=== PATIENT | female | born 1940 | race Caucasian/White ===

== ENCOUNTER → 2016-10-25 | Outpatient (CLI) | payer MEDICARE, OTHER ==
[~2016-10-25] MED LIST: ASP81TEC PO; CA C1TAB26 PO; CALC-80 PO; CLOP75TA PO; DLT180CCR PO; HYDR-34 PO; HYDR1TAB PO; MULT1CAP27 PO; OMEG1CAP74 PO; SIMV20TA3 PO
--- NOTE | 2016-10-27 07:59 | Diagnostic Imaging Report ---
Bilateral screening mammogram The current study was also evaluated with a Computer Aided Detection (CAD) system. Indication: Screening. No current complaints stated on the questionnaire. COMPARISON: 10/25/15. FINDINGS: The breasts are composed of scattered fibroglandular densities. There are benign-appearing calcifications seen. Allowing for technique and positional differences, no suspicious change is seen. IMPRESSION: No significant change. ACR BI-RADS Category 2: Benign findings. Result letter will be mailed to the patient. Note: At least 10% of breast cancer is not imaged by mammography. Dictated by: Dictated on workstation # [id number]
== END ==
LOC: RAD 10:30
PROVIDERS: ATTEND Family Medicine
DX: Z12.31 Encounter for screening mammogram for malignant neoplasm of breast (principal)
CPT/HCPCS: 77067

== ENCOUNTER → 2017-01-30 | Outpatient (CLI) | payer MEDICARE, OTHER ==
[~2017-01-30] VITALS: Ht 165.1 cm; Wt 56.2 kg
[~2017-01-30] MED LIST changes: +CATHETER FLUSH 10 ML SYR IV PRN; +REGADENOSON 0.4 MG/5 ML SYR (LEXISCAN) IV ONE
[2017-01-30 09:05] VITALS: BP 150/75
--- NOTE | 2017-01-31 08:20 | STRESS TEST ---
DATE OF SERVICE: 01/30/2017 RESTING AND POST REGADENOSON [id number] TETROFOSMIN SPECT CT IMAGING ORDERING PHYSICIAN: Dr. العراقي. PRIMARY CARE PHYSICIAN: Dr. Galarza. CLINICAL DIAGNOSIS: Chest discomfort. Baseline images were carried out after injection of 10.22 mCi of Oogkbuecld-24-j Tetrofosmin. This was followed by 0.4 mg Regadenoson and 31.7 mCi Uapsmxmkfm-12-m Tetrofosmin for stress imaging. The electrocardiogram showed sinus rhythm at baseline. There was nonspecific ST abnormality throughout the study. The electrocardiogram did not change significantly. Overall, the patient tolerated the procedure well. Review of images at rest and following stress does not indicate any significant perfusion defects consistent with significant myocardial ischemia or infarction. Gated images show normal global left ventricular systolic function with normal regional wall motion. Left ventricular ejection fraction is calculated to be 73%. Left ventricular end diastolic volume is 34 mL. TID is absent (1.13). CONCLUSIONS: 1. No evidence of any significant myocardial ischemia or infarction on this study. 2. Normal regional wall motion. 3. Normal global left ventricular systolic function with a calculated ejection fraction of 73%. Job ID: [id number] DocumentID: [id number] Dictated Date: 01/30/2017 14:56:54 [place] Reporter Date: 01/31/2017 07:10:47 Dictated By: MATTHEW العراقي MD, MA, FACP, FACC,
== END ==
LOC: CARD 07:11
PROVIDERS: ATTEND Internal Medicine Cardiovascular Disease
DX: I70.213 Atherosclerosis of native arteries of extremities with intermittent claudication, bilateral legs (principal); I10 Essential (primary) hypertension; E78.4 Other hyperlipidemia; R07.89 Other chest pain
CPT/HCPCS: 78452; 93017

== ENCOUNTER → 2017-10-26 | Outpatient (CLI) | payer MEDICARE, OTHER ==
[~2017-10-26] MED LIST changes: -CATHETER FLUSH 10 ML SYR IV PRN; -REGADENOSON 0.4 MG/5 ML SYR (LEXISCAN) IV ONE
--- NOTE | 2017-10-26 12:30 | Diagnostic Imaging Report ---
INDICATION: Routine screening. Comparison is made with prior mammogram from 10/25/2016 and 10/25/2015. 2-D and 3-D bilateral screening mammography was performed. The current study was also evaluated with a Computer Aided Detection (CAD) system. FINDINGS: Both breasts remain heterogeneously dense, limiting the sensitivity of mammography. Scattered benign-appearing parenchymal and vascular calcifications are noted bilaterally. Circumscribed nodule in the outer right breast appears stable and most consistent with an intramammary lymph node. No spiculated masses or malignant-appearing microcalcifications are seen. The axillae are unremarkable. IMPRESSION: No mammographic features suspicious for malignancy are identified. ACR BI-RADS Category 2: Benign findings. Result letter will be mailed to the patient. Note: At least 10% of breast cancer is not imaged by mammography. Dictated by: Dictated on workstation # [id number]
== END ==
LOC: RAD 10:33
PROVIDERS: ATTEND Family Medicine
DX: Z12.31 Encounter for screening mammogram for malignant neoplasm of breast (principal)
CPT/HCPCS: 77067

== ENCOUNTER → 2018-01-24 | Outpatient (CLI) | payer MEDICARE, OTHER ==
[2018-01-24 15:32] LABS: ALANINE AMINOTRANSFERASE 20 U/L (0-55); ALBUMIN 3.9 GM/DL (3.2-4.5); ALKALINE PHOSPHATASE 67 U/L (40-136); BILIRUBIN,TOTAL 0.3 MG/DL (0.1-1.0); BUN/CREATININE RATIO 8; CALCIUM 9.3 MG/DL (8.5-10.1); CARBON DIOXIDE 25 MMOL/L (21-32); CHLORIDE 98 MMOL/L (98-107); CHOLESTEROL 154 MG/DL (< 200); CREATININE SERUM 0.59 MG/DL (0.60-1.30); GFR ESTIMATED > 60; GLUCOSE 102 MG/DL (70-105); HDL CHOLESTEROL 72 MG/DL (40-60); POTASSIUM 3.7 MMOL/L (3.6-5.0); SODIUM 132 MMOL/L (135-145); TOTAL PROTEIN 6.5 GM/DL (6.4-8.2); TRIGLYCERIDES 128 MG/DL (<150); VLDL CHOLESTEROL 26 MG/DL (5-40)
== END ==
LOC: LAB 14:59
PROVIDERS: ATTEND Internal Medicine Cardiovascular Disease
DX: E78.5 Hyperlipidemia, unspecified (principal); I73.9 Peripheral vascular disease, unspecified; I77.89 Other specified disorders of arteries and arterioles; R07.89 Other chest pain
CPT/HCPCS: 36415; 80053; 80061

== ENCOUNTER 2018-07-03 11:48 | Inpatient (IN) | payer MEDICARE, OTHER ==
[~2018-07-03] VITALS: Ht 160 cm; Wt 54.4 kg
[2018-07-03 04:15] VITALS: BP 140/63
[2018-07-03] MEDS ORDERED: DILT180C54 PO (13:25)
[2018-07-03] MEDS ORDERED: SIMV20TA3 PO (13:25)
[2018-07-03] MEDS ORDERED: MULT-1029 PO (13:25)
[2018-07-03] MEDS ORDERED: CALC-901 PO (13:25)
[2018-07-03] MEDS ORDERED: CLOP75TA28 PO (13:25)
[2018-07-03] MEDS ORDERED: ASPI-983 PO (13:25)
--- NOTE | 2018-07-03 13:28 | NUR ---
SPOKE WITH THE PATIENT ABOUT HER MEDICATIONS. SHE HAD HER BOTTLES WITH HER AND WAS ABLE TO TELL ME EXACTLY HOW SHE TAKES EACH. I COMPARED WITH THE EXT MED HX. ADDITIONALLY SHE TAKES CALCIUM +D 600-800IU HS, ASPIRIN 81MG HS, AND MTV DAILY OTC.
[2018-07-03] MEDS ORDERED: CATHETER FLUSH 10 ML SYR IV PRN (13:45)
[2018-07-03] MEDS ORDERED: KCL 10 MEQ TAB (MICRO K) PO NR (13:45)
[2018-07-03 13:53] VITALS: BP 173/85
[2018-07-03 13:56] LABS: HEMOGLOBIN 13.9 G/DL (11.5-16.0); MEAN PLATELET VOLUME 9.4 FL (7.4-10.4); RED CELL DISTRIBUTION WIDTH 11.6 % (10.0-14.5); WHITE BLOOD COUNT 7.2 10^3/uL (4.3-11.0)
[2018-07-03] MEDS: NS IV 1000 ML 1,000 ML IV SCH (14:07)
[2018-07-03 14:12] LABS: ALANINE AMINOTRANSFERASE 74 U/L (0-55); ALBUMIN 3.8 GM/DL (3.2-4.5); ALKALINE PHOSPHATASE 86 U/L (40-136); BILIRUBIN,TOTAL 0.4 MG/DL (0.1-1.0); BUN/CREATININE RATIO 8; CALCIUM 9.3 MG/DL (8.5-10.1); CARBON DIOXIDE 26 MMOL/L (21-32); CHLORIDE 80 MMOL/L (98-107); CREATININE SERUM 0.53 MG/DL (0.60-1.30); GFR ESTIMATED > 60; GLUCOSE 114 MG/DL (70-105); POTASSIUM 2.8 MMOL/L (3.6-5.0); TOTAL PROTEIN 6.4 GM/DL (6.4-8.2)
[2018-07-03 14:17] LABS: SODIUM 117 MMOL/L (135-145)
[2018-07-03 15:45] VITALS: BP 155/73
[2018-07-03] MEDS ORDERED: KCL 20 MEQ TAB (K-DUR) PO NR (18:30)
--- NOTE | 2018-07-03 18:33 | NUR ---
DR. IRIZARRY HERE AT THIS TIME TO SEE PATIENT, HISTORY AND PHYSICAL COMPLETED AT THIS TIME.
[2018-07-03 19:07] VITALS: BP 165/76
[2018-07-03] MEDS ORDERED: SIMvastatin 20 MG (ZOCOR) TAB PO SCH (21:00)
[2018-07-03] MEDS ORDERED: NON-FORMULARY MEDICATION 1 EA EA (Calcium Carbonate/Vitamin D3 (Calcium 600 + Vit D 800 Ta PO SCH (21:00)
[2018-07-03] MEDS: CALCIUM CARB + VIT D 600 MG (CALCARB + D) TAB PO SCH (21:08)
[2018-07-03] MEDS: ATORVASTATIN 10 MG (LIPITOR) TABLET PO SCH (21:09)
[2018-07-03] MEDS: ASPIRIN E.C. 81 MG (ECOTRIN) TAB PO SCH (21:09)
[2018-07-04 00:28] VITALS: BP 158/74
[2018-07-04] MEDS: NS IV 1000 ML 1,000 ML IV SCH ×2 (03:30→20:12)
[2018-07-04 04:15] VITALS: BP 140/63
[2018-07-04 04:43] LABS: HEMOGLOBIN 12.2 G/DL (11.5-16.0); MEAN PLATELET VOLUME 9.3 FL (7.4-10.4); RED CELL DISTRIBUTION WIDTH 11.8 % (10.0-14.5)
[2018-07-04 05:07] LABS: ALANINE AMINOTRANSFERASE 61 U/L (0-55); ALBUMIN 3.2 GM/DL (3.2-4.5); ALKALINE PHOSPHATASE 71 U/L (40-136); BILIRUBIN,TOTAL 0.3 MG/DL (0.1-1.0); BUN/CREATININE RATIO 9; CALCIUM 8.4 MG/DL (8.5-10.1); CARBON DIOXIDE 23 MMOL/L (21-32); CHLORIDE 91 MMOL/L (98-107); CHOLESTEROL 112 MG/DL (< 200); CREATININE SERUM 0.44 MG/DL (0.60-1.30); GFR ESTIMATED > 60; GLUCOSE 89 MG/DL (70-105); HDL CHOLESTEROL 57 MG/DL (40-60); POTASSIUM 3.3 MMOL/L (3.6-5.0); TOTAL PROTEIN 5.2 GM/DL (6.4-8.2); TRIGLYCERIDES 56 MG/DL (<150); VLDL CHOLESTEROL 11 MG/DL (5-40)
[2018-07-04 05:11] LABS: SODIUM 120 MMOL/L (135-145)
[2018-07-04 08:00] VITALS: BP 155/69
[2018-07-04] MEDS ORDERED: KCL 20 MEQ TAB (K-DUR) PO NR (08:30)
--- NOTE | 2018-07-04 08:57 | History & Physicial ---
History of Present Illness History of Present Illness Reason for visit/HPI patient seen yesterday. Computed not working. Do an H&P today. Patient has a sodium of 117. Patient complains of headache and lightheaded patient has nauseousness and not eating. Patient also having leg muscle weakness Patient not having any mental status change. Patient felt terrible. surgeries fluid around hot, to heart catheterization, and fractured right wrist. Patient admitted area Patient states she has not been eating and only drinking Date of Admission Jul 03, 2018 at 18:32 Time Seen by a Provider: 08:53 I consulted on this patient on 07/04/18 08:53 Attending Physician Dru Irizarry DO Admitting Physician Dru Irizarry DO Consult Allergies and Home Medications Allergies Coded Allergies: NKANo Known Allergies (Verified Allergy, Unknown, 07/03/18) Home Medications Aspirin 81 Mg Tablet.dr, 81 MG PO HS, (Reported) Calcium Carbonate/Vitamin D3 1 Each Tablet, 1 TAB PO HS, (Reported) Clopidogrel Bisulfate 75 Mg Tablet, 75 MG PO DAILY, (Reported) Diltiazem HCl 180 Mg Cap.er.24h, 180 MG PO DAILY, (Reported) Multivit-Min/FA/Lycopene/Lut 1 Each Tablet, 1 TAB PO DAILY, (Reported) Simvastatin 20 Mg Tablet, 20 MG PO HS, (Reported) Patient Home Medication List Home Medication List Reviewed: Yes Past Luzryvn-Rkxhpf-Darurg Hx Patient Social History Employed/Student: retired Alcohol Use: Denies Use Recreational Drug Use: No Type Used: Cigarettes Physical Abuse Screen: No Sexual Abuse: No Recent Foreign Travel: No Contact w/other who traveled: No Recent Hopitalizations: Yes Recent Infectious Disease Expo: No Immunizations Up To Date Tetanus Booster (TDap): More than 5yrs Pediatric: No Date of Pneumonia Vaccine: Feb 23, 2011 Date of Influenza Vaccine: Feb 04, 2019 Surgeries Yes (pericardial effusion drained,mole removed) Respiratory No Currently Using CPAP: No Currently Using BIPAP: No Cardiovascular No Neurological No Reproductive System Hx Reproductive Disorders: No Sexually Transmitted Disease: No Genitourinary No Gastrointestinal No Musculoskeletal Yes (RIGHT WRIST FX, RIGHT SHOULDER PAIN) Endocrine History of Endocrine Disorders: No Are Your Blood Sugars Over 250: No HEENT History of HEENT Disorders: No Loss of Vision: Denies Hearing Impairment: Denies Cancer No Did You Recieve Any Treatments: No Psychosocial History of Psychiatric Problem: No Integumentary History of Skin or Integumenta: No Blood Transfusions History of Blood Disorders: No Family Medical History Family Hx: Alzheimer's disease Cardiovascular disease Diabetes mellitus Parkinson's disease Review of Systems Constitutional: malaise, weakness EENTM: no symptoms reported Respiratory: no symptoms reported Cardiovascular: no symptoms reported Gastrointestinal: other (not eating and drinking much) Genitourinary: no symptoms reported Physical Exam Vital Signs Vital Signs - First Documented 07/03/18 04:15 Temp 98.4 Pulse 61 Resp 20 B/P (MAP) 140/63 (88) Pulse Ox 96 O2 Delivery Room Air O2 Flow Rate 96.00 Capillary Refill : Height, Weight, BMI Height: 5'3.00" Weight: 120lbs. 0.0oz. [id number]; 20.0 BMI Method: General Appearance: No Apparent Distress Eyes: Bilateral Eye Normal Inspection HEENT: Normal ENT Inspection Neck: Full Range of Motion, Normal Inspection Respiratory: Chest Non Tender, Lungs Clear, Normal Breath Sounds, No Accessory Muscle Use, No Respiratory Distress Cardiovascular: Regular Rate, Rhythm, No Murmur Gastrointestinal: Non Tender, Soft Assessment/Plan Assessment and Plan hyponatremia. Headaches. Nauseous this. Leg muscle weakness. Hypertension. Coronary artery disease. Admission Diagnosis Admission Status: Inpatient Order (span 2 midnights) Reason for Inpatient Admission: hyponatremia. Headaches. Nauseousness. Leg muscle weakness. Hypertension. Coronary artery disease. Clinical Quality Measures DVT/VTE Risk/Contraindication: Risk Factor Score Per Nursin RFS Level Per Nursing on Admit: 3=High Contraindications-Pharm: Other *list below* DRU IRIZARRY DO Jul 04, 2018 08:57
[2018-07-04] MEDS ORDERED: NON-FORMULARY MEDICATION 1 EA EA (Diltiazem HCl (Cartia Xt) 180 MG) PO SCH (09:00)
[2018-07-04] MEDS ORDERED: NON-FORMULARY MEDICATION 1 EA EA (Multivit-Min/FA/Lycopene/Lut (Centrum Silver Tablet) 1 T PO SCH (09:00)
--- NOTE | 2018-07-04 09:00 | Progress Note (SOAP) ---
Subjective Time Seen by a Provider: 08:58 Subjective/Events-last exam patient feeling a little better today. Sodium 120. Patient still not eating much. Nurse state that patient had blood from vagina. Ultrasound ordered of the uterus Objective Exam Vital Signs Date Time Temp Pulse Resp B/P (MAP) Pulse Ox O2 Delivery O2 Flow Rate FiO2 07/04/18 08:00 98.4 63 18 155/69 (97) 96 Room Air 07/04/18 04:15 98.4 61 20 140/63 (88) 96 Room Air 07/04/18 00:28 98.2 64 18 158/74 (102) 96 Room Air 07/03/18 20:30 Room Air 07/03/18 19:07 97.6 66 18 165/76 (105) 98 Room Air 07/03/18 16:42 98 Room Air 07/03/18 15:45 98.9 65 16 155/73 (100) 98 Room Air 07/03/18 13:53 98.0 76 22 173/85 99 I & O 07/04/18 06:59 Intake Total 170 ml Balance 170 ml Capillary Refill : General Appearance: No Apparent Distress, WD/WN HEENT: Normal ENT Inspection Neck: Normal Inspection Respiratory: Lungs Clear, No Accessory Muscle Use, No Respiratory Distress Cardiovascular: Regular Rate, Rhythm, No Murmur Gastrointestinal: non tender, soft Results Lab Laboratory Tests 07/03/18 13:40 07/04/18 04:10 Laboratory Tests 07/03/18 13:40: White Blood Count 7.2, Red Blood Count 4.34L, Hemoglobin 13.9, Hematocrit 38, Mean Corpuscular Volume 87, Mean Corpuscular Hemoglobin 32, Mean Corpuscular Hemoglobin Concent 37H, Red Cell Distribution Width 11.6, Platelet Count 219, Mean Platelet Volume 9.4, Sodium Level 117*L, Potassium Level 2.8L, Chloride Level 80L, Carbon Dioxide Level 26, Anion Gap 11, Blood Urea Nitrogen 4L, Creatinine 0.53L, Estimat Glomerular Filtration Rate > 60, BUN/Creatinine Ratio 8, Glucose Level 114H, Calcium Level 9.3, Corrected Calcium 9.5, Total Bilirubin 0.4, Aspartate Amino Transf (AST/SGOT) 77H, Alanine Aminotransferase ( ALT/SGPT) 74H, Alkaline Phosphatase 86, Total Protein 6.4, Albumin 3.8 07/04/18 04:10: White Blood Count 6.0, Red Blood Count 3.74L, Hemoglobin 12.2, Hematocrit 33L, Mean Corpuscular Volume 88, Mean Corpuscular Hemoglobin 33, Mean Corpuscular Hemoglobin Concent 37H, Red Cell Distribution Width 11.8, Platelet Count 211, Mean Platelet Volume 9.3, Sodium Level 120*L, Potassium Level 3.3L, Chloride Level 91L, Carbon Dioxide Level 23, Anion Gap 6, Blood Urea Nitrogen 4L, Creatinine 0.44L, Estimat Glomerular Filtration Rate > 60, BUN/Creatinine Ratio 9, Glucose Level 89, Calcium Level 8.4L, Corrected Calcium 9.0, Total Bilirubin 0.3, Aspartate Amino Transf (AST/SGOT) 62H, Alanine Aminotransferase (ALT/SGPT) 61H, Alkaline Phosphatase 71, Total Protein 5.2L, Albumin 3.2, Triglycerides Level 56, Cholesterol Level 112, LDL Cholesterol Direct 32, VLDL Cholesterol 11 , HDL Cholesterol 57 Assessment/Plan Assessment/Plan Assess & Plan/Chief Complaint sodium 120. Hypertension. Not eating. Headaches. Nauseousness. Leg muscle weakness. Coronary artery disease. Postmenopausal vaginal bleeding Clinical Quality Measures Admission Status Admission Dx hyponatremia. Headaches. Nauseous this. Leg muscle weakness. Hypertension. Coronary artery disease. DVT/VTE Risk/Contraindication: Risk Factor Score Per Nursin RFS Level Per Nursing on Admit: 3=High Contraindications-Pharm: Other *list below* ISIDRO IRIZARRY DO Jul 04, 2018 09:00
[2018-07-04] MEDS: MULTIVIT W/MINERALS TAB (THERAGRAN M) PO SCH (09:38)
[2018-07-04] MEDS: CLOPIDOGREL 75 MG (PLAVIX) TABLET PO SCH (09:38)
[2018-07-04] MEDS: DILTIAZEM 180 MG (CARDIZEM CD) CAP PO SCH (09:38)
--- NOTE | 2018-07-04 10:21 | Diagnostic Imaging Report ---
EXAMINATION: Pelvic ultrasound. INDICATION: Postmenopausal bleeding There are no prior studies available for comparison. The uterus is not enlarged measuring 4.0 x 3.5 x 2.0 CM. The endometrial lining does not seem to be abnormally thickened measuring 3 MM (normal postmenopausal endometrial thickness 4 MM or less). There is no focal solid mass involving the uterus to suggest a fibroid. There may be a small subcentimeter nabothian cyst. Neither ovary could be identified. There is no solid pelvic mass noted. There may be a small amount of free fluid in the pelvis. IMPRESSION: 1. There is no acute pelvic abnormality identified although neither ovary could be identified. 2. The endometrial lining is not abnormally thickened. Dictated by: Dictated on workstation # [id number]
[2018-07-04 12:00] VITALS: BP 151/65
--- NOTE | 2018-07-04 15:35 | NUR ---
CM/SS, initial interview. Patient resides home alone and has been IADL of all activities, including driving. She does not have children but does have family members whom she indicates are attentive and caring. 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 DME: Her [id number]-uf-fnd is getting her a FWW arranged through [facility]. Another family member is getting her a medical alert system and does work at [employer], [employer]rianne [employer]. At this time, there are no obvious concerns and patient indicates she will go home at discharge as before. Care Management staff will continue to follow for developments and post hospital care needs.
[2018-07-04 17:02] VITALS: BP 154/72
[2018-07-04 19:20] VITALS: BP 153/72
[2018-07-04] MEDS: ATORVASTATIN 10 MG (LIPITOR) TABLET PO SCH (20:11)
[2018-07-04] MEDS: CALCIUM CARB + VIT D 600 MG (CALCARB + D) TAB PO SCH (20:11)
[2018-07-04] MEDS: ASPIRIN E.C. 81 MG (ECOTRIN) TAB PO SCH (20:11)
[2018-07-05] VITALS (7 sets, daily range): BP systolic 160–178; BP diastolic 72–78
[2018-07-05] MEDS: MULTIVIT W/MINERALS TAB (THERAGRAN M) PO SCH (05:27)
[2018-07-05 06:45] LABS: MEAN PLATELET VOLUME 10.1 FL (7.4-10.4); RED CELL DISTRIBUTION WIDTH 12.1 % (10.0-14.5); WHITE BLOOD COUNT 7.7 10^3/uL (4.3-11.0)
[2018-07-05 07:07] LABS: BUN/CREATININE RATIO 6; CALCIUM 9.1 MG/DL (8.5-10.1); CARBON DIOXIDE 24 MMOL/L (21-32); CHLORIDE 93 MMOL/L (98-107); CREATININE SERUM 0.54 MG/DL (0.60-1.30); GFR ESTIMATED > 60; GLUCOSE 83 MG/DL (70-105); SODIUM 126 MMOL/L (135-145)
[2018-07-05] MEDS ORDERED: KCL 20 MEQ TAB (K-DUR) PO NR (08:15)
--- NOTE | 2018-07-05 08:17 | Progress Note (SOAP) ---
Subjective Time Seen by a Provider: 08:14 Subjective/Events-last exam Patient still has an unsteady gait. Sodium 126. Patient will need a walker with wheels when discharged. To have physical therapy patient. Patient not ready for discharge today Objective Exam Vital Signs Date Time Temp Pulse Resp B/P (MAP) Pulse Ox O2 Delivery O2 Flow Rate FiO2 07/05/18 04:00 99.2 65 16 160/77 (104) 97 Room Air 07/05/18 00:00 97.4 62 18 161/74 (103) 97 Room Air 07/04/18 20:00 Room Air 07/04/18 19:20 98.0 71 16 153/72 (99) 95 Room Air 07/04/18 17:02 98.4 75 16 154/72 (99) 96 Room Air 07/04/18 12:00 98.4 58 18 151/65 (93) 96 Room Air I & O 07/05/18 07:00 Intake Total 300 ml Output Total 1450 ml Balance -1150 ml Capillary Refill : General Appearance: No Apparent Distress, WD/WN HEENT: Normal ENT Inspection Neck: Full Range of Motion, Normal Inspection Respiratory: No Accessory Muscle Use, No Respiratory Distress Cardiovascular: Regular Rate, Rhythm Results Lab Laboratory Tests 07/05/18 05:34 Laboratory Tests 07/05/18 05:34: White Blood Count 7.7, Red Blood Count 4.42, Hemoglobin 14.0, Hematocrit 40, Mean Corpuscular Volume 90, Mean Corpuscular Hemoglobin 32, Mean Corpuscular Hemoglobin Concent 35, Red Cell Distribution Width 12.1, Platelet Count 236, Mean Platelet Volume 10.1, Sodium Level 126L, Potassium Level 3.0L, Chloride Level 93L, Carbon Dioxide Level 24, Anion Gap 9, Blood Urea Nitrogen 3L, Creatinine 0.54L, Estimat Glomerular Filtration Rate > 60, BUN/Creatinine Ratio 6, Glucose Level 83, Calcium Level 9.1 Assessment/Plan Assessment/Plan Assess & Plan/Chief Complaint sodium 120. Hypertension. Not eating. Headaches. Nauseousness. Leg muscle weakness. Coronary artery disease. Postmenopausal vaginal bleeding. . 07/05/18. Sodium 126. Hypertension. Patient still has unsteady gait. Patient needs a walker with discharge. To get physical therapy Clinical Quality Measures Admission Status Admission Dx hyponatremia. Headaches. Nauseous this. Leg muscle weakness. Hypertension. Coronary artery disease. DVT/VTE Risk/Contraindication: Risk Factor Score Per Nursin RFS Level Per Nursing on Admit: 3=High Contraindications-Pharm: Other *list below* ISIDRO IRIZARRY DO Jul 05, 2018 08:17
[2018-07-05] MEDS: NS IV 1000 ML 1,000 ML IV SCH ×2 (09:42→22:55)
[2018-07-05] MEDS: CLOPIDOGREL 75 MG (PLAVIX) TABLET PO SCH (09:43)
[2018-07-05] MEDS: DILTIAZEM 180 MG (CARDIZEM CD) CAP PO SCH (09:43)
--- NOTE | 2018-07-05 11:34 | Physical Therapy Evaluation ---
PT Evaluation-General Medical Diagnosis Admission Date Jul 03, 2018 at 18:32 Medical Diagnosis: Hypoatremia, PAD Onset Date: Jul 03, 2018 Therapy Diagnosis Therapy Diagnosis: decreased mobility, weakness Height/Weight Height (Feet): 5 Height (Inches): 3.00 Weight (Pounds): 120 Weight (Ounces): 0.0 Precautions Precautions/Isolations: Standard Precautions Weight Bear Status Right Lower Extremity: Right Full Weight Bearing Left Lower Extremity: Left Full Weight Bearing Referral Physician: Dru Galarza DO Reason for Referral: Evaluation/Treatment Medical History Pertinent Medical History: CAD, HTN Additional Medical History R wrist fx Current History Referral to hospital from Dr. Galarza Reviewed History: Yes Social History Home: Single Level Current Living Status: Alone Entry Into Home: Stairs Without Railing PT Steps Into Home: 2 Prior/Core FIM Prior Level of Function Therapy Code Descriptions/Definitions Functional [place] Measure: 0=Not Assessed/NA 4=Minimal Assistance 1=Total Assistance 5=Supervision or Setup 2=Maximal Assistance 6=Modified [place] 3=Moderate Assistance 7=Complete [place] Therapy Quality Codes: 6 Independent with activity with or without an assistive device 5 Patient requires set up or clean up by helper. Patient completes activity by themselves 4 Supervision or touching assist (CGA). [place] provide cues , steadying assist 3 The helper provides less than half the effort to complete the activity 2 The helper provides more than half the effort to complete the activity 1 Dependent. The helper does all the effort to complete an activity 7 Patient refused to complete or attempt activity 9 The patient did not perform the activity before the current illness or injury 88 Not attempted due to Medical conditions or safety concerns Functional Abilities and Goals: Independent: Patient completed the activities by him/herself, with or without an assistive device, with no assistance from a helper. Needed Some Help: Patient needed partial assistance from another person to complete activities. Dependent: A helper completed the activities for the patient. 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 PT Evaluation-Current Subjective Pt is in bed and agrees to PT. Pt has hearing aids in, but from her responses to questions they do not seem to be on. Pain Numeric Pain Scale: 0-No Pain Location: No Pain Reported Pt/Family Goals Pt to return home. Objective Patient Orientation: Person Attachments: IV ROM/Strength ROM Lower Extremities WNL Strength Lower Extremities gross motor RLE (4/5); LLE (4-/5) Integumentary/Posture Bowel Incontinence: No Bladder Incontinence: No Neuromuscular (Tone, Coordination, Reflexes) NT Sensory Vision: Functional Hearing: Impaired Sensation Right Lower Extremit: Intact Sensation Left Lower Extremity: Intact Transfers Therapy Code Descriptions/Definitions Functional [place] Measure: 0=Not Assessed/NA 4=Minimal Assistance 1=Total Assistance 5=Supervision or Setup 2=Maximal Assistance 6=Modified [place] 3=Moderate Assistance 7=Complete [place] Transfers (B, C, W/C) (FIM): 5 Supine to/from Sit: 6 Sit to/from Stand: 5 Gait Mode of Locomotion: Walk Anticipated Mode of Locomotion: Walk Gait (FIM): 2 Distance (FIM): 9=415-44 ft Distance: 125' Gait Level of Assist: 4 Gait Persons Needed: 1 Gait Assistive Device: FWW Balance Sitting Static: Good Sitting Dynamic: Good Standing Static: Good Standing Dynamic: Good Assessment/Needs Pt was able to perform bed mobility mod I. Pt demonstrated sit<>stand transfer from EOB to FWW CGA for safety. During amb pt required VC for safety of FWW to stay within the walker. Pt has safety concerns during transfers due to not using proper hand placement. Pt returned to room and transferred to EOB. Pt was able to perform seated LE ex with SPT instruction (AP, LAQ, hip flex, hip abd) x15 reps. Pt is in bed with all needs met. PT to continue to work on FWW safety with transfers and amb and improve pts general strength. Rehab Potential: Good Post Rehab Potential-Barriers: co-morbidities PT Short Term Goals Short Term Goals Time Frame: Jul 12, 2018 Transfers (B,C,W/C) (FIM): 6 Gait (FIM): 6 Distance (FIM): 3=150 ft Gait Distance Comment: 175' Gait Level of Assist: 6 Gait Assistive Device: FWW PT Plan Problem List Problem List: Activity Tolerance, Functional Strength, Safety, Balance, Gait, Transfer, Bed Mobility, ROM Treatment/Plan Treatment Plan: Continue Plan of Care Treatment Plan: Bed Mobility, Education, Functional Activity [place], Functional Strength, Gait, Safety, Therapeutic Exercise, Transfers Treatment Duration: Jul 12, 2018 Frequency: 6 times per week Estimated Hrs Per Day: .25 hour per day Patient and/or Family Agrees t: Yes Safety Risks/Education Patient Education: Gait Training, Transfer Techniques, Correct Positioning, Safety Issues Teaching Recipient: Patient Teaching Methods: Demonstration, Discussion Discharge Recommendations Therapy D/C Recommendations: Home w/ Family Support Time/GCodes Time In: 1002 Time Out: 1016 Total Billed Treatment Time: 14 Total Billed Treatment 1 visit EVL 14 min [place] PT Jul 05, 2018 11:34
[2018-07-05] MEDS: ASPIRIN E.C. 81 MG (ECOTRIN) TAB PO SCH (19:45)
[2018-07-05] MEDS: ATORVASTATIN 10 MG (LIPITOR) TABLET PO SCH (19:45)
[2018-07-05] MEDS: CALCIUM CARB + VIT D 600 MG (CALCARB + D) TAB PO SCH (19:45)
[2018-07-06 04:12] LABS: HEMOGLOBIN 12.5 G/DL (11.5-16.0); MEAN PLATELET VOLUME 9.6 FL (7.4-10.4); RED CELL DISTRIBUTION WIDTH 12.3 % (10.0-14.5); WHITE BLOOD COUNT 6.4 10^3/uL (4.3-11.0)
[2018-07-06 04:31] LABS: BUN/CREATININE RATIO 9; CALCIUM 8.5 MG/DL (8.5-10.1); CARBON DIOXIDE 22 MMOL/L (21-32); CHLORIDE 96 MMOL/L (98-107); CREATININE SERUM 0.43 MG/DL (0.60-1.30); GFR ESTIMATED > 60; GLUCOSE 94 MG/DL (70-105); POTASSIUM 3.1 MMOL/L (3.6-5.0); SODIUM 126 MMOL/L (135-145)
[2018-07-06] MEDS: MULTIVIT W/MINERALS TAB (THERAGRAN M) PO SCH (06:17)
[2018-07-06 08:00] VITALS: BP 174/79
[2018-07-06] MEDS: DILTIAZEM 180 MG (CARDIZEM CD) CAP PO SCH (08:40)
[2018-07-06] MEDS: CLOPIDOGREL 75 MG (PLAVIX) TABLET PO SCH (08:40)
--- NOTE | 2018-07-06 11:28 | Physical Therapy Daily Note ---
PT Daily Note-Current Subjective Pt. agrees to Rx and states she hopes she will get a FWW for home use at [place]. Pain Location: No Pain Reported Mental Status Patient Orientation: Normal For Age Attachments: IV Transfers Therapy Code Descriptions/Definitions Functional [place] Measure: 0=Not Assessed/NA 4=Minimal Assistance 1=Total Assistance 5=Supervision or Setup 2=Maximal Assistance 6=Modified [place] 3=Moderate Assistance 7=Complete [place] Therapy Quality Codes: 6 Independent with activity with or without an assistive device 5 Patient requires set up or clean up by helper. Patient completes activity by themselves 4 Supervision or touching assist (CGA). [place] provide cues , steadying assist 3 The helper provides less than half the effort to complete the activity 2 The helper provides more than half the effort to complete the activity 1 Dependent. The helper does all the effort to complete an activity 7 Patient refused to complete or attempt activity 9 The patient did not perform the activity before the current illness or injury 88 Not attempted due to Medical conditions or safety concerns in out bed and chair CGA Weight Bearing Right Lower Extremity: Right Full Weight Bearing Left Lower Extremity: Left Full Weight Bearing Gait Training Gait Assistive Device: FWW 150ft x 2 FWW needed instruction for use of FWW and steering. slow, some fatigue. Exercises Seated Therapy Exercises: Ankle pumps, Sit to stand, Long arc quads, Hip flexion, Hip abd/add Seated Reps: 14 Assessment Current Status: Good Progress PT Short Term Goals Short Term Goals Time Frame: Jul 12, 2018 Transfers (B,C,W/C) (FIM): 6 Gait (FIM): 6 Distance (FIM): 3=150 ft Gait Distance Comment: 175' Gait Level of Assist: 6 Gait Assistive Device: FWW PT Plan Treatment/Plan Treatment Plan: Continue Plan of Care Treatment Plan: Bed Mobility, Education, Functional Activity [place], Functional Strength, Gait, Safety, Therapeutic Exercise, Transfers Treatment Duration: Jul 12, 2018 Frequency: 6 times per week Estimated Hrs Per Day: .25 hour per day Patient and/or Family Agrees t: Yes Safety Risks/Education Patient Education: Gait Training, Transfer Techniques, Correct Positioning, Disease Process, Safety Issues Teaching Recipient: Patient Teaching Methods: Demonstration, Discussion Response to Teaching: Verbalize Understanding, Return Demonstration, Reinforcement Needed Time/GCodes Time In: 1100 Time Out: 1123 Total Billed Treatment Time: 23 Total Billed Treatment 1,GT13m,EX10m G Codes Necessary: ANY Baker DIE DEVELOPER Jul 06, 2018 11:28
--- NOTE | 2018-07-06 12:40 | Progress Note-Hospitalist ---
Subjective HPI/CC On Admission Date Seen by Provider: Jul 06, 2018 Time Seen by Provider: 11:00 Subjective/Events-last exam Patient talks about her bowels a lot to great detail about a recent impaction Still weak Has h/o low sodium in the past Fluid restriction tolerated Review of Systems General: Fatigue Objective Exam Vital Signs Vital Signs Date Time Temp Pulse Resp B/P (MAP) Pulse Ox O2 Delivery O2 Flow Rate FiO2 07/06/18 08:00 98.2 70 20 174/79 (110) 98 Room Air 07/03/18 04:15 96.00 Capillary Refill : General Appearance: No Apparent Distress, WD/WN, Chronically ill HEENT: Normal ENT Inspection Neck: Full Range of Motion, Normal Inspection Respiratory: Lungs Clear, Normal Breath Sounds, No Accessory Muscle Use, No Respiratory Distress Cardiovascular: Regular Rate, Rhythm Gastrointestinal: Non Tender, Soft Neurologic/Psychiatric: Alert, Oriented x3, No Motor/Sensory Deficits, Normal Mood/Affect Results/Procedures Lab Laboratory Tests 07/06/18 03:35 Patient resulted labs reviewed. Assessment/Plan Assessment and Plan Assess & Plan/Chief Complaint Assessment: Hyponatremia Weakness Nausea h/o constipation Plan: Monitor bowels Fluid restriction Diagnosis/Problems Diagnosis/Problems (1) Hyponatremia Status: Acute (2) Weakness Status: Acute (3) Nausea Status: Acute Clinical Quality Measures DVT/VTE Risk/Contraindication: Risk Factor Score Per Nursin RFS Level Per Nursing on Admit: 3=High Contraindications-Pharm: Other *list below* MYRON ALEXANDRA DO Jul 06, 2018 12:40
[2018-07-06 15:33] VITALS: BP 164/70
[2018-07-06] MEDS: ASPIRIN E.C. 81 MG (ECOTRIN) TAB PO SCH (19:31)
[2018-07-06] MEDS: ATORVASTATIN 10 MG (LIPITOR) TABLET PO SCH (19:31)
[2018-07-06] MEDS: CALCIUM CARB + VIT D 600 MG (CALCARB + D) TAB PO SCH (19:31)
[2018-07-06 23:00] VITALS: BP 164/73
[2018-07-06] MEDS: NS IV 1000 ML 1,000 ML IV SCH (23:52)
[2018-07-07] MEDS: MULTIVIT W/MINERALS TAB (THERAGRAN M) PO SCH (05:28)
[2018-07-07] MEDS: NS IV 1000 ML 1,000 ML IV SCH ×2 (05:29→13:38)
[2018-07-07 06:22] LABS: BASOPHILS % (AUTO) 1 % (0-10); EOSINOPHILS # (AUTO) 0.1 10^3/uL (0.0-0.3); EOSINOPHILS % (AUTO) 2 % (0-10); HEMATOCRIT 36 % (35-52); HEMOGLOBIN 12.8 G/DL (11.5-16.0); LYMPHOCYTES # (AUTO) 0.9 X 10^3 (1.0-4.0); LYMPHOCYTES % (AUTO) 15 % (12-44); MEAN CORPUSCULAR HEMOGLOBIN 32 PG (25-34); MEAN CORPUSCULAR HGB CONC 35 G/DL (32-36); MEAN CORPUSCULAR VOLUME 90 FL (80-99); MEAN PLATELET VOLUME 9.3 FL (7.4-10.4); MONOCYTES # (AUTO) 0.9 X 10^3 (0.0-1.0); MONOCYTES % (AUTO) 14 % (0-12); NEUTROPHILS # (AUTO) 4.1 X 10^3 (1.8-7.8); NEUTROPHILS % (AUTO) 68 % (42-75); PLATELET COUNT 205 10^3/uL (130-400); RED CELL DISTRIBUTION WIDTH 12.3 % (10.0-14.5)
[2018-07-07 06:48] LABS: ALANINE AMINOTRANSFERASE 42 U/L (0-55); ALBUMIN 3.2 GM/DL (3.2-4.5); ALKALINE PHOSPHATASE 73 U/L (40-136); BILIRUBIN,TOTAL 0.3 MG/DL (0.1-1.0); BUN/CREATININE RATIO 7; CALCIUM 8.3 MG/DL (8.5-10.1); CARBON DIOXIDE 22 MMOL/L (21-32); CHLORIDE 95 MMOL/L (98-107); CREATININE SERUM 0.45 MG/DL (0.60-1.30); GFR ESTIMATED > 60; GLUCOSE 101 MG/DL (70-105); POTASSIUM 2.8 MMOL/L (3.6-5.0); SODIUM 126 MMOL/L (135-145); TOTAL PROTEIN 5.4 GM/DL (6.4-8.2)
[2018-07-07 08:00] VITALS: BP 170/81
[2018-07-07] MEDS: DILTIAZEM 180 MG (CARDIZEM CD) CAP PO SCH (08:36)
[2018-07-07] MEDS: CLOPIDOGREL 75 MG (PLAVIX) TABLET PO SCH (08:37)
--- NOTE | 2018-07-07 12:59 | Progress Note-Hospitalist ---
Subjective HPI/CC On Admission Date Seen by Provider: Jul 07, 2018 Time Seen by Provider: 11:10 Subjective/Events-last exam Sodium remains 126 Maintain on IV fluid Changed ice chips to Gatorade Bowel movement yesterday Denies any other significant problems Review of Systems General: Fatigue Objective Exam Vital Signs Vital Signs Date Time Temp Pulse Resp B/P (MAP) Pulse Ox O2 Delivery O2 Flow Rate FiO2 07/07/18 16:07 97.2 67 16 158/80 (106) 99 Room Air 07/03/18 04:15 96.00 Capillary Refill : General Appearance: No Apparent Distress, WD/WN, Chronically ill HEENT: Normal ENT Inspection Neck: Full Range of Motion, Normal Inspection Respiratory: Lungs Clear, Normal Breath Sounds, No Accessory Muscle Use, No Respiratory Distress Cardiovascular: Regular Rate, Rhythm Gastrointestinal: Non Tender, Soft Neurologic/Psychiatric: Alert, Oriented x3, No Motor/Sensory Deficits, Normal Mood/Affect Results/Procedures Lab Laboratory Tests 07/07/18 06:02 Patient resulted labs reviewed. Assessment/Plan Assessment and Plan Assess & Plan/Chief Complaint Assessment: Hyponatremia Weakness Nausea h/o constipation Plan: Monitor bowels Fluid restriction Diagnosis/Problems Diagnosis/Problems (1) Hyponatremia Status: Acute (2) Weakness Status: Acute (3) Nausea Status: Acute Clinical Quality Measures DVT/VTE Risk/Contraindication: Risk Factor Score Per Nursin RFS Level Per Nursing on Admit: 3=High Contraindications-Pharm: Other *list below* MYRON ALEXANDRA DO Jul 07, 2018 12:59
[2018-07-07 16:07] VITALS: BP 158/80
[2018-07-07] MEDS: ASPIRIN E.C. 81 MG (ECOTRIN) TAB PO SCH (19:35)
[2018-07-07] MEDS: CALCIUM CARB + VIT D 600 MG (CALCARB + D) TAB PO SCH (19:35)
[2018-07-07] MEDS: ATORVASTATIN 10 MG (LIPITOR) TABLET PO SCH (19:35)
[2018-07-07 23:00] VITALS: BP 168/76
[2018-07-08] MEDS: NS IV 1000 ML 1,000 ML IV SCH (00:46)
[2018-07-08] MEDS: MULTIVIT W/MINERALS TAB (THERAGRAN M) PO SCH (05:06)
--- NOTE | 2018-07-08 07:59 | Progress Note (SOAP) ---
Subjective Time Seen by a Provider: 07:57 Subjective/Events-last exam Hyponatremia. Elevated liver tests. Hypokalemia. Hypertension. Patient getting around with walker Objective Exam Vital Signs Date Time Temp Pulse Resp B/P (MAP) Pulse Ox O2 Delivery O2 Flow Rate FiO2 07/07/18 23:00 97.2 70 16 168/76 (106) 99 Room Air 07/07/18 20:24 Room Air 07/07/18 16:07 97.2 67 16 158/80 (106) 99 Room Air 07/07/18 08:15 98 Room Air 07/07/18 08:00 97.8 70 18 170/81 (110) 99 Room Air I & O 07/08/18 07:00 Intake Total 2480 ml Balance 2480 ml Capillary Refill : General Appearance: No Apparent Distress, WD/WN HEENT: Normal ENT Inspection Neck: Full Range of Motion, Normal Inspection Respiratory: Lungs Clear, No Accessory Muscle Use, No Respiratory Distress Cardiovascular: Regular Rate, Rhythm, No Murmur Gastrointestinal: non tender, soft Assessment/Plan Assessment/Plan Assess & Plan/Chief Complaint sodium 120. Hypertension. Not eating. Headaches. Nauseousness. Leg muscle weakness. Coronary artery disease. Postmenopausal vaginal bleeding. . 07/05/18. Sodium 126. Hypertension. Patient still has unsteady gait. Patient needs a walker with discharge. To get physical therapy. . 07/08/18. Hyponatremia. Hypokalemia. Hypertension. Patient uses walker to get around. Clinical Quality Measures Admission Status Admission Dx hyponatremia. Headaches. Nauseous this. Leg muscle weakness. Hypertension. Coronary artery disease. DVT/VTE Risk/Contraindication: Risk Factor Score Per Nursin RFS Level Per Nursing on Admit: 3=High Contraindications-Pharm: Other *list below* ISIDRO IRIZARRY DO Jul 08, 2018 07:59
[2018-07-08 08:00] VITALS: BP 171/69
[2018-07-08] MEDS ORDERED: KCL 10 MEQ TAB (MICRO K) PO NR (08:00)
[2018-07-08] MEDS ORDERED: SODIUM CHLORIDE 1 GM TAB (NON-FORMULARY) PO NR (08:45)
[2018-07-08 08:57] LABS: BUN/CREATININE RATIO 7; CALCIUM 8.9 MG/DL (8.5-10.1); CARBON DIOXIDE 25 MMOL/L (21-32); CHLORIDE 96 MMOL/L (98-107); CREATININE SERUM 0.56 MG/DL (0.60-1.30); GFR ESTIMATED > 60; GLUCOSE 116 MG/DL (70-105); SODIUM 131 MMOL/L (135-145)
[2018-07-08 09:06] LABS: POTASSIUM 2.5 MMOL/L (3.6-5.0)
[2018-07-08] MEDS: DILTIAZEM 180 MG (CARDIZEM CD) CAP PO SCH (09:09)
[2018-07-08] MEDS: CLOPIDOGREL 75 MG (PLAVIX) TABLET PO SCH (09:09)
--- NOTE | 2018-07-08 09:39 | Physical Therapy Daily Note ---
PT Daily Note-Current Subjective Pt in bed and agrees to PT. Pain Numeric Pain Scale: 0-No Pain Location: No Pain Reported Mental Status Patient Orientation: Person, Place Attachments: IV Transfers Therapy Code Descriptions/Definitions Functional [place] Measure: 0=Not Assessed/NA 4=Minimal Assistance 1=Total Assistance 5=Supervision or Setup 2=Maximal Assistance 6=Modified [place] 3=Moderate Assistance 7=Complete [place] Therapy Quality Codes: 6 Independent with activity with or without an assistive device 5 Patient requires set up or clean up by helper. Patient completes activity by themselves 4 Supervision or touching assist (CGA). [place] provide cues , steadying assist 3 The helper provides less than half the effort to complete the activity 2 The helper provides more than half the effort to complete the activity 1 Dependent. The helper does all the effort to complete an activity 7 Patient refused to complete or attempt activity 9 The patient did not perform the activity before the current illness or injury 88 Not attempted due to Medical conditions or safety concerns Transfers (B, C, W/C) (FIM): 6 Scootin Sit to/from Stand: 6 Weight Bearing Right Lower Extremity: Right Full Weight Bearing Left Lower Extremity: Left Full Weight Bearing Gait Training Gait (FIM): 6 Distance (FIM): 3=150 ft Distance: 300' Gait Level of Assist: 6 Gait Persons Needed: 1 Gait Assistive Device: FWW Exercises Seated Therapy Exercises: Ankle pumps, Long arc quads, Hip flexion, Hip abd/add Seated Reps: 15 Assessment Current Status: Good Progress Pt was able to perform bed mobility mod I. Pt transfers mod I with proper safety hand placement. Pt was able to amb 300' with mod I and SPT assisted with IV pole. Pt returned to room and transferred to recliner. Pt was able to perform seated LE ex with instruction. Pt has all needs met and is in recliner. PT Short Term Goals Short Term Goals Time Frame: Jul 12, 2018 Transfers (B,C,W/C) (FIM): 6 Gait (FIM): 6 Distance (FIM): 3=150 ft Gait Distance Comment: 175' Gait Level of Assist: 6 Gait Assistive Device: FWW PT Plan Problem List Problem List: Activity Tolerance, Functional Strength, Safety, Balance, Gait, Transfer, Bed Mobility, ROM Treatment/Plan Treatment Plan: Continue Plan of Care Treatment Plan: Bed Mobility, Education, Functional Activity [place], Functional Strength, Gait, Safety, Therapeutic Exercise, Transfers Treatment Duration: Jul 12, 2018 Frequency: 6 times per week Estimated Hrs Per Day: .25 hour per day Patient and/or Family Agrees t: Yes Time/GCodes Time In: 813 Time Out: 826 Total Billed Treatment Time: 13 Total Billed Treatment 1 visit FA 13 min KUSHAL HILLS PT Jul 08, 2018 09:39
[2018-07-08] MEDS ORDERED: KCL 10 MEQ TAB (MICRO K) PO ONE (12:00)
[2018-07-08] MEDS ORDERED: KCL 20 MEQ TAB (K-DUR) PO NR ×2 (12:15→20:15)
[2018-07-08 15:30] VITALS: BP 154/73
[2018-07-08 16:43] LABS: BUN/CREATININE RATIO 12; CALCIUM 8.9 MG/DL (8.5-10.1); CARBON DIOXIDE 26 MMOL/L (21-32); CHLORIDE 97 MMOL/L (98-107); GFR ESTIMATED > 60; GLUCOSE 116 MG/DL (70-105); POTASSIUM 2.9 MMOL/L (3.6-5.0); SODIUM 133 MMOL/L (135-145)
[2018-07-08] MEDS: ATORVASTATIN 10 MG (LIPITOR) TABLET PO SCH (20:25)
[2018-07-08] MEDS: ASPIRIN E.C. 81 MG (ECOTRIN) TAB PO SCH (20:25)
[2018-07-08] MEDS: CALCIUM CARB + VIT D 600 MG (CALCARB + D) TAB PO SCH (20:25)
[2018-07-09] VITALS: BP 154/73
[2018-07-09 04:00] VITALS: BP 161/74
[2018-07-09] MEDS: MULTIVIT W/MINERALS TAB (THERAGRAN M) PO SCH (06:24)
[2018-07-09 06:28] LABS: BUN/CREATININE RATIO 13; CALCIUM 8.9 MG/DL (8.5-10.1); CARBON DIOXIDE 22 MMOL/L (21-32); CHLORIDE 102 MMOL/L (98-107); CREATININE SERUM 0.46 MG/DL (0.60-1.30); GFR ESTIMATED > 60; GLUCOSE 88 MG/DL (70-105); POTASSIUM 3.9 MMOL/L (3.6-5.0); SODIUM 133 MMOL/L (135-145)
--- NOTE | 2018-07-09 07:52 | Progress Note (SOAP) ---
Subjective Time Seen by a Provider: 07:47 Subjective/Events-last exam Patient feeling better today. Sodium 133 much better. Potassium 3.9 within normal limits. Patient's blood pressure elevated put on lisinopril. Patient to come to the office in one week Objective Exam Vital Signs Date Time Temp Pulse Resp B/P (MAP) Pulse Ox O2 Delivery O2 Flow Rate FiO2 07/09/18 04:00 98.3 69 16 161/74 (103) 97 Room Air 07/09/18 00:00 98.8 62 20 154/73 (100) 98 Room Air 07/08/18 20:00 Room Air 07/08/18 15:30 99.4 75 18 154/73 (100) 98 Room Air 07/08/18 08:00 98.2 71 20 171/69 (103) 98 Room Air 07/08/18 08:00 Room Air I & O 07/09/18 06:59 Intake Total 2320 ml Output Total 0 ml Balance 2320 ml Capillary Refill : General Appearance: No Apparent Distress, WD/WN HEENT: Normal ENT Inspection, Other (Hearing aids) Neck: Full Range of Motion, Normal Inspection Respiratory: No Accessory Muscle Use, No Respiratory Distress Cardiovascular: Regular Rate, Rhythm, No Murmur Gastrointestinal: non tender, soft Results Lab Laboratory Tests 07/08/18 08:30 07/08/18 16:13 07/09/18 05:40 Laboratory Tests 07/08/18 08:30: Sodium Level 131L, Potassium Level 2.5*L, Chloride Level 96L, Carbon Dioxide Level 25, Anion Gap 10, Blood Urea Nitrogen 4L, Creatinine 0.56L, Estimat Glomerular Filtration Rate > 60, BUN/Creatinine Ratio 7, Glucose Level 116H, Calcium Level 8.9 07/08/18 16:13: Sodium Level 133L, Potassium Level 2.9L, Chloride Level 97L, Carbon Dioxide Level 26, Anion Gap 10, Blood Urea Nitrogen 7, Creatinine 0.60, Estimat Glomerular Filtration Rate > 60, BUN/Creatinine Ratio 12, Glucose Level 116H, Calcium Level 8.9 07/09/18 05:40: Sodium Level 133L, Potassium Level 3.9, Chloride Level 102, Carbon Dioxide Level 22, Anion Gap 9, Blood Urea Nitrogen 6L, Creatinine 0.46L, Estimat Glomerular Filtration Rate > 60, BUN/Creatinine Ratio 13, Glucose Level 88, Calcium Level 8.9 Assessment/Plan Assessment/Plan Assess & Plan/Chief Complaint sodium 120. Hypertension. Not eating. Headaches. Nauseousness. Leg muscle weakness. Coronary artery disease. Postmenopausal vaginal bleeding. . 07/05/18. Sodium 126. Hypertension. Patient still has unsteady gait. Patient needs a walker with discharge. To get physical therapy. . 07/08/18. Hyponatremia. Hypokalemia. Hypertension. Patient uses walker to get around.. . 07/09/18. Hyponatremia much better. Hypokalemia resolved. Hypertension put on lisinopril. Patient getting around better according to physical therapy. Plan to discharge today. 2 office in one week and do a BMP Clinical Quality Measures Admission Status Admission Dx hyponatremia. Headaches. Nauseous this. Leg muscle weakness. Hypertension. Coronary artery disease. DVT/VTE Risk/Contraindication: Risk Factor Score Per Nursin RFS Level Per Nursing on Admit: 3=High Contraindications-Pharm: Other *list below* ISIDRO IRIZARRY DO Jul 09, 2018 07:52
[2018-07-09 08:00] VITALS: BP 181/84
[2018-07-09] MEDS: CLOPIDOGREL 75 MG (PLAVIX) TABLET PO SCH (08:53)
[2018-07-09] MEDS: DILTIAZEM 180 MG (CARDIZEM CD) CAP PO SCH (08:53)
[2018-07-09] MEDS ORDERED: SODIUM CHLORIDE 1 GM TAB (NON-FORMULARY) PO SCH (09:00)
[2018-07-09] MEDS ORDERED: lisINopril 10 MG (PRINIVIL) TABLET PO SCH (09:00)
--- NOTE | 2018-07-09 09:55 | NUR ---
Important Message from Medicare presented/reviewed/signed and charted. Patient voiced no intention to appeal and deny any needs or further questions at this time. Patient is dressed, packed and ready to leave today.
--- NOTE | 2018-07-09 09:58 | Physical Therapy Daily Note ---
PT Daily Note-Current Subjective Pt sitting in recliner awaiting water to take medication from nurse and agrees to PT. Pt reports that she should be dismissed today. Pain Numeric Pain Scale: 0-No Pain Location: No Pain Reported Mental Status Patient Orientation: Person, Place, Situation, Normal For Age Transfers Therapy Code Descriptions/Definitions Functional [place] Measure: 0=Not Assessed/NA 4=Minimal Assistance 1=Total Assistance 5=Supervision or Setup 2=Maximal Assistance 6=Modified [place] 3=Moderate Assistance 7=Complete [place] Therapy Quality Codes: 6 Independent with activity with or without an assistive device 5 Patient requires set up or clean up by helper. Patient completes activity by themselves 4 Supervision or touching assist (CGA). [place] provide cues , steadying assist 3 The helper provides less than half the effort to complete the activity 2 The helper provides more than half the effort to complete the activity 1 Dependent. The helper does all the effort to complete an activity 7 Patient refused to complete or attempt activity 9 The patient did not perform the activity before the current illness or injury 88 Not attempted due to Medical conditions or safety concerns Transfers (B, C, W/C) (FIM): 6 Scootin Sit to/from Stand: 6 Weight Bearing Right Lower Extremity: Right Full Weight Bearing Left Lower Extremity: Left Full Weight Bearing Gait Training Gait (FIM): 6 Distance (FIM): 3=150 ft Distance: 400' Gait Level of Assist: 6 Gait Persons Needed: 1 Gait Assistive Device: None Exercises Seated Therapy Exercises: Ankle pumps, Long arc quads, Hip flexion, Hip abd/add Seated Reps: 10 Assessment Current Status: Good Progress While waiting for medication performed seated LE ex with instruction from SPT. Pt once received meds transferred with mod I from recliner to [facility]. Pt amb 400' with [facility] mod I. Pt was able to stay within walker during amb. Pt returned to room and transferred to recliner with instruction to keep walker with her the whole time when turning to chair. Pt in recliner and has all needs met. PT will dismiss pt from services. PT Short Term Goals Short Term Goals Time Frame: Jul 12, 2018 Transfers (B,C,W/C) (FIM): 6 Gait (FIM): 6 Distance (FIM): 3=150 ft Gait Distance Comment: 175' Gait Level of Assist: 6 Gait Assistive Device: FWW PT Plan Problem List Problem List: Activity Tolerance, Functional Strength Treatment/Plan Treatment Plan: Discontinue PT Treatment Plan: Bed Mobility, Education, Functional Activity [place], Functional Strength, Gait, Safety, Therapeutic Exercise, Transfers Treatment Duration: Jul 12, 2018 Frequency: 6 times per week Estimated Hrs Per Day: .25 hour per day Patient and/or Family Agrees t: Yes Time/GCodes Time In: 854 Time Out: 904 Total Billed Treatment Time: 10 Total Billed Treatment 1 visit FA 10 min KUSHAL HILLS PT Jul 09, 2018 09:58
--- NOTE | 2018-07-09 10:55 | NUR ---
CM/SS, discharged home today as anticipated. DME: Arranged FWW with patient choice agency, [facility]. Waiting on Dr. Galarza order to complete referral, Unit RN assisting. Patient will picking supervisor on her way home. Niece, Marisabel Amador, is going to arrange a home med alert system for patient. She has already done research with various agencies re same. [id number] loaned patient a standard walker, continuing to pursue a FWW for discharge today. Patient is dressed and sitting in recliner, ready to leave when all arrangements completed.
[2018-07-09] MEDS ORDERED: LISI10TA2 PO (10:58)
[2018-07-09] MEDS ORDERED: NF-NACL1GT PO (10:58)
[2018-07-09 11:47] VITALS: BP 181/84
--- NOTE | 2018-07-09 18:49 | Discharge Summary ---
Diagnosis/Chief Complaint Date of Admission Jul 03, 2018 at 18:32 Date of Discharge Jul 09, 2018 at 11:30 Discharge Time: 18:46 Discharge Diagnosis Severe hyponatremia. Severe hypokalemia. Unsteady gait. Muscle weakness. Headache. Leg muscles weakness. Weakness. Hypertension. To have BMP when patient comes to office. Patient needs walker to get around. add lisinopril for hypertension Reason Hospital Visit patient seen yesterday. Computed not working. Do an H&P today. Patient has a sodium of 117. Patient complains of headache and lightheaded patient has nauseousness and not eating. Patient also having leg muscle weakness Patient not having any mental status change. Patient felt terrible. surgeries fluid around hot, to heart catheterization, and fractured right wrist. Patient admitted area Patient states she has not been eating and only drinking Discharge Summary Discharge Physical Examination Allergies: Coded Allergies: NKANo Known Allergies (Verified Allergy, Unknown, 07/03/18) Vitals & I&Os Vital Signs Date Time Temp Pulse Resp B/P (MAP) Pulse Ox O2 Delivery O2 Flow Rate FiO2 07/09/18 11:47 81 20 181/84 98 Room Air 07/09/18 08:00 97.8 07/03/18 04:15 96.00 Hospital Course Patient in hospital improved. Sodium and potassium corrected area Patient felt better on discharge. Patient was able to eat Labs (last 24 hrs) Laboratory Tests 07/03/18 13:40: White Blood Count 7.2, Red Blood Count 4.34L, Hemoglobin 13.9, Hematocrit 38, Mean Corpuscular Volume 87, Mean Corpuscular Hemoglobin 32, Mean Corpuscular Hemoglobin Concent 37H, Red Cell Distribution Width 11.6, Platelet Count 219, Mean Platelet Volume 9.4, Sodium Level 117*L, Potassium Level 2.8L, Chloride Level 80L, Carbon Dioxide Level 26, Anion Gap 11, Blood Urea Nitrogen 4L, Creatinine 0.53L, Estimat Glomerular Filtration Rate > 60, BUN/Creatinine Ratio 8, Glucose Level 114H, Calcium Level 9.3, Corrected Calcium 9.5, Total Bilirubin 0.4, Aspartate Amino Transf (AST/SGOT) 77H, Alanine Aminotransferase ( ALT/SGPT) 74H, Alkaline Phosphatase 86, Total Protein 6.4, Albumin 3.8 07/04/18 04:10: White Blood Count 6.0, Red Blood Count 3.74L, Hemoglobin 12.2, Hematocrit 33L, Mean Corpuscular Volume 88, Mean Corpuscular Hemoglobin 33, Mean Corpuscular Hemoglobin Concent 37H, Red Cell Distribution Width 11.8, Platelet Count 211, Mean Platelet Volume 9.3, Sodium Level 120*L, Potassium Level 3.3L, Chloride Level 91L, Carbon Dioxide Level 23, Anion Gap 6, Blood Urea Nitrogen 4L, Creatinine 0.44L, Estimat Glomerular Filtration Rate > 60, BUN/Creatinine Ratio 9, Glucose Level 89, Calcium Level 8.4L, Corrected Calcium 9.0, Total Bilirubin 0.3, Aspartate Amino Transf (AST/SGOT) 62H, Alanine Aminotransferase (ALT/SGPT) 61H, Alkaline Phosphatase 71, Total Protein 5.2L, Albumin 3.2, Triglycerides Level 56, Cholesterol Level 112, LDL Cholesterol Direct 32, VLDL Cholesterol 11 , HDL Cholesterol 57 07/05/18 05:34: White Blood Count 7.7, Red Blood Count 4.42, Hemoglobin 14.0, Hematocrit 40, Mean Corpuscular Volume 90, Mean Corpuscular Hemoglobin 32, Mean Corpuscular Hemoglobin Concent 35, Red Cell Distribution Width 12.1, Platelet Count 236, Mean Platelet Volume 10.1, Sodium Level 126L, Potassium Level 3.0L, Chloride Level 93L, Carbon Dioxide Level 24, Anion Gap 9, Blood Urea Nitrogen 3L, Creatinine 0.54L, Estimat Glomerular Filtration Rate > 60, BUN/Creatinine Ratio 6, Glucose Level 83, Calcium Level 9.1 07/06/18 03:35: White Blood Count 6.4, Red Blood Count 3.85L, Hemoglobin 12.5, Hematocrit 35, Mean Corpuscular Volume 90, Mean Corpuscular Hemoglobin 32, Mean Corpuscular Hemoglobin Concent 36, Red Cell Distribution Width 12.3, Platelet Count 217, Mean Platelet Volume 9.6, Sodium Level 126L, Potassium Level 3.1L, Chloride Level 96L, Carbon Dioxide Level 22, Anion Gap 8, Blood Urea Nitrogen 4L, Creatinine 0.43L, Estimat Glomerular Filtration Rate > 60, BUN/Creatinine Ratio 9, Glucose Level 94, Calcium Level 8.5 07/07/18 06:02: White Blood Count 6.0, Red Blood Count 4.02L, Hemoglobin 12.8, Hematocrit 36, Mean Corpuscular Volume 90, Mean Corpuscular Hemoglobin 32, Mean Corpuscular Hemoglobin Concent 35, Red Cell Distribution Width 12.3, Platelet Count 205, Mean Platelet Volume 9.3, Neutrophils (%) (Auto) 68, Lymphocytes (%) (Auto) 15, Monocytes (%) (Auto) 14H, Eosinophils (%) (Auto) 2, Basophils (%) (Auto) 1, Neutrophils # (Auto) 4.1, Lymphocytes # (Auto) 0.9L, Monocytes # (Auto) 0.9, Eosinophils # (Auto) 0.1, Basophils # (Auto) 0.0, Sodium Level 126L, Potassium Level 2.8L, Chloride Level 95L, Carbon Dioxide Level 22, Anion Gap 9, Blood Urea Nitrogen 3L, Creatinine 0.45L, Estimat Glomerular Filtration Rate > 60, BUN /Creatinine Ratio 7, Glucose Level 101, Calcium Level 8.3L, Corrected Calcium 8.9, Total Bilirubin 0.3, Aspartate Amino Transf (AST/SGOT) 41H, Alanine Aminotransferase (ALT/SGPT) 42, Alkaline Phosphatase 73, Total Protein 5.4L, Albumin 3.2 07/08/18 08:30: Sodium Level 131L, Potassium Level 2.5*L, Chloride Level 96L, Carbon Dioxide Level 25, Anion Gap 10, Blood Urea Nitrogen 4L, Creatinine 0.56L, Estimat Glomerular Filtration Rate > 60, BUN/Creatinine Ratio 7, Glucose Level 116H, Calcium Level 8.9 07/08/18 16:13: Sodium Level 133L, Potassium Level 2.9L, Chloride Level 97L, Carbon Dioxide Level 26, Anion Gap 10, Blood Urea Nitrogen 7, Creatinine 0.60, Estimat Glomerular Filtration Rate > 60, BUN/Creatinine Ratio 12, Glucose Level 116H, Calcium Level 8.9 07/09/18 05:40: Sodium Level 133L, Potassium Level 3.9, Chloride Level 102, Carbon Dioxide Level 22, Anion Gap 9, Blood Urea Nitrogen 6L, Creatinine 0.46L, Estimat Glomerular Filtration Rate > 60, BUN/Creatinine Ratio 13, Glucose Level 88, Calcium Level 8.9 Laboratory Tests 07/03/18 13:40 07/04/18 04:10 07/05/18 05:34 07/06/18 03:35 07/07/18 06:02 07/08/18 08:30 07/08/18 16:13 07/09/18 05:40 Pending Labs Laboratory Tests 07/03/18 13:40: White Blood Count 7.2, Red Blood Count 4.34, Hemoglobin 13.9, Hematocrit 38, Mean Corpuscular Volume 87, Mean Corpuscular Hemoglobin 32, Mean Corpuscular Hemoglobin Concent 37, Red Cell Distribution Width 11.6, Platelet Count 219, Mean Platelet Volume 9.4, Sodium Level 117, Potassium Level 2.8, Chloride Level 80, Carbon Dioxide Level 26, Anion Gap 11, Blood Urea Nitrogen 4, Creatinine 0.53, Estimat Glomerular Filtration Rate > 60, BUN/Creatinine Ratio 8, Glucose Level 114, Calcium Level 9.3, Corrected Calcium 9.5, Total Bilirubin 0.4, Aspartate Amino Transf (AST/SGOT) 77, Alanine Aminotransferase (ALT/SGPT) 74, Alkaline Phosphatase 86, Total Protein 6.4, Albumin 3.8 07/04/18 04:10: White Blood Count 6.0, Red Blood Count 3.74, Hemoglobin 12.2, Hematocrit 33, Mean Corpuscular Volume 88, Mean Corpuscular Hemoglobin 33, Mean Corpuscular Hemoglobin Concent 37, Red Cell Distribution Width 11.8, Platelet Count 211, Mean Platelet Volume 9.3, Sodium Level 120, Potassium Level 3.3, Chloride Level 91, Carbon Dioxide Level 23, Anion Gap 6, Blood Urea Nitrogen 4, Creatinine 0.44 , Estimat Glomerular Filtration Rate > 60, BUN/Creatinine Ratio 9, Glucose Level 89, Calcium Level 8.4, Corrected Calcium 9.0, Total Bilirubin 0.3, Aspartate Amino Transf (AST/SGOT) 62, Alanine Aminotransferase (ALT/SGPT) 61, Alkaline Phosphatase 71, Total Protein 5.2, Albumin 3.2, Triglycerides Level 56 , Cholesterol Level 112, LDL Cholesterol Direct 32, VLDL Cholesterol 11, HDL Cholesterol 57 07/05/18 05:34: White Blood Count 7.7, Red Blood Count 4.42, Hemoglobin 14.0, Hematocrit 40, Mean Corpuscular Volume 90, Mean Corpuscular Hemoglobin 32, Mean Corpuscular Hemoglobin Concent 35, Red Cell Distribution Width 12.1, Platelet Count 236, Mean Platelet Volume 10.1, Sodium Level 126, Potassium Level 3.0, Chloride Level 93, Carbon Dioxide Level 24, Anion Gap 9, Blood Urea Nitrogen 3, Creatinine 0.54, Estimat Glomerular Filtration Rate > 60, BUN/Creatinine Ratio 6 , Glucose Level 83, Calcium Level 9.1 07/06/18 03:35: White Blood Count 6.4, Red Blood Count 3.85, Hemoglobin 12.5, Hematocrit 35, Mean Corpuscular Volume 90, Mean Corpuscular Hemoglobin 32, Mean Corpuscular Hemoglobin Concent 36, Red Cell Distribution Width 12.3, Platelet Count 217, Mean Platelet Volume 9.6, Sodium Level 126, Potassium Level 3.1, Chloride Level 96, Carbon Dioxide Level 22, Anion Gap 8, Blood Urea Nitrogen 4, Creatinine 0.43 , Estimat Glomerular Filtration Rate > 60, BUN/Creatinine Ratio 9, Glucose Level 94, Calcium Level 8.5 07/07/18 06:02: White Blood Count 6.0, Red Blood Count 4.02, Hemoglobin 12.8, Hematocrit 36, Mean Corpuscular Volume 90, Mean Corpuscular Hemoglobin 32, Mean Corpuscular Hemoglobin Concent 35, Red Cell Distribution Width 12.3, Platelet Count 205, Mean Platelet Volume 9.3, Neutrophils (%) (Auto) 68, Lymphocytes (%) (Auto) 15, Monocytes (%) (Auto) 14, Eosinophils (%) (Auto) 2, Basophils (%) (Auto) 1, Neutrophils # (Auto) 4.1, Lymphocytes # (Auto) 0.9, Monocytes # (Auto) 0.9, Eosinophils # (Auto) 0.1, Basophils # (Auto) 0.0, Sodium Level 126, Potassium Level 2.8, Chloride Level 95, Carbon Dioxide Level 22, Anion Gap 9, Blood Urea Nitrogen 3, Creatinine 0.45, Estimat Glomerular Filtration Rate > 60, BUN/ Creatinine Ratio 7, Glucose Level 101, Calcium Level 8.3, Corrected Calcium 8.9 , Total Bilirubin 0.3, Aspartate Amino Transf (AST/SGOT) 41, Alanine Aminotransferase (ALT/SGPT) 42, Alkaline Phosphatase 73, Total Protein 5.4, Albumin 3.2 07/08/18 08:30: Sodium Level 131, Potassium Level 2.5, Chloride Level 96, Carbon Dioxide Level 25, Anion Gap 10, Blood Urea Nitrogen 4, Creatinine 0.56, Estimat Glomerular Filtration Rate > 60, BUN/Creatinine Ratio 7, Glucose Level 116, Calcium Level 8.9 07/08/18 16:13: Sodium Level 133, Potassium Level 2.9, Chloride Level 97, Carbon Dioxide Level 26, Anion Gap 10, Blood Urea Nitrogen 7, Creatinine 0.60, Estimat Glomerular Filtration Rate > 60, BUN/Creatinine Ratio 12, Glucose Level 116, Calcium Level 8.9 07/09/18 05:40: Sodium Level 133, Potassium Level 3.9, Chloride Level 102, Carbon Dioxide Level 22, Anion Gap 9, Blood Urea Nitrogen 6, Creatinine 0.46, Estimat Glomerular Filtration Rate > 60, BUN/Creatinine Ratio 13, Glucose Level 88, Calcium Level 8.9 Discharge Home Medications: Active Scripts Active Sodium Chloride 1 Gm Tab 0.5 Gm PO DAILY 30 Days Lisinopril 10 Mg Tablet 10 Mg PO DAILY 30 Days Reported Clopidogrel (Clopidogrel Bisulfate) 75 Mg Tablet 75 Mg PO DAILY Cartia Xt (Diltiazem HCl) 180 Mg Cap.er.24h 180 Mg PO DAILY Simvastatin 20 Mg Tablet 20 Mg PO HS Centrum Silver Tablet (Multivit-Min/FA/Lycopene/Lut) 1 Each Tablet 1 Tab PO DAILY Calcium 600 + Vit D 800 Tab (Calcium Carbonate/Vitamin D3) 1 Each Tablet 1 Tab PO HS Aspirin EC (Aspirin) 81 Mg Tablet. 81 Mg PO HS Instructions to patient/family Please see electronic discharge instructions given to patient. Clinical Quality Measures DVT/VTE Risk/Contraindication: Risk Factor Score Per Nursin RFS Level Per Nursing on Admit: 3=High Contraindications-Pharm: Other *list below* ISIDRO IRIZARRY DO Jul 09, 2018 18:49
== END 2018-07-09 11:30 | disposition home or self-care (01) | DRG 641 ==
LOC: 4TH 12:45 → OBSVTOIN 18:32
PROVIDERS: ADMIT Family Medicine; ATTEND Family Medicine
DX: E87.1 Hypo-osmolality and hyponatremia (principal); R51 Headache; R11.0 Nausea; M62.81 Muscle weakness (generalized); I25.10 Atherosclerotic heart disease of native coronary artery without angina pectoris; I10 Essential (primary) hypertension; N95.0 Postmenopausal bleeding; K59.00 Constipation, unspecified; E87.6 Hypokalemia; R26.81 Unsteadiness on feet
CPT/HCPCS: 36415; 76830; 76856; 80048; 80053; 80061; 85025; 85027; 99211; G0378

== ENCOUNTER 2018-07-16 14:34 | Inpatient (IN) | payer MEDICARE, OTHER ==
[~2018-07-16] VITALS: Ht 165.1 cm; Wt 58.5 kg
[~2018-07-16 14:34] MED LIST changes: +ASPI-983 PO; +CALC-901 PO; +CLOP75TA28 PO; +DILT180C54 PO; +LISI10TA2 PO; +MULT-1029 PO; +NF-NACL1GT PO
--- OUTSIDE RECORDS SUMMARY | 2018-07-16 15:40 | XMS REPORT | Continuity of Care Document ---
Author Author [facility] Organization [facility] Address Unknown Phone Unavailable Allergies Active Description Code Type Severity Reaction Onset Reported/Identified Relationship to Patient Clinical Status Yes NKANo Known Allergies NKA Miscellaneous Allergy Unknown N/A 07/03/2018 Medications There is no data. Problems Date Dx Coded Attending Type Code Diagnosis Diagnosed By 02/21/2010 Ot 272.4 02/21/2010 Ot 401.9 02/21/2010 Ot 427.31 02/21/2010 Ot 440.20 02/21/2010 Ot 786.09 02/21/2010 Ot 794.31 02/21/2010 Ot V15.82 02/21/2010 Ot V58.66 02/21/2010 Ot V58.69 09/06/2010 Ot 272.4 09/06/2010 Ot 305.1 09/06/2010 Ot 401.9 09/06/2010 Ot 440.21 09/06/2010 Ot 780.4 09/06/2010 Ot V58.66 09/06/2010 Ot V58.69 12/01/2010 Ot 272.4 12/01/2010 Ot 305.1 12/01/2010 Ot 401.9 12/01/2010 Ot 440.21 12/01/2010 Ot V45.89 12/01/2010 Ot V58.63 12/01/2010 Ot V58.66 12/01/2010 Ot V58.69 09/05/2011 Ot 272.4 HYPERLIPIDEMIA NEC/NOS 09/05/2011 Ot 305.1 TOBACCO USE DISORDER 09/05/2011 Ot 401.9 HYPERTENSION NOS 09/05/2011 Ot 427.31 ATRIAL FIBRILLATION 09/05/2011 Ot 440.21 [place]CL [place] ARTER EXTREM W INTERMIT 09/05/2011 Ot V45.89 POSTSURGICAL STATES NEC 09/05/2011 Ot V58.63 LONG-TERM( CURRENT)USE OF ANTIPLATELET/AN 09/05/2011 Ot V58.66 LONG-TERM ( CURRENT) USE OF ASPIRIN 09/05/2011 Ot V58.69 OTH MED,LT, CURRENT USE 10/12/2012 JOSEPH LEWIS, SWETHA Calvillo Ot 813.41 COLLES' FRACTURE-CLOSED 10/12/2012 JOSEPH LEWIS, SWETHA Calvillo Ot 959.3 ELB/FOREARM/WRST INJ NOS 10/12/2012 SWETHA RUIZ MD Ot E000.8 OTHER EXTERNAL CAUSE STATUS 10/12/2012 JOSEPH LEWIS, SWETHA Calvillo Ot E849.0 ACCIDENT IN HOME 10/12/2012 SWETHA RUIZ MD Ot E885.9 FALL FROM SLIPPING, TRIPPING, OR STUMBLI 10/14/2012 CHAY TONY L Ot 729.81 SWELLING OF LIMB 10/16/2012 REHANA LAMAS MD Ot 813.42 FX DISTAL RADIUS NEC-CL 10/16/2012 REHANA LAMAS MD Ot E000.8 OTHER EXTERNAL CAUSE STATUS 10/16/2012 REHANA LAMSA MD Ot E849.0 ACCIDENT IN HOME 10/16/2012 REHANA LAMAS MD Ot E885.9 FALL FROM SLIPPING, TRIPPING, OR STUMBLI 04/25/2014 BAIMA, JUANA L 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 Ot 401.9 04/25/2014 BAIMA, JUANA L 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 Ot 427.31 04/25/2014 BAIMA, JUANA L 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 Ot 443.9 04/25/2014 BAIMA, JUANA L 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 Ot 786.50 04/25/2014 BAIMA, JUANA L 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 Ot 401.9 04/25/2014 BAIMA, JUANA L 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 Ot 427.31 04/25/2014 BAIMA, JUANA L 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 Ot 443.9 04/25/2014 BAIMA, JUANA L 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 Ot 786.50 05/11/2014 BAIMA, JUANA L 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 Ot 401.9 05/11/2014 BAIMA, JUANA L 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 Ot 427.31 05/11/2014 BAIMA, JUANA L 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 Ot 443.9 05/11/2014 BAIMA, JUANA L 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 Ot 786.50 05/13/2014 BAIMA, JUANA L 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 Ot 401.9 05/13/2014 BAIMA, JUANA L 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 Ot 427.31 05/13/2014 BAIMA, JUANA L 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 Ot 786.50 05/26/2014 NIKI LEWIS FACC, MATTHEW MELTONP CCDS Ot 272.4 HYPERLIPIDEMIA NEC/NOS 05/26/2014 NIKI LEWIS FACC, MATTHEW FACP CCDS Ot 401.9 HYPERTENSION NOS 05/26/2014 NIKI LEWIS FACC, MATTHEW FACP CCDS Ot 433.10 CAROTID ARTERY OCCLUSION W O CEREBRAL IN 05/26/2014 NIKI LEWIS FACC, MATTHEW FACP CCDS Ot 440.21 [place]CL [place] ARTER EXTREM W INTERMIT 05/26/2014 NIKI LEWIS FACC, ALI FACP CCDS Ot 440.4 CHRONIC TOTAL OCCLUSION OF ARTERY OF THE 05/26/2014 NIKI LEWIS FACC, MATTHEW FACP CCDS Ot V15.82 HISTORY OF TOBACCO USE 05/26/2014 NIKI LEWIS FACC, MATTHEW FACP CCDS Ot V58.69 OTH MED,LT,CURRENT USE 06/04/2014 CHALINO MCDUFFIE MD Ot 272.4 HYPERLIPIDEMIA NEC/NOS 06/04/2014 CHALINO MCDUFFIE MD Ot 305.1 TOBACCO USE DISORDER 06/04/2014 CHALINO MCDUFFIE MD Ot 401.9 HYPERTENSION NOS 06/04/2014 CHALINO MCDUFFIE MD Ot 427.31 ATRIAL FIBRILLATION 06/04/2014 CHALINO MCDUFFIE MD Ot 433.10 CAROTID ARTERY OCCLUSION W O CEREBRAL IN 06/04/2014 CHALINO MDCUFFIE MD Ot 440.20 A[place]OSCLEROSIS [place] ARTERIES EXTREMIT 06/04/2014 CHALINO MCDUFFIE MD Ot V58.69 OTH MED,LT,CURRENT USE 11/02/2014 Ot 272.4 11/02/2014 Ot V58.69 11/02/2014 Ot 611.72 11/02/2014 Ot V76.12 11/02/2014 Ot 793.80 11/02/2014 Ot 272.4 11/02/2014 Ot 401.9 11/02/2014 Ot 427.31 11/02/2014 Ot 786.09 11/02/2014 Ot V58.69 11/02/2014 Ot 173.7 11/02/2014 Ot V72.83 11/02/2014 Ot V74.8 11/02/2014 Ot 216.7 11/02/2014 Ot 702.0 11/02/2014 Ot 272.4 11/02/2014 Ot 401.9 11/02/2014 Ot V58.69 11/02/2014 Ot 433.30 11/02/2014 Ot 443.9 11/02/2014 Ot 272.4 11/02/2014 Ot 401.9 11/02/2014 Ot 427.31 11/02/2014 Ot 443.9 11/02/2014 Ot V72.63 11/02/2014 Ot V72.81 11/02/2014 Ot V76.12 11/02/2014 Ot 401.9 11/02/2014 Ot 427.31 11/02/2014 Ot 443.9 11/02/2014 Ot 729.5 11/02/2014 Ot V72.63 11/02/2014 Ot V72.81 11/02/2014 Ot V76.12 11/02/2014 Ot 443.9 11/02/2014 Ot V45.89 11/02/2014 ISIDRO IIRZARRY DO Ot V76.12 11/02/2014 CYDNEY LEWIS, REHANA Streeter Ot 813.41 11/02/2014 CYDNEY LEWIS, REHANA Streeter Ot E000.8 11/02/2014 CYDNEY LEWIS, REHANA Streeter Ot E849.0 11/02/2014 CYDNEY LEWIS, REHANA Streeter Ot E885.9 11/02/2014 CYDNEY LEWIS, REHANA Streeter Ot V72.83 11/02/2014 CYDNEY LEWIS, REHANA Streeter Ot V74.8 11/02/2014 ISIDRO IRIZARRY DO Ot V76.12 11/02/2014 SUMMER, JUANA L 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 Ot 401.9 11/02/2014 BAIMA, JUANA L 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 Ot 427.31 11/02/2014 BAIMA, JUANA L 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 Ot 786.50 11/02/2014 BAIMA, JUANA L 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 Ot 401.9 11/02/2014 BAIMA, JUANA L 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 Ot 427.31 11/02/2014 BAIMA, JUANA L 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 Ot 443.9 11/02/2014 BAIMA, JUANA L 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 Ot 786.50 11/02/2014 ISIDRO IRIZARRY DO Ot V76.12 12/02/2014 ISIDRO IRIZARRY DO Ot V76.12 05/13/2015 BAIMA, JUANA L 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 Ot M54.9 06/02/2015 BAIMA, JUANA L 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 Ot M54.9 10/25/2015 Ot Z12.31 ENCNTR SCREEN MAMMOGRAM FOR MALIGNANT NE 10/26/2015 Ot Z12.31 ENCNTR SCREEN MAMMOGRAM FOR MALIGNANT NE 10/26/2015 Ot Z12.31 ENCNTR SCREEN MAMMOGRAM FOR MALIGNANT NE 10/27/2015 Ot Z12.31 ENCNTR SCREEN MAMMOGRAM FOR MALIGNANT NE 11/02/2015 GELLENDER DO, ISIDRO Calvillo Ot N64.9 DISORDER OF BREAST, UNSPECIFIED 11/05/2015 GELLENDER DO, ISIDRO Calvillo Ot N64.9 DISORDER OF BREAST, UNSPECIFIED 11/23/2015 Ot Z12.31 ENCNTR SCREEN MAMMOGRAM FOR MALIGNANT NE 11/25/2015 GELLENDER DO, ISIDRO Calvillo Ot N64.9 DISORDER OF BREAST, UNSPECIFIED 12/13/2015 GELLENDER DO, ISIDRO Calvillo Ot N64.9 DISORDER OF BREAST, UNSPECIFIED 10/20/2016 GELLENDER DO, ISIDRO Calvillo Ot Z12.31 ENCNTR SCREEN MAMMOGRAM FOR MALIGNANT NE 10/25/2016 GELLENDER DO, ISIDRO Calvillo Ot Z12.31 ENCNTR SCREEN MAMMOGRAM FOR MALIGNANT NE 10/25/2016 Ot 401.9 HYPERTENSION NOS 10/25/2016 Ot 427.31 ATRIAL FIBRILLATION 10/25/2016 Ot 443.9 PERIPH VASCULAR DIS NOS 10/25/2016 Ot 729.5 PAIN IN LIMB 10/25/2016 Ot V72.63 PRE- PROCEDURAL LABORATORY EXAMINATION 10/25/2016 Ot V72.81 EXAM-PRE- OPERATIVE CARDIOVASCULAR 10/25/2016 Ot V76.12 OTH SCREEN MAMMO-MALIGN NEOPLASM OF [place] 10/25/2016 Ot 443.9 PERIPH VASCULAR DIS NOS 10/25/2016 Ot V45.89 POSTSURGICAL STATES NEC 10/25/2016 GELLENDER DO, ISIDRO Calvillo Ot V76.12 OTH SCREEN MAMMO-MALIGN NEOPLASM OF [place] 10/25/2016 REHANA LAMAS MD Ot 813.41 COLLES' FRACTURE-CLOSED 10/25/2016 REHANA LAMAS MD Ot E000.8 OTHER EXTERNAL CAUSE STATUS 10/25/2016 REHANA LAMAS MD Ot E849.0 ACCIDENT IN HOME 10/25/2016 REHANA LAMAS MD Ot E885.9 FALL FROM SLIPPING, TRIPPING, OR STUMBLI 10/25/2016 REHANA LAMAS MD Ot V72.83 EXAM PRE-OPERATIVE NEC 10/25/2016 CYDNEY LEWIS, REHANA Streeter Ot V74.8 SCREEN-BACTERIAL DIS NEC 10/25/2016 CHANTELLDER DO, ISIDRO Calvillo Ot V76.12 OTH SCREEN MAMMO-MALIGN NEOPLASM OF [place] 10/25/2016 JUANA WHEELER L 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 Ot 401.9 HYPERTENSION NOS 10/25/2016 BAIMA, JUANA L 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 Ot 427.31 ATRIAL FIBRILLATION 10/25/2016 BAIMA, JUANA L 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 Ot 786.50 CHEST PAIN NOS 10/25/2016 BAIMA, JUANA L 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 Ot 401.9 HYPERTENSION NOS 10/25/2016 BAIMA, JUANA L 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 Ot 427.31 ATRIAL FIBRILLATION 10/25/2016 BAIMA, JUANA L 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 Ot 443.9 PERIPH VASCULAR DIS NOS 10/25/2016 BAIMA, JUANA L 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 Ot 786.50 CHEST PAIN NOS 10/25/2016 GELLENDER DO, ISIDRO Calvillo Ot V76.12 OTH SCREEN MAMMO-MALIGN NEOPLASM OF [place] 10/25/2016 JUANA WHEELER L 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 Ot M54.9 DORSALGIA, UNSPECIFIED 10/25/2016 Ot Z12.31 ENCNTR SCREEN MAMMOGRAM FOR MALIGNANT NE 10/25/2016 GELLENDER DO, ISIDRO Calvillo Ot N64.9 DISORDER OF BREAST, UNSPECIFIED 10/25/2016 GELLENDER DO, ISIDRO Calvillo Ot Z12.31 ENCNTR SCREEN MAMMOGRAM FOR MALIGNANT NE 10/25/2016 GELLENDER DO, ISIDRO Calvillo Ot Z12.31 ENCNTR SCREEN MAMMOGRAM FOR MALIGNANT NE 10/26/2016 GELLENDER DO, ISIDRO Calvillo Ot Z12.31 ENCNTR SCREEN MAMMOGRAM FOR MALIGNANT NE 11/15/2016 GELLENDER DO, ISIDRO Calvillo Ot Z12.31 ENCNTR SCREEN MAMMOGRAM FOR MALIGNANT NE 01/31/2017 NIKI LEWIS FACC, MATTHEW FACP CCDS Ot E78.4 OTHER HYPERLIPIDEMIA 01/31/2017 NIKI LEWIS FACC, MATTHEW FACP CCDS Ot I10 ESSENTIAL (PRIMARY) HYPERTENSION 01/31/2017 NIKI LEWIS FACC, MATTHEW FACP CCDS Ot I70.213 [place] ARTERIES OF EXTRM W INTRMT 01/31/2017 NIKI LEWIS FACC, ALI FACP CCDS Ot R07.89 OTHER CHEST PAIN 01/31/2017 NIKI LEWIS FACC, ALI FACP CCDS Ot E78.4 OTHER HYPERLIPIDEMIA 01/31/2017 NIKI LEWIS FACC, ALI FACP CCDS Ot I10 ESSENTIAL (PRIMARY) HYPERTENSION 01/31/2017 NIKI LEWIS FACC, ALI FACP CCDS Ot I70.213 [place] ARTERIES OF EXTRM W INTRMT 01/31/2017 NIKI LEWIS FACC, ALI FACP CCDS Ot R07.89 OTHER CHEST PAIN 02/20/2017 NIKI LEWIS FACC, ALI FACP CCDS Ot E78.4 OTHER HYPERLIPIDEMIA 02/20/2017 NIKI LEWIS FACC, ALI FACP CCDS Ot I10 ESSENTIAL (PRIMARY) HYPERTENSION 02/20/2017 NIKI LEWIS FACC, ALI FACP CCDS Ot I70.213 [place]CL [place] ARTERIES OF EXTRM W INTRMT 02/20/2017 NIKI LEWIS FACC, ALI FACP CCDS Ot R07.89 OTHER CHEST PAIN 09/03/2017 Ot 443.9 PERIPH VASCULAR DIS NOS 09/03/2017 Ot V45.89 POSTSURGICAL STATES NEC 09/03/2017 ISIDRO IRIZARRY DO Ot V76.12 OTH SCREEN MAMMO-MALIGN NEOPLASM OF [place] 09/03/2017 REHANA LAMAS MD Ot 813.41 COLLES' FRACTURE-CLOSED 09/03/2017 REHANA LAMAS MD Ot E000.8 OTHER EXTERNAL CAUSE STATUS 09/03/2017 REHANA LAMAS MD Ot E849.0 ACCIDENT IN HOME 09/03/2017 REHANA LAMAS MD Ot E885.9 FALL FROM SLIPPING, TRIPPING, OR STUMBLI 09/03/2017 REHANA LAMAS MD Ot V72.83 EXAM PRE-OPERATIVE NEC 09/03/2017 REHANA LAMAS MD Ot V74.8 SCREEN-BACTERIAL DIS NEC 09/03/2017 ISIDRO IRIZARRY DO Ot V76.12 OTH SCREEN MAMMO-MALIGN NEOPLASM OF [place] 09/03/2017 JUANA WHEELER L 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 Ot 401.9 HYPERTENSION NOS 09/03/2017 EVAN WHEELERHER L 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 Ot 427.31 ATRIAL FIBRILLATION 09/03/2017 EVAN WHEELERHER L 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 Ot 786.50 CHEST PAIN NOS 09/03/2017 BAIMA JUANA L 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 Ot 401.9 HYPERTENSION NOS 09/03/2017 JUANA WHEELER 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 Ot 427.31 ATRIAL FIBRILLATION 09/03/2017 JUANA WHEELER 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 Ot 443.9 PERIPH VASCULAR DIS NOS 09/03/2017 JUANA WHEELER 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 Ot 786.50 CHEST PAIN NOS 09/03/2017 ISIDRO IRIZARRY DO Ot V76.12 OTH SCREEN MAMMO-MALIGN NEOPLASM OF [place] 09/03/2017 JUANA WHEELER 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 Ot M54.9 DORSALGIA, UNSPECIFIED 09/03/2017 Ot Z12.31 ENCNTR SCREEN MAMMOGRAM FOR MALIGNANT NE 09/03/2017 JUAN C HUTCHINSON, ISIDRO Calvillo Ot N64.9 DISORDER OF BREAST, UNSPECIFIED 09/03/2017 JUAN C DO, ISIDRO Calvillo Ot Z12.31 ENCNTR SCREEN MAMMOGRAM FOR MALIGNANT NE 09/03/2017 NIKI LEWIS FACC, MATTHEW FACP CCDS Ot E78.4 OTHER HYPERLIPIDEMIA 09/03/2017 NIKI LEWIS FACC, MATTHEW FACP CCDS Ot I10 ESSENTIAL (PRIMARY) HYPERTENSION 09/03/2017 NIKI LEWIS FACC, ALI FACP CCDS Ot I70.213 [place] ARTERIES OF EXTRM W INTRMT 09/03/2017 NIKI LEWIS FACC, MATTHEW FACP CCDS Ot R07.89 OTHER CHEST PAIN 09/05/2017 NIKI LEWIS FACC, MATTHEW FACP CCDS Ot E78.5 HYPERLIPIDEMIA, UNSPECIFIED 09/05/2017 NIKI LEWIS FACC, ALI FACP CCDS Ot I10 ESSENTIAL (PRIMARY) HYPERTENSION 09/05/2017 NIKI LEWIS FACC, MATTHEW FACP CCDS Ot I48.0 PAROXYSMAL ATRIAL FIBRILLATION 09/05/2017 NIKI LEWIS FACC, ALI FACP CCDS Ot I65.23 OCCLUSION AND STENOSIS OF [place]IL[place]AL [place] 09/05/2017 NIKI LEWIS FACC, ALI FACP CCDS Ot I70.212 [place] ARTERIES OF EXTRM W INTRMT 09/05/2017 MATTHEW PRINCE MD, FACC FACP CCDS Ot Z79.02 BUSINESS SUPPORT LIAISON (CURRENT) USE OF ANTITHROMBOTI 09/05/2017 MATTHEW PRINCE MD, FACC FACP CCDS Ot Z79.82 SENIOR LIVING (CURRENT) USE OF ASPIRIN 09/05/2017 NIKI LEWIS FACC ALI FACP CCDS Ot Z79.899 OTHER BUSINESS SUPPORT LIAISON (CURRENT) DRUG THERAPY 09/05/2017 NIKI LEWIS FACC, ALI FACP CCDS Ot Z87.891 PERSONAL HISTORY OF NICOTINE DEPENDENCE 09/05/2017 NIKI LEWIS FACC, ALI FACP CCDS Ot Z95.820 PERIPHERAL VASCULAR ANGIOPLASTY STATUS W 09/05/2017 NIKI MELTONC, ALI FACP CCDS Ot E78.5 HYPERLIPIDEMIA, UNSPECIFIED 09/05/2017 NIKI LEWIS FACC, ALI FACP CCDS Ot I10 ESSENTIAL (PRIMARY) HYPERTENSION 09/05/2017 NIKI LEWIS FACC, ALI FACP CCDS Ot I48.0 PAROXYSMAL ATRIAL FIBRILLATION 09/05/2017 NIKI LEWIS FACC, ALI FACP CCDS Ot I65.23 OCCLUSION AND STENOSIS OF [place] 09/05/2017 NIKI LEWIS FACC, ALI FACP CCDS Ot I70.212 [place] ARTERIES OF EXTRM W [facility] 09/05/2017 NIKI LEWIS FACC, ALI FACP CCDS Ot Z79.02 BUSINESS SUPPORT LIAISON (CURRENT) USE OF ANTITHROMBOTI 09/05/2017 NIKI MELTONC, ALI FACP CCDS Ot Z79.82 SENIOR LIVING (CURRENT) USE OF ASPIRIN 09/05/2017 NIKI MELTONC, ALI FACP CCDS Ot Z79.899 OTHER BUSINESS SUPPORT LIAISON (CURRENT) DRUG THERAPY 09/05/2017 NIKI LEWIS FACC, ALI FACP CCDS Ot Z87.891 PERSONAL HISTORY OF NICOTINE DEPENDENCE 09/05/2017 NIKI MELTONC, ALI FACP CCDS Ot Z95.820 PERIPHERAL VASCULAR ANGIOPLASTY STATUS W 09/05/2017 NIKI MELTONC, ALI FACP CCDS Ot E78.5 HYPERLIPIDEMIA, UNSPECIFIED 09/05/2017 NIKI LEWIS FACC, ALI FACP CCDS Ot I10 ESSENTIAL (PRIMARY) HYPERTENSION 09/05/2017 NIKI LEWIS FACC, ALI FACP CCDS Ot I48.0 PAROXYSMAL ATRIAL FIBRILLATION 09/05/2017 NIKI LEWIS FACC, ALI FACP CCDS Ot I65.23 OCCLUSION AND STENOSIS OF [place] 09/05/2017 NIKI LEWIS FACC, ALI FACP CCDS Ot I70.212 [place] ARTERIES OF EXTRM W INTRME 09/05/2017 NIKI LEWIS FACC, ALI FACP CCDS Ot Z79.02 BUSINESS SUPPORT LIAISON (CURRENT) USE OF ANTITHROMBOTI 09/05/2017 NIKI LEWIS [facility], MATTHEW FACP CCDS Ot Z79.82 SENIOR LIVING (CURRENT) USE OF ASPIRIN 09/05/2017 NIKI LEWIS FACC[facility] Ot Z79.899 OTHER BUSINESS SUPPORT LIAISON (CURRENT) DRUG THERAPY 09/05/2017 NIKI LEWIS FACC, [facility] Ot Z87.891 PERSONAL HISTORY OF NICOTINE DEPENDENCE 09/05/2017 NIKI MELTON, MATTHEW FACP CCDS Ot Z95.820 PERIPHERAL VASCULAR ANGIOPLASTY STATUS W 10/29/2017 JUAN C HUTCHINSON, ISIDRO Calvillo Ot Z12.31 ENCNTR SCREEN MAMMOGRAM FOR MALIGNANT NE 11/16/2017 ISIDRO IRIZARRY DO Ot Z12.31 ENCNTR SCREEN MAMMOGRAM FOR MALIGNANT NE 01/24/2018 ISIDRO IRIZARRY DO Ot V76.12 OTH SCREEN MAMMO-MALIGN NEOPLASM OF [place] 01/24/2018 REHANA LAMAS MD Ot 813.41 COLLES' FRACTURE-CLOSED 01/24/2018 REHANA LAMAS MD Ot E000.8 OTHER EXTERNAL CAUSE STATUS 01/24/2018 REHANA LAMAS MD Ot E849.0 ACCIDENT IN HOME 01/24/2018 REHANA LAMAS MD Ot E885.9 FALL FROM SLIPPING, TRIPPING, OR STUMBLI 01/24/2018 REHANA LAMAS MD Ot V72.83 EXAM PRE-OPERATIVE NEC 01/24/2018 REHANA LAMAS MD Ot V74.8 SCREEN-BACTERIAL DIS NEC 01/24/2018 ISIDRO IRIZARRY DO Ot V76.12 OTH SCREEN MAMMO-MALIGN NEOPLASM OF [place] 01/24/2018 BAIMA, JUANA L 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 Ot 401.9 HYPERTENSION NOS 01/24/2018 BAIMA, JUANA L 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 Ot 427.31 ATRIAL FIBRILLATION 01/24/2018 BAIMA, JUANA L 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 Ot 786.50 CHEST PAIN NOS 01/24/2018 BAIMA, JUANA L 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 Ot 401.9 HYPERTENSION NOS 01/24/2018 BAIMA, JUANA L 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 Ot 427.31 ATRIAL FIBRILLATION 01/24/2018 BAIMA, JUANA L 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 Ot 443.9 PERIPH VASCULAR DIS NOS 01/24/2018 BAIMA, JUANA L 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 Ot 786.50 CHEST PAIN NOS 01/24/2018 GELLENDER DO, ISIDRO Calvillo Ot V76.12 OTH SCREEN MAMMO-MALIGN NEOPLASM OF [place] 01/24/2018 JUANA WHEELER 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 Ot M54.9 DORSALGIA, UNSPECIFIED 01/24/2018 Ot Z12.31 ENCNTR SCREEN MAMMOGRAM FOR MALIGNANT NE 01/24/2018 ASIFLENDER DO, ISIDRO Calvillo Ot N64.9 DISORDER OF BREAST, UNSPECIFIED 01/24/2018 [facility] ISIDRO Calvillo Ot Z12.31 ENCNTR SCREEN MAMMOGRAM FOR MALIGNANT NE 01/24/2018 NIKI LEWIS FACC, ALI FACP CCDS Ot E78.4 OTHER HYPERLIPIDEMIA 01/24/2018 NIKI LEWIS FACC, ALI FACP CCDS Ot I10 ESSENTIAL (PRIMARY) HYPERTENSION 01/24/2018 NIKI LEWIS FACC, ALI FACP CCDS Ot I70.213 [place] ARTERIES OF EXTRM W INTRMT 01/24/2018 NIKI LEWIS FACC, ALI FACP CCDS Ot R07.89 OTHER CHEST PAIN 01/24/2018 [facility], ISIDRO Calvillo Ot Z12.31 ENCNTR SCREEN MAMMOGRAM FOR MALIGNANT NE 02/13/2018 NIKI LEWIS FACC, ALI FACP CCDS Ot E78.5 HYPERLIPIDEMIA, UNSPECIFIED 02/13/2018 NIKI LEWIS FACC, ALI FACP CCDS Ot I73.9 PERIPHERAL VASCULAR DISEASE, UNSPECIFIED 02/13/2018 NIKI LEWIS FACC, ALI FACP CCDS Ot I77.89 OTHER SPECIFIED DISORDERS OF ARTERIES AN 02/13/2018 NIKI LEWIS FACC, ALI FACP CCDS Ot R07.89 OTHER CHEST PAIN 07/09/2018 GELLENDER DO, ISIDRO Calvillo Ot E87.1 HYPO-OSMOLALITY AND HYPONATREMIA 07/09/2018 GELLENDER DOISIDRO Ot E87.6 HYPOKALEMIA 07/09/2018 GELLENDER DOISIDRO Ot I10 ESSENTIAL (PRIMARY) HYPERTENSION 07/09/2018 [facility] Ot I25.10 ATHSCL HEART DISEASE OF [place] CORONARY 07/09/2018 [facility] DOIS[facility] Ot K59.00 CONSTIPATION, UNSPECIFIED 07/09/2018 GELLENDER DOISIDRO Ot M62.81 MUSCLE WEAKNESS (GENERALIZED) 07/09/2018 GELLENDER DO, ISIDRO A Ot N95.0 POSTMENOPAUSAL BLEEDING 07/09/2018 GELLENDER DO, ISIDRO A Ot R11.0 NAUSEA 07/09/2018 GELLENDER DO, ISIDRO A Ot R26.81 UNSTEADINESS ON FEET 07/09/2018 GELLENDER DO, ISIDRO A Ot R51 HEADACHE 07/15/2018 GELLENDER DO, ISIDRO Calvillo Ot E87.1 HYPO-OSMOLALITY AND HYPONATREMIA 07/15/2018 GELLENDER DO, ISIDRO Calvillo Ot E87.6 HYPOKALEMIA 07/15/2018 GELLENDER DO, ISIDRO Calvillo Ot I10 ESSENTIAL (PRIMARY) HYPERTENSION 07/15/2018 GELLENDER DO, ISIDRO Calvillo Ot I25.10 ATHSCL HEART DISEASE OF [place] CORONARY 07/15/2018 GELLENDER DO, ISIDRO Calvillo Ot K59.00 CONSTIPATION, UNSPECIFIED 07/15/2018 GELLENDER DO, ISIDRO Calvillo Ot M62.81 MUSCLE WEAKNESS (GENERALIZED) 07/15/2018 GELLENDER DO, ISIDRO Calvillo Ot N95.0 POSTMENOPAUSAL BLEEDING 07/15/2018 GELLENDER DO, ISIDRO Calvillo Ot R11.0 NAUSEA 07/15/2018 GELLENDER DO, ISIDRO Calvillo Ot R26.81 UNSTEADINESS ON FEET 07/15/2018 GELLENDER DO, ISIDRO Calvillo Ot R51 HEADACHE 07/15/2018 GELLENDER DO, ISIDRO Calvillo Ot E87.1 HYPO-OSMOLALITY AND HYPONATREMIA 07/15/2018 GELLENDER DO, ISIDRO Calvillo Ot E87.6 HYPOKALEMIA 07/15/2018 GELLENDER DO, ISIDRO Rajinder Ot I10 ESSENTIAL (PRIMARY) HYPERTENSION 07/15/2018 GELLENDER DO, ISIDRO Calvillo Ot I25.10 ATHSCL HEART DISEASE OF [place] CORONARY 07/15/2018 GELLENDER DO, ISIDRO A Ot K59.00 CONSTIPATION, UNSPECIFIED 07/15/2018 GELLENDER DO, ISIDRO Calvillo Ot M62.81 MUSCLE WEAKNESS (GENERALIZED) 07/15/2018 GELLENDER DO, ISIDRO A Ot N95.0 POSTMENOPAUSAL BLEEDING 07/15/2018 GELLENDER DO, ISIDRO A Ot R11.0 NAUSEA 07/15/2018 GELLENDER DO, ISIDRO A Ot R26.81 UNSTEADINESS ON FEET 07/15/2018 GELLENDER DO, ISIDRO A Ot R51 HEADACHE 07/15/2018 GELLENDER DO, ISIDRO Calvillo Ot E87.1 HYPO-OSMOLALITY AND HYPONATREMIA 07/15/2018 [facility], ISIDRO Calvillo Ot E87.6 HYPOKALEMIA 07/15/2018 [facility], ISIDRO Calvillo Ot I10 ESSENTIAL (PRIMARY) HYPERTENSION 07/15/2018 [facility], ISIDRO Calvillo Ot I25.10 ATHSCL HEART DISEASE OF [place] CORONARY 07/15/2018 [facility] K59.00 CONSTIPATION, UNSPECIFIED 07/15/2018 [facility], ISIDRO Calvillo Ot M62.81 MUSCLE WEAKNESS (GENERALIZED) 07/15/2018 [facility] N[facility].0 POSTMENOPAUSAL BLEEDING 07/15/2018 [facility], ISIDRO Calvillo Ot R11.0 NAUSEA 07/15/2018 [facility] R26.81 UNSTEADINESS ON FEET 07/15/2018 [facility], ISIDRO Calvillo Ot R51 HEADACHE Procedures There is no data. Results Test Result Range Automated blood complete blood count (hemogram) panel - 09/04/17 07:38 Blood leukocytes automated count (number/volume) 6.6 10*3/uL 4.3-11.0 Blood erythrocytes automated count (number/volume) 4.72 10*6/uL 4.35-5.85 Venous blood hemoglobin measurement (mass/volume) 15.3 g/dL 11.5-16.0 Blood hematocrit (volume fraction) 45 % 35-52 Automated erythrocyte mean corpuscular volume 95 [foz_us] 80-99 Automated erythrocyte mean corpuscular hemoglobin (mass per erythrocyte) 32 pg 25-34 Automated erythrocyte mean corpuscular hemoglobin concentration measurement ( mass/volume) 34 g/dL 32-36 Automated erythrocyte distribution width ratio 13.1 % 10.0-14.5 Automated blood platelet count (count/volume) 300 10*3/uL 130-400 Automated blood platelet mean volume measurement 9.4 [foz_us] 7.4-10.4 PT panel in platelet poor plasma by coagulation assay - 09/04/17 07:38 Prothrombin time (PT) in platelet poor plasma by coagulation assay 12.5 s 12.2-14.7 INR in platelet poor plasma or blood by coagulation assay 0.9 0.8-1.4 Activated partial thromboplastin time (aPTT) in platelet poor plasma bycoagulation assay - 09/04/17 07:38 Activated partial thromboplastin time (aPTT) in platelet poor plasma bycoagulation assay 25 s 24-35 Comprehensive metabolic panel - 09/04/17 07:38 Serum or plasma sodium measurement (moles/volume) 136 mmol/L 135-145 Serum or plasma potassium measurement (moles/volume) 3.7 mmol/L 3.6-5.0 Serum or plasma chloride measurement (moles/volume) 100 mmol/L 98-107 Carbon dioxide 23 mmol/L 21-32 Serum or plasma anion gap determination (moles/volume) 13 mmol/L 5-14 Serum or plasma urea nitrogen measurement (mass/volume) 5 mg/dL 7-18 Serum or plasma creatinine measurement (mass/volume) 0.63 mg/dL 0.60-1.30 Serum or plasma urea nitrogen/creatinine mass ratio 8 NRG Serum or plasma creatinine measurement with calculation of estimated glomerular filtration rate > NRG Serum or plasma glucose measurement (mass/volume) 91 mg/dL 70-105 Serum or plasma calcium measurement (mass/volume) 9.7 mg/dL 8.5-10.1 Serum or plasma total bilirubin measurement (mass/volume) 0.5 mg/dL 0.1-1.0 Serum or plasma alkaline phosphatase measurement (enzymatic activity/volume) 73 U/L 40-136 Serum or plasma aspartate aminotransferase measurement (enzymatic activity/ volume) 22 U/L 5-34 Serum or plasma alanine aminotransferase measurement (enzymatic activity/volume ) 19 U/L 0-55 Serum or plasma protein measurement (mass/volume) 7.0 g/dL 6.4-8.2 Serum or plasma albumin measurement (mass/volume) 4.0 g/dL 3.2-4.5 Lipid 1996 panel - 09/04/17 07:38 Serum or plasma triglyceride measurement (mass/volume) 82 mg/dL <150 Serum or plasma cholesterol measurement (mass/volume) 161 mg/dL < 200 Serum or plasma cholesterol in HDL measurement (mass/volume) 88 mg/ dL 40-60 Cholesterol in LDL [mass/volume] in serum or plasma by direct assay 55 mg/dL 1-129 Serum or plasma cholesterol in VLDL measurement (mass/volume) 16 mg/ dL 5-40 Methicillin resistant Staphylococcus aureus (MRSA) screening culture - 07:38 Methicillin resistant Staphylococcus aureus (MRSA) screening culture NEG NRG Automated blood complete blood count (hemogram) panel - 09/05/17 03:28 Blood leukocytes automated count (number/volume) 7.4 10*3/uL 4.3-11.0 Blood erythrocytes automated count (number/volume) 3.94 10*6/uL 4.35-5.85 Venous blood hemoglobin measurement (mass/volume) 12.7 g/dL 11.5-16.0 Blood hematocrit (volume fraction) 38 % 35-52 Automated erythrocyte mean corpuscular volume 97 [foz_us] 80-99 Automated erythrocyte mean corpuscular hemoglobin (mass per erythrocyte) 32 pg 25-34 Automated erythrocyte mean corpuscular hemoglobin concentration measurement ( mass/volume) 33 g/dL 32-36 Automated erythrocyte distribution width ratio 13.2 % 10.0-14.5 Automated blood platelet count (count/volume) 275 10*3/uL 130-400 Automated blood platelet mean volume measurement 9.6 [foz_us] 7.4-10.4 Whole blood basic metabolic panel - 09/05/17 03:28 Serum or plasma sodium measurement (moles/volume) 137 mmol/L 135-145 Serum or plasma potassium measurement (moles/volume) 3.5 mmol/L 3.6-5.0 Serum or plasma chloride measurement (moles/volume) 105 mmol/L 98-107 Carbon dioxide 24 mmol/L 21-32 Serum or plasma anion gap determination (moles/volume) 8 mmol/L 5-14 Serum or plasma urea nitrogen measurement (mass/volume) 4 mg/dL 7-18 Serum or plasma creatinine measurement (mass/volume) 0.50 mg/dL 0.60-1.30 Serum or plasma urea nitrogen/creatinine mass ratio 8 NRG Serum or plasma creatinine measurement with calculation of estimated glomerular filtration rate > NRG Serum or plasma glucose measurement (mass/volume) 99 mg/dL 70-105 Serum or plasma calcium measurement (mass/volume) 8.6 mg/dL 8.5-10.1 Automated blood complete blood count (hemogram) panel - 07/03/18 13:40 Blood leukocytes automated count (number/volume) 7.2 10*3/uL 4.3-11.0 Blood erythrocytes automated count (number/volume) 4.34 10*6/uL 4.35-5.85 Venous blood hemoglobin measurement (mass/volume) 13.9 g/dL 11.5-16.0 Blood hematocrit (volume fraction) 38 % 35-52 Automated erythrocyte mean corpuscular volume 87 [foz_us] 80-99 Automated erythrocyte mean corpuscular hemoglobin (mass per erythrocyte) 32 pg 25-34 Automated erythrocyte mean corpuscular hemoglobin concentration measurement ( mass/volume) 37 g/dL 32-36 Automated erythrocyte distribution width ratio 11.6 % 10.0-14.5 Automated blood platelet count (count/volume) 219 10*3/uL 130-400 Automated blood platelet mean volume measurement 9.4 [foz_us] 7.4-10.4 Comprehensive metabolic panel - 07/03/18 13:40 Serum or plasma sodium measurement (moles/volume) 117 mmol/L 135-145 Serum or plasma potassium measurement (moles/volume) 2.8 mmol/L 3.6-5.0 Serum or plasma chloride measurement (moles/volume) 80 mmol/L 98-107 Carbon dioxide 26 mmol/L 21-32 Serum or plasma anion gap determination (moles/volume) 11 mmol/L 5-14 Serum or plasma urea nitrogen measurement (mass/volume) 4 mg/dL 7-18 Serum or plasma creatinine measurement (mass/volume) 0.53 mg/dL 0.60-1.30 Serum or plasma urea nitrogen/creatinine mass ratio 8 NRG Serum or plasma creatinine measurement with calculation of estimated glomerular filtration rate > NRG Serum or plasma glucose measurement (mass/volume) 114 mg/dL 70-105 Serum or plasma calcium measurement (mass/volume) 9.3 mg/dL 8.5-10.1 Serum or plasma total bilirubin measurement (mass/volume) 0.4 mg/dL 0.1-1.0 Serum or plasma alkaline phosphatase measurement (enzymatic activity/volume) 86 U/L 40-136 Serum or plasma aspartate aminotransferase measurement (enzymatic activity/ volume) 77 U/L 5-34 Serum or plasma alanine aminotransferase measurement (enzymatic activity/volume ) 74 U/L 0-55 Serum or plasma protein measurement (mass/volume) 6.4 g/dL 6.4-8.2 Serum or plasma albumin measurement (mass/volume) 3.8 g/dL 3.2-4.5 CALCIUM CORRECTED 9.5 mg/dL 8.5-10.1 Automated blood complete blood count (hemogram) panel - 07/04/18 04:10 Blood leukocytes automated count (number/volume) 6.0 10*3/uL 4.3-11.0 Blood erythrocytes automated count (number/volume) 3.74 10*6/uL 4.35-5.85 Venous blood hemoglobin measurement (mass/volume) 12.2 g/dL 11.5-16.0 Blood hematocrit (volume fraction) 33 % 35-52 Automated erythrocyte mean corpuscular volume 88 [foz_us] 80-99 Automated erythrocyte mean corpuscular hemoglobin (mass per erythrocyte) 33 pg 25-34 Automated erythrocyte mean corpuscular hemoglobin concentration measurement ( mass/volume) 37 g/dL 32-36 Automated erythrocyte distribution width ratio 11.8 % 10.0-14.5 Automated blood platelet count (count/volume) 211 10*3/uL 130-400 Automated blood platelet mean volume measurement 9.3 [foz_us] 7.4-10.4 Comprehensive metabolic panel - 07/04/18 04:10 Serum or plasma sodium measurement (moles/volume) 120 mmol/L 135-145 Serum or plasma potassium measurement (moles/volume) 3.3 mmol/L 3.6-5.0 Serum or plasma chloride measurement (moles/volume) 91 mmol/L 98-107 Carbon dioxide 23 mmol/L 21-32 Serum or plasma anion gap determination (moles/volume) 6 mmol/L 5-14 Serum or plasma urea nitrogen measurement (mass/volume) 4 mg/dL 7-18 Serum or plasma creatinine measurement (mass/volume) 0.44 mg/dL 0.60-1.30 Serum or plasma urea nitrogen/creatinine mass ratio 9 NRG Serum or plasma creatinine measurement with calculation of estimated glomerular filtration rate > NRG Serum or plasma glucose measurement (mass/volume) 89 mg/dL 70-105 Serum or plasma calcium measurement (mass/volume) 8.4 mg/dL 8.5-10.1 Serum or plasma total bilirubin measurement (mass/volume) 0.3 mg/dL 0.1-1.0 Serum or plasma alkaline phosphatase measurement (enzymatic activity/volume) 71 U/L 40-136 Serum or plasma aspartate aminotransferase measurement (enzymatic activity/ volume) 62 U/L 5-34 Serum or plasma alanine aminotransferase measurement (enzymatic activity/volume ) 61 U/L 0-55 Serum or plasma protein measurement (mass/volume) 5.2 g/dL 6.4-8.2 Serum or plasma albumin measurement (mass/volume) 3.2 g/dL 3.2-4.5 CALCIUM CORRECTED 9.0 mg/dL 8.5-10.1 Lipid 1996 panel - 07/04/18 04:10 Serum or plasma triglyceride measurement (mass/volume) 56 mg/dL <150 Serum or plasma cholesterol measurement (mass/volume) 112 mg/dL < 200 Serum or plasma cholesterol in HDL measurement (mass/volume) 57 mg/ dL 40-60 Cholesterol in LDL [mass/volume] in serum or plasma by direct assay 32 mg/dL 1-129 Serum or plasma cholesterol in VLDL measurement (mass/volume) 11 mg/ dL 5-40 Automated blood complete blood count (hemogram) panel - 07/05/18 05:34 Blood leukocytes automated count (number/volume) 7.7 10*3/uL 4.3-11.0 Blood erythrocytes automated count (number/volume) 4.42 10*6/uL 4.35-5.85 Venous blood hemoglobin measurement (mass/volume) 14.0 g/dL 11.5-16.0 Blood hematocrit (volume fraction) 40 % 35-52 Automated erythrocyte mean corpuscular volume 90 [foz_us] 80-99 Automated erythrocyte mean corpuscular hemoglobin (mass per erythrocyte) 32 pg 25-34 Automated erythrocyte mean corpuscular hemoglobin concentration measurement ( mass/volume) 35 g/dL 32-36 Automated erythrocyte distribution width ratio 12.1 % 10.0-14.5 Automated blood platelet count (count/volume) 236 10*3/uL 130-400 Automated blood platelet mean volume measurement 10.1 [foz_us] 7.4-10.4 Whole blood basic metabolic panel - 07/05/18 05:34 Serum or plasma sodium measurement (moles/volume) 126 mmol/L 135-145 Serum or plasma potassium measurement (moles/volume) 3.0 mmol/L 3.6-5.0 Serum or plasma chloride measurement (moles/volume) 93 mmol/L 98-107 Carbon dioxide 24 mmol/L 21-32 Serum or plasma anion gap determination (moles/volume) 9 mmol/L 5-14 Serum or plasma urea nitrogen measurement (mass/volume) 3 mg/dL 7-18 Serum or plasma creatinine measurement (mass/volume) 0.54 mg/dL 0.60-1.30 Serum or plasma urea nitrogen/creatinine mass ratio 6 NRG Serum or plasma creatinine measurement with calculation of estimated glomerular filtration rate > NRG Serum or plasma glucose measurement (mass/volume) 83 mg/dL 70-105 Serum or plasma calcium measurement (mass/volume) 9.1 mg/dL 8.5-10.1 Automated blood complete blood count (hemogram) panel - 07/06/18 03:35 Blood leukocytes automated count (number/volume) 6.4 10*3/uL 4.3-11.0 Blood erythrocytes automated count (number/volume) 3.85 10*6/uL 4.35-5.85 Venous blood hemoglobin measurement (mass/volume) 12.5 g/dL 11.5-16.0 Blood hematocrit (volume fraction) 35 % 35-52 Automated erythrocyte mean corpuscular volume 90 [foz_us] 80-99 Automated erythrocyte mean corpuscular hemoglobin (mass per erythrocyte) 32 pg 25-34 Automated erythrocyte mean corpuscular hemoglobin concentration measurement ( mass/volume) 36 g/dL 32-36 Automated erythrocyte distribution width ratio 12.3 % 10.0-14.5 Automated blood platelet count (count/volume) 217 10*3/uL 130-400 Automated blood platelet mean volume measurement 9.6 [foz_us] 7.4-10.4 Whole blood basic metabolic panel - 07/06/18 03:35 Serum or plasma sodium measurement (moles/volume) 126 mmol/L 135-145 Serum or plasma potassium measurement (moles/volume) 3.1 mmol/L 3.6-5.0 Serum or plasma chloride measurement (moles/volume) 96 mmol/L 98-107 Carbon dioxide 22 mmol/L 21-32 Serum or plasma anion gap determination (moles/volume) 8 mmol/L 5-14 Serum or plasma urea nitrogen measurement (mass/volume) 4 mg/dL 7-18 Serum or plasma creatinine measurement (mass/volume) 0.43 mg/dL 0.60-1.30 Serum or plasma urea nitrogen/creatinine mass ratio 9 NRG Serum or plasma creatinine measurement with calculation of estimated glomerular filtration rate > NRG Serum or plasma glucose measurement (mass/volume) 94 mg/dL 70-105 Serum or plasma calcium measurement (mass/volume) 8.5 mg/dL 8.5-10.1 Complete blood count (CBC) with automated white blood cell (WBC) differential - 07/07/18 06:02 Blood leukocytes automated count (number/volume) 6.0 10*3/uL 4.3-11.0 Blood erythrocytes automated count (number/volume) 4.02 10*6/uL 4.35-5.85 Venous blood hemoglobin measurement (mass/volume) 12.8 g/dL 11.5-16.0 Blood hematocrit (volume fraction) 36 % 35-52 Automated erythrocyte mean corpuscular volume 90 [foz_us] 80-99 Automated erythrocyte mean corpuscular hemoglobin (mass per erythrocyte) 32 pg 25-34 Automated erythrocyte mean corpuscular hemoglobin concentration measurement ( mass/volume) 35 g/dL 32-36 Automated erythrocyte distribution width ratio 12.3 % 10.0-14.5 Automated blood platelet count (count/volume) 205 10*3/uL 130-400 Automated blood platelet mean volume measurement 9.3 [foz_us] 7.4-10.4 Automated blood neutrophils/100 leukocytes 68 % 42-75 Automated blood lymphocytes/100 leukocytes 15 % 12-44 Blood monocytes/100 leukocytes 14 % 0-12 Automated blood eosinophils/100 leukocytes 2 % 0-10 Automated blood basophils/100 leukocytes 1 % 0-10 Blood neutrophils automated count (number/volume) 4.1 10*3 1.8-7.8 Blood lymphocytes automated count (number/volume) 0.9 10*3 1.0-4.0 Blood monocytes automated count (number/volume) 0.9 10*3 0.0-1.0 Automated eosinophil count 0.1 10*3/uL 0.0-0.3 Automated blood basophil count (count/volume) 0.0 10*3/uL 0.0-0.1 Comprehensive metabolic panel - 07/07/18 06:02 Serum or plasma sodium measurement (moles/volume) 126 mmol/L 135-145 Serum or plasma potassium measurement (moles/volume) 2.8 mmol/L 3.6-5.0 Serum or plasma chloride measurement (moles/volume) 95 mmol/L 98-107 Carbon dioxide 22 mmol/L 21-32 Serum or plasma anion gap determination (moles/volume) 9 mmol/L 5-14 Serum or plasma urea nitrogen measurement (mass/volume) 3 mg/dL 7-18 Serum or plasma creatinine measurement (mass/volume) 0.45 mg/dL 0.60-1.30 Serum or plasma urea nitrogen/creatinine mass ratio 7 NRG Serum or plasma creatinine measurement with calculation of estimated glomerular filtration rate > NRG Serum or plasma glucose measurement (mass/volume) 101 mg/dL 70-105 Serum or plasma calcium measurement (mass/volume) 8.3 mg/dL 8.5-10.1 Serum or plasma total bilirubin measurement (mass/volume) 0.3 mg/dL 0.1-1.0 Serum or plasma alkaline phosphatase measurement (enzymatic activity/volume) 73 U/L 40-136 Serum or plasma aspartate aminotransferase measurement (enzymatic activity/ volume) 41 U/L 5-34 Serum or plasma alanine aminotransferase measurement (enzymatic activity/volume ) 42 U/L 0-55 Serum or plasma protein measurement (mass/volume) 5.4 g/dL 6.4-8.2 Serum or plasma albumin measurement (mass/volume) 3.2 g/dL 3.2-4.5 CALCIUM CORRECTED 8.9 mg/dL 8.5-10.1 Whole blood basic metabolic panel - 07/08/18 08:30 Serum or plasma sodium measurement (moles/volume) 131 mmol/L 135-145 Serum or plasma potassium measurement (moles/volume) 2.5 mmol/L 3.6-5.0 Serum or plasma chloride measurement (moles/volume) 96 mmol/L 98-107 Carbon dioxide 25 mmol/L 21-32 Serum or plasma anion gap determination (moles/volume) 10 mmol/L 5-14 Serum or plasma urea nitrogen measurement (mass/volume) 4 mg/dL 7-18 Serum or plasma creatinine measurement (mass/volume) 0.56 mg/dL 0.60-1.30 Serum or plasma urea nitrogen/creatinine mass ratio 7 NRG Serum or plasma creatinine measurement with calculation of estimated glomerular filtration rate > NRG Serum or plasma glucose measurement (mass/volume) 116 mg/dL 70-105 Serum or plasma calcium measurement (mass/volume) 8.9 mg/dL 8.5-10.1 Whole blood basic metabolic panel - 07/08/18 16:13 Serum or plasma sodium measurement (moles/volume) 133 mmol/L 135-145 Serum or plasma potassium measurement (moles/volume) 2.9 mmol/L 3.6-5.0 Serum or plasma chloride measurement (moles/volume) 97 mmol/L 98-107 Carbon dioxide 26 mmol/L 21-32 Serum or plasma anion gap determination (moles/volume) 10 mmol/L 5-14 Serum or plasma urea nitrogen measurement (mass/volume) 7 mg/dL 7-18 Serum or plasma creatinine measurement (mass/volume) 0.60 mg/dL 0.60-1.30 Serum or plasma urea nitrogen/creatinine mass ratio 12 NRG Serum or plasma creatinine measurement with calculation of estimated glomerular filtration rate > NRG Serum or plasma glucose measurement (mass/volume) 116 mg/dL 70-105 Serum or plasma calcium measurement (mass/volume) 8.9 mg/dL 8.5-10.1 Whole blood basic metabolic panel - 07/09/18 05:40 Serum or plasma sodium measurement (moles/volume) 133 mmol/L 135-145 Serum or plasma potassium measurement (moles/volume) 3.9 mmol/L 3.6-5.0 Serum or plasma chloride measurement (moles/volume) 102 mmol/L 98-107 Carbon dioxide 22 mmol/L 21-32 Serum or plasma anion gap determination (moles/volume) 9 mmol/L 5-14 Serum or plasma urea nitrogen measurement (mass/volume) 6 mg/dL 7-18 Serum or plasma creatinine measurement (mass/volume) 0.46 mg/dL 0.60-1.30 Serum or plasma urea nitrogen/creatinine mass ratio 13 NRG Serum or plasma creatinine measurement with calculation of estimated glomerular filtration rate > NRG Serum or plasma glucose measurement (mass/volume) 88 mg/dL 70-105 Serum or plasma calcium measurement (mass/volume) 8.9 mg/dL 8.5-10.1 Encounters ACCT No. Visit Date/Time Discharge Status Pt. Type Provider Facility Loc./Unit Complaint [id number] 07/03/2018 18:32:00 07/09/2018 11:30:00 DIS Outpatient ISIDRO IRIZARRY DO [facility] 4TH HYPONATREMIA, ELEVATED LIVER TEST [id number] 01/24/2018 14:59:00 01/24/2018 23:59:59 CLS Outpatient NIKI LEWIS FACC, MATTHEW VELEZ CCDS [facility] LAB HYPERLIPIDEMIA ,PAD,CAD [id number] 10/26/2017 10:33:00 10/26/2017 23:59:59 CLS Outpatient JUAN C HUTCHISNON ISIDRO Rajinder [facility] RAD YEARLY [id number] 09/04/2017 07:11:00 09/05/2017 10:50:00 DIS Outpatient NIKI LEWIS FACC, MATTHEW VELEZ CCDS [facility] CATH PAD,HTN,HL, TOBACCO USE [id number] 01/30/2017 07:11:00 01/30/2017 23:59:59 CLS Outpatient NIKI LEWIS FACC, MATTHEW VELEZ CCDS [facility] CARD CHEST DISCOMFORT R07.89 [id number] 10/25/2016 10:30:00 10/25/2016 23:59:59 CLS Outpatient JUAN C HUTCHINSON ISIDRO Calvillo [facility] RAD YEARLY SCREENING [id number] 11/01/2015 10:24:00 11/01/2015 23:59:59 CLS Outpatient JUAN C HUTCHINSON ISIDRO Rajinder [facility] RAD LEFT BREAST HEAVINESS AND FULLNESS [id number] 04/22/2015 11:11:00 04/22/2015 23:59:59 CLS Outpatient JUANA WEHELER [facility] RAD BACK PAIN [id number] 10/22/2014 09:45:00 10/22/2014 23:59:59 CLS Outpatient JUAN C HUTCHINSON ISIDRO Rajinder [facility] RAD SCREENING [id number] 06/04/2014 07:01:00 06/04/2014 15:00:00 DIS Outpatient CHALINO MCDUFFIE MD [facility] CATH CLAUDICATION,PAD, HLP [id number] 05/26/2014 07:04:00 05/26/2014 18:45:00 DIS Outpatient NIKI LEWIS FACC, MATTHEW FACP CCDS [facility] CATH ABNORMAL ESAU , CLAUDICATION [id number] 04/20/2014 11:34:00 04/20/2014 23:59:59 CLS Outpatient JUANA WHEELER 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 [facility] CARD CP,HTN,AFIB [id number] 04/16/2014 12:33:00 04/16/2014 23:59:59 CLS Outpatient JUANA WHEELER 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 [facility] RAD AFIB,CP,HTN [id number] 10/20/2013 10:30:00 10/20/2013 23:59:59 CLS Outpatient ISIDRO IRIZARRY DO [facility] RAD SCREENING [id number] 10/17/2012 15:11:00 10/17/2012 23:59:59 CLS Outpatient ISIDRO IRIZARRY DO [facility] RAD SCREENING [id number] 10/16/2012 12:26:00 10/16/2012 16:20:00 [facility] [id number] 10/15/2012 08:32:00 10/15/2012 23:59:59 CLS Outpatient REHANA LAMAS MD [facility] PREOP RIGHT WRIST FRACTURE [id number] 10/14/2012 14:41:00 10/14/2012 15:40:00 DIS Emergency CHAY TONY [facility] ER RING NEEDS TO BE CUT OFF DUE TO INJURY [id number] 10/12/2012 19:55:00 10/12/2012 21:04:00 DIS Emergency SWETHA RUIZ MD [facility] ER FALL; R WRIST INJ [id number] 07/18/2018 13:15:00 PEN Preadmit ISIDRO IRIZARRY DO [facility] REHAB UNSTEADY GAIT;UNABLE TO WALK ALONE [id number] 07/16/2018 15:36:00 ACT Inpatient ISIDRO IRIZARRY DO [facility] 4TH ELECTROLYTE IMBALANCE, RESP DISTRESS, HYPOKALEMIA [id number] 10/25/2015 10:30:00 Document Registration [id number] 11/02/2014 10:33:00 Document Registration [id number] 11/02/2014 10:33:00 Document Registration [id number] 11/02/2014 10:33:00 Document Registration [id number] 11/02/2014 10:33:00 Document Registration [id number] 11/02/2014 10:33:00 Document Registration [id number] 11/02/2014 10:33:00 Document Registration [id number] 11/02/2014 10:33:00 Document Registration [id number] 04/22/2012 12:56:00 Document Registration [id number] 10/16/2011 11:10:00 Document Registration [id number] 09/05/2011 05:43:00 Document Registration [id number] 09/04/2011 09:30:00 Document Registration [id number] 11/30/2010 12:44:00 Document Registration [id number] 10/14/2010 08:41:00 Document Registration [id number] 09/06/2010 05:35:00 Document Registration [id number] 09/05/2010 07:49:00 Document Registration [id number] 08/22/2010 11:43:00 Document Registration [id number] 05/03/2010 05:49:00 Document Registration
[2018-07-16 15:48] VITALS: BP 168/74
[2018-07-16] MEDS ORDERED: NS IV 1000 ML 1,000 ML ONE (15:52)
[2018-07-16 15:53] VITALS: BP 168/74
--- NOTE | 2018-07-16 16:08 | NUR ---
CRITICAL LAB VALUE CALLED TO THIS RN SODIUM OF 118. DR. IRIZARRY NOTIFIED OF CRITICAL LAB. NO NEW ORDERS.
[2018-07-16] MEDS ORDERED: LISI10TA2 PO (16:12)
[2018-07-16] MEDS ORDERED: NF-NACL1GT PO (16:14)
[2018-07-16] MEDS ORDERED: ONDANSETRON 4 MG/2 ML (SDV) Z0FRAN IV PRN (16:15)
[2018-07-16] MEDS: NS IV 1000 ML 1,000 ML IV SCH (16:15)
[2018-07-16 16:34] LABS: HEMOGLOBIN 12.9 G/DL (11.5-16.0); MEAN PLATELET VOLUME 9.2 FL (7.4-10.4); RED CELL DISTRIBUTION WIDTH 12.1 % (10.0-14.5); WHITE BLOOD COUNT 6.9 10^3/uL (4.3-11.0)
[2018-07-16 17:01] LABS: ALANINE AMINOTRANSFERASE 76 U/L (0-55); ALBUMIN 3.7 GM/DL (3.2-4.5); ALKALINE PHOSPHATASE 122 U/L (40-136); BILIRUBIN,TOTAL 0.3 MG/DL (0.1-1.0); BUN/CREATININE RATIO 9; CALCIUM 8.9 MG/DL (8.5-10.1); CARBON DIOXIDE 25 MMOL/L (21-32); CHLORIDE 84 MMOL/L (98-107); CREATININE SERUM 0.66 MG/DL (0.60-1.30); GFR ESTIMATED > 60; GLUCOSE 113 MG/DL (70-105); INR 1.2 (0.8-1.4); POTASSIUM 2.8 MMOL/L (3.6-5.0); PROTHROMBIN TIME PATIENT 14.9 SEC (12.2-14.7); TOTAL PROTEIN 6.1 GM/DL (6.4-8.2)
[2018-07-16 17:12] LABS: SODIUM 118 MMOL/L (135-145)
--- NOTE | 2018-07-16 17:22 | NUR ---
ALLAN ALMANZAR I admitted to room 407-1, with an admitting diagnosis of RESPIRATORY DISTRESS, HYPOKALEMIA, HYPONATREMIA, WEAKNESS, NAUSEA, on 07/16/18 from [facility], CAME BY HERSELF. ALLAN ALMANZAR I introduced to surroundings, call light, bed controls, phone, TV, temperature control, lights, meal times, smoking policy, visitor policy, side rail policy, bathrooms and showers. Patient Rights given to patient in the handbook. ALLAN ALMANZAR I verbalizes understanding that [facility] is not responsible for the loss or damage to any personal effects or valuables that are kept in the patients possession during their hospitalization.
--- NOTE | 2018-07-16 17:29 | Diagnostic Imaging Report ---
INDICATION: Cough. TIME OF EXAM: 4:54 p.m. COMPARISON: No prior studies are available for comparison. FINDINGS: The heart size is normal. There appears to be infiltrate in the right suprahilar region. Left lung is clear. Slight blunting of the left costophrenic angle is noted consistent with minimal pleural fluid or pleural thickening. There is apical pleural thickening with some pleural calcifications on the right. IMPRESSION: Right upper lobe density, suggestive of pneumonia. However, short interval radiographic followup after a course of therapy is recommended to confirm complete clearing. Dictated by: Dictated on workstation # [id number]
[2018-07-16] MEDS: POTASSIUM CL 10MEQ/50ML IVPB 50 ML IV SCH ×4 (17:47→21:04)
[2018-07-16 19:09] VITALS: BP 159/70
[2018-07-16 22:34] LABS: BILIRUBIN,URINE NEGATIVE (NEGATIVE); CLARITY,URINE SLIGHTLY CLOUDY; COLOR,URINE YELLOW; GLUCOSE, URINE (UA) NEGATIVE (NEGATIVE); KETONES,URINE 1+ (NEGATIVE); LEUKOCYTE ESTERASE ,URINE 3+ (NEGATIVE); NITRITE,URINE NEGATIVE (NEGATIVE); PH,URINE 6 (5-9); PROTEIN,URINE 2+ (NEGATIVE); UROBILINOGEN,URINE NORMAL (NORMAL)
[2018-07-16 22:42] LABS: BACTERIA,URINE LARGE /HPF; WBC,URINE TNTC /HPF
[2018-07-17] VITALS (7 sets, daily range): BP systolic 136–166; BP diastolic 62–74
[2018-07-17 06:09] LABS: BASOPHILS % (AUTO) 0 % (0-10); EOSINOPHILS % (AUTO) 0 % (0-10); HEMATOCRIT 33 % (35-52); HEMOGLOBIN 12.2 G/DL (11.5-16.0); LYMPHOCYTES # (AUTO) 1.1 X 10^3 (1.0-4.0); LYMPHOCYTES % (AUTO) 17 % (12-44); MEAN CORPUSCULAR HEMOGLOBIN 32 PG (25-34); MEAN CORPUSCULAR HGB CONC 37 G/DL (32-36); MEAN CORPUSCULAR VOLUME 87 FL (80-99); MEAN PLATELET VOLUME 9.2 FL (7.4-10.4); MONOCYTES # (AUTO) 1.1 X 10^3 (0.0-1.0); MONOCYTES % (AUTO) 16 % (0-12); NEUTROPHILS # (AUTO) 4.5 X 10^3 (1.8-7.8); NEUTROPHILS % (AUTO) 66 % (42-75); PLATELET COUNT 193 10^3/uL (130-400); RED CELL DISTRIBUTION WIDTH 12.1 % (10.0-14.5); WHITE BLOOD COUNT 6.8 10^3/uL (4.3-11.0)
[2018-07-17 06:26] LABS: ALANINE AMINOTRANSFERASE 76 U/L (0-55); ALBUMIN 3.4 GM/DL (3.2-4.5); ALKALINE PHOSPHATASE 120 U/L (40-136); BILIRUBIN,TOTAL 0.3 MG/DL (0.1-1.0); BUN/CREATININE RATIO 8; CALCIUM 8.3 MG/DL (8.5-10.1); CARBON DIOXIDE 23 MMOL/L (21-32); CHLORIDE 90 MMOL/L (98-107); CREATININE SERUM 0.48 MG/DL (0.60-1.30); GFR ESTIMATED > 60; GLUCOSE 99 MG/DL (70-105); POTASSIUM 3.1 MMOL/L (3.6-5.0); TOTAL PROTEIN 5.6 GM/DL (6.4-8.2)
[2018-07-17 06:28] LABS: SODIUM 121 MMOL/L (135-145)
--- NOTE | 2018-07-17 07:19 | History & Physicial ---
History of Present Illness History of Present Illness Reason for visit/HPI Patient recently discharge from the hospital feeling good. Patient had blood tests yesterday morning showing she has hypokalemia and hyponatremia. Patient not eating. Patient lost weight. Patient weak and trouble getting around and walking with a walker. Patient admitted to hospital. Chest x-ray shows pneumonia. UA shows UTI. Patient has elevated liver enzymes. Patient weak and not eating and difficulty in getting around. Patient lives alone. Patient nauseous and unable to keep anything down. Patient weak at home. Surgeries 3 catheterizations, fluid drainage from hard at [place]. Fractured the right wrist Date of Admission Jul 16, 2018 at 15:36 Time Seen by a Provider: 07:15 I consulted on this patient on 07/17/18 07:14 Attending Physician Dru Irizarry DO Admitting Physician Dru Irizarry DO Consult Allergies and Home Medications Allergies Coded Allergies: NKANo Known Allergies (Verified Allergy, Unknown, 07/03/18) Home Medications Aspirin 81 Mg Tablet.dr, 81 MG PO HS, (Reported) Calcium Carbonate/Vitamin D3 1 Each Tablet, 1 TAB PO HS, (Reported) Clopidogrel Bisulfate 75 Mg Tablet, 75 MG PO DAILY, (Reported) Diltiazem HCl 180 Mg Cap.er.24h, 180 MG PO DAILY, (Reported) Lisinopril 10 Mg Tablet, 10 MG PO DAILY, (Reported) Multivit-Min/FA/Lycopene/Lut 1 Each Tablet, 1 TAB PO DAILY, (Reported) Simvastatin 20 Mg Tablet, 20 MG PO HS, (Reported) Sodium Chloride 1 Gm Tab, 0.5 GM PO 1500, (Reported) TAKES 1/2 (1GM) TABLET Patient Home Medication List Home Medication List Reviewed: Yes Past Lbeyttv-Dgqvzo-Xxblej Hx Patient Social History Employed/Student: retired Alcohol Use: Denies Use Recreational Drug Use: No Type Used: Cigarettes Physical Abuse Screen: No Sexual Abuse: No Recent Foreign Travel: Yes Contact w/other who traveled: No Recent Hopitalizations: Yes Recent Infectious Disease Expo: No Immunizations Up To Date Tetanus Booster (TDap): More than 5yrs Pediatric: No Date of Pneumonia Vaccine: Jun 07, 2017 Date of Influenza Vaccine: Feb 04, 2018 Surgeries Yes (pericardial effusion drained,mole removed) Orthopedic Respiratory No Currently Using CPAP: No Currently Using BIPAP: No Cardiovascular No Neurological No Reproductive System : No Hx Reproductive Disorders: No Sexually Transmitted Disease: No Genitourinary No Gastrointestinal No Musculoskeletal Yes (RIGHT WRIST FX, RIGHT SHOULDER PAIN) Endocrine History of Endocrine Disorders: No HEENT History of HEENT Disorders: No Loss of Vision: Denies Hearing Impairment: Denies Cancer No Did You Recieve Any Treatments: No Psychosocial History of Psychiatric Problem: No Integumentary History of Skin or Integumenta: No Blood Transfusions History of Blood Disorders: No Family Medical History Family Hx: Alzheimer's disease Cardiovascular disease Diabetes mellitus Parkinson's disease Review of Systems Constitutional: malaise, weakness EENTM: no symptoms reported Respiratory: no symptoms reported Cardiovascular: no symptoms reported Gastrointestinal: loss of appetite, nausea Genitourinary: no symptoms reported Physical Exam Vital Signs Vital Signs - First Documented 07/16/18 15:48 Temp 98.2 Pulse 73 Resp 16 B/P (MAP) 168/74 Pulse Ox 97 O2 Delivery Room Air Capillary Refill : Height, Weight, BMI Height: 5'5.00" Weight: 120lbs. 6.0oz. 54.325689rr; 19.7 BMI Method: General Appearance: No Apparent Distress, Thin Eyes: Bilateral Eye Normal Inspection HEENT: Normal ENT Inspection Neck: Full Range of Motion, Normal Inspection Respiratory: Lungs Clear, Normal Breath Sounds, No Accessory Muscle Use, No Respiratory Distress Cardiovascular: Regular Rate, Rhythm, No Murmur Gastrointestinal: Non Tender, Soft Assessment/Plan Assessment and Plan Pneumonia. UTI. Severe hyponatremia. Hypokalemia. Weakness. Unsteady gait. Hypertension history. Elevated liver tests. Patient lives alone. Ration not able to take care of herself Admission Diagnosis Admission Status: Inpatient Order (span 2 midnights) Reason for Inpatient Admission: Pneumonia. UTI. Severe hyponatremia. Nauseousness. Not eating. Weakness. Unsteady gait. Elevated liver tests. Patient lives alone Clinical Quality Measures DVT/VTE Risk/Contraindication: Risk Factor Score Per Nursin RFS Level Per Nursing on Admit: 4+=Very High Contraindications-Pharm: Other *list below* DRU IRIZARRY DO Jul 17, 2018 07:19
[2018-07-17] MEDS: cefTRIAXone FOR IV USE 1,000 MG in WATER (STERILE) FOR INJECTION 10 ML IV SCH (08:41)
[2018-07-17] MEDS: DILTIAZEM 180 MG (CARDIZEM CD) CAP PO SCH (08:42)
[2018-07-17] MEDS: NS IV 1000 ML 1,000 ML IV SCH (08:42)
[2018-07-17] MEDS: AZITHROMYCIN INJECTION 500 MG in NS (IVPB) 250 ML IV SCH (08:42)
[2018-07-17] MEDS: CLOPIDOGREL 75 MG (PLAVIX) TABLET PO SCH (08:42)
[2018-07-17] MEDS ORDERED: ASPIRIN E.C. 81 MG (ECOTRIN) TAB PO SCH (09:00)
[2018-07-17] MEDS: POTASSIUM CL 10MEQ/50ML IVPB 50 ML IV SCH ×3 (09:50→11:57)
[2018-07-18] MEDS: NS IV 1000 ML 1,000 ML IV SCH ×2 (03:25→20:32)
[2018-07-18 03:29] VITALS: BP 149/70
[2018-07-18 05:34] LABS: BASOPHILS % (AUTO) 0 % (0-10); EOSINOPHILS # (AUTO) 0.1 10^3/uL (0.0-0.3); EOSINOPHILS % (AUTO) 1 % (0-10); HEMATOCRIT 31 % (35-52); HEMOGLOBIN 11.1 G/DL (11.5-16.0); LYMPHOCYTES # (AUTO) 1.1 X 10^3 (1.0-4.0); LYMPHOCYTES % (AUTO) 16 % (12-44); MEAN CORPUSCULAR HEMOGLOBIN 31 PG (25-34); MEAN CORPUSCULAR HGB CONC 36 G/DL (32-36); MEAN CORPUSCULAR VOLUME 88 FL (80-99); MEAN PLATELET VOLUME 9.7 FL (7.4-10.4); MONOCYTES % (AUTO) 14 % (0-12); NEUTROPHILS # (AUTO) 4.8 X 10^3 (1.8-7.8); NEUTROPHILS % (AUTO) 69 % (42-75); PLATELET COUNT 171 10^3/uL (130-400)
[2018-07-18 06:06] LABS: ALANINE AMINOTRANSFERASE 60 U/L (0-55); ALKALINE PHOSPHATASE 107 U/L (40-136); BILIRUBIN,TOTAL 0.3 MG/DL (0.1-1.0); BUN/CREATININE RATIO 10; CALCIUM 7.7 MG/DL (8.5-10.1); CARBON DIOXIDE 23 MMOL/L (21-32); CHLORIDE 92 MMOL/L (98-107); CREATININE SERUM 0.42 MG/DL (0.60-1.30); GFR ESTIMATED > 60; GLUCOSE 91 MG/DL (70-105); TOTAL PROTEIN 4.9 GM/DL (6.4-8.2)
[2018-07-18 06:13] LABS: SODIUM 122 MMOL/L (135-145)
[2018-07-18 08:00] VITALS: BP 155/71
[2018-07-18] MEDS ORDERED: KCL 10 MEQ TAB (MICRO K) PO NR (08:00)
--- NOTE | 2018-07-18 08:00 | Progress Note (SOAP) ---
Subjective Time Seen by a Provider: 07:56 Subjective/Events-last exam Patient feeling better today. Patient weak. Patient to get physical therapy. Potassium 3. Liver tests coming down. Sodium 122 Objective Exam Vital Signs Date Time Temp Pulse Resp B/P (MAP) Pulse Ox O2 Delivery O2 Flow Rate FiO2 07/18/18 03:29 97.4 65 20 149/70 (96) 96 Room Air 07/17/18 23:20 97.6 70 20 166/71 (102) 96 Room Air 07/17/18 20:00 Room Air 07/17/18 20:00 97.0 07/17/18 19:03 96 18 146/63 (90) 96 Room Air 07/17/18 15:37 97.3 71 18 136/67 (90) 97 Room Air 07/17/18 12:00 97.8 71 18 142/62 (88) 97 Room Air 07/17/18 08:00 97.8 93 18 166/74 (104) 99 Room Air 07/17/18 08:00 99 Room Air I & O 07/18/18 07:00 Intake Total 4180 ml Output Total 1100 ml Balance 3080 ml Capillary Refill : General Appearance: No Apparent Distress, WD/WN, Thin HEENT: Normal ENT Inspection, Other (Hearing aid) Neck: Full Range of Motion, Normal Inspection Respiratory: No Accessory Muscle Use, No Respiratory Distress, Decreased Breath Sounds Cardiovascular: Regular Rate, Rhythm Gastrointestinal: non tender, soft Results Lab Laboratory Tests 07/18/18 05:15: White Blood Count 7.0, Red Blood Count 3.57L, Hemoglobin 11.1L, Hematocrit 31L, Mean Corpuscular Volume 88, Mean Corpuscular Hemoglobin 31, Mean Corpuscular Hemoglobin Concent 36, Red Cell Distribution Width 12.0, Platelet Count 171, Mean Platelet Volume 9.7, Neutrophils (%) (Auto) 69, Lymphocytes (%) (Auto) 16, Monocytes (%) (Auto) 14H, Eosinophils (%) (Auto) 1, Basophils (%) (Auto) 0, Neutrophils # (Auto) 4.8, Lymphocytes # (Auto) 1.1, Monocytes # (Auto) 1.0, Eosinophils # (Auto) 0.1, Basophils # (Auto) 0.0, Sodium Level 122*L, Potassium Level 3.0L, Chloride Level 92L, Carbon Dioxide Level 23, Anion Gap 7, Blood Urea Nitrogen 4L, Creatinine 0.42L, Estimat Glomerular Filtration Rate > 60, BUN /Creatinine Ratio 10, Glucose Level 91, Calcium Level 7.7L, Corrected Calcium 8.5, Total Bilirubin 0.3, Aspartate Amino Transf (AST/SGOT) 65H, Alanine Aminotransferase (ALT/SGPT) 60H, Alkaline Phosphatase 107, Total Protein 4.9L, Albumin 3.0L Microbiology 07/16/18 Influenza Types A,B Antigen (PADMAJA) - Final, Complete 07/16/18 Urine Culture - Preliminary, Resulted Culture In Progress Assessment/Plan Assessment/Plan Assess & Plan/Chief Complaint Pneumonia. UTI. Weakness. Liver tests coming down. Electrolyte imbalance. Clinical Quality Measures Admission Status Admission Dx Pneumonia. UTI. Severe hyponatremia. Hypokalemia. Weakness. Unsteady gait. Hypertension history. Elevated liver tests. Patient lives alone. Ration not able to take care of herself DVT/VTE Risk/Contraindication: Risk Factor Score Per Nursin RFS Level Per Nursing on Admit: 4+=Very High Contraindications-Pharm: Other *list below* ISIDRO IRIZARRY DO Jul 18, 2018 08:00
--- NOTE | 2018-07-18 08:37 | Diagnostic Imaging Report ---
INDICATION: Dry cough. Electrolyte imbalance.. TECHNIQUE: Two view chest 8:17 AM CORRELATION STUDY: 07/16/2018 FINDINGS: Heart size and vasculature relatively stable. Density in the right superhilar, paramediastinal region is again demonstrated, stable to perhaps slightly increased. Asymmetric pleural parenchymal densities may be calcified, particularly at the right lung apex. Slight blunting of costophrenic angles, maybe pleural thickening versus trace effusions. Slight accentuated thoracic kyphotic curvature with mildly compressed mid thoracic vertebral bodies. Diffuse bony demineralization. IMPRESSION: 1. Abnormal density right suprahilar region. This could be the area of pneumonia, mass lesion is definitely in the differential at this time. Short-term followup imaging or correlation CT imaging is recommended. Dictated by: Dictated on workstation # [id number]
[2018-07-18] MEDS: CLOPIDOGREL 75 MG (PLAVIX) TABLET PO SCH (08:55)
[2018-07-18] MEDS: DILTIAZEM 180 MG (CARDIZEM CD) CAP PO SCH (08:55)
[2018-07-18] MEDS: lisINopril 10 MG (PRINIVIL) TABLET PO SCH (08:55)
[2018-07-18] MEDS: AZITHROMYCIN INJECTION 500 MG in NS (IVPB) 250 ML IV SCH (08:55)
[2018-07-18] MEDS: cefTRIAXone FOR IV USE 1,000 MG in WATER (STERILE) FOR INJECTION 10 ML IV SCH (08:55)
--- NOTE | 2018-07-18 09:58 | Physical Therapy Evaluation ---
PT Evaluation-General Medical Diagnosis Admission Date Jul 16, 2018 at 15:36 Medical Diagnosis: electrolyte impalance/respiratory distress/hypokalemia Onset Date: Jul 16, 2018 Therapy Diagnosis Therapy Diagnosis: debility Height/Weight Height (Feet): 5 Height (Inches): 5.00 Weight (Pounds): 119 Weight (Ounces): 4.8 Precautions Precautions/Isolations: Fall Prevention, Standard Precautions Weight Bear Status Right Lower Extremity: Right Full Weight Bearing Left Lower Extremity: Left Full Weight Bearing Referral Physician: Geovanni Reason for Referral: Evaluation/Treatment Medical History Pertinent Medical History: CAD, HTN Additional Medical History prior right wrist fracture Current History recent DC from hospital Reviewed History: Yes Social History Home: Single Level Current Living Status: Alone Entry Into Home: Stairs With Railing PT Steps Into Home: 3 Prior/Core FIM Prior Level of Function Therapy Code Descriptions/Definitions Functional [place] Measure: 0=Not Assessed/NA 4=Minimal Assistance 1=Total Assistance 5=Supervision or Setup 2=Maximal Assistance 6=Modified [place] 3=Moderate Assistance 7=Complete [place] Therapy Quality Codes: 6 Independent with activity with or without an assistive device 5 Patient requires set up or clean up by helper. Patient completes activity by themselves 4 Supervision or touching assist (CGA). [place] provide cues , steadying assist 3 The helper provides less than half the effort to complete the activity 2 The helper provides more than half the effort to complete the activity 1 Dependent. The helper does all the effort to complete an activity 7 Patient refused to complete or attempt activity 9 The patient did not perform the activity before the current illness or injury 88 Not attempted due to Medical conditions or safety concerns Functional Abilities and Goals: Independent: Patient completed the activities by him/herself, with or without an assistive device, with no assistance from a helper. Needed Some Help: Patient needed partial assistance from another person to complete activities. Dependent: A helper completed the activities for the patient. Unknown: Not Applicable: Bed Mobility: 6 Transfers (B,C,W/C) (FIM): 6 Gait: 6 Stairs: 6 Indoor Mobility (Ambulation): Independent Stairs: Independent Prior Devices Use: Walker Prior Device Use: FWW PT Evaluation-Current Subjective Patient reports she is feeling much stronger and just finished breakfast. No c/ o. Pain Numeric Pain Scale: 0-No Pain Location: No Pain Reported Objective Patient Orientation: Normal For Age Problem Solving: Good Attachments: IV ROM/Strength ROM Lower Extremities bilateral LE WFL Strength Lower Extremities 4+/5 grossly bilaterally Integumentary/Posture Integumentary refer to nursing notes Bowel Incontinence: No Bladder Incontinence: No Posture slightly kyphotic Neuromuscular (Tone, Coordination, Reflexes) grossly intact Sensory Vision: Wears Glasses Hearing: Hearing Aid/Aides Sensation Right Lower Extremit: Intact Sensation Left Lower Extremity: Intact Transfers Therapy Code Descriptions/Definitions Functional [place] Measure: 0=Not Assessed/NA 4=Minimal Assistance 1=Total Assistance 5=Supervision or Setup 2=Maximal Assistance 6=Modified [place] 3=Moderate Assistance 7=Complete [place] Transfers (B, C, W/C) (FIM): 6 Scootin Rollin Supine to/from Sit: 6 Sit to/from Stand: 6 Gait Mode of Locomotion: Walk Anticipated Mode of Locomotion: Walk Gait (FIM): 6 Distance (FIM): 3=150 ft Distance: 500' Gait Level of Assist: 6 Gait Assistive Device: FWW Comments/Gait Description PT assist for IV pole only/patient demonstrated safe and functional gait sequence with no deviation Balance Sitting Static: Normal Sitting Dynamic: Normal Standing Static: Normal Standing Dynamic: Normal Assessment/Needs 78 y.o. female, will be seen short term by skilled PT to ensure safe return to home at maximum LOF with all gross motor skills. Patient reports she has good family support. This PT recommends home health to ensure safety measures are addressed if needed. Rehab Potential: Fair PT Short Term Goals Short Term Goals Time Frame: Jul 22, 2018 Transfers (B,C,W/C) (FIM): 6 Gait (FIM): 6 Distance (FIM): 3=150 ft Gait Level of Assist: 6 Gait Assistive Device: FWW PT Plan Treatment/Plan Treatment Plan: Continue Plan of Care Treatment Plan: Education, Functional Activity Khushboo, Functional Strength, Gait , Safety, Therapeutic Exercise, Transfers Treatment Duration: Jul 22, 2018 Frequency: 4 times per week Estimated Hrs Per Day: .25 hour per day Patient and/or Family Agrees t: Yes Discharge Recommendations Therapy D/C Recommendations: Physical Therapy Home Care Time/GCodes Time In: 915 Time Out: 936 Total Billed Treatment Time: 21 Total Billed Treatment 1 visit EVModC 21 min KUSHAL HILLS PT Jul 18, 2018 09:58
--- NOTE | 2018-07-18 11:32 | NUR ---
DR IRIZARRY CALLED WITH NEW ORDERS. CT OF CHEST WITH CONTRAST, 3 GM MAGNESIUM IV AND ADD MAGNESIUM LAB FOR TOMORROW MORNING.
[2018-07-18 12:00] VITALS: BP 156/68
[2018-07-18] MEDS: MAGNESIUM 1 GM/100 ML IVPB 100 ML IV SCH ×3 (12:22→14:38)
[2018-07-18] MEDS ORDERED: HOLD METFORMIN - RECEIVED CONTRAST 20 ML VIAL IV SCH (15:00)
[2018-07-18] MEDS ORDERED: NS 100 ML (IVPB) BAG IV ONE (15:00)
[2018-07-18] MEDS ORDERED: IOHEXOL 350 MG/ML 100 ML (OMNIPAQUE 350) VIAL IV ONE (15:00)
[2018-07-18] MEDS ORDERED: SODIUM CHLORIDE 1 GM TAB (NON-FORMULARY) PO SCH (15:00)
[2018-07-18 16:00] VITALS: BP 166/74
--- NOTE | 2018-07-18 16:10 | Diagnostic Imaging Report ---
PROCEDURE: CT chest with contrast only. TECHNIQUE: Multiple contiguous axial images were obtained through the chest after administration of intravenous contrast. INDICATION: Pneumonia. COMPARISON: No prior CT chest study is available for comparison. Comparison is made with chest radiograph from earlier the same day. FINDINGS: No axillary lymphadenopathy is detected. There is some soft tissue fullness in the right hilum measuring 2.1 x 1.6 cm. Left hilum is unremarkable. No definite mediastinal lymphadenopathy is seen. There is no pericardial fluid. There are trace bilateral pleural effusions. Parenchymal evaluation does show some calcified plaque along the right apex is seen. There is slightly lobulated density identified in the right upper lobe at the level of the right suprahilar region corresponding with the chest radiographic abnormality. This measures 3.8 x 2.0 cm and is concerning for a mass. There appears to be some minimal patchy density in the right upper lung field which may represent some postobstructive pneumonitis. Tiny nodules in the posterior right upper lobe are seen which are indeterminate. Remainder of lung [place] appear to be clear. Upper abdomen does show some enlargement of left adrenal gland. No other abnormalities are seen. IMPRESSION: Lobulated soft tissue density in the right upper lobe corresponding to the density noted on chest radiograph. This is concerning for a neoplasm with some associated right hilar soft tissue prominence as well. The PET/CT study is recommended to evaluate for hypermetabolism. There are trace effusions bilaterally. This is also some left adrenal enlargement and possibility of a left adrenal metastasis cannot be entirely excluded. This will be further evaluated on PET/CT as well. Dictated by: Dictated on workstation # [id number]
[2018-07-18] MEDS: RT-ALBUTEROL SULF 2.5 MG/3 ML PRE-MIX VIAL INH SCH (19:21)
[2018-07-18 20:00] VITALS: BP 194/84
[2018-07-18] MEDS: ASPIRIN E.C. 81 MG (ECOTRIN) TAB PO SCH (20:31)
[2018-07-18 23:32] VITALS: BP 163/77
[2018-07-19 04:00] VITALS: BP 145/37
[2018-07-19 05:55] LABS: BASOPHILS % (AUTO) 0 % (0-10); EOSINOPHILS # (AUTO) 0.1 10^3/uL (0.0-0.3); EOSINOPHILS % (AUTO) 1 % (0-10); HEMATOCRIT 32 % (35-52); HEMOGLOBIN 11.5 G/DL (11.5-16.0); LYMPHOCYTES # (AUTO) 1.1 X 10^3 (1.0-4.0); LYMPHOCYTES % (AUTO) 15 % (12-44); MEAN CORPUSCULAR HEMOGLOBIN 32 PG (25-34); MEAN CORPUSCULAR HGB CONC 36 G/DL (32-36); MEAN CORPUSCULAR VOLUME 88 FL (80-99); MEAN PLATELET VOLUME 9.9 FL (7.4-10.4); MONOCYTES # (AUTO) 0.9 X 10^3 (0.0-1.0); MONOCYTES % (AUTO) 13 % (0-12); NEUTROPHILS % (AUTO) 71 % (42-75); PLATELET COUNT 175 10^3/uL (130-400); RED CELL DISTRIBUTION WIDTH 12.4 % (10.0-14.5)
[2018-07-19 06:18] LABS: ALANINE AMINOTRANSFERASE 60 U/L (0-55); ALKALINE PHOSPHATASE 124 U/L (40-136); BILIRUBIN,TOTAL 0.3 MG/DL (0.1-1.0); BUN/CREATININE RATIO 7; CALCIUM 7.7 MG/DL (8.5-10.1); CARBON DIOXIDE 23 MMOL/L (21-32); CHLORIDE 90 MMOL/L (98-107); CREATININE SERUM 0.43 MG/DL (0.60-1.30); GFR ESTIMATED > 60; GLUCOSE 83 MG/DL (70-105); MAGNESIUM 1.6 MG/DL (1.8-2.4); POTASSIUM 2.9 MMOL/L (3.6-5.0)
[2018-07-19 06:22] LABS: SODIUM 121 MMOL/L (135-145)
[2018-07-19 07:01] LABS: BILIRUBIN,URINE NEGATIVE (NEGATIVE); CLARITY,URINE CLEAR; COLOR,URINE YELLOW; GLUCOSE, URINE (UA) NEGATIVE (NEGATIVE); KETONES,URINE NEGATIVE (NEGATIVE); LEUKOCYTE ESTERASE ,URINE NEGATIVE (NEGATIVE); NITRITE,URINE NEGATIVE (NEGATIVE); PH,URINE 7 (5-9); PROTEIN,URINE 1+ (NEGATIVE); UROBILINOGEN,URINE NORMAL (NORMAL)
[2018-07-19 07:14] LABS: BACTERIA,URINE TRACE /HPF
[2018-07-19] MEDS ORDERED: KCL 20 MEQ TAB (K-DUR) PO NR (08:00)
[2018-07-19] MEDS ORDERED: FUROSEMIDE 40 MG/4 ML INJ (LASIX) IVP NR (08:00)
[2018-07-19] MEDS: RT-ALBUTEROL SULF 2.5 MG/3 ML PRE-MIX VIAL INH SCH ×3 (08:01→19:15)
--- NOTE | 2018-07-19 08:09 | Progress Note (SOAP) ---
Subjective Time Seen by a Provider: 08:07 Subjective/Events-last exam Patient clinically feeling better. Sodium 122. Potassium 2.9. CAT scan reviewed with patient. Spoke to pulmonology. Patient have bronchoscopy. Patient on Plavix cardiology consulted Objective Exam Vital Signs Date Time Temp Pulse Resp B/P (MAP) Pulse Ox O2 Delivery O2 Flow Rate FiO2 07/19/18 08:02 97 Room Air 07/19/18 04:00 98.4 68 18 145/37 (73) 96 Room Air 07/18/18 23:32 97.8 71 20 163/77 (105) 95 Room Air 07/18/18 20:06 Room Air 07/18/18 20:00 98.2 74 18 194/84 (120) 97 Room Air 07/18/18 19:21 98 Room Air 07/18/18 16:00 98.0 84 18 166/74 (104) 99 Room Air 07/18/18 12:00 98.0 76 20 156/68 (97) 97 Room Air I & O 07/19/18 07:00 Intake Total 2490 ml Output Total 400 ml Balance 2090 ml Capillary Refill : General Appearance: No Apparent Distress, WD/WN HEENT: Normal ENT Inspection Neck: Full Range of Motion, Normal Inspection Respiratory: Lungs Clear, No Accessory Muscle Use, No Respiratory Distress, Decreased Breath Sounds Cardiovascular: Regular Rate, Rhythm, No Murmur Gastrointestinal: non tender, soft Results Lab Laboratory Tests 07/19/18 05:12 Laboratory Tests 07/19/18 05:12: White Blood Count 7.0, Red Blood Count 3.60L, Hemoglobin 11.5, Hematocrit 32L, Mean Corpuscular Volume 88, Mean Corpuscular Hemoglobin 32, Mean Corpuscular Hemoglobin Concent 36, Red Cell Distribution Width 12.4, Platelet Count 175, Mean Platelet Volume 9.9, Neutrophils (%) (Auto) 71, Lymphocytes (%) (Auto) 15, Monocytes (%) (Auto) 13H, Eosinophils (%) (Auto) 1, Basophils (%) (Auto) 0, Neutrophils # (Auto) 5.0, Lymphocytes # (Auto) 1.1, Monocytes # (Auto) 0.9, Eosinophils # (Auto) 0.1, Basophils # (Auto) 0.0, Sodium Level 121*L, Potassium Level 2.9L, Chloride Level 90L, Carbon Dioxide Level 23, Anion Gap 8, Blood Urea Nitrogen 3L, Creatinine 0.43L, Estimat Glomerular Filtration Rate > 60, BUN /Creatinine Ratio 7, Glucose Level 83, Calcium Level 7.7L, Corrected Calcium 8.5 , Magnesium Level 1.6L, Total Bilirubin 0.3, Aspartate Amino Transf (AST/SGOT) 63H, Alanine Aminotransferase (ALT/SGPT) 60H, Alkaline Phosphatase 124, Total Protein 5.0L, Albumin 3.0L 07/19/18 06:55: Urine Color YELLOW, Urine Clarity CLEAR, Urine pH 7, Urine Specific [place] 1.010L, Urine Protein 1+H, Urine Glucose (UA) NEGATIVE, Urine Ketones NEGATIVE, Urine Nitrite NEGATIVE, Urine Bilirubin NEGATIVE, Urine Urobilinogen NORMAL, Urine Leukocyte Esterase NEGATIVE, Urine RBC (Auto) NEGATIVE, Urine RBC NONE, Urine WBC 2-5, Urine Squamous Epithelial Cells 5-10, Urine Crystals NONE, Urine Bacteria TRACE, Urine Casts NONE, Urine Mucus NEGATIVE, Urine Culture Indicated NO Microbiology 07/16/18 Influenza Types A,B Antigen (PADMAJA) - Final, Complete 07/16/18 Urine Culture - Final, Complete Streptococcus viridans Assessment/Plan Assessment/Plan Assess & Plan/Chief Complaint Pneumonia. UTI. Weakness. Liver tests coming down. Electrolyte imbalance. . . 07/19/18. Pulmonary tumor. Left adrenal tumor. Electrolyte imbalance. Respiratory infection. Weakness. To get pulmonology and cardiology on board Clinical Quality Measures Admission Status Admission Dx Pneumonia. UTI. Severe hyponatremia. Hypokalemia. Weakness. Unsteady gait. Hypertension history. Elevated liver tests. Patient lives alone. Ration not able to take care of herself DVT/VTE Risk/Contraindication: Risk Factor Score Per Nursin RFS Level Per Nursing on Admit: 4+=Very High Contraindications-Pharm: Other *list below* ISIDRO IRIZARRY DO Jul 19, 2018 08:09
--- NOTE | 2018-07-19 08:24 | Pulmonary Consultation ---
History of Present Illness History of Present Illness Date of Consultation 07/19/18 08:11 Time Seen by Provider: 08:12 Date of Admission History of Present Illness 78yo directly admitted from Dr. Galarza's office secondary to severe hypokalemia, hyponatremia, nausea, worsening weakness, and decreased appetite. She has been loosing wt. CT scan in hospital shows lung mass with MLA. Dr. Galarza is consulting me for bronch with EBUS. Allergies and Home Medications Allergies Coded Allergies: NKANo Known Allergies (Verified Allergy, Unknown, 07/03/18) Home Medications Aspirin 81 Mg Tablet.dr, 81 MG PO HS, (Reported) Calcium Carbonate/Vitamin D3 1 Each Tablet, 1 TAB PO HS, (Reported) Clopidogrel Bisulfate 75 Mg Tablet, 75 MG PO DAILY, (Reported) Diltiazem HCl 180 Mg Cap.er.24h, 180 MG PO DAILY, (Reported) Lisinopril 10 Mg Tablet, 10 MG PO DAILY, (Reported) Multivit-Min/FA/Lycopene/Lut 1 Each Tablet, 1 TAB PO DAILY, (Reported) Simvastatin 20 Mg Tablet, 20 MG PO HS, (Reported) Sodium Chloride 1 Gm Tab, 0.5 GM PO 1500, (Reported) TAKES 1/2 (1GM) TABLET Past Momrgcb-Ygihal-Lyxwbg Hx Patient Social History Alcohol Use: Denies Use Recreational Drug Use: No Type Used: Cigarettes Recent Foreign Travel: Yes Contact w/Someone Who Travel: No Recent Infectious Disease Expo: No Recent Hopitalizations: Yes Immunizations Up To Date Tetanus Booster (TDap): More than 5yrs PED Vaccines UTD: No Date of Pneumonia Vaccine: Jun 07, 2017 Date of Influenza Vaccine: Feb 04, 2018 Past Medical History Surgeries: Yes (pericardial effusion drained,mole removed) Orthopedic Respiratory: No Currently Using CPAP: No Currently Using BIPAP: No Cardiac: No Neurological: No : No Reproductive Disorders: No Sexually Transmitted Disease: No Genitourinary: No Gastrointestinal: No Musculoskeletal: Yes (RIGHT WRIST FX, RIGHT SHOULDER PAIN) Endocrine: No HEENT: No Loss of Vision: Denies Hearing Impairment: Denies Cancer: No Did You Recieve Any Treatments: No Psychosocial: No Integumentary: No Blood Disorders: No Family Medical History Alzheimer's disease Cardiovascular disease Diabetes mellitus Parkinson's disease Sepsis Event Evaluation Height, Weight, BMI Height: 5'5.00" Weight: 120lbs. 4.8oz. 54.972855nc; 19.7 BMI Method: Exam Exam Vital Signs Date Time Temp Pulse Resp B/P (MAP) Pulse Ox O2 Delivery O2 Flow Rate FiO2 07/19/18 04:00 98.4 68 18 145/37 (73) 96 Room Air 07/18/18 23:32 97.8 71 20 163/77 (105) 95 Room Air 07/18/18 20:06 Room Air 07/18/18 20:00 98.2 74 18 194/84 (120) 97 Room Air 07/18/18 19:21 98 Room Air 07/18/18 16:00 98.0 84 18 166/74 (104) 99 Room Air 07/18/18 12:00 98.0 76 20 156/68 (97) 97 Room Air I & O 07/19/18 07:00 Intake Total 2490 ml Output Total 400 ml Balance 2090 ml Height & Weight Height: 5'5.00" Weight: 120lbs. 4.8oz. 54.730540fs; 19.7 BMI Method: General Appearance: No Apparent Distress, WD/WN HEENT: Normal ENT Inspection Neck: Full Range of Motion, Normal Inspection Respiratory: Lungs Clear, No Accessory Muscle Use, No Respiratory Distress, Decreased Breath Sounds Cardiovascular: Regular Rate, Rhythm, No Murmur Gastrointestinal: non tender, soft Results Lab Laboratory Tests 07/18/18 05:15 07/19/18 05:12 Assessment/Plan Assessment/Plan Lung mass with mediastinal lymphadenopathy -Pt needs bronchoscopy with EBUS - Will plan for next wed -Hold plavix if ok with cardiology starting today Hx of tobacco CAD hx -Known to Dr. العراقي will consult him to be sure it's ok to hold plavix starting today. Severe hyponatremia, hypokalemia, hypomagnesium -Replace and recheck -Continue NS for now. -Will give RAYA CAM DO Jul 19, 2018 08:24
[2018-07-19] MEDS: AZITHROMYCIN INJECTION 500 MG in NS (IVPB) 250 ML IV SCH (08:40)
[2018-07-19] MEDS: POTASSIUM CL 10MEQ/50ML IVPB 50 ML IV SCH ×4 (08:40→11:00)
[2018-07-19] MEDS: MAGNESIUM 1 GM/100 ML IVPB 100 ML IV SCH ×4 (08:40→12:15)
[2018-07-19] MEDS: lisINopril 10 MG (PRINIVIL) TABLET PO SCH (08:45)
[2018-07-19] MEDS: DILTIAZEM 180 MG (CARDIZEM CD) CAP PO SCH (08:45)
[2018-07-19] MEDS: cefTRIAXone FOR IV USE 1,000 MG in WATER (STERILE) FOR INJECTION 10 ML IV SCH (08:46)
[2018-07-19 08:49] VITALS: BP 176/77
--- NOTE | 2018-07-19 10:53 | Physical Therapy Daily Note ---
PT Daily Note-Current Subjective Patient reports she is having a procedure this afternoon to determine if she has a spot on her lung. She does agree to PT. Pain Numeric Pain Scale: 0-No Pain Location: No Pain Reported Mental Status Patient Orientation: Normal For Age Attachments: IV Transfers Therapy Code Descriptions/Definitions Functional [place] Measure: 0=Not Assessed/NA 4=Minimal Assistance 1=Total Assistance 5=Supervision or Setup 2=Maximal Assistance 6=Modified [place] 3=Moderate Assistance 7=Complete [place] Therapy Quality Codes: 6 Independent with activity with or without an assistive device 5 Patient requires set up or clean up by helper. Patient completes activity by themselves 4 Supervision or touching assist (CGA). [place] provide cues , steadying assist 3 The helper provides less than half the effort to complete the activity 2 The helper provides more than half the effort to complete the activity 1 Dependent. The helper does all the effort to complete an activity 7 Patient refused to complete or attempt activity 9 The patient did not perform the activity before the current illness or injury 88 Not attempted due to Medical conditions or safety concerns Transfers (B, C, W/C) (FIM): 7 Scootin Supine to/from Sit: 7 Sit to/from Stand: 7 Weight Bearing Right Lower Extremity: Right Full Weight Bearing Left Lower Extremity: Left Full Weight Bearing Gait Training Gait (FIM): 6 Distance (FIM): 3=150 ft Distance: >900' Gait Level of Assist: 6 Gait Assistive Device: FWW steady pace with no deviation Assessment Patient declined exercise and returned to bed with needs met. PT Short Term Goals Short Term Goals Time Frame: Jul 22, 2018 Transfers (B,C,W/C) (FIM): 6 Gait (FIM): 6 Distance (FIM): 3=150 ft Gait Level of Assist: 6 Gait Assistive Device: FWW PT Plan Treatment/Plan Treatment Plan: Continue Plan of Care Treatment Plan: Education, Functional Activity [place], Functional Strength, Gait , Safety, Therapeutic Exercise, Transfers Treatment Duration: Jul 22, 2018 Frequency: 4 times per week Estimated Hrs Per Day: .25 hour per day Patient and/or Family Agrees t: Yes Time/GCodes Time In: 950 Time Out: 959 Total Billed Treatment Time: 9 Total Billed Treatment 1 visit FA 9 min KUSHAL HILLS PT Jul 19, 2018 10:53
[2018-07-19 11:30] VITALS: BP 138/63
[2018-07-19 11:49] LABS: HEMOGLOBIN 11.3 G/DL (11.5-16.0); MEAN PLATELET VOLUME 9.4 FL (7.4-10.4); RED CELL DISTRIBUTION WIDTH 12.5 % (10.0-14.5); WHITE BLOOD COUNT 8.1 10^3/uL (4.3-11.0)
[2018-07-19 12:06] LABS: ALANINE AMINOTRANSFERASE 63 U/L (0-55); ALBUMIN 3.1 GM/DL (3.2-4.5); ALKALINE PHOSPHATASE 126 U/L (40-136); BILIRUBIN,TOTAL 0.2 MG/DL (0.1-1.0); BUN/CREATININE RATIO 5; CALCIUM 7.6 MG/DL (8.5-10.1); CARBON DIOXIDE 24 MMOL/L (21-32); CHLORIDE 91 MMOL/L (98-107); CREATININE SERUM 0.58 MG/DL (0.60-1.30); GFR ESTIMATED > 60; GLUCOSE 144 MG/DL (70-105); MAGNESIUM 2.7 MG/DL (1.8-2.4); POTASSIUM 3.5 MMOL/L (3.6-5.0); TOTAL PROTEIN 5.3 GM/DL (6.4-8.2)
[2018-07-19 12:13] LABS: PHOSPHORUS 0.8 MG/DL (2.3-4.7); SODIUM 121 MMOL/L (135-145)
[2018-07-19] MEDS: NS IV 1000 ML 1,000 ML IV SCH (12:15)
--- NOTE | 2018-07-19 12:34 | Consultation-Cardiology ---
HPI-Cardiology Cardiology Consultation: Date of Consultation 07/19/18 Date of Admission Attending Physician Dru Galarza DO Admitting Physician Dru Galarza DO Consulting Physician Kathe IRVIN MD HPI: Time Seen by a Provider: 11:00 Chief Complaint: Shortness of breath. This is a 78-year-old lady who is a patient of Dr. Malcom Brownlee cardiology. She presents with complain of shortness of breath and getting very weak. Loss of appetite. Was found to be hypokalemia and hyponatremia and therefore admitted. Possibility of a pneumonia and UTI. Denies any chest pain , palpitations, syncope or near syncope. Review of Systems-Cardiology Review of Systems Constitutional: As described under HPI; No As described under HPI, No no symptoms reported, No chills, No fever, No lightheadedness; malaise, tiredness Eyes: No As described under HPI, No no symptoms reported, No blindness, No blurred vision, No contact lenses, No drainage, No decreased acuity, No foreign body sensation, No pain, No vision change Ears/Nose/Throat: No As described under HPI, No no symptoms reported, No chronic hearing loss, No ear discharge, No ear pain, No nasal drainage, No ulcerations Respiratory: No no symptoms reported; As described under HPI; No As described under HPI, No cough, No orthopnea; shortness of breath; No SOB with excertion Cardiovascular: No no symptoms reported; As described under HPI; No As described under HPI, No chest pain, No edema, No irregular heart rate, No lightheadedness, No palpitations Gastrointestinal: No no symptoms reported, No As described under HPI, No abdomen distended, No abdominal pain, No blood streaked bowels, No constipation , No diarrhea, No nausea; poor appetite; No vomiting, No stool coloration changes Genitourinary: No As described under HPI, No burning, No dysuria, No discharge , No frequency, No flank pain, No hematuria, No urgency : Yes : No Skin: No rash, No skin related problems, No ulcerations Psychiatric/Neurological: No anxiety, No depression, No seizure, No focal weakness, No syncope Hematologic: No bleeding abnormalities [id number] Hx Patient Social History Employed/Student: retired Alcohol Use: Denies Use Recreational Drug Use: No Type Used: Cigarettes Recent Foreign Travel: Yes Recent Infectious Disease Expo: No Physical Abuse Screen: No Sexual Abuse: No Immunizations Up To Date Tetanus Booster (TDap): More than 5yrs Date of Pneumonia Vaccine: Jun 07, 2017 Date of Influenza Vaccine: Feb 04, 2018 Past Medical History PMH As described under Assessment. Family Medical History Family History: Alzheimer's disease Cardiovascular disease Diabetes mellitus Parkinson's disease Allergies and Home Medications Allergies Coded Allergies: NKANo Known Allergies (Verified Allergy, Unknown, 07/03/18) Home Medications Aspirin 81 Mg Tablet.dr, 81 MG PO HS, (Reported) Calcium Carbonate/Vitamin D3 1 Each Tablet, 1 TAB PO HS, (Reported) Clopidogrel Bisulfate 75 Mg Tablet, 75 MG PO DAILY, (Reported) Diltiazem HCl 180 Mg Cap.er.24h, 180 MG PO DAILY, (Reported) Lisinopril 10 Mg Tablet, 10 MG PO DAILY, (Reported) Multivit-Min/FA/Lycopene/Lut 1 Each Tablet, 1 TAB PO DAILY, (Reported) Simvastatin 20 Mg Tablet, 20 MG PO HS, (Reported) Sodium Chloride 1 Gm Tab, 0.5 GM PO 1500, (Reported) TAKES 1/2 (1GM) TABLET Patient Home Medication List Home Medication List Reviewed: Yes Physical Exam-Cardiology Physical Exam Vital Signs/I&O 07/19/18 07/19/18 07/19/18 07/19/18 04:00 08:02 08:45 08:49 Temp 98.4 98.2 Pulse 68 85 Resp 18 18 B/P (MAP) 145/37 (73) 176/77 (110) Pulse Ox 96 97 97 O2 Delivery Room Air Room Air Room Air Room Air 07/19/18 11:30 Temp 97.6 Pulse 74 Resp 18 B/P (MAP) 138/63 (88) Pulse Ox 97 O2 Delivery Room Air 07/19/18 00:00 Intake Total 1980 ml Output Total 400 ml Balance 1580 ml Capillary Refill : Constitutional: appears stated age, AAO x 3; No apparent distress; well- developed, well-nourished HEENT: PERRL; No normal ENT inspection, No TMs normal, No pharynx normal, No scleral icterus (R), No scleral icterus (L), No pale conjunctivae (R), No pale conjunctivae (L), No photophobia, No TM abnormal (R), No TM abnormal (L), No pharyngeal erythema, No tonsillar exudate, No other, No discharge, No EOMI; hearing is well preserved; No hard of hearing; oral hygience is good; No ulceration, No xanthelasmas are seen Neck: No carotid bruit; carotid pulses are 2 + bilaterally Respiratory: No accessory muscle use, No respiratory distress, No chest tender , No chest expansion is symmetric; chest is bilaterally symmetric; No lungs clear to percussion; lungs clear to auscultation; No crackles, No rhonchi, No rales, No stridor, No wheezing, No pleural rub, No other Cardiovascular: regular rate-rhythm; No irregularly irregular, No extra beats, No parasternal heave is noted, No JVD, No edema, No bradycardia, No tachycardia , No point of maximal impulse, No cardiac thrills are palpable; S1 and S2; No gallop/S3, No gallop/S4, No diastolic murmur, No systolic murmur, No friction rub, No click, No other Gastrointestinal: No tender, No soft, No round, No distended, No pulsatile mass , No organomegaly, No guarding, No rebound, No tenderness, No hernia, No mass, No audible bowel sounds, No abnormal bowel sounds, No abdominal bruits, No spleenomegaly, No other Rectal: deferred Extremities: No normal range of motion, No non-tender, No normal inspection, No pedal edema, No calf tenderness, No normal capillary refill, No pelvis stable , No calf tenderness, No inflammation, No pedal edema, No slow capillary refill , No swelling, No other, No abrasion, No clubbing, No cyanosis, No ecchymosis, No laceration, No no lower extremity edema bilateral, No significant edema, No tenderness, No wound Neurologic/Psychiatric: no motor/sensory deficits, alert, normal mood/affect, oriented x 3, power is 5/5 both on sides Skin: No rash, No ulcerations Data Review Labs Laboratory Tests 07/19/18 05:12: White Blood Count 7.0, Red Blood Count 3.60L, Hemoglobin 11.5, Hematocrit 32L, Mean Corpuscular Volume 88, Mean Corpuscular Hemoglobin 32, Mean Corpuscular Hemoglobin Concent 36, Red Cell Distribution Width 12.4, Platelet Count 175, Mean Platelet Volume 9.9, Neutrophils (%) (Auto) 71, Lymphocytes (%) (Auto) 15, Monocytes (%) (Auto) 13H, Eosinophils (%) (Auto) 1, Basophils (%) (Auto) 0, Neutrophils # (Auto) 5.0, Lymphocytes # (Auto) 1.1, Monocytes # (Auto) 0.9, Eosinophils # (Auto) 0.1, Basophils # (Auto) 0.0, Sodium Level 121*L, Potassium Level 2.9L, Chloride Level 90L, Carbon Dioxide Level 23, Anion Gap 8, Blood Urea Nitrogen 3L, Creatinine 0.43L, Estimat Glomerular Filtration Rate > 60, BUN /Creatinine Ratio 7, Glucose Level 83, Calcium Level 7.7L, Corrected Calcium 8.5 , Magnesium Level 1.6L, Total Bilirubin 0.3, Aspartate Amino Transf (AST/SGOT) 63H, Alanine Aminotransferase (ALT/SGPT) 60H, Alkaline Phosphatase 124, B-Type Natriuretic Peptide 673.0H, Total Protein 5.0L, Albumin 3.0L 07/19/18 06:55: Urine Color YELLOW, Urine Clarity CLEAR, Urine pH 7, Urine Specific [place] 1.010L, Urine Protein 1+H, Urine Glucose (UA) NEGATIVE, Urine Ketones NEGATIVE, Urine Nitrite NEGATIVE, Urine Bilirubin NEGATIVE, Urine Urobilinogen NORMAL, Urine Leukocyte Esterase NEGATIVE, Urine RBC (Auto) NEGATIVE, Urine RBC NONE, Urine WBC 2-5, Urine Squamous Epithelial Cells 5-10, Urine Crystals NONE, Urine Bacteria TRACE, Urine Casts NONE, Urine Mucus NEGATIVE, Urine Culture Indicated NO 07/19/18 08:28: Phosphorus Level 1.1L 07/19/18 11:35: White Blood Count 8.1, Red Blood Count 3.58L, Hemoglobin 11.3L, Hematocrit 32L, Mean Corpuscular Volume 88, Mean Corpuscular Hemoglobin 32, Mean Corpuscular Hemoglobin Concent 36, Red Cell Distribution Width 12.5, Platelet Count 168, Mean Platelet Volume 9.4, Sodium Level 121*L, Potassium Level 3.5L, Chloride Level 91L, Carbon Dioxide Level 24, Anion Gap 6, Blood Urea Nitrogen 3L, Creatinine 0.58L, Estimat Glomerular Filtration Rate > 60, BUN/Creatinine Ratio 5, Glucose Level 144H, Calcium Level 7.6L, Corrected Calcium 8.3L, Magnesium Level 2.7H, Total Bilirubin 0.2, Aspartate Amino Transf (AST/SGOT) 67H, Alanine Aminotransferase (ALT/SGPT) 63H, Alkaline Phosphatase 126, Total Protein 5.3L, Albumin 3.1L, Phosphorus Level 0.8*L Microbiology 07/16/18 Influenza Types A,B Antigen (PADMAJA) - Final, Complete 07/16/18 Urine Culture - Final, Complete Streptococcus viridans A/P-Cardiology Assessment/Admission Diagnosis Hypokalemia, Hyponatremia, Possible pneumonia, UTI, Peripheral arterial disease. Last angio of 09/04/17: 90-95% stenosis within the midportion of the left common iliac artery to which successful balloon angioplasty was carried out followed by stenting (Omnilink 7.0 x 29 mm stent) that does not overlap a previously placed proximal stent within the left common iliac artery that is known to be 7.0 x 27 mm stent. Previous stenting of the left common iliac in September 2010 and cryoplasty of the right superficial femoral in November 2010. In September 2011, she had balloon angioplasty for stent restenosis of left common iliac. No angiographically significant coronary artery disease on cardiac catheterization of February 2010. Left ventricular systolic function was normal with an ejection fraction of 60%. Left ventricular end-diastolic pressure was somewhat elevated. No evidence of any significant myocardial ischemia or infarction. Normal regional wall motion. LVEF 73% per MPI of January 2017 Paroxysmal atrial fibrillation, resolved following treatment of pericardial effusion without any subsequent recurrence. Hypertension, currently well controlled. Hyperlipidemia is being treated with simvastatin. Tobaccoism - quit in 2012 Mild to moderate bilateral carotid arterial disease without evidence of hemodynamically significant stenosis per carotid ultrasound on 11-16-15. Plan Pneumonia, UTI, defer to Dr. Galarza. Electrolyte replacement for hypokalemia and hyponatremia. Continue outpatient medication for PAD including Plavix. Hyperlipidemia, continue statin therapy. Paroxysmal atrial fibrillation. Not on oral anti-coagulation. Thank you for your consultation. Please call me if you have any questions. Olvin Irvin MD, FACP, FACC, FSCAI, FHRS, CCDS Interventional Cardiology Cardiac Electrophysiology Vascular Medicine and Endovascular Interventions Clinical Quality Measures DVT/VTE Risk/Contraindication: Risk Factor Score Per Nursin RFS Level Per Nursing on Admit: 4+=Very High Contraindications-Pharm: Other *list below* Kathe IRVIN MD Jul 19, 2018 12:34 pm
[2018-07-19] MEDS ORDERED: SODIUM PHOSPHATE INJ 30 MM in NS (IVPB) 250 ML IV NR (12:57)
[2018-07-19] MEDS: SODIUM CHLORIDE 1 GM TAB (NON-FORMULARY) PO SCH (15:26)
--- NOTE | 2018-07-19 15:59 | NUR ---
Pastoral care visit.
[2018-07-19 16:00] VITALS: BP 155/70
[2018-07-19 20:00] VITALS: BP 167/73
[2018-07-19] MEDS: ASPIRIN E.C. 81 MG (ECOTRIN) TAB PO SCH (20:45)
[2018-07-20] VITALS: BP 146/67
[2018-07-20] MEDS: NS IV 1000 ML 1,000 ML IV SCH ×2 (04:50→06:56)
[2018-07-20 07:43] LABS: BASOPHILS % (AUTO) 0 % (0-10); EOSINOPHILS % (AUTO) 1 % (0-10); HEMATOCRIT 31 % (35-52); HEMOGLOBIN 11.2 G/DL (11.5-16.0); LYMPHOCYTES # (AUTO) 0.9 X 10^3 (1.0-4.0); LYMPHOCYTES % (AUTO) 11 % (12-44); MEAN CORPUSCULAR HEMOGLOBIN 32 PG (25-34); MEAN CORPUSCULAR HGB CONC 36 G/DL (32-36); MEAN CORPUSCULAR VOLUME 89 FL (80-99); MEAN PLATELET VOLUME 9.8 FL (7.4-10.4); MONOCYTES # (AUTO) 0.8 X 10^3 (0.0-1.0); MONOCYTES % (AUTO) 10 % (0-12); NEUTROPHILS # (AUTO) 6.4 X 10^3 (1.8-7.8); NEUTROPHILS % (AUTO) 78 % (42-75); PLATELET COUNT 154 10^3/uL (130-400); RED CELL DISTRIBUTION WIDTH 12.7 % (10.0-14.5); WHITE BLOOD COUNT 8.2 10^3/uL (4.3-11.0)
[2018-07-20 08:00] VITALS: BP 169/74
[2018-07-20] MEDS: RT-ALBUTEROL SULF 2.5 MG/3 ML PRE-MIX VIAL INH SCH ×3 (08:00→22:20)
[2018-07-20] MEDS: cefTRIAXone FOR IV USE 1,000 MG in WATER (STERILE) FOR INJECTION 10 ML IV SCH (08:08)
[2018-07-20] MEDS: DILTIAZEM 180 MG (CARDIZEM CD) CAP PO SCH (08:08)
[2018-07-20] MEDS: lisINopril 10 MG (PRINIVIL) TABLET PO SCH (08:08)
[2018-07-20 08:14] LABS: ALANINE AMINOTRANSFERASE 62 U/L (0-55); ALBUMIN 2.9 GM/DL (3.2-4.5); ALKALINE PHOSPHATASE 133 U/L (40-136); BILIRUBIN,TOTAL 0.3 MG/DL (0.1-1.0); BUN/CREATININE RATIO 5; CALCIUM 7.8 MG/DL (8.5-10.1); CARBON DIOXIDE 23 MMOL/L (21-32); CHLORIDE 93 MMOL/L (98-107); CREATININE SERUM 0.43 MG/DL (0.60-1.30); GFR ESTIMATED > 60; GLUCOSE 88 MG/DL (70-105); MAGNESIUM 1.7 MG/DL (1.8-2.4); POTASSIUM 3.3 MMOL/L (3.6-5.0); TOTAL PROTEIN 5.1 GM/DL (6.4-8.2)
[2018-07-20 08:18] LABS: SODIUM 124 MMOL/L (135-145)
[2018-07-20] MEDS ORDERED: POTASSIUM PHOSPHATE INJ 30 MM in NS (IVPB) 250 ML IV NR (08:30)
--- NOTE | 2018-07-20 08:33 | Pulmonary Progress Note ---
Subjective Time Seen by a Provider: 08:34 Subjective/Events-last exam No complications noted. Pt has no complaints. Sepsis Event Evaluation Height, Weight, BMI Height: 5'5.00" Weight: 120lbs. 2.0oz. 54.280237yj; 19.7 BMI Method: Exam Exam Vital Signs Date Time Temp Pulse Resp B/P (MAP) Pulse Ox O2 Delivery O2 Flow Rate FiO2 07/20/18 08:00 95 Room Air 07/20/18 00:00 100.0 84 18 146/67 (93) 95 Room Air 07/19/18 20:00 Room Air 07/19/18 20:00 99.4 82 18 167/73 (104) 97 Room Air 07/19/18 19:15 94 Room Air 07/19/18 16:00 97.6 78 16 155/70 (98) 97 Room Air 07/19/18 14:28 98 Room Air 07/19/18 11:30 97.6 74 18 138/63 (88) 97 Room Air 07/19/18 08:49 98.2 85 18 176/77 (110) 97 Room Air 07/19/18 08:45 Room Air I & O 07/20/18 07:00 Intake Total 2345 ml Output Total 2125 ml Balance 220 ml Height & Weight Height: 5'5.00" Weight: 120lbs. 2.0oz. 54.093464ls; 19.7 BMI Method: General Appearance: No Apparent Distress, WD/WN HEENT: Normal ENT Inspection Neck: Full Range of Motion, Normal Inspection Respiratory: Lungs Clear, No Accessory Muscle Use, No Respiratory Distress, Decreased Breath Sounds Cardiovascular: Regular Rate, Rhythm, No Murmur Gastrointestinal: non tender, soft Results Lab Laboratory Tests 07/19/18 05:12 07/19/18 11:35 07/20/18 07:30 Assessment/Plan Assessment/Plan Lung mass with mediastinal lymphadenopathy -Pt needs bronchoscopy with EBUS - Will plan for next week -Hold plavix and ASA for procedure next week Hx of tobacco CAD hx -Known to Dr. العراقي will consult him to be sure it's ok to hold plavix starting today. Severe hyponatremia, hypokalemia, hypomagnesium -Replace and recheck -Continue NS for now. RAYA CAM DO Jul 20, 2018 08:33
[2018-07-20] MEDS ORDERED: KCL 20 MEQ TAB (K-DUR) PO NR (08:41)
[2018-07-20] MEDS ORDERED: FUROSEMIDE 40 MG/4 ML INJ (LASIX) IVP NR (08:42)
[2018-07-20] MEDS: AZITHROMYCIN INJECTION 500 MG in NS (IVPB) 250 ML IV SCH (09:00)
[2018-07-20] MEDS: ENOXAPARIN 40 MG/0.4 ML (LOVENOX) SYR SC SCH (09:14)
[2018-07-20] MEDS: MAGNESIUM 1 GM/100 ML IVPB 100 ML IV SCH ×3 (09:23→11:17)
[2018-07-20] MEDS: NS W/KCL 20 MEQ/L 1,000 ML IV SCH (09:24)
--- NOTE | 2018-07-20 11:53 | Physical Therapy Daily Note ---
PT Daily Note-Current Subjective Pt reports she is feeling stronger. Transfers Therapy Code Descriptions/Definitions Functional [place] Measure: 0=Not Assessed/NA 4=Minimal Assistance 1=Total Assistance 5=Supervision or Setup 2=Maximal Assistance 6=Modified [place] 3=Moderate Assistance 7=Complete [place] Therapy Quality Codes: 6 Independent with activity with or without an assistive device 5 Patient requires set up or clean up by helper. Patient completes activity by themselves 4 Supervision or touching assist (CGA). [place] provide cues , steadying assist 3 The helper provides less than half the effort to complete the activity 2 The helper provides more than half the effort to complete the activity 1 Dependent. The helper does all the effort to complete an activity 7 Patient refused to complete or attempt activity 9 The patient did not perform the activity before the current illness or injury 88 Not attempted due to Medical conditions or safety concerns Transfers (B, C, W/C) (FIM): 6 Weight Bearing Right Lower Extremity: Right Full Weight Bearing Left Lower Extremity: Left Full Weight Bearing Gait Training Distance (FIM): 3=150 ft Distance: 1000+ Gait Level of Assist: 5 Gait Persons Needed: 1 Gait Assistive Device: FWW Pt had one loss of balance while turning that required Min A to recover. Assessment Pt continues to make progress with stability and activity tolerance. PT Short Term Goals Short Term Goals Time Frame: Jul 22, 2018 Transfers (B,C,W/C) (FIM): 6 Gait (FIM): 6 Distance (FIM): 3=150 ft Gait Level of Assist: 6 Gait Assistive Device: FWW PT Plan Treatment/Plan Treatment Plan: Continue Plan of Care Treatment Plan: Education, Functional Activity [place], Functional Strength, Gait , Safety, Therapeutic Exercise, Transfers Treatment Duration: Jul 22, 2018 Frequency: 4 times per week Estimated Hrs Per Day: .25 hour per day Patient and/or Family Agrees t: Yes Time/GCodes Time In: 905 Time Out: 920 Total Billed Treatment Time: 15 Total Billed Treatment visit, gait 15 min SOBIA WYANE PT Jul 20, 2018 11:53
--- NOTE | 2018-07-20 12:39 | Progress Note-Hospitalist ---
Subjective HPI/CC On Admission Date Seen by Provider: Jul 20, 2018 Time Seen by Provider: 11:30 Subjective/Events-last exam Patient stable Talked to me about the lung nodule Sodium level 124 and refractory Patient denies pain except cyst on left shoulder blade for years Weak but feeling ok Review of Systems General: Fatigue Objective Exam Vital Signs Vital Signs Date Time Temp Pulse Resp B/P (MAP) Pulse Ox O2 Delivery O2 Flow Rate FiO2 07/20/18 08:20 Room Air 07/20/18 08:00 98.4 77 20 169/74 (105) 96 Capillary Refill : General Appearance: No Apparent Distress, WD/WN, Thin HEENT: Normal ENT Inspection Neck: Full Range of Motion, Normal Inspection Respiratory: Lungs Clear, No Accessory Muscle Use, No Respiratory Distress, Decreased Breath Sounds Cardiovascular: Regular Rate, Rhythm, No Murmur Gastrointestinal: Non Tender, Soft Neurologic/Psychiatric: Alert, Oriented x3, No Motor/Sensory Deficits, Normal Mood/Affect Skin: Normal Color, Warm/Dry Results/Procedures Lab Laboratory Tests 07/20/18 07:30 Patient resulted labs reviewed. Assessment/Plan Assessment and Plan Assess & Plan/Chief Complaint Assessment: Lung mass with mediastinal lymphadenopathy Hx of tobacco use CAD holding Plavix in prep for EBUS Severe hyponatremia Hypokalemia Frail status Plan: Current treatment to maintain Poor prognosis Diagnosis/Problems Diagnosis/Problems (1) Weakness Status: Acute (2) Hyponatremia Status: Acute (3) Lung nodule Status: Acute (4) Smoker Status: Chronic (5) Hypokalemia Status: Acute (6) Hypomagnesemia Status: Acute (7) Nausea Status: Acute Clinical Quality Measures DVT/VTE Risk/Contraindication: Risk Factor Score Per Nursin RFS Level Per Nursing on Admit: 4+=Very High Contraindications-Pharm: Other *list below* MYRON ALEXANDRA DO Jul 20, 2018 12:39
--- NOTE | 2018-07-20 14:10 | Cardiology Progress Note ---
Cardiology SOAP Progress Note Subjective: No shortness of breath. Objective: I&O/Vital Signs 07/20/18 07/20/18 07/20/18 08:00 08:00 08:20 Temp 98.4 Pulse 77 Resp 20 B/P (MAP) 169/74 (105) Pulse Ox 95 96 O2 Delivery Room Air Room Air Room Air 07/20/18 00:00 Intake Total 2345 ml Output Total 2125 ml Balance 220 ml Weight (Pounds): 120 Weight (Ounces): 2.0 Weight (Calculated Kilograms): 54.756616 Constitutional: appears stated age, AAO x 3; No apparent distress; well- developed, well-nourished Respiratory: No accessory muscle use, No respiratory distress, No chest tender , No chest expansion is symmetric; chest is bilaterally symmetric; No lungs clear to percussion; lungs clear to auscultation; No crackles, No rhonchi, No rales, No stridor, No wheezing, No pleural rub, No other Cardiovascular: regular rate-rhythm; No irregularly irregular, No extra beats, No parasternal heave is noted, No JVD, No edema, No bradycardia, No tachycardia , No point of maximal impulse, No cardiac thrills are palpable; S1 and S2; No gallop/S3, No gallop/S4, No diastolic murmur, No systolic murmur, No friction rub, No click, No other Gastrointestional: No tender, No soft, No round, No distended, No pulsatile mass, No organomegaly, No guarding, No rebound, No tenderness, No hernia, No mass, No audible bowel sounds, No abnormal bowel sounds, No abdominal bruits, No spleenomegaly, No other Extremities: No normal range of motion, No non-tender, No normal inspection, No pedal edema, No calf tenderness, No normal capillary refill, No pelvis stable , No calf tenderness, No inflammation, No pedal edema, No slow capillary refill , No swelling, No other, No abrasion, No clubbing, No cyanosis, No ecchymosis, No laceration, No no lower extremity edema bilateral, No significant edema, No tenderness, No wound Neurologic/Psychiatric: no motor/sensory deficits, alert, normal mood/affect, oriented x 3, power is 5/5 both on sides Skin: No rash, No ulcerations Results/Procedures: Labs Laboratory Tests 07/20/18 07:30: White Blood Count 8.2, Red Blood Count 3.49L, Hemoglobin 11.2L, Hematocrit 31L, Mean Corpuscular Volume 89, Mean Corpuscular Hemoglobin 32, Mean Corpuscular Hemoglobin Concent 36, Red Cell Distribution Width 12.7, Platelet Count 154, Mean Platelet Volume 9.8, Neutrophils (%) (Auto) 78H, Lymphocytes (%) (Auto) 11L , Monocytes (%) (Auto) 10, Eosinophils (%) (Auto) 1, Basophils (%) (Auto) 0, Neutrophils # (Auto) 6.4, Lymphocytes # (Auto) 0.9L, Monocytes # (Auto) 0.8, Eosinophils # (Auto) 0.0, Basophils # (Auto) 0.0, Sodium Level 124*L, Potassium Level 3.3L, Chloride Level 93L, Carbon Dioxide Level 23, Anion Gap 8, Blood Urea Nitrogen 2L, Creatinine 0.43L, Estimat Glomerular Filtration Rate > 60, BUN /Creatinine Ratio 5, Glucose Level 88, Calcium Level 7.8L, Corrected Calcium 8.7 , Phosphorus Level 1.4L, Magnesium Level 1.7L, Total Bilirubin 0.3, Aspartate Amino Transf (AST/SGOT) 65H, Alanine Aminotransferase (ALT/SGPT) 62H, Alkaline Phosphatase 133, Total Protein 5.1L, Albumin 2.9L Microbiology 07/16/18 Influenza Types A,B Antigen (PADMAJA) - Final, Complete 07/16/18 Urine Culture - Final, Complete Streptococcus viridans A/P: Assessment/Dx: Hypokalemia, Hyponatremia, Possible pneumonia, UTI, Peripheral arterial disease. Last angio of 09/04/17: 90-95% stenosis within the midportion of the left common iliac artery to which successful balloon angioplasty was carried out followed by stenting (Omnilink 7.0 x 29 mm stent) that does not overlap a previously placed proximal stent within the left common iliac artery that is known to be 7.0 x 27 mm stent. Previous stenting of the left common iliac in September 2010 and cryoplasty of the right superficial femoral in November 2010. In September 2011, she had balloon angioplasty for stent restenosis of left common iliac. No angiographically significant coronary artery disease on cardiac catheterization of February 2010. Left ventricular systolic function was normal with an ejection fraction of 60%. Left ventricular end-diastolic pressure was somewhat elevated. No evidence of any significant myocardial ischemia or infarction. Normal regional wall motion. LVEF 73% per MPI of January 2017 Paroxysmal atrial fibrillation, resolved following treatment of pericardial effusion without any subsequent recurrence. Hypertension, currently well controlled. Hyperlipidemia is being treated with simvastatin. Tobaccoism - quit in 2012 Mild to moderate bilateral carotid arterial disease without evidence of hemodynamically significant stenosis per carotid ultrasound on 11-16-15. Plan: Pneumonia, UTI, defer to Dr. Galarza. Electrolyte replacement for hypokalemia and hyponatremia. Continue outpatient medication for PAD including Plavix. Hyperlipidemia, continue statin therapy. Paroxysmal atrial fibrillation. Not on oral anti-coagulation. Thank you for your consultation. Please call me if you have any questions. Olvin Blanco MD, FACP, FACC, FSCAI, FHRS, CCDS Interventional Cardiology Cardiac Electrophysiology Vascular Medicine and Endovascular Interventions Kathe BLANCO MD Jul 20, 2018 2:10 pm
[2018-07-20] MEDS: SODIUM CHLORIDE 1 GM TAB (NON-FORMULARY) PO SCH (14:23)
[2018-07-20 15:04] LABS: BUN/CREATININE RATIO 6; CALCIUM 7.6 MG/DL (8.5-10.1); CARBON DIOXIDE 22 MMOL/L (21-32); CHLORIDE 94 MMOL/L (98-107); CREATININE SERUM 0.54 MG/DL (0.60-1.30); GFR ESTIMATED > 60; GLUCOSE 107 MG/DL (70-105); MAGNESIUM 2.4 MG/DL (1.8-2.4); POTASSIUM 4.4 MMOL/L (3.6-5.0)
[2018-07-20 15:09] LABS: SODIUM 125 MMOL/L (135-145)
[2018-07-20 16:00] VITALS: BP 158/68
[2018-07-21] VITALS: BP 171/75
[2018-07-21] MEDS: NS W/KCL 20 MEQ/L 1,000 ML IV SCH ×2 (03:55→08:45)
[2018-07-21 06:52] LABS: EOSINOPHILS % (AUTO) 1 % (0-10); HEMATOCRIT 34 % (35-52); LYMPHOCYTES % (AUTO) 15 % (12-44); MEAN CORPUSCULAR HEMOGLOBIN 32 PG (25-34); MEAN CORPUSCULAR HGB CONC 35 G/DL (32-36); MEAN CORPUSCULAR VOLUME 89 FL (80-99); MEAN PLATELET VOLUME 9.6 FL (7.4-10.4); MONOCYTES % (AUTO) 10 % (0-12); NEUTROPHILS % (AUTO) 73 % (42-75); PLATELET COUNT 149 10^3/uL (130-400); RED CELL DISTRIBUTION WIDTH 12.6 % (10.0-14.5); WHITE BLOOD COUNT 7.5 10^3/uL (4.3-11.0)
[2018-07-21 06:53] LABS: BASOPHILS % (AUTO) 1 % (0-10); EOSINOPHILS # (AUTO) 0.1 10^3/uL (0.0-0.3); LYMPHOCYTES # (AUTO) 1.1 X 10^3 (1.0-4.0); MONOCYTES # (AUTO) 0.8 X 10^3 (0.0-1.0); NEUTROPHILS # (AUTO) 5.5 X 10^3 (1.8-7.8)
[2018-07-21] MEDS: RT-ALBUTEROL SULF 2.5 MG/3 ML PRE-MIX VIAL INH SCH ×3 (07:15→19:56)
[2018-07-21 07:18] LABS: ALANINE AMINOTRANSFERASE 71 U/L (0-55); ALBUMIN 3.2 GM/DL (3.2-4.5); ALKALINE PHOSPHATASE 161 U/L (40-136); BILIRUBIN,TOTAL 0.4 MG/DL (0.1-1.0); BUN/CREATININE RATIO 4; CALCIUM 8.4 MG/DL (8.5-10.1); CARBON DIOXIDE 22 MMOL/L (21-32); CHLORIDE 95 MMOL/L (98-107); CREATININE SERUM 0.49 MG/DL (0.60-1.30); GFR ESTIMATED > 60; GLUCOSE 86 MG/DL (70-105); MAGNESIUM 1.7 MG/DL (1.8-2.4); PHOSPHORUS 1.2 MG/DL (2.3-4.7); POTASSIUM 4.1 MMOL/L (3.6-5.0); TOTAL PROTEIN 5.6 GM/DL (6.4-8.2)
[2018-07-21 07:25] LABS: SODIUM 124 MMOL/L (135-145)
[2018-07-21 08:00] VITALS: BP 184/79
[2018-07-21] MEDS: AZITHROMYCIN INJECTION 500 MG in NS (IVPB) 250 ML IV SCH (08:44)
[2018-07-21] MEDS: ENOXAPARIN 40 MG/0.4 ML (LOVENOX) SYR SC SCH (08:45)
[2018-07-21] MEDS: lisINopril 10 MG (PRINIVIL) TABLET PO SCH (08:45)
[2018-07-21] MEDS: cefTRIAXone FOR IV USE 1,000 MG in WATER (STERILE) FOR INJECTION 10 ML IV SCH (08:45)
[2018-07-21] MEDS: DILTIAZEM 180 MG (CARDIZEM CD) CAP PO SCH (08:46)
--- NOTE | 2018-07-21 11:37 | Cardiology Progress Note ---
Cardiology SOAP Progress Note Subjective: No Cardiac complaints. Objective: I&O/Vital Signs 07/21/18 07/21/18 07/21/18 00:00 07:15 08:00 Temp 98.3 98.1 Pulse 79 90 Resp 18 20 B/P (MAP) 171/75 (107) 184/79 (114) Pulse Ox 94 96 96 O2 Delivery Room Air Room Air Room Air 07/21/18 00:00 Intake Total 900 ml Balance 900 ml Weight (Pounds): 128 Weight (Ounces): 0.0 Weight (Calculated Kilograms): 58.651357 Constitutional: appears stated age, AAO x 3; No apparent distress; well- developed, well-nourished Respiratory: No accessory muscle use, No respiratory distress, No chest tender , No chest expansion is symmetric; chest is bilaterally symmetric; No lungs clear to percussion; lungs clear to auscultation; No crackles, No rhonchi, No rales, No stridor, No wheezing, No pleural rub, No other Cardiovascular: regular rate-rhythm; No irregularly irregular, No extra beats, No parasternal heave is noted, No JVD, No edema, No bradycardia, No tachycardia , No point of maximal impulse, No cardiac thrills are palpable; S1 and S2; No gallop/S3, No gallop/S4, No diastolic murmur, No systolic murmur, No friction rub, No click, No other Gastrointestional: No tender, No soft, No round, No distended, No pulsatile mass, No organomegaly, No guarding, No rebound, No tenderness, No hernia, No mass, No audible bowel sounds, No abnormal bowel sounds, No abdominal bruits, No spleenomegaly, No other Extremities: No normal range of motion, No non-tender, No normal inspection, No pedal edema, No calf tenderness, No normal capillary refill, No pelvis stable , No calf tenderness, No inflammation, No pedal edema, No slow capillary refill , No swelling, No other, No abrasion, No clubbing, No cyanosis, No ecchymosis, No laceration, No no lower extremity edema bilateral, No significant edema, No tenderness, No wound Neurologic/Psychiatric: no motor/sensory deficits, alert, normal mood/affect, oriented x 3, power is 5/5 both on sides Skin: No rash, No ulcerations Results/Procedures: Labs Laboratory Tests 07/20/18 14:42: Sodium Level 125*L, Potassium Level 4.4, Chloride Level 94L, Carbon Dioxide Level 22, Anion Gap 9, Blood Urea Nitrogen 3L, Creatinine 0.54L, Estimat Glomerular Filtration Rate > 60, BUN/Creatinine Ratio 6, Glucose Level 107H, Calcium Level 7.6L, Phosphorus Level 3.0, Magnesium Level 2.4 07/21/18 06:39: Sodium Level 124*L, Potassium Level 4.1, Chloride Level 95L, Carbon Dioxide Level 22, Anion Gap 7, Blood Urea Nitrogen 2L, Creatinine 0.49L, Estimat Glomerular Filtration Rate > 60, BUN/Creatinine Ratio 4, Glucose Level 86, Calcium Level 8.4L, Phosphorus Level 1.2L, Magnesium Level 1.7L, White Blood Count 7.5, Red Blood Count 3.81L, Hemoglobin 12.0, Hematocrit 34L, Mean Corpuscular Volume 89, Mean Corpuscular Hemoglobin 32, Mean Corpuscular Hemoglobin Concent 35, Red Cell Distribution Width 12.6, Platelet Count 149, Mean Platelet Volume 9.6, Neutrophils (%) (Auto) 73, Lymphocytes (%) (Auto) 15, Monocytes (%) (Auto) 10, Eosinophils (%) (Auto) 1, Basophils (%) (Auto) 1, Neutrophils # (Auto) 5.5, Lymphocytes # (Auto) 1.1, Monocytes # (Auto) 0.8, Eosinophils # (Auto) 0.1, Basophils # (Auto) 0.0, Corrected Calcium 9.0, Total Bilirubin 0.4, Aspartate Amino Transf (AST/SGOT) 79H, Alanine Aminotransferase ( ALT/SGPT) 71H, Alkaline Phosphatase 161H, Total Protein 5.6L, Albumin 3.2 Microbiology 07/16/18 Influenza Types A,B Antigen (PADMAJA) - Final, Complete 07/16/18 Urine Culture - Final, Complete Streptococcus viridans A/P: Assessment/Dx: Hypokalemia, Hyponatremia, Possible pneumonia, UTI, Peripheral arterial disease. Last angio of 09/04/17: 90-95% stenosis within the midportion of the left common iliac artery to which successful balloon angioplasty was carried out followed by stenting (Omnilink 7.0 x 29 mm stent) that does not overlap a previously placed proximal stent within the left common iliac artery that is known to be 7.0 x 27 mm stent. Previous stenting of the left common iliac in September 2010 and cryoplasty of the right superficial femoral in November 2010. In September 2011, she had balloon angioplasty for stent restenosis of left common iliac. No angiographically significant coronary artery disease on cardiac catheterization of February 2010. Left ventricular systolic function was normal with an ejection fraction of 60%. Left ventricular end-diastolic pressure was somewhat elevated. No evidence of any significant myocardial ischemia or infarction. Normal regional wall motion. LVEF 73% per MPI of January 2017 Paroxysmal atrial fibrillation, resolved following treatment of pericardial effusion without any subsequent recurrence. Hypertension, currently well controlled. Hyperlipidemia is being treated with simvastatin. Tobaccoism - quit in 2012 Mild to moderate bilateral carotid arterial disease without evidence of hemodynamically significant stenosis per carotid ultrasound on 11-16-15. Plan: Pneumonia, UTI, defer to Dr. Galarza. Electrolyte replacement for hypokalemia and hyponatremia. Continue outpatient medication for PAD including Plavix. Hyperlipidemia, continue statin therapy. Paroxysmal atrial fibrillation. Not on oral anti-coagulation. Thank you for your consultation. Please call me if you have any questions. Olvin Blanco MD, FACP, FACC, FSCAI, FHRS, CCDS Interventional Cardiology Cardiac Electrophysiology Vascular Medicine and Endovascular Interventions Kathe BLANCO MD Jul 21, 2018 11:37 am
--- NOTE | 2018-07-21 12:40 | Progress Note-Hospitalist ---
Subjective HPI/CC On Admission Date Seen by Provider: Jul 21, 2018 Time Seen by Provider: 11:30 Subjective/Events-last exam Patient about the same Off Plavix for bronch Sodium level remains at 124 and asymptomatic Ambulating with walker Fall risk remains Lungs are clear today BM+ Objective Exam Vital Signs Vital Signs Date Time Temp Pulse Resp B/P (MAP) Pulse Ox O2 Delivery O2 Flow Rate FiO2 07/21/18 08:00 98.1 90 20 184/79 (114) 96 Room Air Capillary Refill : General Appearance: No Apparent Distress, WD/WN, Chronically ill, Thin HEENT: Normal ENT Inspection Neck: Full Range of Motion, Normal Inspection Respiratory: Lungs Clear, No Accessory Muscle Use, No Respiratory Distress, Decreased Breath Sounds Cardiovascular: Regular Rate, Rhythm, No Edema, No Murmur Gastrointestinal: Non Tender, Soft Neurologic/Psychiatric: Alert, Oriented x3, No Motor/Sensory Deficits, Normal Mood/Affect Skin: Normal Color, Warm/Dry Results/Procedures Lab Laboratory Tests 07/20/18 14:42 07/21/18 06:39 Patient resulted labs reviewed. Assessment/Plan Assessment and Plan Assess & Plan/Chief Complaint Assessment: Lung mass with mediastinal lymphadenopathy Hx of tobacco use CAD holding Plavix in prep for EBUS Severe hyponatremia Hypokalemia Frail status Plan: Current treatment to maintain Poor prognosis Ambulate Diagnosis/Problems Diagnosis/Problems (1) Weakness Status: Acute (2) Hyponatremia Status: Acute (3) Lung nodule Status: Acute (4) Smoker Status: Chronic (5) Hypokalemia Status: Acute (6) Hypomagnesemia Status: Acute (7) Nausea Status: Acute (8) Elevated liver enzymes Status: Acute Clinical Quality Measures DVT/VTE Risk/Contraindication: Risk Factor Score Per Nursin RFS Level Per Nursing on Admit: 4+=Very High Contraindications-Pharm: Other *list below* MYRON ALEXANDRA DO Jul 21, 2018 12:40
--- NOTE | 2018-07-21 14:35 | Pulmonary Progress Note ---
Sepsis Event Evaluation Height, Weight, BMI Height: 5'5.00" Weight: 128lbs. 0.0oz. 58.277343yj; 19.7 BMI Method: Exam Exam Vital Signs Date Time Temp Pulse Resp B/P (MAP) Pulse Ox O2 Delivery O2 Flow Rate FiO2 07/21/18 08:00 98.1 90 20 184/79 (114) 96 Room Air 07/21/18 08:00 99 Room Air 07/21/18 07:15 96 Room Air 07/21/18 00:00 98.3 79 18 171/75 (107) 94 Room Air 07/20/18 20:00 Room Air 07/20/18 16:00 98.1 81 16 158/68 (98) 97 Room Air 07/20/18 15:40 95 Room Air I & O 07/21/18 07:00 Intake Total 1910 ml Balance 1910 ml Height & Weight Height: 5'5.00" Weight: 128lbs. 0.0oz. 58.131010zf; 19.7 BMI Method: General Appearance: No Apparent Distress, WD/WN, Chronically ill, Thin HEENT: Normal ENT Inspection Neck: Full Range of Motion, Normal Inspection Respiratory: Lungs Clear, No Accessory Muscle Use, No Respiratory Distress, Decreased Breath Sounds Cardiovascular: Regular Rate, Rhythm, No Edema, No Murmur Gastrointestinal: non tender, soft Neurologic/Psychiatric: Alert, Oriented x3, No Motor/Sensory Deficits, Normal Mood/Affect Skin: Normal Color, Warm/Dry Results Lab Laboratory Tests 07/20/18 07:30 07/20/18 14:42 07/21/18 06:39 Assessment/Plan Assessment/Plan Lung mass with mediastinal lymphadenopathy -Pt needs bronchoscopy with EBUS - Will plan for next week -Hold plavix and ASA for procedure next week Hx of tobacco CAD hx -Known to Dr. العراقي will consult him to be sure it's ok to hold plavix starting today. Severe hyponatremia, hypokalemia, hypomagnesium -Replace and recheck -Continue NS for now. RAYA CAM DO Jul 21, 2018 14:35
[2018-07-21] MEDS: SODIUM CHLORIDE 1 GM TAB (NON-FORMULARY) PO SCH (15:06)
[2018-07-21 15:53] VITALS: BP 158/67
[2018-07-22] VITALS: BP 160/72
[2018-07-22 07:33] LABS: BASOPHILS % (AUTO) 1 % (0-10); EOSINOPHILS # (AUTO) 0.1 10^3/uL (0.0-0.3); EOSINOPHILS % (AUTO) 1 % (0-10); HEMATOCRIT 30 % (35-52); HEMOGLOBIN 10.8 G/DL (11.5-16.0); LYMPHOCYTES # (AUTO) 1.2 X 10^3 (1.0-4.0); LYMPHOCYTES % (AUTO) 14 % (12-44); MEAN CORPUSCULAR HEMOGLOBIN 32 PG (25-34); MEAN CORPUSCULAR HGB CONC 36 G/DL (32-36); MEAN CORPUSCULAR VOLUME 90 FL (80-99); MEAN PLATELET VOLUME 9.9 FL (7.4-10.4); MONOCYTES # (AUTO) 0.9 X 10^3 (0.0-1.0); MONOCYTES % (AUTO) 11 % (0-12); NEUTROPHILS % (AUTO) 73 % (42-75); PLATELET COUNT 124 10^3/uL (130-400); RED CELL DISTRIBUTION WIDTH 12.9 % (10.0-14.5); WHITE BLOOD COUNT 8.2 10^3/uL (4.3-11.0)
[2018-07-22 07:49] LABS: ALANINE AMINOTRANSFERASE 61 U/L (0-55); ALBUMIN 2.9 GM/DL (3.2-4.5); ALKALINE PHOSPHATASE 153 U/L (40-136); BILIRUBIN,TOTAL 0.4 MG/DL (0.1-1.0); BUN/CREATININE RATIO 5; CALCIUM 8.2 MG/DL (8.5-10.1); CARBON DIOXIDE 20 MMOL/L (21-32); CHLORIDE 96 MMOL/L (98-107); CREATININE SERUM 0.43 MG/DL (0.60-1.30); GFR ESTIMATED > 60; GLUCOSE 88 MG/DL (70-105); MAGNESIUM 1.6 MG/DL (1.8-2.4); PHOSPHORUS 1.2 MG/DL (2.3-4.7); POTASSIUM 3.7 MMOL/L (3.6-5.0); TOTAL PROTEIN 5.2 GM/DL (6.4-8.2)
[2018-07-22 08:00] VITALS: BP 173/84
[2018-07-22 08:02] LABS: SODIUM 124 MMOL/L (135-145)
--- NOTE | 2018-07-22 08:05 | Progress Note (SOAP) ---
Subjective Time Seen by a Provider: 08:02 Subjective/Events-last exam Patient feeling better today. Patient to have bronchoscopy done by pulmonology Objective Exam Vital Signs Date Time Temp Pulse Resp B/P (MAP) Pulse Ox O2 Delivery O2 Flow Rate FiO2 07/22/18 00:00 99.2 80 18 160/72 (101) 95 Room Air 07/21/18 20:00 Room Air 07/21/18 19:56 96 Room Air 07/21/18 15:53 98.4 81 20 158/67 (97) 96 Room Air 07/21/18 14:37 95 Room Air I & O 07/22/18 07:00 Intake Total 1430 ml Balance 1430 ml Capillary Refill : General Appearance: No Apparent Distress, Thin HEENT: Normal ENT Inspection, Other (Hearing aids) Neck: Full Range of Motion, Normal Inspection Respiratory: Lungs Clear, No Accessory Muscle Use, No Respiratory Distress Cardiovascular: Regular Rate, Rhythm, No Murmur Results Lab Laboratory Tests 07/22/18 07:12 Laboratory Tests 07/22/18 07:12: White Blood Count 8.2, Red Blood Count 3.33L, Hemoglobin 10.8L, Hematocrit 30L, Mean Corpuscular Volume 90, Mean Corpuscular Hemoglobin 32, Mean Corpuscular Hemoglobin Concent 36, Red Cell Distribution Width 12.9, Platelet Count 124L, Mean Platelet Volume 9.9, Neutrophils (%) (Auto) 73, Lymphocytes (%) (Auto) 14, Monocytes (%) (Auto) 11, Eosinophils (%) (Auto) 1, Basophils (%) (Auto) 1, Neutrophils # (Auto) 6.0, Lymphocytes # (Auto) 1.2, Monocytes # (Auto) 0.9, Eosinophils # (Auto) 0.1, Basophils # (Auto) 0.0, Potassium Level 3.7, Chloride Level 96L, Carbon Dioxide Level 20L, Anion Gap 8, Blood Urea Nitrogen 2L, Creatinine 0.43L, Estimat Glomerular Filtration Rate > 60, BUN/Creatinine Ratio 5, Glucose Level 88, Calcium Level 8.2L, Corrected Calcium 9.1, Phosphorus Level 1.2L, Magnesium Level 1.6L, Total Bilirubin 0.4, Aspartate Amino Transf ( AST/SGOT) 66H, Alanine Aminotransferase (ALT/SGPT) 61H, Alkaline Phosphatase 153H, Total Protein 5.2L, Albumin 2.9L Microbiology 07/16/18 Influenza Types A,B Antigen (PADMAJA) - Final, Complete 07/16/18 Urine Culture - Final, Complete Streptococcus viridans Assessment/Plan Assessment/Plan Assess & Plan/Chief Complaint Pneumonia. UTI. Weakness. Liver tests coming down. Electrolyte imbalance. . . 07/19/18. Pulmonary tumor. Left adrenal tumor. Electrolyte imbalance. Respiratory infection. Weakness. To get pulmonology and cardiology on board. . Recently . Pulmonary tumor. Hyponatremia. Hypomagnesemia. Elevated liver tests. Weakness. Hypocalcemia. Hypophosphatemia. 07/22/18. Clinical Quality Measures Admission Status Admission Dx Pneumonia. UTI. Severe hyponatremia. Hypokalemia. Weakness. Unsteady gait. Hypertension history. Elevated liver tests. Patient lives alone. Ration not able to take care of herself DVT/VTE Risk/Contraindication: Risk Factor Score Per Nursin RFS Level Per Nursing on Admit: 4+=Very High Contraindications-Pharm: Other *list below* ISIDRO IRIZARRY DO Jul 22, 2018 08:05
[2018-07-22] MEDS ORDERED: POTASSIUM PHOSPHATE INJ 30 MM in NS (IVPB) 250 ML IV ONE (08:15)
--- NOTE | 2018-07-22 08:16 | Pulmonary Progress Note ---
Subjective Time Seen by a Provider: 08:20 Sepsis Event Evaluation Height, Weight, BMI Height: 5'5.00" Weight: 126lbs. 7.0oz. 57.049974eu; 19.7 BMI Method: Exam Exam Vital Signs Date Time Temp Pulse Resp B/P (MAP) Pulse Ox O2 Delivery O2 Flow Rate FiO2 07/22/18 00:00 99.2 80 18 160/72 (101) 95 Room Air 07/21/18 20:00 Room Air 07/21/18 19:56 96 Room Air 07/21/18 15:53 98.4 81 20 158/67 (97) 96 Room Air 07/21/18 14:37 95 Room Air I & O 07/22/18 07:00 Intake Total 1430 ml Balance 1430 ml Height & Weight Height: 5'5.00" Weight: 126lbs. 7.0oz. 57.007331us; 19.7 BMI Method: General Appearance: No Apparent Distress, Thin HEENT: Normal ENT Inspection, Other (Hearing aids) Neck: Full Range of Motion, Normal Inspection Respiratory: Lungs Clear, No Accessory Muscle Use, No Respiratory Distress Cardiovascular: Regular Rate, Rhythm, No Murmur Gastrointestinal: non tender, soft Neurologic/Psychiatric: Alert, Oriented x3, No Motor/Sensory Deficits, Normal Mood/Affect Skin: Normal Color, Warm/Dry Results Lab Laboratory Tests 07/20/18 14:42 07/21/18 06:39 07/22/18 07:12 Assessment/Plan Assessment/Plan Lung mass with mediastinal lymphadenopathy -Pt needs bronchoscopy with EBUS - Plan is for this -Hold plavix and ASA for procedure this week Hx of tobacco CAD hx -Known to Dr. العراقي will consult him to be sure it's ok to hold plavix starting today. Severe hyponatremia, hypokalemia, hypomagnesium -Replace and recheck -Continue NS for now. -Start fluid restriction -Po Na RAYA Santiago DO Jul 22, 2018 08:16
[2018-07-22] MEDS: RT-ALBUTEROL SULF 2.5 MG/3 ML PRE-MIX VIAL INH SCH ×4 (08:20→21:25)
[2018-07-22] MEDS ORDERED: FUROSEMIDE 40 MG/4 ML INJ (LASIX) IVP NR (08:30)
[2018-07-22] MEDS: ENOXAPARIN 40 MG/0.4 ML (LOVENOX) SYR SC SCH (08:49)
[2018-07-22] MEDS: lisINopril 10 MG (PRINIVIL) TABLET PO SCH (08:49)
[2018-07-22] MEDS: MAGNESIUM 1 GM/100 ML IVPB 100 ML IV SCH ×2 (08:49→09:49)
[2018-07-22] MEDS: DILTIAZEM 180 MG (CARDIZEM CD) CAP PO SCH (08:49)
[2018-07-22] MEDS: AZITHROMYCIN INJECTION 500 MG in NS (IVPB) 250 ML IV SCH (08:50)
[2018-07-22] MEDS: cefTRIAXone FOR IV USE 1,000 MG in WATER (STERILE) FOR INJECTION 10 ML IV SCH (08:50)
--- NOTE | 2018-07-22 09:48 | Physical Therapy Daily Note ---
PT Daily Note-Current Subjective Patient states, "If I wasn't hooked up to this IV, I could get around on my own. " Pain Numeric Pain Scale: 0-No Pain Location: No Pain Reported Mental Status Patient Orientation: Normal For Age Attachments: IV Transfers Therapy Code Descriptions/Definitions Functional [place] Measure: 0=Not Assessed/NA 4=Minimal Assistance 1=Total Assistance 5=Supervision or Setup 2=Maximal Assistance 6=Modified [place] 3=Moderate Assistance 7=Complete [place] Therapy Quality Codes: 6 Independent with activity with or without an assistive device 5 Patient requires set up or clean up by helper. Patient completes activity by themselves 4 Supervision or touching assist (CGA). [place] provide cues , steadying assist 3 The helper provides less than half the effort to complete the activity 2 The helper provides more than half the effort to complete the activity 1 Dependent. The helper does all the effort to complete an activity 7 Patient refused to complete or attempt activity 9 The patient did not perform the activity before the current illness or injury 88 Not attempted due to Medical conditions or safety concerns Transfers (B, C, W/C) (FIM): 6 Scootin Rollin Supine to/from Sit: 6 Sit to/from Stand: 6 Bed to/from Chair: 6 Weight Bearing Right Lower Extremity: Right Full Weight Bearing Left Lower Extremity: Left Full Weight Bearing Gait Training Gait (FIM): 6 Distance (FIM): 3=150 ft Distance: 800' Gait Level of Assist: 6 Gait Assistive Device: FWW safe and functional Assessment Patient is currently at [facility] with all gross motor skills and does not require skilled therapy intervention. Patient plans dismissal to home on this date. PT to dismiss patient from services at this time. PT Short Term Goals Short Term Goals Time Frame: Jul 22, 2018 Transfers (B,C,W/C) (FIM): 6 Gait (FIM): 6 Distance (FIM): 3=150 ft Gait Level of Assist: 6 Gait Assistive Device: FWW PT Plan Treatment/Plan Treatment Plan: Discontinue PT, goals met Treatment Plan: Education, Functional Activity [place], Functional Strength, Gait , Safety, Therapeutic Exercise, Transfers Treatment Duration: Jul 22, 2018 Frequency: 4 times per week Estimated Hrs Per Day: .25 hour per day Patient and/or Family Agrees t: Yes Time/GCodes Time In: 910 Time Out: 918 Total Billed Treatment Time: 8 Total Billed Treatment 1 visit FA 8 min KUSHAL HILLS PT Jul 22, 2018 09:47
--- NOTE | 2018-07-22 10:40 | Cardiology Progress Note ---
Cardiology SOAP Progress Note Subjective: No cardiac complaints. Objective: I&O/Vital Signs 07/22/18 07/22/18 00:00 08:20 Temp 99.2 Pulse 80 Resp 18 B/P (MAP) 160/72 (101) Pulse Ox 95 96 O2 Delivery Room Air Room Air 07/22/18 00:00 Intake Total 1170 ml Balance 1170 ml Weight (Pounds): 126 Weight (Ounces): 7.0 Weight (Calculated Kilograms): 57.899752 Constitutional: appears stated age, AAO x 3; No apparent distress; well- developed, well-nourished Respiratory: No accessory muscle use, No respiratory distress, No chest tender , No chest expansion is symmetric; chest is bilaterally symmetric; No lungs clear to percussion; lungs clear to auscultation; No crackles, No rhonchi, No rales, No stridor, No wheezing, No pleural rub, No other Cardiovascular: regular rate-rhythm; No irregularly irregular, No extra beats, No parasternal heave is noted, No JVD, No edema, No bradycardia, No tachycardia , No point of maximal impulse, No cardiac thrills are palpable; S1 and S2; No gallop/S3, No gallop/S4, No diastolic murmur, No systolic murmur, No friction rub, No click, No other Gastrointestional: No tender, No soft, No round, No distended, No pulsatile mass, No organomegaly, No guarding, No rebound, No tenderness, No hernia, No mass, No audible bowel sounds, No abnormal bowel sounds, No abdominal bruits, No spleenomegaly, No other Extremities: No normal range of motion, No non-tender, No normal inspection, No pedal edema, No calf tenderness, No normal capillary refill, No pelvis stable , No calf tenderness, No inflammation, No pedal edema, No slow capillary refill , No swelling, No other, No abrasion, No clubbing, No cyanosis, No ecchymosis, No laceration, No no lower extremity edema bilateral, No significant edema, No tenderness, No wound Neurologic/Psychiatric: no motor/sensory deficits, alert, normal mood/affect, oriented x 3, power is 5/5 both on sides Skin: No rash, No ulcerations Results/Procedures: Labs Laboratory Tests 07/22/18 07:12: White Blood Count 8.2, Red Blood Count 3.33L, Hemoglobin 10.8L, Hematocrit 30L, Mean Corpuscular Volume 90, Mean Corpuscular Hemoglobin 32, Mean Corpuscular Hemoglobin Concent 36, Red Cell Distribution Width 12.9, Platelet Count 124L, Mean Platelet Volume 9.9, Neutrophils (%) (Auto) 73, Lymphocytes (%) (Auto) 14, Monocytes (%) (Auto) 11, Eosinophils (%) (Auto) 1, Basophils (%) (Auto) 1, Neutrophils # (Auto) 6.0, Lymphocytes # (Auto) 1.2, Monocytes # (Auto) 0.9, Eosinophils # (Auto) 0.1, Basophils # (Auto) 0.0, Sodium Level 124*L, Potassium Level 3.7, Chloride Level 96L, Carbon Dioxide Level 20L, Anion Gap 8, Blood Urea Nitrogen 2L, Creatinine 0.43L, Estimat Glomerular Filtration Rate > 60, BUN /Creatinine Ratio 5, Glucose Level 88, Calcium Level 8.2L, Corrected Calcium 9.1 , Phosphorus Level 1.2L, Magnesium Level 1.6L, Total Bilirubin 0.4, Aspartate Amino Transf (AST/SGOT) 66H, Alanine Aminotransferase (ALT/SGPT) 61H, Alkaline Phosphatase 153H, Total Protein 5.2L, Albumin 2.9L Microbiology 07/16/18 Influenza Types A,B Antigen (PADMAJA) - Final, Complete 07/16/18 Urine Culture - Final, Complete Streptococcus viridans A/P: Assessment/Dx: Hypokalemia, Hyponatremia, Possible pneumonia, UTI, Peripheral arterial disease. Last angio of 09/04/17: 90-95% stenosis within the midportion of the left common iliac artery to which successful balloon angioplasty was carried out followed by stenting (Omnilink 7.0 x 29 mm stent) that does not overlap a previously placed proximal stent within the left common iliac artery that is known to be 7.0 x 27 mm stent. Previous stenting of the left common iliac in September 2010 and cryoplasty of the right superficial femoral in November 2010. In September 2011, she had balloon angioplasty for stent restenosis of left common iliac. No angiographically significant coronary artery disease on cardiac catheterization of February 2010. Left ventricular systolic function was normal with an ejection fraction of 60%. Left ventricular end-diastolic pressure was somewhat elevated. No evidence of any significant myocardial ischemia or infarction. Normal regional wall motion. LVEF 73% per MPI of January 2017 Paroxysmal atrial fibrillation, resolved following treatment of pericardial effusion without any subsequent recurrence. Hypertension, currently well controlled. Hyperlipidemia is being treated with simvastatin. Tobaccoism - quit in 2012 Mild to moderate bilateral carotid arterial disease without evidence of hemodynamically significant stenosis per carotid ultrasound on 11-16-15. Plan: Pneumonia, UTI, defer to Dr. Galarza. Electrolyte replacement for hypokalemia and hyponatremia. Continue outpatient medication for PAD including Plavix. Hyperlipidemia, continue statin therapy. Paroxysmal atrial fibrillation. Not on oral anti-coagulation. Dr. Lancaster to follow for cardiology from tomorrow. Thank you for your consultation. Please call me if you have any questions. Olvin Blanco MD, FACP, FACC, FSCAI, FHRS, CCDS Interventional Cardiology Cardiac Electrophysiology Vascular Medicine and Endovascular Interventions Kathe BLANCO MD Jul 22, 2018 10:40 am
[2018-07-22] MEDS: NS W/KCL 20 MEQ/L 1,000 ML IV SCH (11:49)
--- NOTE | 2018-07-22 13:55 | NUR ---
Pastoral care visit.
[2018-07-22] MEDS: SODIUM CHLORIDE 1 GM TAB (NON-FORMULARY) PO SCH (15:25)
[2018-07-22 15:37] VITALS: BP 162/84
[2018-07-22 23:20] VITALS: BP 162/79
[2018-07-23] MEDS: NS W/KCL 20 MEQ/L 1,000 ML IV SCH ×2 (03:40→09:19)
--- NOTE | 2018-07-23 06:36 | Pulmonary Progress Note ---
Subjective Time Seen by a Provider: 06:35 Sepsis Event Evaluation Height, Weight, BMI Height: 5'5.00" Weight: 126lbs. 7.0oz. 57.013722sl; 19.7 BMI Method: Exam Exam Vital Signs Date Time Temp Pulse Resp B/P (MAP) Pulse Ox O2 Delivery O2 Flow Rate FiO2 07/22/18 23:20 99.2 80 18 162/79 (106) 95 Room Air 07/22/18 21:27 96 Room Air 07/22/18 20:00 Room Air 07/22/18 15:53 95 Room Air 07/22/18 15:37 99.1 76 18 162/84 (110) 97 Room Air 07/22/18 08:20 96 Room Air 07/22/18 08:00 98.7 76 18 173/84 (113) 95 Room Air 07/22/18 08:00 96 Room Air I & O 07/23/18 07:00 Intake Total 2260 ml Balance 2260 ml Height & Weight Height: 5'5.00" Weight: 126lbs. 7.0oz. 57.194087lv; 19.7 BMI Method: General Appearance: No Apparent Distress, Thin HEENT: Normal ENT Inspection, Other (Hearing aids) Neck: Full Range of Motion, Normal Inspection Respiratory: Lungs Clear, No Accessory Muscle Use, No Respiratory Distress Cardiovascular: Regular Rate, Rhythm, No Murmur Gastrointestinal: non tender, soft Neurologic/Psychiatric: Alert, Oriented x3, No Motor/Sensory Deficits, Normal Mood/Affect Skin: Normal Color, Warm/Dry Results Lab Laboratory Tests 07/21/18 06:39 07/22/18 07:12 Assessment/Plan Assessment/Plan Lung mass with mediastinal lymphadenopathy -Pt needs bronchoscopy with EBUS - Plan is for this -Hold plavix and ASA for procedure this week Hx of tobacco CAD hx -Known to Dr. العراقي will consult him to be sure it's ok to hold plavix starting today. Severe hyponatremia, hypokalemia, hypomagnesium -Replace and recheck -Continue NS for now. -Start fluid restriction -Po Na RAYA Santiago DO Jul 23, 2018 06:36
[2018-07-23 06:37] LABS: BASOPHILS % (AUTO) 0 % (0-10); EOSINOPHILS # (AUTO) 0.1 10^3/uL (0.0-0.3); EOSINOPHILS % (AUTO) 1 % (0-10); HEMATOCRIT 31 % (35-52); HEMOGLOBIN 10.9 G/DL (11.5-16.0); LYMPHOCYTES # (AUTO) 1.2 X 10^3 (1.0-4.0); LYMPHOCYTES % (AUTO) 15 % (12-44); MEAN CORPUSCULAR HEMOGLOBIN 32 PG (25-34); MEAN CORPUSCULAR HGB CONC 35 G/DL (32-36); MEAN CORPUSCULAR VOLUME 90 FL (80-99); MEAN PLATELET VOLUME 10.3 FL (7.4-10.4); MONOCYTES # (AUTO) 0.9 X 10^3 (0.0-1.0); MONOCYTES % (AUTO) 11 % (0-12); NEUTROPHILS # (AUTO) 5.9 X 10^3 (1.8-7.8); NEUTROPHILS % (AUTO) 73 % (42-75); PLATELET COUNT 113 10^3/uL (130-400); RED CELL DISTRIBUTION WIDTH 12.7 % (10.0-14.5); WHITE BLOOD COUNT 8.1 10^3/uL (4.3-11.0)
[2018-07-23 06:57] LABS: ALANINE AMINOTRANSFERASE 57 U/L (0-55); ALKALINE PHOSPHATASE 172 U/L (40-136); BILIRUBIN,TOTAL 0.4 MG/DL (0.1-1.0); BUN/CREATININE RATIO 6; CALCIUM 8.3 MG/DL (8.5-10.1); CARBON DIOXIDE 22 MMOL/L (21-32); CHLORIDE 99 MMOL/L (98-107); CREATININE SERUM 0.48 MG/DL (0.60-1.30); GFR ESTIMATED > 60; GLUCOSE 93 MG/DL (70-105); MAGNESIUM 1.5 MG/DL (1.8-2.4); PHOSPHORUS 1.3 MG/DL (2.3-4.7); POTASSIUM 3.6 MMOL/L (3.6-5.0); SODIUM 126 MMOL/L (135-145); TOTAL PROTEIN 5.4 GM/DL (6.4-8.2)
[2018-07-23] MEDS ORDERED: POTASSIUM PHOSPHATE INJ 30 MM in NS (IVPB) 250 ML IV ONE ×2 (07:45→08:15)
[2018-07-23] MEDS ORDERED: MAGNESIUM 1 GM/100 ML IVPB 100 ML IV SCH (07:45)
--- NOTE | 2018-07-23 07:52 | Progress Note (SOAP) ---
Subjective Time Seen by a Provider: 07:50 Subjective/Events-last exam Patient feeling okay today. Sodium 126. Magnesium 1.5. Elevated liver tests still Patient have bronchoscopy Objective Exam Vital Signs Date Time Temp Pulse Resp B/P (MAP) Pulse Ox O2 Delivery O2 Flow Rate FiO2 07/22/18 23:20 99.2 80 18 162/79 (106) 95 Room Air 07/22/18 21:27 96 Room Air 07/22/18 20:00 Room Air 07/22/18 15:53 95 Room Air 07/22/18 15:37 99.1 76 18 162/84 (110) 97 Room Air 07/22/18 08:20 96 Room Air 07/22/18 08:00 98.7 76 18 173/84 (113) 95 Room Air 07/22/18 08:00 96 Room Air I & O 07/23/18 07:00 Intake Total 2310 ml Balance 2310 ml Capillary Refill : Less Than 3 Seconds General Appearance: No Apparent Distress, Thin HEENT: Normal ENT Inspection Neck: Full Range of Motion, Normal Inspection Respiratory: No Accessory Muscle Use, No Respiratory Distress Cardiovascular: Regular Rate, Rhythm, No Murmur Gastrointestinal: non tender, soft Results Lab Laboratory Tests 07/23/18 05:22 Laboratory Tests 07/23/18 05:22: White Blood Count 8.1, Red Blood Count 3.44L, Hemoglobin 10.9L, Hematocrit 31L, Mean Corpuscular Volume 90, Mean Corpuscular Hemoglobin 32, Mean Corpuscular Hemoglobin Concent 35, Red Cell Distribution Width 12.7, Platelet Count 113L, Mean Platelet Volume 10.3, Neutrophils (%) (Auto) 73, Lymphocytes (%) (Auto) 15 , Monocytes (%) (Auto) 11, Eosinophils (%) (Auto) 1, Basophils (%) (Auto) 0, Neutrophils # (Auto) 5.9, Lymphocytes # (Auto) 1.2, Monocytes # (Auto) 0.9, Eosinophils # (Auto) 0.1, Basophils # (Auto) 0.0, Sodium Level 126L, Potassium Level 3.6, Chloride Level 99, Carbon Dioxide Level 22, Anion Gap 5, Blood Urea Nitrogen 3L, Creatinine 0.48L, Estimat Glomerular Filtration Rate > 60, BUN/ Creatinine Ratio 6, Glucose Level 93, Calcium Level 8.3L, Corrected Calcium 9.1 , Phosphorus Level 1.3L, Magnesium Level 1.5L, Total Bilirubin 0.4, Aspartate Amino Transf (AST/SGOT) 67H, Alanine Aminotransferase (ALT/SGPT) 57H, Alkaline Phosphatase 172H, Total Protein 5.4L, Albumin 3.0L Microbiology 07/16/18 Influenza Types A,B Antigen (PADMAJA) - Final, Complete 07/16/18 Urine Culture - Final, Complete Streptococcus viridans Assessment/Plan Assessment/Plan Assess & Plan/Chief Complaint Pneumonia. UTI. Weakness. Liver tests coming down. Electrolyte imbalance. . . 07/19/18. Pulmonary tumor. Left adrenal tumor. Electrolyte imbalance. Respiratory infection. Weakness. To get pulmonology and cardiology on board. . Recently . Pulmonary tumor. Hyponatremia. Hypomagnesemia. Elevated liver tests. Weakness. Hypocalcemia. Hypophosphatemia. 07/22/18.. . 07/23/18. Coronary tumor. Adrenal tumor. Hyponatremia. Hypomagnesemia. Elevated liver tests. Hypertension. Hypocalcemia. Hypophosphatemia Clinical Quality Measures Admission Status Admission Dx Pneumonia. UTI. Severe hyponatremia. Hypokalemia. Weakness. Unsteady gait. Hypertension history. Elevated liver tests. Patient lives alone. Ration not able to take care of herself DVT/VTE Risk/Contraindication: Risk Factor Score Per Nursin RFS Level Per Nursing on Admit: 4+=Very High Contraindications-Pharm: Other *list below* ISIDRO IRIZARRY DO Jul 23, 2018 07:52
[2018-07-23 08:18] VITALS: BP 179/85
--- NOTE | 2018-07-23 08:19 | Cardiology Progress Note ---
Subjective Date Seen by Provider: Jul 23, 2018 Time Seen by Provider: 08:24 Subjective/Events-last exam Patient is sitting up in bed, eating breakfast. No new complaints. Denies any chest pain or dyspnea. Review of Systems General: No Chills, No Night Sweats, No Fatigue, No Malaise, No Appetite, No Other HEENT: No Head Aches, No Visual Changes, No Eye Pain, No Ear Pain, No Dysphasia , No Sinus Congestion, No Post Nasal Drip, No Sore Throat, No Other Pulmonary: Dyspnea Cardiovascular: No: Chest Pain, Palpitations, Orthopnea, Paroxysmal Noc. Dyspnea, Edema, Lt Headedness, Other Gastrointestinal: No: Nausea, Vomiting, Abdominal Pain, Diarrhea, Constipation , Melena, Hematochezia, Other Genitourinary: No Dysuria, No Frequency, No Incontinence, No Hematuria, No Retention, No Other Musculoskeletal: No: other, neck pain, shoulder pain, arm pain, back pain, hand pain, leg pain, foot pain Neurological: No: Weakness, Numbness, Incoordination, Change in speech, Confusion, Seizures, Other Objective-Cardiology Exam Last Set of Vital Signs Vital Signs 07/23/18 08:18 Temp 98.2 Pulse 76 Resp 18 B/P (MAP) 179/85 (116) Pulse Ox 95 O2 Delivery Room Air Capillary Refill : Less Than 3 Seconds I&O Intake and Output 07/23/18 00:00 Intake Total 2260 ml Balance 2260 ml Intake Oral 810 ml IV Total 1450 ml # Voids 5 General: Alert, Oriented X3, Cooperative HEENT: Atraumatic, PERRLA Neck: Supple, No JVD, No Thyromegaly Lungs: Clear to Auscultation, Normal Air Movement Heart: Regular Rate, Normal S1, Normal S2, No Murmurs Abdomen: Normal Bowel Sounds, Soft, No Tenderness, No Hepatosplenomegaly, No Masses Extremities: No Clubbing, No Cyanosis, No Edema, Normal Pulses, No Tenderness/ Swelling Skin: No Rashes, No Breakdown, No Significant Lesion Neuro: Normal Gait, Normal Speech, Strength at 5/5 X4 Ext, Normal Tone, Sensation Intact Results Lab Laboratory Tests 07/23/18 05:22 A/P-Cardiology Admission Diagnosis Hypokalemia Lung mass PVD HTN Assessment/Plan Hypokalemia, replaced, improved, continue to monitor. Hyponatremia, continue IVF's Lung mass- planning for bronchoscopy with Dr. Rosales on , continue to hold ASA and Plavix. UTI, continue antibiotic Peripheral arterial disease. Last angio of 09/04/17: 90-95% stenosis within the midportion of the left common iliac artery to which successful balloon angioplasty was carried out followed by stenting (Omnilink 7.0 x 29 mm stent) that does not overlap a previously placed proximal stent within the left common iliac artery that is known to be 7.0 x 27 mm stent. Previous stenting of the left common iliac in September 2010 and cryoplasty of the right superficial femoral in November 2010. In September 2011, she had balloon angioplasty for stent restenosis of left common iliac. No angiographically significant coronary artery disease on cardiac catheterization of February 2010. Left ventricular systolic function was normal with an ejection fraction of 60%. Left ventricular end-diastolic pressure was somewhat elevated. No evidence of any significant myocardial ischemia or infarction. Normal regional wall motion. LVEF 73% per MPI of January 2017 Paroxysmal atrial fibrillation, resolved following treatment of pericardial effusion without any subsequent recurrence. Hypertension, poorly controlled, I will increase lisinopril to 20mg daily, continue to monitor. Hyperlipidemia is being treated with simvastatin. Tobaccoism - quit in 2012 Mild to moderate bilateral carotid arterial disease without evidence of hemodynamically significant stenosis per carotid ultrasound on 11-16-15. Clinical Quality Measures DVT/VTE Risk/Contraindication: Risk Factor Score Per Nursin RFS Level Per Nursing on Admit: 4+=Very High Contraindications-Pharm: Other *list below* VICKEY REED Jul 23, 2018 08:19
--- NOTE | 2018-07-23 08:34 | Cardiology Progress Note ---
Subjective Date Seen by Provider: Jul 23, 2018 Time Seen by Provider: 08:32 Subjective/Events-last exam patient is laying down in bed, no new complaint, no chest pain or shortness of breath, no palpitation Review of Systems General: No Chills, No Night Sweats, No Fatigue, No Malaise, No Appetite, No Other HEENT: No Head Aches, No Visual Changes, No Eye Pain, No Ear Pain, No Dysphasia , No Sinus Congestion, No Post Nasal Drip, No Sore Throat, No Other Pulmonary: Dyspnea; No Cough, No Pleuritic Chest Pain, No Other Cardiovascular: No: Chest Pain, Palpitations, Orthopnea, Paroxysmal Noc. Dyspnea, Edema, Lt Headedness, Other Objective-Cardiology Exam Last Set of Vital Signs Vital Signs 07/23/18 08:18 Temp 98.2 Pulse 76 Resp 18 B/P (MAP) 179/85 (116) Pulse Ox 95 O2 Delivery Room Air Capillary Refill : Less Than 3 Seconds I&O Intake and Output 07/23/18 00:00 Intake Total 2260 ml Balance 2260 ml Intake Oral 810 ml IV Total 1450 ml # Voids 5 General: Alert, Oriented X3, Cooperative HEENT: Atraumatic, PERRLA Neck: Supple, No JVD, No Thyromegaly Lungs: Clear to Auscultation, Normal Air Movement Heart: Regular Rate, Normal S1, Normal S2, No Murmurs Abdomen: Normal Bowel Sounds, Soft, No Tenderness, No Hepatosplenomegaly, No Masses Extremities: No Clubbing, No Cyanosis, No Edema, Normal Pulses, No Tenderness/ Swelling Skin: No Rashes, No Breakdown, No Significant Lesion Neuro: Normal Gait, Normal Speech, Strength at 5/5 X4 Ext, Normal Tone, Sensation Intact Results Lab Laboratory Tests 07/23/18 05:22 A/P-Cardiology Admission Diagnosis Hypokalemia Lung mass PVD HTN Assessment/Plan Hypertension, poorly controlled. Has been maintained on lisinopril 10 mg daily which will be increased to 20 mg daily and continue to monitor Hypokalemia, replaced, improved, continue to monitor. Hyponatremia, continue IVF's, monitor electrolytes Lung mass- planning for bronchoscopy with Dr. Rosales on , continue to hold ASA and Plavix. UTI, continue antibiotic Peripheral arterial disease. Last angio of 09/04/17: 90-95% stenosis within the midportion of the left common iliac artery to which successful balloon angioplasty was carried out followed by stenting (Omnilink 7.0 x 29 mm stent) that does not overlap a previously placed proximal stent within the left common iliac artery that is known to be 7.0 x 27 mm stent. Previous stenting of the left common iliac in September 2010 and cryoplasty of the right superficial femoral in November 2010. In September 2011, she had balloon angioplasty for stent restenosis of left common iliac. continue to monitor No angiographically significant coronary artery disease on cardiac catheterization of February 2010. Left ventricular systolic function was normal with an ejection fraction of 60%. Left ventricular end-diastolic pressure was somewhat elevated. Followed by Dr. العراقي No evidence of any significant myocardial ischemia or infarction. Normal regional wall motion. LVEF 73% per MPI of January 2017, followed by Dr. العراقي Paroxysmal atrial fibrillation, resolved following treatment of pericardial effusion without any subsequent recurrence. Hyperlipidemia is being treated with simvastatin. Tobaccoism - quit in 2012 Mild to moderate bilateral carotid arterial disease without evidence of hemodynamically significant stenosis per carotid ultrasound on 11-16-15. Clinical Quality Measures DVT/VTE Risk/Contraindication: Risk Factor Score Per Nursin RFS Level Per Nursing on Admit: 4+=Very High Contraindications-Pharm: Other *list below* MORGAN SHEPHERD MD Jul 23, 2018 08:34
[2018-07-23] MEDS ORDERED: POT PHOS/NA PHOS (K-PHOS NEUTRAL) PO ONE (09:00)
[2018-07-23] MEDS ORDERED: lisINopril 10 MG (PRINIVIL) TABLET PO SCH (09:00)
[2018-07-23] MEDS ORDERED: AZITHROMYCIN 250 MG TAB (ZITHROMAX) PO SCH (09:00)
[2018-07-23] MEDS: MAGNESIUM 1 GM/100 ML IVPB 100 ML IV SCH ×3 (09:15→11:34)
[2018-07-23] MEDS: cefTRIAXone FOR IV USE 1,000 MG in WATER (STERILE) FOR INJECTION 10 ML IV SCH (09:16)
[2018-07-23] MEDS: ENOXAPARIN 40 MG/0.4 ML (LOVENOX) SYR SC SCH (09:16)
[2018-07-23] MEDS: DILTIAZEM 180 MG (CARDIZEM CD) CAP PO SCH (09:18)
[2018-07-23] MEDS: lisINopril 20 MG (PRINIVIL) TABLET PO SCH (09:18)
[2018-07-23] MEDS: RT-ALBUTEROL SULF 2.5 MG/3 ML PRE-MIX VIAL INH SCH ×3 (09:37→20:33)
--- NOTE | 2018-07-23 14:51 | NUR ---
Pastoral care visit.
--- NOTE | 2018-07-23 15:06 | NUR ---
CM/SS, interviewed patient for discharge planning. HHC: Patient would agree to participate in short term HHC services if physician orders, her preferred agency is [facility]. Her niece, Marisabel Amador, works there and is a support to patient. DME: Patient got a FWW for discharge on 07/09/18. Niece Marisabel is still working toward getting her a med alert system of some kind. Patient resides home alone and with the exception of these few weeks of decline she has been IADL of all activities, including driving. Patient is and has no children but she has family members whom she indicates are attentive and caring. She has 4 cats, she had two that were killed in her yard in separate incidents by neighbor dogs. She reported the situation to [employer] after the first killing, then after the second participated in a Court proceeding during which the neighbor had to release custody of his dogs. Alert and oriented. She has a procedure planned for . She indicates she is ambulating well at this time with the exception of not being able to manage the multiple IV pole and her FWW. Patient does not believe she needs correction placement at all, her intentions are to return home as before.
[2018-07-23 15:46] VITALS: BP 72/85
[2018-07-23] MEDS: MAGNESIUM OXIDE (MAG-OX)400 MG TAB PO SCH (17:05)
[2018-07-23] MEDS: SODIUM CHLORIDE 1 GM TAB (NON-FORMULARY) PO SCH (17:06)
[2018-07-23] MEDS: POT PHOS/NA PHOS (K-PHOS NEUTRAL) PO SCH (21:26)
[2018-07-24] VITALS: BP 161/69
[2018-07-24] MEDS: NS W/KCL 20 MEQ/L 1,000 ML IV SCH ×2 (06:03→22:54)
[2018-07-24 06:31] LABS: BASOPHILS # (AUTO) 0.1 10^3/uL (0.0-0.1); BASOPHILS % (AUTO) 1 % (0-10); EOSINOPHILS # (AUTO) 0.1 10^3/uL (0.0-0.3); EOSINOPHILS % (AUTO) 1 % (0-10); HEMATOCRIT 31 % (35-52); HEMOGLOBIN 10.9 G/DL (11.5-16.0); LYMPHOCYTES % (AUTO) 12 % (12-44); MEAN CORPUSCULAR HEMOGLOBIN 31 PG (25-34); MEAN CORPUSCULAR HGB CONC 35 G/DL (32-36); MEAN CORPUSCULAR VOLUME 90 FL (80-99); MEAN PLATELET VOLUME 9.6 FL (7.4-10.4); MONOCYTES % (AUTO) 11 % (0-12); NEUTROPHILS # (AUTO) 6.6 X 10^3 (1.8-7.8); NEUTROPHILS % (AUTO) 76 % (42-75); PLATELET COUNT 115 10^3/uL (130-400); RED CELL DISTRIBUTION WIDTH 13.2 % (10.0-14.5); WHITE BLOOD COUNT 8.7 10^3/uL (4.3-11.0)
--- NOTE | 2018-07-24 06:55 | Pulmonary Progress Note ---
Subjective Time Seen by a Provider: 06:54 Subjective/Events-last exam Bronchoscopy scheduled for tomorrow morning. Sepsis Event Evaluation Height, Weight, BMI Height: 5'5.00" Weight: 124lbs. 6.0oz. [id number]; 19.7 BMI Method: Exam Exam Vital Signs Date Time Temp Pulse Resp B/P (MAP) Pulse Ox O2 Delivery O2 Flow Rate FiO2 07/24/18 00:00 97.6 79 19 161/69 (99) 94 Room Air 07/23/18 20:35 96 Room Air 07/23/18 20:00 Room Air 07/23/18 15:46 99.4 91 18 72/85 (81) 97 Room Air 07/23/18 15:20 95 Room Air 07/23/18 09:39 98 Room Air 07/23/18 08:18 98.2 76 18 179/85 (116) 95 Room Air 07/23/18 08:00 96 Room Air I & O 07/24/18 07:00 Intake Total 2090 ml Balance 2090 ml Height & Weight Height: 5'5.00" Weight: 124lbs. 6.0oz. 56.427023eu; 19.7 BMI Method: General Appearance: No Apparent Distress, Thin HEENT: Normal ENT Inspection Neck: Full Range of Motion, Normal Inspection Respiratory: No Accessory Muscle Use, No Respiratory Distress Cardiovascular: Regular Rate, Rhythm, No Murmur Gastrointestinal: non tender, soft Neurologic/Psychiatric: Alert, Oriented x3, No Motor/Sensory Deficits, Normal Mood/Affect Skin: Normal Color, Warm/Dry Results Lab Laboratory Tests 07/22/18 07:12 07/23/18 05:22 07/24/18 05:30 Assessment/Plan Assessment/Plan Lung mass with mediastinal lymphadenopathy -Pt needs bronchoscopy with EBUS - Plan is for this -Hold plavix and ASA for procedure this week Hx of tobacco CAD hx -Known to Dr. العراقي will consult him to be sure it's ok to hold plavix starting today. Severe hyponatremia, hypokalemia, hypomagnesium -Replace and recheck -Continue NS for now. -Start fluid restriction -Po Na tabRAYA Heart DO Jul 24, 2018 06:55
[2018-07-24 07:09] LABS: ALANINE AMINOTRANSFERASE 62 U/L (0-55); ALBUMIN 3.1 GM/DL (3.2-4.5); ALKALINE PHOSPHATASE 180 U/L (40-136); BILIRUBIN,TOTAL 0.5 MG/DL (0.1-1.0); BUN/CREATININE RATIO 4; CALCIUM 8.4 MG/DL (8.5-10.1); CARBON DIOXIDE 21 MMOL/L (21-32); CHLORIDE 99 MMOL/L (98-107); CREATININE SERUM 0.46 MG/DL (0.60-1.30); GFR ESTIMATED > 60; GLUCOSE 97 MG/DL (70-105); MAGNESIUM 1.6 MG/DL (1.8-2.4); PHOSPHORUS 1.4 MG/DL (2.3-4.7); POTASSIUM 3.5 MMOL/L (3.6-5.0); SODIUM 129 MMOL/L (135-145); TOTAL PROTEIN 5.7 GM/DL (6.4-8.2)
[2018-07-24] MEDS: RT-ALBUTEROL SULF 2.5 MG/3 ML PRE-MIX VIAL INH SCH ×3 (07:21→20:12)
--- NOTE | 2018-07-24 07:50 | Progress Note (SOAP) ---
Subjective Time Seen by a Provider: 07:47 Subjective/Events-last exam Patient feeling better. Patient to have bronchoscopy tomorrow. Patient's blood tests improving. Sodium 129. Potassium 3.5. Phosphate 1.4. Magnesium 1.6. Liver enzymes still elevated the same Objective Exam Vital Signs Date Time Temp Pulse Resp B/P (MAP) Pulse Ox O2 Delivery O2 Flow Rate FiO2 07/24/18 07:22 96 Room Air 07/24/18 00:00 97.6 79 19 161/69 (99) 94 Room Air 07/23/18 20:35 96 Room Air 07/23/18 20:00 Room Air 07/23/18 15:46 99.4 91 18 72/85 (81) 97 Room Air 07/23/18 15:20 95 Room Air 07/23/18 09:39 98 Room Air 07/23/18 08:18 98.2 76 18 179/85 (116) 95 Room Air 07/23/18 08:00 96 Room Air I & O 07/24/18 07:00 Intake Total 2090 ml Balance 2090 ml Capillary Refill : Less Than 3 Seconds General Appearance: No Apparent Distress, Thin HEENT: Normal ENT Inspection Neck: Full Range of Motion Respiratory: Chest Non Tender, Lungs Clear, No Accessory Muscle Use, No Respiratory Distress Cardiovascular: Regular Rate, Rhythm, No Murmur Gastrointestinal: non tender, soft Results Lab Laboratory Tests 07/24/18 05:30 Laboratory Tests 07/24/18 05:30: White Blood Count 8.7, Red Blood Count 3.47L, Hemoglobin 10.9L, Hematocrit 31L, Mean Corpuscular Volume 90, Mean Corpuscular Hemoglobin 31, Mean Corpuscular Hemoglobin Concent 35, Red Cell Distribution Width 13.2, Platelet Count 115L, Mean Platelet Volume 9.6, Neutrophils (%) (Auto) 76H, Lymphocytes (%) (Auto) 12 , Monocytes (%) (Auto) 11, Eosinophils (%) (Auto) 1, Basophils (%) (Auto) 1, Neutrophils # (Auto) 6.6, Lymphocytes # (Auto) 1.0, Monocytes # (Auto) 1.0, Eosinophils # (Auto) 0.1, Basophils # (Auto) 0.1, Sodium Level 129L, Potassium Level 3.5L, Chloride Level 99, Carbon Dioxide Level 21, Anion Gap 9, Blood Urea Nitrogen 2L, Creatinine 0.46L, Estimat Glomerular Filtration Rate > 60, BUN/ Creatinine Ratio 4, Glucose Level 97, Calcium Level 8.4L, Corrected Calcium 9.1 , Phosphorus Level 1.4L, Magnesium Level 1.6L, Total Bilirubin 0.5, Aspartate Amino Transf (AST/SGOT) 80H, Alanine Aminotransferase (ALT/SGPT) 62H, Alkaline Phosphatase 180H, Total Protein 5.7L, Albumin 3.1L Microbiology 07/16/18 Influenza Types A,B Antigen (PADMAJA) - Final, Complete 07/16/18 Urine Culture - Final, Complete Streptococcus viridans Assessment/Plan Assessment/Plan Assess & Plan/Chief Complaint Pneumonia. UTI. Weakness. Liver tests coming down. Electrolyte imbalance. . . 07/19/18. Pulmonary tumor. Left adrenal tumor. Electrolyte imbalance. Respiratory infection. Weakness. To get pulmonology and cardiology on board. . Recently . Pulmonary tumor. Hyponatremia. Hypomagnesemia. Elevated liver tests. Weakness. Hypocalcemia. Hypophosphatemia. 07/22/18.. . 07/23/18. Coronary tumor. Adrenal tumor. Hyponatremia. Hypomagnesemia. Elevated liver tests. Hypertension. Hypocalcemia. Hypophosphatemia. . 07/24/18. Pulmonary tumor. Adrenal tumor. Hyponatremia. Hypomagnesemia. Elevated liver tests. Hypertension. Hypocalcemia. Hypophosphatemia Clinical Quality Measures Admission Status Admission Dx Pneumonia. UTI. Severe hyponatremia. Hypokalemia. Weakness. Unsteady gait. Hypertension history. Elevated liver tests. Patient lives alone. Ration not able to take care of herself DVT/VTE Risk/Contraindication: Risk Factor Score Per Nursin RFS Level Per Nursing on Admit: 4+=Very High Contraindications-Pharm: Other *list below* ISIDRO IRIZARRY DO Jul 24, 2018 07:50
[2018-07-24 08:00] VITALS: BP 183/79
[2018-07-24] MEDS: POT PHOS/NA PHOS (K-PHOS NEUTRAL) PO SCH ×2 (08:15→20:17)
[2018-07-24] MEDS: DILTIAZEM 180 MG (CARDIZEM CD) CAP PO SCH (08:15)
[2018-07-24] MEDS: lisINopril 20 MG (PRINIVIL) TABLET PO SCH (08:15)
[2018-07-24] MEDS: ENOXAPARIN 40 MG/0.4 ML (LOVENOX) SYR SC SCH (08:16)
[2018-07-24] MEDS: MAGNESIUM OXIDE (MAG-OX)400 MG TAB PO SCH ×2 (08:16→18:44)
--- NOTE | 2018-07-24 08:24 | Cardiology Progress Note ---
Subjective Date Seen by Provider: Jul 24, 2018 Time Seen by Provider: 08:23 Subjective/Events-last exam patient is sitting in bed eating breakfast, denied any chest pain, no palpitation Review of Systems General: No Chills, No Night Sweats, No Fatigue, No Malaise, No Appetite, No Other HEENT: No Head Aches, No Visual Changes, No Eye Pain, No Ear Pain, No Dysphasia , No Sinus Congestion, No Post Nasal Drip, No Sore Throat, No Other Pulmonary: Dyspnea; No Cough, No Pleuritic Chest Pain, No Other Cardiovascular: No: Chest Pain, Palpitations, Orthopnea, Paroxysmal Noc. Dyspnea, Edema, Lt Headedness, Other Objective-Cardiology Exam Last Set of Vital Signs Vital Signs 07/24/18 07/24/18 00:00 07:22 Temp 97.6 Pulse 79 Resp 19 B/P (MAP) 161/69 (99) Pulse Ox 96 O2 Delivery Room Air Capillary Refill : Less Than 3 Seconds I&O Intake and Output 07/24/18 00:00 Intake Total 1140 ml Balance 1140 ml Intake Oral 890 ml IV Total 250 ml # Voids 7 General: Alert, Oriented X3, Cooperative HEENT: Atraumatic, PERRLA Neck: Supple, No JVD, No Thyromegaly Lungs: Clear to Auscultation, Normal Air Movement Heart: Regular Rate, Normal S1, Normal S2, No Murmurs Abdomen: Normal Bowel Sounds, Soft, No Tenderness, No Hepatosplenomegaly, No Masses Extremities: No Clubbing, No Cyanosis, No Edema, Normal Pulses, No Tenderness/ Swelling Skin: No Rashes, No Breakdown, No Significant Lesion Neuro: Normal Gait, Normal Speech, Strength at 5/5 X4 Ext, Normal Tone, Sensation Intact Results Lab Laboratory Tests 07/24/18 05:30 A/P-Cardiology Admission Diagnosis Hypokalemia Lung mass PVD HTN Assessment/Plan Hypertension, poorly controlled. I will increase lisinopril to 40 mg daily and monitor tolerance and response Hyponatremia, continue IVF's, improving slowly, continue to monitor Lung mass- planning for bronchoscopy with Dr. Rosales on , continue to hold ASA and Plavix. UTI, continue antibiotic Peripheral arterial disease. Last angio of 09/04/17: 90-95% stenosis within the midportion of the left common iliac artery to which successful balloon angioplasty was carried out followed by stenting (Omnilink 7.0 x 29 mm stent) that does not overlap a previously placed proximal stent within the left common iliac artery that is known to be 7.0 x 27 mm stent. Previous stenting of the left common iliac in September 2010 and cryoplasty of the right superficial femoral in November 2010. In September 2011, she had balloon angioplasty for stent restenosis of left common iliac. continue to monitor No angiographically significant coronary artery disease on cardiac catheterization of February 2010. Left ventricular systolic function was normal with an ejection fraction of 60%. Left ventricular end-diastolic pressure was somewhat elevated. Followed by Dr. العراقي No evidence of any significant myocardial ischemia or infarction. Normal regional wall motion. LVEF 73% per MPI of January 2017, followed by Dr. العراقي Paroxysmal atrial fibrillation, resolved following treatment of pericardial effusion without any subsequent recurrence. Hyperlipidemia is being treated with simvastatin. Tobaccoism - quit in 2012 Mild to moderate bilateral carotid arterial disease without evidence of hemodynamically significant stenosis per carotid ultrasound on 11-16-15. Clinical Quality Measures DVT/VTE Risk/Contraindication: Risk Factor Score Per Nursin RFS Level Per Nursing on Admit: 4+=Very High Contraindications-Pharm: Other *list below* MORGAN SHEPHERD MD Jul 24, 2018 08:24
[2018-07-24] MEDS: lisINopril 40 MG (PRINIVIL) TABLET PO SCH (10:01)
[2018-07-24] MEDS: SODIUM CHLORIDE 1 GM TAB (NON-FORMULARY) PO SCH (16:06)
[2018-07-24 16:34] VITALS: BP 169/76
[2018-07-25 00:29] VITALS: BP 156/73
[2018-07-25 04:44] LABS: BASOPHILS # (AUTO) 0.1 10^3/uL (0.0-0.1); BASOPHILS % (AUTO) 1 % (0-10); EOSINOPHILS # (AUTO) 0.1 10^3/uL (0.0-0.3); EOSINOPHILS % (AUTO) 1 % (0-10); HEMATOCRIT 31 % (35-52); HEMOGLOBIN 10.8 G/DL (11.5-16.0); LYMPHOCYTES # (AUTO) 1.1 X 10^3 (1.0-4.0); LYMPHOCYTES % (AUTO) 13 % (12-44); MEAN CORPUSCULAR HEMOGLOBIN 31 PG (25-34); MEAN CORPUSCULAR HGB CONC 34 G/DL (32-36); MEAN CORPUSCULAR VOLUME 90 FL (80-99); MEAN PLATELET VOLUME 9.6 FL (7.4-10.4); MONOCYTES # (AUTO) 1.1 X 10^3 (0.0-1.0); MONOCYTES % (AUTO) 13 % (0-12); NEUTROPHILS # (AUTO) 6.5 X 10^3 (1.8-7.8); NEUTROPHILS % (AUTO) 73 % (42-75); PLATELET COUNT 94 10^3/uL (130-400); RED CELL DISTRIBUTION WIDTH 13.2 % (10.0-14.5); WHITE BLOOD COUNT 8.9 10^3/uL (4.3-11.0)
[2018-07-25 05:10] LABS: ALANINE AMINOTRANSFERASE 64 U/L (0-55); ALKALINE PHOSPHATASE 203 U/L (40-136); BILIRUBIN,TOTAL 0.6 MG/DL (0.1-1.0); BUN/CREATININE RATIO 9; CALCIUM 8.4 MG/DL (8.5-10.1); CARBON DIOXIDE 21 MMOL/L (21-32); CHLORIDE 102 MMOL/L (98-107); CREATININE SERUM 0.45 MG/DL (0.60-1.30); GFR ESTIMATED > 60; GLUCOSE 102 MG/DL (70-105); MAGNESIUM 1.5 MG/DL (1.8-2.4); PHOSPHORUS 1.2 MG/DL (2.3-4.7); POTASSIUM 3.2 MMOL/L (3.6-5.0); SODIUM 131 MMOL/L (135-145); TOTAL PROTEIN 5.6 GM/DL (6.4-8.2)
--- NOTE | 2018-07-25 07:25 | Cardiology Progress Note ---
Subjective Date Seen by Provider: Jul 25, 2018 Time Seen by Provider: 07:23 Subjective/Events-last exam Patient is in bed, feeling better, no new complaint Review of Systems General: No Chills, No Night Sweats, No Fatigue, No Malaise, No Appetite, No Other HEENT: No Head Aches, No Visual Changes, No Eye Pain, No Ear Pain, No Dysphasia , No Sinus Congestion, No Post Nasal Drip, No Sore Throat, No Other Pulmonary: No Dyspnea, No Cough, No Pleuritic Chest Pain, No Other Cardiovascular: No: Chest Pain, Palpitations, Orthopnea, Paroxysmal Noc. Dyspnea, Edema, Lt Headedness, Other Objective-Cardiology Exam Last Set of Vital Signs Vital Signs 07/25/18 00:29 Temp 98.9 Pulse 86 Resp 18 B/P (MAP) 156/73 (100) Pulse Ox 93 O2 Delivery Room Air Capillary Refill : Less Than 3 Seconds I&O Intake and Output 07/25/18 00:00 Intake Total 1895 ml Balance 1895 ml Intake Oral 895 ml IV Total 1000 ml # Voids 5 General: Alert, Oriented X3, Cooperative HEENT: Atraumatic, PERRLA Neck: Supple, No JVD, No Thyromegaly Lungs: Clear to Auscultation, Normal Air Movement Heart: Regular Rate, Normal S1, Normal S2, No Murmurs Abdomen: Normal Bowel Sounds, Soft, No Tenderness, No Hepatosplenomegaly, No Masses Extremities: No Clubbing, No Cyanosis, No Edema, Normal Pulses, No Tenderness/ Swelling Skin: No Rashes, No Breakdown, No Significant Lesion Neuro: Normal Gait, Normal Speech, Strength at 5/5 X4 Ext, Normal Tone, Sensation Intact Results Lab Laboratory Tests 07/25/18 04:00 A/P-Cardiology Admission Diagnosis Hypokalemia Lung mass PVD HTN Assessment/Plan Hypertension, slightly better today, I'll increase lisinopril to 40 mg daily, continue on current dose and current medication and monitor tolerance and response Lung mass- planning for bronchoscopy with Dr. Rosales, continue to hold ASA and Plavix. UTI, continue antibiotic Peripheral arterial disease. Last angio of 09/04/17: 90-95% stenosis within the midportion of the left common iliac artery to which successful balloon angioplasty was carried out followed by stenting (Omnilink 7.0 x 29 mm stent) that does not overlap a previously placed proximal stent within the left common iliac artery that is known to be 7.0 x 27 mm stent. Previous stenting of the left common iliac in September 2010 and cryoplasty of the right superficial femoral in November 2010. In September 2011, she had balloon angioplasty for stent restenosis of left common iliac. continue to monitor No angiographically significant coronary artery disease on cardiac catheterization of February 2010. Left ventricular systolic function was normal with an ejection fraction of 60%. Left ventricular end-diastolic pressure was somewhat elevated. Followed by Dr. العراقي No evidence of any significant myocardial ischemia or infarction. Normal regional wall motion. LVEF 73% per MPI of January 2017, followed by Dr. العراقي Paroxysmal atrial fibrillation, resolved following treatment of pericardial effusion without any subsequent recurrence. Hyperlipidemia is being treated with simvastatin. Tobaccoism - quit in 2012 Mild to moderate bilateral carotid arterial disease without evidence of hemodynamically significant stenosis per carotid ultrasound on 11-16-15. Clinical Quality Measures DVT/VTE Risk/Contraindication: Risk Factor Score Per Nursin RFS Level Per Nursing on Admit: 4+=Very High Contraindications-Pharm: Other *list below* MORGAN SHEPHERD MD Jul 25, 2018 07:25
--- NOTE | 2018-07-25 07:42 | Progress Note (SOAP) ---
Subjective Time Seen by a Provider: 07:40 Subjective/Events-last exam Patient feeling okay today. Patient ready for bronchoscopy. Potassium 3.2. Phosphorus 1.2. Magnesium 1.5. Liver tests still elevated. Lung tumor. Adrenal metastasis Objective Exam Vital Signs Date Time Temp Pulse Resp B/P (MAP) Pulse Ox O2 Delivery O2 Flow Rate FiO2 07/25/18 00:29 98.9 86 18 156/73 (100) 93 Room Air 07/24/18 20:12 96 Room Air 07/24/18 20:00 Room Air 07/24/18 16:34 82 21 169/76 (107) 97 Room Air 07/24/18 08:15 97 Room Air 07/24/18 08:00 97.8 78 20 183/79 (113) 97 Room Air I & O 07/25/18 07:00 Intake Total 895 ml Balance 895 ml Capillary Refill : Less Than 3 Seconds General Appearance: No Apparent Distress, WD/WN HEENT: Normal ENT Inspection Neck: Full Range of Motion Respiratory: Lungs Clear, No Accessory Muscle Use, No Respiratory Distress Cardiovascular: Regular Rate, Rhythm, No Murmur Gastrointestinal: non tender, soft Results Lab Laboratory Tests 07/25/18 04:00 Laboratory Tests 07/25/18 04:00: White Blood Count 8.9, Red Blood Count 3.48L, Hemoglobin 10.8L, Hematocrit 31L, Mean Corpuscular Volume 90, Mean Corpuscular Hemoglobin 31, Mean Corpuscular Hemoglobin Concent 34, Red Cell Distribution Width 13.2, Platelet Count 94L, Mean Platelet Volume 9.6, Neutrophils (%) (Auto) 73, Lymphocytes (%) (Auto) 13, Monocytes (%) (Auto) 13H, Eosinophils (%) (Auto) 1, Basophils (%) (Auto) 1, Neutrophils # (Auto) 6.5, Lymphocytes # (Auto) 1.1, Monocytes # (Auto) 1.1H, Eosinophils # (Auto) 0.1, Basophils # (Auto) 0.1, Sodium Level 131L, Potassium Level 3.2L, Chloride Level 102, Carbon Dioxide Level 21, Anion Gap 8, Blood Urea Nitrogen 4L, Creatinine 0.45L, Estimat Glomerular Filtration Rate > 60, BUN /Creatinine Ratio 9, Glucose Level 102, Calcium Level 8.4L, Corrected Calcium 9.2, Phosphorus Level 1.2L, Magnesium Level 1.5L, Total Bilirubin 0.6, Aspartate Amino Transf (AST/SGOT) 90H, Alanine Aminotransferase (ALT/SGPT) 64H, Alkaline Phosphatase 203H, Total Protein 5.6L, Albumin 3.0L Microbiology 07/16/18 Influenza Types A,B Antigen (PADMJAA) - Final, Complete 07/16/18 Urine Culture - Final, Complete Streptococcus viridans Assessment/Plan Assessment/Plan Assess & Plan/Chief Complaint Pneumonia. UTI. Weakness. Liver tests coming down. Electrolyte imbalance. . . 07/19/18. Pulmonary tumor. Left adrenal tumor. Electrolyte imbalance. Respiratory infection. Weakness. To get pulmonology and cardiology on board. . Recently . Pulmonary tumor. Hyponatremia. Hypomagnesemia. Elevated liver tests. Weakness. Hypocalcemia. Hypophosphatemia. 07/22/18.. . 07/23/18. Coronary tumor. Adrenal tumor. Hyponatremia. Hypomagnesemia. Elevated liver tests. Hypertension. Hypocalcemia. Hypophosphatemia. . 07/24/18. Pulmonary tumor. Adrenal tumor. Hyponatremia. Hypomagnesemia. Elevated liver tests. Hypertension. Hypocalcemia. Hypophosphatemia. . 07/25/18. Pulmonary tumor. Adrenal tumor. Hyponatremia improving. Hypomagnesemia. Elevated liver tests. Hypertension. Hypocalcemia. Hypophosphatemia. Patient to have bronchoscopy today Clinical Quality Measures Admission Status Admission Dx Pneumonia. UTI. Severe hyponatremia. Hypokalemia. Weakness. Unsteady gait. Hypertension history. Elevated liver tests. Patient lives alone. Ration not able to take care of herself DVT/VTE Risk/Contraindication: Risk Factor Score Per Nursin RFS Level Per Nursing on Admit: 4+=Very High Contraindications-Pharm: Other *list below* ISIDRO IRIZARRY DO Jul 25, 2018 07:42
[2018-07-25] MEDS ORDERED: POTASSIUM PHOSPHATE INJ 15 MM in NS (IVPB) 250 ML IV ONE (07:45)
[2018-07-25] MEDS ORDERED: KCL 10 MEQ TAB (MICRO K) PO NR (07:45)
[2018-07-25 08:00] VITALS: BP 189/80
[2018-07-25] MEDS: lisINopril 40 MG (PRINIVIL) TABLET PO SCH (08:11)
[2018-07-25] MEDS: DILTIAZEM 180 MG (CARDIZEM CD) CAP PO SCH (08:11)
[2018-07-25] MEDS: POT PHOS/NA PHOS (K-PHOS NEUTRAL) PO SCH ×2 (08:11→20:04)
[2018-07-25] MEDS: MAGNESIUM OXIDE (MAG-OX)400 MG TAB PO SCH ×2 (08:11→17:06)
[2018-07-25] MEDS: MAGNESIUM 1 GM/100 ML IVPB 100 ML IV SCH ×3 (08:11→10:01)
[2018-07-25] MEDS: ENOXAPARIN 40 MG/0.4 ML (LOVENOX) SYR SC SCH (08:17)
--- NOTE | 2018-07-25 08:24 | Pulmonary Progress Note ---
Subjective Time Seen by a Provider: 08:24 Subjective/Events-last exam Plan is for bronchoscopy with EBUS today. Sepsis Event Evaluation Height, Weight, BMI Height: 5'5.00" Weight: 124lbs. 6.0oz. 56.016861jz; 19.7 BMI Method: Exam Exam Vital Signs Date Time Temp Pulse Resp B/P (MAP) Pulse Ox O2 Delivery O2 Flow Rate FiO2 07/25/18 00:29 98.9 86 18 156/73 (100) 93 Room Air 07/24/18 20:12 96 Room Air 07/24/18 20:00 Room Air 07/24/18 16:34 82 21 169/76 (107) 97 Room Air I & O 07/25/18 06:59 Intake Total 895 ml Balance 895 ml Height & Weight Height: 5'5.00" Weight: 124lbs. 6.0oz. 56.179810ro; 19.7 BMI Method: General Appearance: No Apparent Distress, WD/WN HEENT: Normal ENT Inspection Neck: Full Range of Motion Respiratory: Lungs Clear, No Accessory Muscle Use, No Respiratory Distress Cardiovascular: Regular Rate, Rhythm, No Murmur Gastrointestinal: non tender, soft Neurologic/Psychiatric: Alert, Oriented x3, No Motor/Sensory Deficits, Normal Mood/Affect Skin: Normal Color, Warm/Dry Results Lab Laboratory Tests 07/24/18 05:30 07/25/18 04:00 Assessment/Plan Assessment/Plan Lung mass with mediastinal lymphadenopathy -Pt needs bronchoscopy with EBUS - today -Hold plavix and ASA for procedure this week Hx of tobacco CAD hx -Known to Dr. العراقي will consult him to be sure it's ok to hold plavix starting today. Severe hyponatremia, hypokalemia, hypomagnesium -Replace and recheck -Continue NS for now. -Start fluid restriction -Po Na tabs RAYA CAM DO Jul 25, 2018 08:24
[2018-07-25] MEDS: RT-ALBUTEROL SULF 2.5 MG/3 ML PRE-MIX VIAL INH SCH ×3 (08:35→20:49)
[2018-07-25] MEDS ORDERED: LACTATED RINGERS 1,000 ML IV ONE (11:14)
[2018-07-25] MEDS ORDERED: SUCCINYLCHOLINE INJ 100 MG/5 ML SYR ONE (11:20)
[2018-07-25] MEDS ORDERED: LIDOCAINE PF 2% 5 ML (XYLOCAINE) VIAL ONE (11:20)
[2018-07-25] MEDS ORDERED: proPOfol 200 MG/20 ML (DIPRIVAN) VIAL IV ONE (11:20)
[2018-07-25] MEDS ORDERED: MIDAZOLAM 2 MG/2 ML (VERSED) VIAL ONE (11:20)
[2018-07-25] MEDS ORDERED: fentaNYL INJECTION 100 MCG/2 ML AMP ONE (11:20)
[2018-07-25] MEDS ORDERED: DEXAMETHASONE 10 MG/ML (DECADRON) 1 ML VIAL ONE (11:31)
[2018-07-25] MEDS ORDERED: ONDANSETRON 4 MG/2 ML (SDV) Z0FRAN ONE (11:31)
--- NOTE | 2018-07-25 11:47 | Diagnostic Imaging Report ---
INDICATION: Shortness of breath. Time of exam 9:10 AM Correlation is made with prior study from 07/18/2018. The heart size is stable. Right suprahilar density persists. Right apical pleural thickening and calcification is unchanged. Left lung is clear. There is no effusion or pneumothorax. IMPRESSION: Stable chest since exam one week earlier. Dictated by: Dictated on workstation # [id number]
[2018-07-25] MEDS ORDERED: SEVOFLURANE (ULTANE) 15 ML INHAL SOLN ONE (11:49)
[2018-07-25] MEDS ORDERED: LIDOCAINE PF 1% 2 ML VIAL (OR ONLY) IJ ONE (12:14)
[2018-07-25] MEDS ORDERED: SOD CHL BACTER. 10 ML (IV START) VIAL IJ ONE (12:14)
[2018-07-25] MEDS ORDERED: LIDOCAINE PF 2% 5 ML (XYLOCAINE) VIAL INJ ONE (12:14)
[2018-07-25] MEDS ORDERED: EPINEPHrine INJECTION 1 MG/ML AMP IJ ONE (12:14)
--- NOTE | 2018-07-25 12:34 | Diagnostic Imaging Report ---
INDICATION: Status post bronchoscopy. TIME OF EXAM: 12:14 p.m. Correlation is made with prior study from earlier same day. Heart size stable. Right suprahilar density is again noted. There is no pneumothorax status post bronchoscopy. No significant effusion is seen. IMPRESSION: No evidence of pneumothorax, status post bronchoscopy. Dictated by: Dictated on workstation # [id number]
--- NOTE | 2018-07-25 12:55 | NUR ---
Pt back to room 407 from Bronchoscopy/recovery. Received report from RONI Cisse.
--- NOTE | 2018-07-25 13:31 | Anesthesia-General Post-Op ---
General Patient Condition Mental Status/LOC: Same as Preop Cardiovascular: Satisfactory Nausea/Vomiting: Absent Respiratory: Satisfactory Pain: Controlled Complications: Absent Post Op Complications Complications None Follow Up Care/Instructions Patient Instructions None needed. Anesthesia/Patient Condition Patient Condition Patient is doing well, no complaints, stable vital signs, no apparent adverse anesthesia problems. No complications reported per nursing. RENÉ GOLDSMITH CRNA Jul 25, 2018 13:31
--- NOTE | 2018-07-25 15:08 | Pulmonary Procedures ---
Pulmonary Procedures Date of Procedure Date of Service: Jul 25, 2018 Bronch Bronchoscopy with RUL bronchoalveolar lavage (BAL), transbronchial washes, endobronchial forcep bx and, brushes. EBUS was used to US mediastinum however there were no lymph nodes large enough to bx Preop DX: Lung Mass Postop DX: Lung mass with RUL endobronchial mass. Complications: none After informed consent obtained and formal time out pt was sedated using Fentanyl and Versed. Bronchoscope was advanced through the nare and vocal cords. 1% lidocaine was used to anesthetize vocal cords, epiglottis, aneta, and left/right main stem bronchus. An anatomical tour was undertaken down to the segmental bronchi bilaterally. Lung mass with RUL endobronchial mass. RUL bronchoalveolar lavage (BAL), transbronchial washes, endobronchial forcep bx and , brushes were obtained. EBUS was used to US mediastinum however there were no lymph nodes large enough to bx . Pt tolerated procedure well. No complications noted. Stat CXR is pending. RAYA CAM DO Jul 25, 2018 15:08
[2018-07-25] MEDS: SODIUM CHLORIDE 1 GM TAB (NON-FORMULARY) PO SCH (15:16)
[2018-07-25 15:41] VITALS: BP 154/70
[2018-07-25 23:04] VITALS: BP 149/68
[2018-07-26 04:23] LABS: BASOPHILS % (AUTO) 0 % (0-10); EOSINOPHILS % (AUTO) 0 % (0-10); HEMATOCRIT 30 % (35-52); HEMOGLOBIN 10.3 G/DL (11.5-16.0); LYMPHOCYTES # (AUTO) 0.9 X 10^3 (1.0-4.0); LYMPHOCYTES % (AUTO) 8 % (12-44); MEAN CORPUSCULAR HEMOGLOBIN 32 PG (25-34); MEAN CORPUSCULAR HGB CONC 35 G/DL (32-36); MEAN CORPUSCULAR VOLUME 92 FL (80-99); MEAN PLATELET VOLUME 9.2 FL (7.4-10.4); MONOCYTES # (AUTO) 1.3 X 10^3 (0.0-1.0); MONOCYTES % (AUTO) 11 % (0-12); NEUTROPHILS # (AUTO) 8.9 X 10^3 (1.8-7.8); NEUTROPHILS % (AUTO) 80 % (42-75); PLATELET COUNT 94 10^3/uL (130-400); RED CELL DISTRIBUTION WIDTH 13.5 % (10.0-14.5); WHITE BLOOD COUNT 11.1 10^3/uL (4.3-11.0)
[2018-07-26 05:04] LABS: ALANINE AMINOTRANSFERASE 67 U/L (0-55); ALKALINE PHOSPHATASE 216 U/L (40-136); BILIRUBIN,TOTAL 0.4 MG/DL (0.1-1.0); BUN/CREATININE RATIO 11; CALCIUM 8.4 MG/DL (8.5-10.1); CARBON DIOXIDE 21 MMOL/L (21-32); CHLORIDE 105 MMOL/L (98-107); CREATININE SERUM 0.57 MG/DL (0.60-1.30); GFR ESTIMATED > 60; GLUCOSE 153 MG/DL (70-105); MAGNESIUM 1.9 MG/DL (1.8-2.4); PHOSPHORUS 1.2 MG/DL (2.3-4.7); POTASSIUM 4.1 MMOL/L (3.6-5.0); SODIUM 134 MMOL/L (135-145); TOTAL PROTEIN 5.5 GM/DL (6.4-8.2)
--- NOTE | 2018-07-26 07:57 | Pulmonary Progress Note ---
Subjective Time Seen by a Provider: 11:57 Subjective/Events-last exam Pt wants to go home. No complications noted. Sepsis Event Evaluation Height, Weight, BMI Height: 5'5.00" Weight: 129lbs. 1.0oz. 58.625961ih; 19.7 BMI Method: Exam Exam Vital Signs Date Time Temp Pulse Resp B/P (MAP) Pulse Ox O2 Delivery O2 Flow Rate FiO2 07/25/18 23:04 99.0 79 20 149/68 (95) 95 Room Air 07/25/18 20:50 93 Room Air 07/25/18 20:00 Room Air 07/25/18 15:41 98.1 80 18 154/70 (98) 94 Room Air 07/25/18 14:15 93 Room Air 07/25/18 11:27 18 07/25/18 10:13 96 Room Air 07/25/18 08:36 96 Room Air 07/25/18 08:15 Room Air 07/25/18 08:00 99.4 86 18 189/80 (116) 95 Room Air I & O 07/26/18 07:00 Intake Total 1085 ml Balance 1085 ml Height & Weight Height: 5'5.00" Weight: 129lbs. 1.0oz. 58.660531av; 19.7 BMI Method: General Appearance: No Apparent Distress, WD/WN HEENT: Normal ENT Inspection Neck: Full Range of Motion Respiratory: Lungs Clear, No Accessory Muscle Use, No Respiratory Distress Cardiovascular: Regular Rate, Rhythm, No Murmur Gastrointestinal: non tender, soft Neurologic/Psychiatric: Alert, Oriented x3, No Motor/Sensory Deficits, Normal Mood/Affect Skin: Normal Color, Warm/Dry Results Lab Laboratory Tests 07/25/18 04:00 07/26/18 04:15 Assessment/Plan Assessment/Plan Lung mass with mediastinal lymphadenopathy -S/P bronchoscopy with EBUS Hx of tobacco CAD hx -Known to Dr. العراقي will consult him to be sure it's ok to hold plavix starting today. Pt wants to go home. She is ok for discharge from pulmonary standpoint. I will f /u with her next . RAYA CAM DO Jul 26, 2018 07:57
[2018-07-26 08:00] VITALS: BP 163/74
[2018-07-26] MEDS: lisINopril 40 MG (PRINIVIL) TABLET PO SCH (08:02)
[2018-07-26] MEDS: MAGNESIUM OXIDE (MAG-OX)400 MG TAB PO SCH (08:02)
[2018-07-26] MEDS: POT PHOS/NA PHOS (K-PHOS NEUTRAL) PO SCH (08:02)
[2018-07-26] MEDS: ENOXAPARIN 40 MG/0.4 ML (LOVENOX) SYR SC SCH (08:02)
[2018-07-26] MEDS: DILTIAZEM 180 MG (CARDIZEM CD) CAP PO SCH (08:02)
--- NOTE | 2018-07-26 08:17 | Progress Note (SOAP) ---
Subjective Time Seen by a Provider: 08:15 Subjective/Events-last exam Patient wants to go home today. Patient had no complaints. Patient had brown done yesterday showing tumor Objective Exam Vital Signs Date Time Temp Pulse Resp B/P (MAP) Pulse Ox O2 Delivery O2 Flow Rate FiO2 07/25/18 23:04 99.0 79 20 149/68 (95) 95 Room Air 07/25/18 20:50 93 Room Air 07/25/18 20:00 Room Air 07/25/18 15:41 98.1 80 18 154/70 (98) 94 Room Air 07/25/18 14:15 93 Room Air 07/25/18 11:27 18 07/25/18 10:13 96 Room Air 07/25/18 08:36 96 Room Air 07/25/18 08:15 Room Air I & O 07/26/18 07:00 Intake Total 1085 ml Balance 1085 ml Capillary Refill : Less Than 3 Seconds General Appearance: No Apparent Distress, WD/WN HEENT: Normal ENT Inspection Neck: Normal Inspection Respiratory: No Accessory Muscle Use, No Respiratory Distress Cardiovascular: Regular Rate, Rhythm Gastrointestinal: non tender, soft Results Lab Laboratory Tests 07/26/18 04:15 Laboratory Tests 07/26/18 04:15: White Blood Count 11.1H, Red Blood Count 3.25L, Hemoglobin 10.3L, Hematocrit 30L , Mean Corpuscular Volume 92, Mean Corpuscular Hemoglobin 32, Mean Corpuscular Hemoglobin Concent 35, Red Cell Distribution Width 13.5, Platelet Count 94L, Mean Platelet Volume 9.2, Neutrophils (%) (Auto) 80H, Lymphocytes (%) (Auto) 8L , Monocytes (%) (Auto) 11, Eosinophils (%) (Auto) 0, Basophils (%) (Auto) 0, Neutrophils # (Auto) 8.9H, Lymphocytes # (Auto) 0.9L, Monocytes # (Auto) 1.3H, Eosinophils # (Auto) 0.0, Basophils # (Auto) 0.0, Sodium Level 134L, Potassium Level 4.1, Chloride Level 105, Carbon Dioxide Level 21, Anion Gap 8, Blood Urea Nitrogen 6L, Creatinine 0.57L, Estimat Glomerular Filtration Rate > 60, BUN/ Creatinine Ratio 11, Glucose Level 153H, Calcium Level 8.4L, Corrected Calcium 9.2, Phosphorus Level 1.2L, Magnesium Level 1.9, Total Bilirubin 0.4, Aspartate Amino Transf (AST/SGOT) 89H, Alanine Aminotransferase (ALT/SGPT) 67H, Alkaline Phosphatase 216H, Total Protein 5.5L, Albumin 3.0L Microbiology 07/16/18 Influenza Types A,B Antigen (PADMAJA) - Final, Complete 07/16/18 Urine Culture - Final, Complete Streptococcus viridans Assessment/Plan Assessment/Plan Assess & Plan/Chief Complaint Pneumonia. UTI. Weakness. Liver tests coming down. Electrolyte imbalance. . . 07/19/18. Pulmonary tumor. Left adrenal tumor. Electrolyte imbalance. Respiratory infection. Weakness. To get pulmonology and cardiology on board. . Recently . Pulmonary tumor. Hyponatremia. Hypomagnesemia. Elevated liver tests. Weakness. Hypocalcemia. Hypophosphatemia. 07/22/18.. . 07/23/18. Coronary tumor. Adrenal tumor. Hyponatremia. Hypomagnesemia. Elevated liver tests. Hypertension. Hypocalcemia. Hypophosphatemia. . 07/24/18. Pulmonary tumor. Adrenal tumor. Hyponatremia. Hypomagnesemia. Elevated liver tests. Hypertension. Hypocalcemia. Hypophosphatemia. . 07/25/18. Pulmonary tumor. Adrenal tumor. Hyponatremia improving. Hypomagnesemia. Elevated liver tests. Hypertension. Hypocalcemia. Hypophosphatemia. Patient to have bronchoscopy today. . . Right pulmonary tumor. Adrenal tumor. Hyponatremia improving. Elevated liver tests. Hypertension. Hypocalcemia. Hypophosphatemia. Patient wants to go home today. To see patient next in office in the morning. Clinical Quality Measures Admission Status Admission Dx Pneumonia. UTI. Severe hyponatremia. Hypokalemia. Weakness. Unsteady gait. Hypertension history. Elevated liver tests. Patient lives alone. Ration not able to take care of herself DVT/VTE Risk/Contraindication: Risk Factor Score Per Nursin RFS Level Per Nursing on Admit: 4+=Very High Contraindications-Pharm: Other *list below* ISIDRO IRIZARRY DO Jul 26, 2018 08:17
--- NOTE | 2018-07-26 10:42 | Cardiology Progress Note ---
Subjective Date Seen by Provider: Jul 26, 2018 Time Seen by Provider: 10:39 Subjective/Events-last exam Patient is sitting in bed, feeling better. No new complaint Review of Systems General: No Chills, No Night Sweats, No Fatigue, No Malaise, No Appetite, No Other HEENT: No Head Aches, No Visual Changes, No Eye Pain, No Ear Pain, No Dysphasia , No Sinus Congestion, No Post Nasal Drip, No Sore Throat, No Other Pulmonary: No Dyspnea, No Cough, No Pleuritic Chest Pain, No Other Cardiovascular: No: Chest Pain, Palpitations, Orthopnea, Paroxysmal Noc. Dyspnea, Edema, Lt Headedness, Other Objective-Cardiology Exam Last Set of Vital Signs Vital Signs 07/26/18 08:00 Temp 99.1 Pulse 82 Resp 18 B/P (MAP) 163/74 (103) Pulse Ox 94 O2 Delivery Room Air Capillary Refill : Less Than 3 Seconds I&O Intake and Output 07/26/18 00:00 Intake Total 1085 ml Balance 1085 ml Intake Oral 530 ml IV Total 555 ml # Voids 9 General: Alert, Oriented X3, Cooperative HEENT: Atraumatic, PERRLA Neck: Supple, No JVD, No Thyromegaly Lungs: Clear to Auscultation, Normal Air Movement Heart: Regular Rate, Normal S1, Normal S2, No Murmurs Abdomen: Normal Bowel Sounds, Soft, No Tenderness, No Hepatosplenomegaly, No Masses Extremities: No Clubbing, No Cyanosis, No Edema, Normal Pulses, No Tenderness/ Swelling Skin: No Rashes, No Breakdown, No Significant Lesion Neuro: Normal Gait, Normal Speech, Strength at 5/5 X4 Ext, Normal Tone, Sensation Intact Results Lab Laboratory Tests 07/26/18 04:15 A/P-Cardiology Admission Diagnosis Hypokalemia Lung mass PVD HTN Assessment/Plan Hypertension, slightly better today, continue to follow-up as an outpatient Lung mass, status post bronchoscopy, pathology report is pending. UTI, continue antibiotic Peripheral arterial disease. Last angio of 09/04/17: 90-95% stenosis within the midportion of the left common iliac artery to which successful balloon angioplasty was carried out followed by stenting (Omnilink 7.0 x 29 mm stent) that does not overlap a previously placed proximal stent within the left common iliac artery that is known to be 7.0 x 27 mm stent. Previous stenting of the left common iliac in September 2010 and cryoplasty of the right superficial femoral in November 2010. In September 2011, she had balloon angioplasty for stent restenosis of left common iliac. continue to monitor No angiographically significant coronary artery disease on cardiac catheterization of February 2010. Left ventricular systolic function was normal with an ejection fraction of 60%. Left ventricular end-diastolic pressure was somewhat elevated. Followed by Dr. العراقي No evidence of any significant myocardial ischemia or infarction. Normal regional wall motion. LVEF 73% per MPI of January 2017, followed by Dr. العراقي Paroxysmal atrial fibrillation, resolved following treatment of pericardial effusion without any subsequent recurrence. Hyperlipidemia is being treated with simvastatin. Tobaccoism - quit in 2012 Mild to moderate bilateral carotid arterial disease without evidence of hemodynamically significant stenosis per carotid ultrasound on 11-16-15. Okay for discharge from cardiology standpoint, follow-up with Dr. العراقي in 2-4 weeks Clinical Quality Measures DVT/VTE Risk/Contraindication: Risk Factor Score Per Nursin RFS Level Per Nursing on Admit: 4+=Very High Contraindications-Pharm: Other *list below* MORGAN SHEPHERD MD Jul 26, 2018 10:42
[2018-07-26] MEDS: RT-ALBUTEROL SULF 2.5 MG/3 ML PRE-MIX VIAL INH SCH (10:53)
[2018-07-26] MEDS ORDERED: MAGN400T6 PO (11:19)
[2018-07-26 12:00] VITALS: BP 163/74
--- NOTE | 2018-07-26 12:00 | NUR ---
ALLAN ALMANZAR I demonstrates understanding of discharge instructions and accurately returns instructions upon questioning. Copy of Post-Discharge Instructions given to patient. ALLAN ALMANZAR I is able to manage continuing needs after discharge. Patients belongings returned to patient. Patient discharged from 407-1 on 07-26-2018 at 1205. ALLAN ALMANZAR I left floor via wheelchair, accompanied by staff.
--- NOTE | 2018-07-30 07:29 | Discharge Summary ---
Diagnosis/Chief Complaint Date of Admission Jul 16, 2018 at 15:36 Date of Discharge Jul 26, 2018 at 12:05 Discharge Date: Jul 26, 2018 Discharge Time: 1200 Discharge Diagnosis Small cell carcinoma of lung. Pneumonia. Anemia. Weakness. Unsteady gait. Hypertension. Thrombocytopenia. Hypokalemia. Hyponatremia. Elevated liver tests. UTI. Hypomagnesemia area Hypophosphatemia Reason Hospital Visit Patient recently discharge from the hospital feeling good. Patient had blood tests yesterday morning showing she has hypokalemia and hyponatremia. Patient not eating. Patient lost weight. Patient weak and trouble getting around and walking with a walker. Patient admitted to hospital. Chest x-ray shows pneumonia. UA shows UTI. Patient has elevated liver enzymes. Patient weak and not eating and difficulty in getting around. Patient lives alone. Patient nauseous and unable to keep anything down. Patient weak at home. Surgeries 3 catheterizations, fluid drainage from hard at [place]. 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 Pulmonology Discharge Physical Examination Allergies: Coded Allergies: [place] Known Allergies (Verified Allergy, Unknown, 07/03/18) Vitals & I&Os Vital Signs Date Time Temp Pulse Resp B/P (MAP) Pulse Ox O2 Delivery O2 Flow Rate FiO2 07/26/18 12:00 82 18 163/74 94 Room Air 07/26/18 08:00 99.1 Hospital Course Patient able to get around better on discharge. Patient to be seen in office. Patient also to be seen by pulmonology. Bronchoscopy shows small cell carcinoma lung Labs (last 24 hrs) Laboratory Tests 07/16/18 15:36: Lab Scanned Report LAB Reports 07/16/18 16:22: White Blood Count 6.9, Red Blood Count 3.96L, Hemoglobin 12.9, Hematocrit 34L, Mean Corpuscular Volume 87, Mean Corpuscular Hemoglobin 33, Mean Corpuscular Hemoglobin Concent 38H, Red Cell Distribution Width 12.1, Platelet Count 194, Mean Platelet Volume 9.2, Prothrombin Time 14.9H, INR Comment 1.2, Activated Partial Thromboplast Time 27, Sodium Level 118*L, Potassium Level 2.8L, Chloride Level 84L, Carbon Dioxide Level 25, Anion Gap 9, Blood Urea Nitrogen 6L , Creatinine 0.66, Estimat Glomerular Filtration Rate > 60, BUN/Creatinine Ratio 9, Glucose Level 113H, Calcium Level 8.9, Corrected Calcium 9.1, Total Bilirubin 0.3, Aspartate Amino Transf (AST/SGOT) 85H, Alanine Aminotransferase ( ALT/SGPT) 76H, Alkaline Phosphatase 122, Total Protein 6.1L, Albumin 3.7 07/16/18 21:30: Urine Color YELLOW, Urine Clarity SLIGHTLY CLOUDY, Urine pH 6, Urine Specific [place] 1.015L, Urine Protein 2+H, Urine Glucose (UA) NEGATIVE, Urine Ketones 1+ H, Urine Nitrite NEGATIVE, Urine Bilirubin NEGATIVE, Urine Urobilinogen NORMAL, Urine Leukocyte Esterase 3+H, Urine RBC (Auto) 1+H, Urine RBC 2-5H, Urine WBC TNTCH, Urine Squamous Epithelial Cells 10-25H, Urine Crystals NONE, Urine Bacteria LARGEH, Urine Casts NONE, Urine Mucus NEGATIVE, Urine Culture Indicated YES 07/17/18 05:14: White Blood Count 6.8, Red Blood Count 3.84L, Hemoglobin 12.2, Hematocrit 33L, Mean Corpuscular Volume 87, Mean Corpuscular Hemoglobin 32, Mean Corpuscular Hemoglobin Concent 37H, Red Cell Distribution Width 12.1, Platelet Count 193, Mean Platelet Volume 9.2, Neutrophils (%) (Auto) 66, Lymphocytes (%) (Auto) 17, Monocytes (%) (Auto) 16H, Eosinophils (%) (Auto) 0, Basophils (%) (Auto) 0, Neutrophils # (Auto) 4.5, Lymphocytes # (Auto) 1.1, Monocytes # (Auto) 1.1H, Eosinophils # (Auto) 0.0, Basophils # (Auto) 0.0 07/17/18 05:44: Sodium Level 121*L, Potassium Level 3.1L, Chloride Level 90L, Carbon Dioxide Level 23, Anion Gap 8, Blood Urea Nitrogen 4L, Creatinine 0.48L, Estimat Glomerular Filtration Rate > 60, BUN/Creatinine Ratio 8, Glucose Level 99, Calcium Level 8.3L, Corrected Calcium 8.8, Magnesium Level 1.5L, Total Bilirubin 0.3, Aspartate Amino Transf (AST/SGOT) 86H, Alanine Aminotransferase ( ALT/SGPT) 76H, Alkaline Phosphatase 120, Total Protein 5.6L, Albumin 3.4 07/18/18 05:15: Sodium Level 122*L, Potassium Level 3.0L, Chloride Level 92L, Carbon Dioxide Level 23, Anion Gap 7, Blood Urea Nitrogen 4L, Creatinine 0.42L, Estimat Glomerular Filtration Rate > 60, BUN/Creatinine Ratio 10, Glucose Level 91, Calcium Level 7.7L, Corrected Calcium 8.5, Magnesium Level 1.3L, Total Bilirubin 0.3, Aspartate Amino Transf (AST/SGOT) 65H, Alanine Aminotransferase ( ALT/SGPT) 60H, Alkaline Phosphatase 107, Total Protein 4.9L, Albumin 3.0L, White Blood Count 7.0, Red Blood Count 3.57L, Hemoglobin 11.1L, Hematocrit 31L, Mean Corpuscular Volume 88, Mean Corpuscular Hemoglobin 31, Mean Corpuscular Hemoglobin Concent 36, Red Cell Distribution Width 12.0, Platelet Count 171, Mean Platelet Volume 9.7, Neutrophils (%) (Auto) 69, Lymphocytes (%) (Auto) 16, Monocytes (%) (Auto) 14H, Eosinophils (%) (Auto) 1, Basophils (%) (Auto) 0, Neutrophils # (Auto) 4.8, Lymphocytes # (Auto) 1.1, Monocytes # (Auto) 1.0, Eosinophils # (Auto) 0.1, Basophils # (Auto) 0.0 07/19/18 05:12: Sodium Level 121*L, Potassium Level 2.9L, Chloride Level 90L, Carbon Dioxide Level 23, Anion Gap 8, Blood Urea Nitrogen 3L, Creatinine 0.43L, Estimat Glomerular Filtration Rate > 60, BUN/Creatinine Ratio 7, Glucose Level 83, Calcium Level 7.7L, Corrected Calcium 8.5, Magnesium Level 1.6L, Total Bilirubin 0.3, Aspartate Amino Transf (AST/SGOT) 63H, Alanine Aminotransferase ( ALT/SGPT) 60H, Alkaline Phosphatase 124, Total Protein 5.0L, Albumin 3.0L, White Blood Count 7.0, Red Blood Count 3.60L, Hemoglobin 11.5, Hematocrit 32L, Mean Corpuscular Volume 88, Mean Corpuscular Hemoglobin 32, Mean Corpuscular Hemoglobin Concent 36, Red Cell Distribution Width 12.4, Platelet Count 175, Mean Platelet Volume 9.9, Neutrophils (%) (Auto) 71, Lymphocytes (%) (Auto) 15, Monocytes (%) (Auto) 13H, Eosinophils (%) (Auto) 1, Basophils (%) (Auto) 0, Neutrophils # (Auto) 5.0, Lymphocytes # (Auto) 1.1, Monocytes # (Auto) 0.9, Eosinophils # (Auto) 0.1, Basophils # (Auto) 0.0, B-Type Natriuretic Peptide 673.0H 07/19/18 06:55: Urine Color YELLOW, Urine Clarity CLEAR, Urine pH 7, Urine Specific [place] 1.010L, Urine Protein 1+H, Urine Glucose (UA) NEGATIVE, Urine Ketones NEGATIVE, Urine Nitrite NEGATIVE, Urine Bilirubin NEGATIVE, Urine Urobilinogen NORMAL, Urine Leukocyte Esterase NEGATIVE, Urine RBC (Auto) NEGATIVE, Urine RBC NONE, Urine WBC 2-5, Urine Squamous Epithelial Cells 5-10, Urine Crystals NONE, Urine Bacteria TRACE, Urine Casts NONE, Urine Mucus NEGATIVE, Urine Culture Indicated NO 07/19/18 08:28: Phosphorus Level 1.1L 07/19/18 11:35: Phosphorus Level 0.8*L, White Blood Count 8.1, Red Blood Count 3.58L, Hemoglobin 11.3L, Hematocrit 32L, Mean Corpuscular Volume 88, Mean Corpuscular Hemoglobin 32, Mean Corpuscular Hemoglobin Concent 36, Red Cell Distribution Width 12.5, Platelet Count 168, Mean Platelet Volume 9.4, Sodium Level 121*L, Potassium Level 3.5L, Chloride Level 91L, Carbon Dioxide Level 24, Anion Gap 6, Blood Urea Nitrogen 3L, Creatinine 0.58L, Estimat Glomerular Filtration Rate > 60, BUN/Creatinine Ratio 5, Glucose Level 144H, Calcium Level 7.6L, Corrected Calcium 8.3L, Magnesium Level 2.7H, Total Bilirubin 0.2, Aspartate Amino Transf (AST/SGOT) 67H, Alanine Aminotransferase (ALT/SGPT) 63H, Alkaline Phosphatase 126, Total Protein 5.3L, Albumin 3.1L 07/20/18 07:30: Phosphorus Level 1.4L, White Blood Count 8.2, Red Blood Count 3.49L, Hemoglobin 11.2L, Hematocrit 31L, Mean Corpuscular Volume 89, Mean Corpuscular Hemoglobin 32, Mean Corpuscular Hemoglobin Concent 36, Red Cell Distribution Width 12.7, Platelet Count 154, Mean Platelet Volume 9.8, Sodium Level 124*L, Potassium Level 3.3L, Chloride Level 93L, Carbon Dioxide Level 23, Anion Gap 8, Blood Urea Nitrogen 2L, Creatinine 0.43L, Estimat Glomerular Filtration Rate > 60, BUN /Creatinine Ratio 5, Glucose Level 88, Calcium Level 7.8L, Corrected Calcium 8.7 , Magnesium Level 1.7L, Total Bilirubin 0.3, Aspartate Amino Transf (AST/SGOT) 65H, Alanine Aminotransferase (ALT/SGPT) 62H, Alkaline Phosphatase 133, Total Protein 5.1L, Albumin 2.9L, Neutrophils (%) (Auto) 78H, Lymphocytes (%) (Auto) 11L, Monocytes (%) (Auto) 10, Eosinophils (%) (Auto) 1, Basophils (%) (Auto) 0, Neutrophils # (Auto) 6.4, Lymphocytes # (Auto) 0.9L, Monocytes # (Auto) 0.8, Eosinophils # (Auto) 0.0, Basophils # (Auto) 0.0 07/20/18 14:42: Phosphorus Level 3.0, Sodium Level 125*L, Potassium Level 4.4, Chloride Level 94L, Carbon Dioxide Level 22, Anion Gap 9, Blood Urea Nitrogen 3L, Creatinine 0.54L, Estimat Glomerular Filtration Rate > 60, BUN/Creatinine Ratio 6, Glucose Level 107H, Calcium Level 7.6L, Magnesium Level 2.4 07/21/18 06:39: White Blood Count 7.5, Red Blood Count 3.81L, Hemoglobin 12.0, Hematocrit 34L, Mean Corpuscular Volume 89, Mean Corpuscular Hemoglobin 32, Mean Corpuscular Hemoglobin Concent 35, Red Cell Distribution Width 12.6, Platelet Count 149, Mean Platelet Volume 9.6, Neutrophils (%) (Auto) 73, Lymphocytes (%) (Auto) 15, Monocytes (%) (Auto) 10, Eosinophils (%) (Auto) 1, Basophils (%) (Auto) 1, Neutrophils # (Auto) 5.5, Lymphocytes # (Auto) 1.1, Monocytes # (Auto) 0.8, Eosinophils # (Auto) 0.1, Basophils # (Auto) 0.0, Sodium Level 124*L, Potassium Level 4.1, Chloride Level 95L, Carbon Dioxide Level 22, Anion Gap 7, Blood Urea Nitrogen 2L, Creatinine 0.49L, Estimat Glomerular Filtration Rate > 60, BUN/ Creatinine Ratio 4, Glucose Level 86, Calcium Level 8.4L, Corrected Calcium 9.0 , Phosphorus Level 1.2L, Magnesium Level 1.7L, Total Bilirubin 0.4, Aspartate Amino Transf (AST/SGOT) 79H, Alanine Aminotransferase (ALT/SGPT) 71H, Alkaline Phosphatase 161H, Total Protein 5.6L, Albumin 3.2 07/22/18 07:12: White Blood Count 8.2, Red Blood Count 3.33L, Hemoglobin 10.8L, Hematocrit 30L, Mean Corpuscular Volume 90, Mean Corpuscular Hemoglobin 32, Mean Corpuscular Hemoglobin Concent 36, Red Cell Distribution Width 12.9, Platelet Count 124L, Mean Platelet Volume 9.9, Neutrophils (%) (Auto) 73, Lymphocytes (%) (Auto) 14, Monocytes (%) (Auto) 11, Eosinophils (%) (Auto) 1, Basophils (%) (Auto) 1, Neutrophils # (Auto) 6.0, Lymphocytes # (Auto) 1.2, Monocytes # (Auto) 0.9, Eosinophils # (Auto) 0.1, Basophils # (Auto) 0.0, Sodium Level 124*L, Potassium Level 3.7, Chloride Level 96L, Carbon Dioxide Level 20L, Anion Gap 8, Blood Urea Nitrogen 2L, Creatinine 0.43L, Estimat Glomerular Filtration Rate > 60, BUN /Creatinine Ratio 5, Glucose Level 88, Calcium Level 8.2L, Corrected Calcium 9.1 , Phosphorus Level 1.2L, Magnesium Level 1.6L, Total Bilirubin 0.4, Aspartate Amino Transf (AST/SGOT) 66H, Alanine Aminotransferase (ALT/SGPT) 61H, Alkaline Phosphatase 153H, Total Protein 5.2L, Albumin 2.9L 07/23/18 05:22: White Blood Count 8.1, Red Blood Count 3.44L, Hemoglobin 10.9L, Hematocrit 31L, Mean Corpuscular Volume 90, Mean Corpuscular Hemoglobin 32, Mean Corpuscular Hemoglobin Concent 35, Red Cell Distribution Width 12.7, Platelet Count 113L, Mean Platelet Volume 10.3, Neutrophils (%) (Auto) 73, Lymphocytes (%) (Auto) 15 , Monocytes (%) (Auto) 11, Eosinophils (%) (Auto) 1, Basophils (%) (Auto) 0, Neutrophils # (Auto) 5.9, Lymphocytes # (Auto) 1.2, Monocytes # (Auto) 0.9, Eosinophils # (Auto) 0.1, Basophils # (Auto) 0.0, Sodium Level 126L, Potassium Level 3.6, Chloride Level 99, Carbon Dioxide Level 22, Anion Gap 5, Blood Urea Nitrogen 3L, Creatinine 0.48L, Estimat Glomerular Filtration Rate > 60, BUN/ Creatinine Ratio 6, Glucose Level 93, Calcium Level 8.3L, Corrected Calcium 9.1 , Phosphorus Level 1.3L, Magnesium Level 1.5L, Total Bilirubin 0.4, Aspartate Amino Transf (AST/SGOT) 67H, Alanine Aminotransferase (ALT/SGPT) 57H, Alkaline Phosphatase 172H, Total Protein 5.4L, Albumin 3.0L 07/24/18 05:30: White Blood Count 8.7, Red Blood Count 3.47L, Hemoglobin 10.9L, Hematocrit 31L, Mean Corpuscular Volume 90, Mean Corpuscular Hemoglobin 31, Mean Corpuscular Hemoglobin Concent 35, Red Cell Distribution Width 13.2, Platelet Count 115L, Mean Platelet Volume 9.6, Neutrophils (%) (Auto) 76H, Lymphocytes (%) (Auto) 12 , Monocytes (%) (Auto) 11, Eosinophils (%) (Auto) 1, Basophils (%) (Auto) 1, Neutrophils # (Auto) 6.6, Lymphocytes # (Auto) 1.0, Monocytes # (Auto) 1.0, Eosinophils # (Auto) 0.1, Basophils # (Auto) 0.1, Sodium Level 129L, Potassium Level 3.5L, Chloride Level 99, Carbon Dioxide Level 21, Anion Gap 9, Blood Urea Nitrogen 2L, Creatinine 0.46L, Estimat Glomerular Filtration Rate > 60, BUN/ Creatinine Ratio 4, Glucose Level 97, Calcium Level 8.4L, Corrected Calcium 9.1 , Phosphorus Level 1.4L, Magnesium Level 1.6L, Total Bilirubin 0.5, Aspartate Amino Transf (AST/SGOT) 80H, Alanine Aminotransferase (ALT/SGPT) 62H, Alkaline Phosphatase 180H, Total Protein 5.7L, Albumin 3.1L 07/25/18 04:00: White Blood Count 8.9, Red Blood Count 3.48L, Hemoglobin 10.8L, Hematocrit 31L, Mean Corpuscular Volume 90, Mean Corpuscular Hemoglobin 31, Mean Corpuscular Hemoglobin Concent 34, Red Cell Distribution Width 13.2, Platelet Count 94L, Mean Platelet Volume 9.6, Neutrophils (%) (Auto) 73, Lymphocytes (%) (Auto) 13, Monocytes (%) (Auto) 13H, Eosinophils (%) (Auto) 1, Basophils (%) (Auto) 1, Neutrophils # (Auto) 6.5, Lymphocytes # (Auto) 1.1, Monocytes # (Auto) 1.1H, Eosinophils # (Auto) 0.1, Basophils # (Auto) 0.1, Sodium Level 131L, Potassium Level 3.2L, Chloride Level 102, Carbon Dioxide Level 21, Anion Gap 8, Blood Urea Nitrogen 4L, Creatinine 0.45L, Estimat Glomerular Filtration Rate > 60, BUN /Creatinine Ratio 9, Glucose Level 102, Calcium Level 8.4L, Corrected Calcium 9.2, Phosphorus Level 1.2L, Magnesium Level 1.5L, Total Bilirubin 0.6, Aspartate Amino Transf (AST/SGOT) 90H, Alanine Aminotransferase (ALT/SGPT) 64H, Alkaline Phosphatase 203H, Total Protein 5.6L, Albumin 3.0L 07/26/18 04:15: White Blood Count 11.1H, Red Blood Count 3.25L, Hemoglobin 10.3L, Hematocrit 30L , Mean Corpuscular Volume 92, Mean Corpuscular Hemoglobin 32, Mean Corpuscular Hemoglobin Concent 35, Red Cell Distribution Width 13.5, Platelet Count 94L, Mean Platelet Volume 9.2, Neutrophils (%) (Auto) 80H, Lymphocytes (%) (Auto) 8L , Monocytes (%) (Auto) 11, Eosinophils (%) (Auto) 0, Basophils (%) (Auto) 0, Neutrophils # (Auto) 8.9H, Lymphocytes # (Auto) 0.9L, Monocytes # (Auto) 1.3H, Eosinophils # (Auto) 0.0, Basophils # (Auto) 0.0, Sodium Level 134L, Potassium Level 4.1, Chloride Level 105, Carbon Dioxide Level 21, Anion Gap 8, Blood Urea Nitrogen 6L, Creatinine 0.57L, Estimat Glomerular Filtration Rate > 60, BUN/ Creatinine Ratio 11, Glucose Level 153H, Calcium Level 8.4L, Corrected Calcium 9.2, Phosphorus Level 1.2L, Magnesium Level 1.9, Total Bilirubin 0.4, Aspartate Amino Transf (AST/SGOT) 89H, Alanine Aminotransferase (ALT/SGPT) 67H, Alkaline Phosphatase 216H, Total Protein 5.5L, Albumin 3.0L Microbiology 07/25/18 Mycobacterial Culture - Preliminary, Resulted 07/16/18 Urine Culture - Final, Complete Streptococcus viridans Laboratory Tests 07/16/18 16:22 07/17/18 05:14 07/17/18 05:44 07/18/18 05:15 07/19/18 05:12 07/19/18 11:35 07/20/18 07:30 07/20/18 14:42 07/21/18 06:39 07/22/18 07:12 07/23/18 05:22 07/24/18 05:30 07/25/18 04:00 07/26/18 04:15 Pending Labs Microbiology Date/Time Source Procedure Growth Status 07/25/18 11:45 Bronchial Lavage (Bal) Right Upper Lobe Mycobacterial Culture - Preliminary Resulted 07/25/18 11:44 Bronchial Lavage (Bal) Right Upper Lobe Gram Stain - Final Resulted 07/25/18 11:44 Bronchial Lavage (Bal) Right Upper Lobe Bronchial Culture - Final No growth Resulted 07/25/18 11:44 Bronchial Lavage (Bal) Right Upper Lobe Fungal Culture 1 - Preliminary Resulted 07/16/18 16:27 Nasopharynx Influenza Types A,B Antigen (PADMAJA) - Final Complete 07/16/18 21:30 Urine Clean Catch Urine Culture - Final Streptococcus viridans Complete Laboratory Tests 07/16/18 15:36: Lab Scanned Report LAB Reports 07/16/18 16:22: White Blood Count 6.9, Red Blood Count 3.96, Hemoglobin 12.9, Hematocrit 34, Mean Corpuscular Volume 87, Mean Corpuscular Hemoglobin 33, Mean Corpuscular Hemoglobin Concent 38, Red Cell Distribution Width 12.1, Platelet Count 194, Mean Platelet Volume 9.2, Prothrombin Time 14.9, INR Comment 1.2, Activated Partial Thromboplast Time 27, Sodium Level 118, Potassium Level 2.8, Chloride Level 84, Carbon Dioxide Level 25, Anion Gap 9, Blood Urea Nitrogen 6, Creatinine 0.66, Estimat Glomerular Filtration Rate > 60, BUN/Creatinine Ratio 9 , Glucose Level 113, Calcium Level 8.9, Corrected Calcium 9.1, Total Bilirubin 0.3, Aspartate Amino Transf (AST/SGOT) 85, Alanine Aminotransferase (ALT/SGPT) 76, Alkaline Phosphatase 122, Total Protein 6.1, Albumin 3.7 07/16/18 21:30: Urine Color YELLOW, Urine Clarity SLIGHTLY CLOUDY, Urine pH 6, Urine Specific [place] 1.015, Urine Protein 2+, Urine Glucose (UA) NEGATIVE, Urine Ketones 1+, Urine Nitrite NEGATIVE, Urine Bilirubin NEGATIVE, Urine Urobilinogen NORMAL, Urine Leukocyte Esterase 3+, Urine RBC (Auto) 1+, Urine RBC 2-5, Urine WBC TNTC , Urine Squamous Epithelial Cells 10-25, Urine Crystals NONE, Urine Bacteria LARGE, Urine Casts NONE, Urine Mucus NEGATIVE, Urine Culture Indicated YES 07/17/18 05:14: White Blood Count 6.8, Red Blood Count 3.84, Hemoglobin 12.2, Hematocrit 33, Mean Corpuscular Volume 87, Mean Corpuscular Hemoglobin 32, Mean Corpuscular Hemoglobin Concent 37, Red Cell Distribution Width 12.1, Platelet Count 193, Mean Platelet Volume 9.2, Neutrophils (%) (Auto) 66, Lymphocytes (%) (Auto) 17, Monocytes (%) (Auto) 16, Eosinophils (%) (Auto) 0, Basophils (%) (Auto) 0, Neutrophils # (Auto) 4.5, Lymphocytes # (Auto) 1.1, Monocytes # (Auto) 1.1, Eosinophils # (Auto) 0.0, Basophils # (Auto) 0.0 07/17/18 05:44: Sodium Level 121, Potassium Level 3.1, Chloride Level 90, Carbon Dioxide Level 23, Anion Gap 8, Blood Urea Nitrogen 4, Creatinine 0.48, Estimat Glomerular Filtration Rate > 60, BUN/Creatinine Ratio 8, Glucose Level 99, Calcium Level 8.3, Corrected Calcium 8.8, Magnesium Level 1.5, Total Bilirubin 0.3, Aspartate Amino Transf (AST/SGOT) 86, Alanine Aminotransferase (ALT/SGPT) 76, Alkaline Phosphatase 120, Total Protein 5.6, Albumin 3.4 07/18/18 05:15: Sodium Level 122, Potassium Level 3.0, Chloride Level 92, Carbon Dioxide Level 23, Anion Gap 7, Blood Urea Nitrogen 4, Creatinine 0.42, Estimat Glomerular Filtration Rate > 60, BUN/Creatinine Ratio 10, Glucose Level 91, Calcium Level 7.7, Corrected Calcium 8.5, Magnesium Level 1.3, Total Bilirubin 0.3, Aspartate Amino Transf (AST/SGOT) 65, Alanine Aminotransferase (ALT/SGPT) 60, Alkaline Phosphatase 107, Total Protein 4.9, Albumin 3.0, White Blood Count 7.0, Red Blood Count 3.57, Hemoglobin 11.1, Hematocrit 31, Mean Corpuscular Volume 88, Mean Corpuscular Hemoglobin 31, Mean Corpuscular Hemoglobin Concent 36, Red Cell Distribution Width 12.0, Platelet Count 171, Mean Platelet Volume 9.7, Neutrophils (%) (Auto) 69, Lymphocytes (%) (Auto) 16, Monocytes (%) (Auto) 14, Eosinophils (%) (Auto) 1, Basophils (%) (Auto) 0, Neutrophils # (Auto) 4.8, Lymphocytes # (Auto) 1.1, Monocytes # (Auto) 1.0, Eosinophils # (Auto) 0.1, Basophils # (Auto) 0.0 07/19/18 05:12: Sodium Level 121, Potassium Level 2.9, Chloride Level 90, Carbon Dioxide Level 23, Anion Gap 8, Blood Urea Nitrogen 3, Creatinine 0.43, Estimat Glomerular Filtration Rate > 60, BUN/Creatinine Ratio 7, Glucose Level 83, Calcium Level 7.7, Corrected Calcium 8.5, Magnesium Level 1.6, Total Bilirubin 0.3, Aspartate Amino Transf (AST/SGOT) 63, Alanine Aminotransferase (ALT/SGPT) 60, Alkaline Phosphatase 124, Total Protein 5.0, Albumin 3.0, White Blood Count 7.0, Red Blood Count 3.60, Hemoglobin 11.5, Hematocrit 32, Mean Corpuscular Volume 88, Mean Corpuscular Hemoglobin 32, Mean Corpuscular Hemoglobin Concent 36, Red Cell Distribution Width 12.4, Platelet Count 175, Mean Platelet Volume 9.9, Neutrophils (%) (Auto) 71, Lymphocytes (%) (Auto) 15, Monocytes (%) (Auto) 13, Eosinophils (%) (Auto) 1, Basophils (%) (Auto) 0, Neutrophils # (Auto) 5.0, Lymphocytes # (Auto) 1.1, Monocytes # (Auto) 0.9, Eosinophils # (Auto) 0.1, Basophils # (Auto) 0.0, B-Type Natriuretic Peptide 673.0 07/19/18 06:55: Urine Color YELLOW, Urine Clarity CLEAR, Urine pH 7, Urine Specific [place] 1.010, Urine Protein 1+, Urine Glucose (UA) NEGATIVE, Urine Ketones NEGATIVE, Urine Nitrite NEGATIVE, Urine Bilirubin NEGATIVE, Urine Urobilinogen NORMAL, Urine Leukocyte Esterase NEGATIVE, Urine RBC (Auto) NEGATIVE, Urine RBC NONE, Urine WBC 2-5, Urine Squamous Epithelial Cells 5-10, Urine Crystals NONE, Urine Bacteria TRACE, Urine Casts NONE, Urine Mucus NEGATIVE, Urine Culture Indicated NO 07/19/18 08:28: Phosphorus Level 1.1 07/19/18 11:35: Phosphorus Level 0.8, White Blood Count 8.1, Red Blood Count 3.58, Hemoglobin 11.3, Hematocrit 32, Mean Corpuscular Volume 88, Mean Corpuscular Hemoglobin 32 , Mean Corpuscular Hemoglobin Concent 36, Red Cell Distribution Width 12.5, Platelet Count 168, Mean Platelet Volume 9.4, Sodium Level 121, Potassium Level 3.5, Chloride Level 91, Carbon Dioxide Level 24, Anion Gap 6, Blood Urea Nitrogen 3, Creatinine 0.58, Estimat Glomerular Filtration Rate > 60, BUN/ Creatinine Ratio 5, Glucose Level 144, Calcium Level 7.6, Corrected Calcium 8.3 , Magnesium Level 2.7, Total Bilirubin 0.2, Aspartate Amino Transf (AST/SGOT) 67 , Alanine Aminotransferase (ALT/SGPT) 63, Alkaline Phosphatase 126, Total Protein 5.3, Albumin 3.1 07/20/18 07:30: Phosphorus Level 1.4, White Blood Count 8.2, Red Blood Count 3.49, Hemoglobin 11.2, Hematocrit 31, Mean Corpuscular Volume 89, Mean Corpuscular Hemoglobin 32 , Mean Corpuscular Hemoglobin Concent 36, Red Cell Distribution Width 12.7, Platelet Count 154, Mean Platelet Volume 9.8, Sodium Level 124, Potassium Level 3.3, Chloride Level 93, Carbon Dioxide Level 23, Anion Gap 8, Blood Urea Nitrogen 2, Creatinine 0.43, Estimat Glomerular Filtration Rate > 60, BUN/ Creatinine Ratio 5, Glucose Level 88, Calcium Level 7.8, Corrected Calcium 8.7, Magnesium Level 1.7, Total Bilirubin 0.3, Aspartate Amino Transf (AST/SGOT) 65, Alanine Aminotransferase (ALT/SGPT) 62, Alkaline Phosphatase 133, Total Protein 5.1, Albumin 2.9, Neutrophils (%) (Auto) 78, Lymphocytes (%) (Auto) 11, Monocytes (%) (Auto) 10, Eosinophils (%) (Auto) 1, Basophils (%) (Auto) 0, Neutrophils # (Auto) 6.4, Lymphocytes # (Auto) 0.9, Monocytes # (Auto) 0.8, Eosinophils # (Auto) 0.0, Basophils # (Auto) 0.0 07/20/18 14:42: Phosphorus Level 3.0, Sodium Level 125, Potassium Level 4.4, Chloride Level 94, Carbon Dioxide Level 22, Anion Gap 9, Blood Urea Nitrogen 3, Creatinine 0.54, Estimat Glomerular Filtration Rate > 60, BUN/Creatinine Ratio 6, Glucose Level 107, Calcium Level 7.6, Magnesium Level 2.4 07/21/18 06:39: White Blood Count 7.5, Red Blood Count 3.81, Hemoglobin 12.0, Hematocrit 34, Mean Corpuscular Volume 89, Mean Corpuscular Hemoglobin 32, Mean Corpuscular Hemoglobin Concent 35, Red Cell Distribution Width 12.6, Platelet Count 149, Mean Platelet Volume 9.6, Neutrophils (%) (Auto) 73, Lymphocytes (%) (Auto) 15, Monocytes (%) (Auto) 10, Eosinophils (%) (Auto) 1, Basophils (%) (Auto) 1, Neutrophils # (Auto) 5.5, Lymphocytes # (Auto) 1.1, Monocytes # (Auto) 0.8, Eosinophils # (Auto) 0.1, Basophils # (Auto) 0.0, Sodium Level 124, Potassium Level 4.1, Chloride Level 95, Carbon Dioxide Level 22, Anion Gap 7, Blood Urea Nitrogen 2, Creatinine 0.49, Estimat Glomerular Filtration Rate > 60, BUN/ Creatinine Ratio 4, Glucose Level 86, Calcium Level 8.4, Corrected Calcium 9.0, Phosphorus Level 1.2, Magnesium Level 1.7, Total Bilirubin 0.4, Aspartate Amino Transf (AST/SGOT) 79, Alanine Aminotransferase (ALT/SGPT) 71, Alkaline Phosphatase 161, Total Protein 5.6, Albumin 3.2 07/22/18 07:12: White Blood Count 8.2, Red Blood Count 3.33, Hemoglobin 10.8, Hematocrit 30, Mean Corpuscular Volume 90, Mean Corpuscular Hemoglobin 32, Mean Corpuscular Hemoglobin Concent 36, Red Cell Distribution Width 12.9, Platelet Count 124, Mean Platelet Volume 9.9, Neutrophils (%) (Auto) 73, Lymphocytes (%) (Auto) 14, Monocytes (%) (Auto) 11, Eosinophils (%) (Auto) 1, Basophils (%) (Auto) 1, Neutrophils # (Auto) 6.0, Lymphocytes # (Auto) 1.2, Monocytes # (Auto) 0.9, Eosinophils # (Auto) 0.1, Basophils # (Auto) 0.0, Sodium Level 124, Potassium Level 3.7, Chloride Level 96, Carbon Dioxide Level 20, Anion Gap 8, Blood Urea Nitrogen 2, Creatinine 0.43, Estimat Glomerular Filtration Rate > 60, BUN/ Creatinine Ratio 5, Glucose Level 88, Calcium Level 8.2, Corrected Calcium 9.1, Phosphorus Level 1.2, Magnesium Level 1.6, Total Bilirubin 0.4, Aspartate Amino Transf (AST/SGOT) 66, Alanine Aminotransferase (ALT/SGPT) 61, Alkaline Phosphatase 153, Total Protein 5.2, Albumin 2.9 07/23/18 05:22: White Blood Count 8.1, Red Blood Count 3.44, Hemoglobin 10.9, Hematocrit 31, Mean Corpuscular Volume 90, Mean Corpuscular Hemoglobin 32, Mean Corpuscular Hemoglobin Concent 35, Red Cell Distribution Width 12.7, Platelet Count 113, Mean Platelet Volume 10.3, Neutrophils (%) (Auto) 73, Lymphocytes (%) (Auto) 15 , Monocytes (%) (Auto) 11, Eosinophils (%) (Auto) 1, Basophils (%) (Auto) 0, Neutrophils # (Auto) 5.9, Lymphocytes # (Auto) 1.2, Monocytes # (Auto) 0.9, Eosinophils # (Auto) 0.1, Basophils # (Auto) 0.0, Sodium Level 126, Potassium Level 3.6, Chloride Level 99, Carbon Dioxide Level 22, Anion Gap 5, Blood Urea Nitrogen 3, Creatinine 0.48, Estimat Glomerular Filtration Rate > 60, BUN/ Creatinine Ratio 6, Glucose Level 93, Calcium Level 8.3, Corrected Calcium 9.1, Phosphorus Level 1.3, Magnesium Level 1.5, Total Bilirubin 0.4, Aspartate Amino Transf (AST/SGOT) 67, Alanine Aminotransferase (ALT/SGPT) 57, Alkaline Phosphatase 172, Total Protein 5.4, Albumin 3.0 07/24/18 05:30: White Blood Count 8.7, Red Blood Count 3.47, Hemoglobin 10.9, Hematocrit 31, Mean Corpuscular Volume 90, Mean Corpuscular Hemoglobin 31, Mean Corpuscular Hemoglobin Concent 35, Red Cell Distribution Width 13.2, Platelet Count 115, Mean Platelet Volume 9.6, Neutrophils (%) (Auto) 76, Lymphocytes (%) (Auto) 12, Monocytes (%) (Auto) 11, Eosinophils (%) (Auto) 1, Basophils (%) (Auto) 1, Neutrophils # (Auto) 6.6, Lymphocytes # (Auto) 1.0, Monocytes # (Auto) 1.0, Eosinophils # (Auto) 0.1, Basophils # (Auto) 0.1, Sodium Level 129, Potassium Level 3.5, Chloride Level 99, Carbon Dioxide Level 21, Anion Gap 9, Blood Urea Nitrogen 2, Creatinine 0.46, Estimat Glomerular Filtration Rate > 60, BUN/ Creatinine Ratio 4, Glucose Level 97, Calcium Level 8.4, Corrected Calcium 9.1, Phosphorus Level 1.4, Magnesium Level 1.6, Total Bilirubin 0.5, Aspartate Amino Transf (AST/SGOT) 80, Alanine Aminotransferase (ALT/SGPT) 62, Alkaline Phosphatase 180, Total Protein 5.7, Albumin 3.1 07/25/18 04:00: White Blood Count 8.9, Red Blood Count 3.48, Hemoglobin 10.8, Hematocrit 31, Mean Corpuscular Volume 90, Mean Corpuscular Hemoglobin 31, Mean Corpuscular Hemoglobin Concent 34, Red Cell Distribution Width 13.2, Platelet Count 94, Mean Platelet Volume 9.6, Neutrophils (%) (Auto) 73, Lymphocytes (%) (Auto) 13, Monocytes (%) (Auto) 13, Eosinophils (%) (Auto) 1, Basophils (%) (Auto) 1, Neutrophils # (Auto) 6.5, Lymphocytes # (Auto) 1.1, Monocytes # (Auto) 1.1, Eosinophils # (Auto) 0.1, Basophils # (Auto) 0.1, Sodium Level 131, Potassium Level 3.2, Chloride Level 102, Carbon Dioxide Level 21, Anion Gap 8, Blood Urea Nitrogen 4, Creatinine 0.45, Estimat Glomerular Filtration Rate > 60, BUN/ Creatinine Ratio 9, Glucose Level 102, Calcium Level 8.4, Corrected Calcium 9.2 , Phosphorus Level 1.2, Magnesium Level 1.5, Total Bilirubin 0.6, Aspartate Amino Transf (AST/SGOT) 90, Alanine Aminotransferase (ALT/SGPT) 64, Alkaline Phosphatase 203, Total Protein 5.6, Albumin 3.0 07/26/18 04:15: White Blood Count 11.1, Red Blood Count 3.25, Hemoglobin 10.3, Hematocrit 30, Mean Corpuscular Volume 92, Mean Corpuscular Hemoglobin 32, Mean Corpuscular Hemoglobin Concent 35, Red Cell Distribution Width 13.5, Platelet Count 94, Mean Platelet Volume 9.2, Neutrophils (%) (Auto) 80, Lymphocytes (%) (Auto) 8, Monocytes (%) (Auto) 11, Eosinophils (%) (Auto) 0, Basophils (%) (Auto) 0, Neutrophils # (Auto) 8.9, Lymphocytes # (Auto) 0.9, Monocytes # (Auto) 1.3, Eosinophils # (Auto) 0.0, Basophils # (Auto) 0.0, Sodium Level 134, Potassium Level 4.1, Chloride Level 105, Carbon Dioxide Level 21, Anion Gap 8, Blood Urea Nitrogen 6, Creatinine 0.57, Estimat Glomerular Filtration Rate > 60, BUN/ Creatinine Ratio 11, Glucose Level 153, Calcium Level 8.4, Corrected Calcium 9.2 , Phosphorus Level 1.2, Magnesium Level 1.9, Total Bilirubin 0.4, Aspartate Amino Transf (AST/SGOT) 89, Alanine Aminotransferase (ALT/SGPT) 67, Alkaline Phosphatase 216, Total Protein 5.5, Albumin 3.0 Discharge Home Medications: Active Scripts Active Magnesium Oxide 400 Mg Tablet 400 Mg PO BIDPC 30 Days Reported Sodium Chloride 1 Gm Tab 1 Gm PO 1500 (1GM) TABLET Lisinopril 10 Mg Tablet 10 Mg PO DAILY Clopidogrel (Clopidogrel Bisulfate) 75 Mg Tablet 75 Mg PO DAILY Cartia Xt (Diltiazem HCl) 180 Mg Cap.er.24h 180 Mg PO DAILY Simvastatin 20 Mg Tablet 20 Mg PO HS Centrum Silver Tablet (Multivit-Min/FA/Lycopene/Lut) 1 Each Tablet 1 Tab PO DAILY Calcium 600 + Vit D 800 Tab (Calcium Carbonate/Vitamin D3) 1 Each Tablet 1 Tab PO HS Aspirin EC (Aspirin) 81 Mg Tablet. 81 Mg PO HS Instructions to patient/family Please see electronic discharge instructions given to patient. Clinical Quality Measures DVT/VTE Risk/Contraindication: Risk Factor Score Per Nursin RFS Level Per Nursing on Admit: 4+=Very High Contraindications-Pharm: Other *list below* ISIDRO IRIZARRY DO Jul 30, 2018 07:29
== END 2018-07-26 12:05 | disposition home or self-care (01) | DRG 194 ==
LOC: 4TH 15:36
PROVIDERS: ADMIT Family Medicine; ATTEND Family Medicine
PROC: 0BD48ZX Extraction of Right Upper Lobe Bronchus, Via Natural or Artificial Opening Endoscopic, Diagnostic (ICD-10-PCS; 2018-07-25)
PROC: 0B9C8ZX Drainage of Right Upper Lung Lobe, Via Natural or Artificial Opening Endoscopic, Diagnostic (ICD-10-PCS; principal; 2018-07-25 11:00)
DX: J18.9 Pneumonia, unspecified organism (principal); N39.0 Urinary tract infection, site not specified; E87.1 Hypo-osmolality and hyponatremia; E87.6 Hypokalemia; E83.42 Hypomagnesemia; E83.51 Hypocalcemia; R91.8 Other nonspecific abnormal finding of lung field; R59.0 Localized enlarged lymph nodes; E27.9 Disorder of adrenal gland, unspecified; R11.0 Nausea; R63.0 Anorexia; R63.4 Abnormal weight loss; R74.8 Abnormal levels of other serum enzymes; I10 Essential (primary) hypertension; R26.81 Unsteadiness on feet; M25.511 Pain in right shoulder; I70.203 Unspecified atherosclerosis of native arteries of extremities, bilateral legs; I65.23 Occlusion and stenosis of bilateral carotid arteries; Z60.2 Problems related to living alone; Z87.891 Personal history of nicotine dependence; Z95.820 Peripheral vascular angioplasty status with implants and grafts; Z79.02 Long term (current) use of antithrombotics/antiplatelets
CPT/HCPCS: 36415; 71045; 71046; 71260; 80048; 80053; 81000; 83735; 83880; 84100; 85025; 85027; 85610; 85730; 87015; 87070; 87077; 87088; 87101; 87116; 87205; 87206; 87804; 88112; 88305; 88312; 88341; 88342; 94640; 94760

== ENCOUNTER 2018-07-30 18:14 | Inpatient (IN) | payer MEDICARE, OTHER ==
[~2018-07-30] VITALS: Ht 167.6 cm; Wt 55.7 kg
[~2018-07-30 18:14] MED LIST changes: +MAGN400T6 PO
--- OUTSIDE RECORDS SUMMARY | 2018-07-30 18:24 | XMS REPORT | Continuity of Care Document ---
Author Author [facility] Organization [facility] Address Unknown Phone Unavailable Allergies Active [...] 427.31 ATRIAL FIBRILLATION 09/05/2011 Ot 440.21 ATHEROSCL [place] ARTER EXTREM W INTERMIT 09/05/2011 Ot V45.89 [...] E000.8 OTHER EXTERNAL CAUSE STATUS 10/16/2012 REHANA LAMAS MD Ot E849.0 ACCIDENT IN HOME 10/16/2012 REHANA LAMAS MD Ot E885.9 FALL FROM SLIPPING, TRIPPING, OR STUMBLI 04/25/2014 BAIMA, JUANA L HOSE BUILDER Ot 401.9 04/25/2014 BAIMA, JUANA L HOSE BUILDER Ot 427.31 04/25/2014 BAIMA, JUANA L HOSE BUILDER Ot 443.9 04/25/2014 BAIMA, JUANA L HOSE BUILDER Ot 786.50 04/25/2014 BAIMA, JUANA L HOSE BUILDER Ot 401.9 04/25/2014 BAIMA, JUANA L HOSE BUILDER Ot 427.31 04/25/2014 BAIMA, JUANA L HOSE BUILDER Ot 443.9 04/25/2014 BAIMA, JUANA L HOSE BUILDER Ot 786.50 05/11/2014 BAIMA, JUANA L HOSE BUILDER Ot 401.9 05/11/2014 BAIMA, JUANA L HOSE BUILDER Ot 427.31 05/11/2014 BAIMA, JUANA L HOSE BUILDER Ot 443.9 05/11/2014 BAIMA, JUANA L HOSE BUILDER Ot 786.50 05/13/2014 BAIMA, JUANA L HOSE BUILDER Ot 401.9 05/13/2014 BAIMA, JUANA L HOSE BUILDER Ot 427.31 05/13/2014 BAIMA, JUANA L HOSE BUILDER Ot 786.50 05/26/2014 NIKI LEWIS FACC, MATTHEW MELTONP CCDS Ot 272.4 HYPERLIPIDEMIA NEC/NOS 05/26/2014 NIKI LEWIS FACC, MATTHEW FACP CCDS Ot 401.9 HYPERTENSION NOS 05/26/2014 NIKI LEWIS FACC, MATTHEW FACP CCDS Ot 433.10 CAROTID ARTERY OCCLUSION W O CEREBRAL IN 05/26/2014 NIKI LEWIS FACC, MATTHEW FACP CCDS Ot 440.21 ATHEROSCL [place] ARTER EXTREM W INTERMIT 05/26/2014 NIKI LEWIS [...] OCCLUSION W O CEREBRAL IN 06/04/2014 CHALINO MCDUFFIE MD Ot 440.20 ATHEROSCLEROSIS [place] ARTERIES EXTREMIT 06/04/2014 CHALINO MCDUFFIE MD Ot [...] Ot 443.9 11/02/2014 Ot V45.89 11/02/2014 ISIDRO IRIZARRY DO Ot V76.12 11/02/2014 CYDNEY LEWIS, REHANA Streeter Ot 813.41 11/02/2014 CYDNEY LEWIS, REHANA Streeter Ot E000.8 11/02/2014 CYDNEY LEWIS, REHANA Streeter Ot E849.0 11/02/2014 CYDNEY LEWIS, REHANA Streeter Ot E885.9 11/02/2014 CYDNEY LEWIS, REHANA Streeter Ot V72.83 11/02/2014 CYDNEY LEWIS, REHANA Streeter Ot V74.8 11/02/2014 ISIDRO IRIZARRY DO Ot V76.12 11/02/2014 SUMMER, JUANA L HOSE BUILDER Ot 401.9 11/02/2014 BAIMA, JUANA L HOSE BUILDER Ot 427.31 11/02/2014 BAIMA, JUANA L HOSE BUILDER Ot 786.50 11/02/2014 BAIMA, JUANA L HOSE BUILDER Ot 401.9 11/02/2014 BAIMA, JUANA L HOSE BUILDER Ot 427.31 11/02/2014 BAIMA, JUANA L HOSE BUILDER Ot 443.9 11/02/2014 BAIMA, JUANA L HOSE BUILDER Ot 786.50 11/02/2014 ISIDRO IRIZARRY DO Ot V76.12 12/02/2014 ISIDRO IRIZARRY DO Ot V76.12 05/13/2015 BAIMA, JUANA L HOSE BUILDER Ot M54.9 06/02/2015 BAIMA, JUANA L HOSE BUILDER Ot M54.9 10/25/2015 Ot Z12.31 ENCNTR SCREEN [...] NEOPLASM OF JESSICA 10/25/2016 JUANA WHEELER L HOSE BUILDER Ot 401.9 HYPERTENSION NOS 10/25/2016 BAIMA, JUANA L HOSE BUILDER Ot 427.31 ATRIAL FIBRILLATION 10/25/2016 BAIMA, JUANA L HOSE BUILDER Ot 786.50 CHEST PAIN NOS 10/25/2016 BAIMA, JUANA L HOSE BUILDER Ot 401.9 HYPERTENSION NOS 10/25/2016 BAIMA, JUANA L HOSE BUILDER Ot 427.31 ATRIAL FIBRILLATION 10/25/2016 BAIMA, JUANA L HOSE BUILDER Ot 443.9 PERIPH VASCULAR DIS NOS 10/25/2016 BAIMA, JUANA L HOSE BUILDER Ot 786.50 CHEST PAIN NOS 10/25/2016 GELLENDER DO, ISIDRO Calvillo Ot V76.12 OTH SCREEN MAMMO-MALIGN NEOPLASM OF [place]ESS[place] 10/25/2016 JUANA WHEELER L HOSE BUILDER Ot M54.9 DORSALGIA, UNSPECIFIED 10/25/2016 Ot Z12.31 [...] E78.4 OTHER HYPERLIPIDEMIA 01/31/2017 NIKI LEWIS FACC, MTATHEW FACP CCDS Ot I10 ESSENTIAL (PRIMARY) HYPERTENSION 01/31/2017 NIKI LEWIS FACC, MATTHEW FACP CCDS Ot I70.213 ATHSCL [place] ARTERIES OF EXTRM W INTRMT 01/31/2017 NIKI LEWIS FACC, ALI FACP CCDS Ot R07.89 OTHER CHEST PAIN 01/31/2017 NIKI LEWIS FACC, ALI FACP CCDS Ot E78.4 OTHER HYPERLIPIDEMIA 01/31/2017 NIKI LEWIS FACC, ALI FACP CCDS Ot I10 ESSENTIAL (PRIMARY) HYPERTENSION 01/31/2017 NIKI LEWIS FACC, ALI FACP CCDS Ot I70.213 ATHSCL [place] ARTERIES OF EXTRM W INTRMT 01/31/2017 NIKI LEWIS FACC, ALI FACP CCDS Ot R07.89 OTHER CHEST PAIN 02/20/2017 NIKI LEWIS FACC, ALI FACP CCDS Ot E78.4 OTHER HYPERLIPIDEMIA 02/20/2017 NIKI LEWIS FACC, ALI FACP CCDS Ot I10 ESSENTIAL (PRIMARY) HYPERTENSION 02/20/2017 NIKI LEWIS FACC, ALI FACP CCDS Ot I70.213 ATHSCL [place] ARTERIES OF EXTRM W INTRMT 02/20/2017 NIKI [...] NEOPLASM OF JESSICA 09/03/2017 JUANA WHEELER L HOSE BUILDER Ot 401.9 HYPERTENSION NOS 09/03/2017 EVAN WHEELERHER L HOSE BUILDER Ot 427.31 ATRIAL FIBRILLATION 09/03/2017 EVAN WHEELERHER L HOSE BUILDER Ot 786.50 CHEST PAIN NOS 09/03/2017 BAIMA JUANA L HOSE BUILDER Ot 401.9 HYPERTENSION NOS 09/03/2017 JUANA WHEELER HOSE BUILDER Ot 427.31 ATRIAL FIBRILLATION 09/03/2017 JUANA WHEELER HOSE BUILDER Ot 443.9 PERIPH VASCULAR DIS NOS 09/03/2017 JUANA WHEELER HOSE BUILDER Ot 786.50 CHEST PAIN NOS 09/03/2017 ISIDRO IRIZARRY DO Ot V76.12 OTH SCREEN MAMMO-MALIGN NEOPLASM OF [place]ESS[place] 09/03/2017 JUANA WHEELER HOSE BUILDER Ot M54.9 DORSALGIA, UNSPECIFIED 09/03/2017 Ot Z12.31 [...] FACC, ALI FACP CCDS Ot I70.213 ATHSCL [place] ARTERIES OF EXTRM W INTRMT 09/03/2017 NIKI [...] FACC, ALI FACP CCDS Ot 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 09/05/2017 MATTHEW PRINCE MD, FACC FACP CCDS Ot Z79.02 LOAN CLERK (CURRENT) USE OF ANTITHROMBOTI 09/05/2017 MATTHEW PRINCE MD, FACC FACP CCDS Ot Z79.82 HALF-WAY (CURRENT) USE OF ASPIRIN 09/05/2017 NIKI LEWIS FACC ALI FACP CCDS Ot Z79.899 OTHER LOAN CLERK (CURRENT) DRUG THERAPY 09/05/2017 NIKI LEWIS FACC, [...] FACC, ALI FACP CCDS Ot I70.212 ATHSCL [place] ARTERIES OF EXTRM W [facility] 09/05/2017 NIKI LEWIS FACC, ALI FACP CCDS Ot Z79.02 LOAN CLERK (CURRENT) USE OF ANTITHROMBOTI 09/05/2017 NIKI MELTONC, ALI FACP CCDS Ot Z79.82 HALF-WAY (CURRENT) USE OF ASPIRIN 09/05/2017 NIKI MELTONC, ALI FACP CCDS Ot Z79.899 OTHER LOAN CLERK (CURRENT) DRUG THERAPY 09/05/2017 NIKI LEWIS FACC, [...] FACC, ALI FACP CCDS Ot 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 09/05/2017 NIKI LEWIS FACC, ALI FACP CCDS Ot Z79.02 LOAN CLERK (CURRENT) USE OF ANTITHROMBOTI 09/05/2017 NIKI LEWIS [facility], MATTHEW FACP CCDS Ot Z79.82 HALF-WAY (CURRENT) USE OF ASPIRIN 09/05/2017 NIKI LEWIS [facility]ACC, [facility] CCD[facility] Ot Z79.899 OTHER LOAN CLERK (CURRENT) DRUG THERAPY 09/05/2017 NIKI LEWIS FACC, MATTHEW [facility] CCDS Ot Z87.891 PERSONAL HISTORY OF [...] NEOPLASM OF JESSICA 01/24/2018 BAIMA, JUANA L HOSE BUILDER Ot 401.9 HYPERTENSION NOS 01/24/2018 BAIMA, JUANA L HOSE BUILDER Ot 427.31 ATRIAL FIBRILLATION 01/24/2018 BAIMA, JUANA L HOSE BUILDER Ot 786.50 CHEST PAIN NOS 01/24/2018 BAIMA, JUANA L HOSE BUILDER Ot 401.9 HYPERTENSION NOS 01/24/2018 BAIMA, JUANA L HOSE BUILDER Ot 427.31 ATRIAL FIBRILLATION 01/24/2018 BAIMA, JUANA L HOSE BUILDER Ot 443.9 PERIPH VASCULAR DIS NOS 01/24/2018 BAIMA, JUANA L HOSE BUILDER Ot 786.50 CHEST PAIN NOS 01/24/2018 GELLENDER DO, ISIDRO Calvillo Ot V76.12 OTH SCREEN MAMMO-MALIGN NEOPLASM OF [place]ESS[place] 01/24/2018 JUANA WHEELER HOSE BUILDER Ot M54.9 DORSALGIA, UNSPECIFIED 01/24/2018 Ot Z12.31 ENCNTR SCREEN MAMMOGRAM FOR MALIGNANT NE 01/24/2018 ASIFLENDER DO, ISIDRO Calvillo Ot N64.9 DISORDER OF BREAST, UNSPECIFIED 01/24/2018 [facility], ISIDRO Calvillo Ot Z12.31 ENCNTR SCREEN MAMMOGRAM FOR MALIGNANT NE 01/24/2018 NIKI LEWIS FACC, ALI FACP CCDS Ot E78.4 OTHER HYPERLIPIDEMIA 01/24/2018 NIKI LEWIS FACC, ALI FACP CCDS Ot I10 ESSENTIAL (PRIMARY) HYPERTENSION 01/24/2018 NIKI LEWIS FACC, ALI FACP CCDS Ot I70.213 ATHSCL [place] ARTERIES OF EXTRM W INTRMT 01/24/2018 NIKI LEWIS FACC, ALI FACP CCDS Ot R07.89 OTHER CHEST PAIN 01/24/2018 [facility], ISIDRO Calvillo Ot Z12.31 ENCNTR SCREEN [...] DOISIDRO Ot I10 ESSENTIAL (PRIMARY) HYPERTENSION 07/09/2018 [facility] DOISIDRO Ot I25.10 ATHSCL HEART DISEASE OF [place] CORONARY 07/09/2018 [facility] DOISIDRO Ot K59.00 CONSTIPATION, UNSPECIFIED 07/09/2018 GELLENDER [...] Calvillo Ot I25.10 ATHSCL HEART DISEASE OF [place] CORONARY 07/15/2018 GELLENDER DO, ISIDRO Calvillo Ot [...] Calvillo Ot I25.10 ATHSCL HEART DISEASE OF [place] CORONARY 07/15/2018 GELLENDER DO, ISIDRO A Ot [...] Calvillo Ot I25.10 ATHSCL HEART DISEASE OF [place] CORONARY 07/15/2018 GELLENDER DO, ISIDRO Calvillo Ot K59.00 CONSTIPATION, UNSPECIFIED 07/15/2018 GELLENDER DO, ISIDRO Calvillo Ot M62.81 MUSCLE WEAKNESS (GENERALIZED) 07/15/2018 GELLENDER DO, ISIDRO Calvillo Ot N95.0 POSTMENOPAUSAL BLEEDING 07/15/2018 GELLENDER DO, ISIDRO Calvillo Ot R11.0 NAUSEA 07/15/2018 GELLENDER DO, ISIDRO Calvillo Ot R26.81 UNSTEADINESS ON FEET 07/15/2018 GELLENDER DO, ISIDRO Calvillo Ot R51 HEADACHE 07/19/2018 GELLENDER DO, ISIDRO Calvillo Ot E87.1 HYPO-OSMOLALITY AND HYPONATREMIA 07/19/2018 GELLENDER DO, ISIDRO Calvillo Ot E87.6 HYPOKALEMIA 07/19/2018 GELLENDER DO, ISIDRO Calvillo Ot I10 ESSENTIAL (PRIMARY) HYPERTENSION 07/19/2018 GELLENDER DO, ISIDRO Calvillo Ot J18.9 PNEUMONIA, UNSPECIFIED ORGANISM 07/19/2018 GELLENDER DO, ISIDRO Calvillo Ot M25.511 PAIN IN RIGHT SHOULDER 07/19/2018 GELLENDER DO, ISIDRO Calvillo Ot N39.0 URINARY TRACT INFECTION, SITE NOT SPECIF 07/19/2018 GELLENDER DO, ISIDRO Calvillo Ot R11.0 NAUSEA 07/19/2018 GELLENDER DO, ISIDRO Calvillo Ot R26.81 UNSTEADINESS ON FEET 07/19/2018 GELLENDER DO, ISIDRO Calvillo Ot R63.0 ANOREXIA 07/19/2018 GELLENDER DO, ISIDRO Calvillo Ot R63.4 ABNORMAL WEIGHT LOSS 07/19/2018 GELLENDER DO, ISIDRO Calvillo Ot R74.8 ABNORMAL LEVELS OF OTHER SERUM ENZYMES 07/19/2018 GELLENDER DO, ISIDRO Calvillo Ot Z60.2 PROBLEMS RELATED TO LIVING ALONE 07/19/2018 GELLENDER DO, ISIDRO Calvillo Ot E87.1 HYPO-OSMOLALITY AND HYPONATREMIA 07/19/2018 GELLENDER DO, ISIDRO Calvillo Ot E87.6 HYPOKALEMIA 07/19/2018 GELLENDER DO, ISIDRO Calvillo Ot I10 ESSENTIAL (PRIMARY) HYPERTENSION 07/19/2018 GELLENDER DO, ISIDRO Calvillo Ot J18.9 PNEUMONIA, UNSPECIFIED ORGANISM 07/19/2018 GELLENDER DO, ISIDRO Calvillo Ot M25.511 PAIN IN RIGHT SHOULDER 07/19/2018 GELLENDER DO, ISIDRO Calvillo Ot N39.0 URINARY TRACT INFECTION, SITE NOT SPECIF 07/19/2018 GELLENDER DO, ISIDRO Calvillo Ot R11.0 NAUSEA 07/19/2018 GELLENDER DO, ISIDRO Calvillo Ot R26.81 UNSTEADINESS ON FEET 07/19/2018 GELLENDER DO, ISIDRO Calvillo Ot R63.0 ANOREXIA 07/19/2018 GELLENDER DO, ISIDRO Calvillo Ot R63.4 ABNORMAL WEIGHT LOSS 07/19/2018 GELLENDER DO, ISIDRO Calvillo Ot R74.8 ABNORMAL LEVELS OF OTHER SERUM ENZYMES 07/19/2018 GELLENDER DO, ISIDRO Calvillo Ot Z60.2 PROBLEMS RELATED TO LIVING ALONE 07/19/2018 GELLENDER DO, ISIDRO Calvillo Ot E87.1 HYPO-OSMOLALITY AND HYPONATREMIA 07/19/2018 GELLENDER DO, ISIDRO Calvillo Ot E87.6 HYPOKALEMIA 07/19/2018 GELLENDER DO, ISIDRO Rajinder Ot I10 ESSENTIAL (PRIMARY) HYPERTENSION 07/19/2018 GELLENDER DO, ISIDRO Calvillo Ot J18.9 PNEUMONIA, UNSPECIFIED ORGANISM 07/19/2018 GELLENDER DO, ISIDRO Calvillo Ot M25.511 PAIN IN RIGHT SHOULDER 07/19/2018 GELLENDER DO, ISIDRO Calvillo Ot N39.0 URINARY TRACT INFECTION, SITE NOT SPECIF 07/19/2018 GELLENDER DO, ISIDRO Calvillo Ot R11.0 NAUSEA 07/19/2018 GELLENDER DO, ISIDRO Calvillo Ot R26.81 UNSTEADINESS ON FEET 07/19/2018 GELLENDER DO, ISIDRO Calvillo Ot R63.0 ANOREXIA 07/19/2018 GELLENDER DO, ISIDRO Calvillo Ot R63.4 ABNORMAL WEIGHT LOSS 07/19/2018 GELLENDER DO, ISIDRO Calvillo Ot R74.8 ABNORMAL LEVELS OF OTHER SERUM ENZYMES 07/19/2018 GELLENDER DO, ISIDRO Calvillo Ot Z60.2 PROBLEMS RELATED TO LIVING ALONE 07/19/2018 GELLENDER DO, ISIDRO Calvillo Ot E87.1 HYPO-OSMOLALITY AND HYPONATREMIA 07/19/2018 GELLENDER DO, ISIDRO Calvillo Ot E87.6 HYPOKALEMIA 07/19/2018 GELLENDER DO, ISIDRO Rajinder Ot I10 ESSENTIAL (PRIMARY) HYPERTENSION 07/19/2018 GELLENDER DO, ISIDRO Calvillo Ot J18.9 PNEUMONIA, UNSPECIFIED ORGANISM 07/19/2018 GELLENDER DO, ISIDRO Calvillo Ot M25.511 PAIN IN RIGHT SHOULDER 07/19/2018 GELLENDER DO, ISIDRO Calvillo Ot N39.0 URINARY TRACT INFECTION, SITE NOT SPECIF 07/19/2018 GELLENDER DO, ISIDRO Calvillo Ot R11.0 NAUSEA 07/19/2018 GELLENDER DO, ISIDRO Calvillo Ot R26.81 UNSTEADINESS ON FEET 07/19/2018 GELLENDER DO, ISIDRO Calvillo Ot R63.0 ANOREXIA 07/19/2018 GELLENDER DO, ISIDRO Calvillo Ot R63.4 ABNORMAL WEIGHT LOSS 07/19/2018 GELLENDER DO, ISIDRO Calvillo Ot R74.8 ABNORMAL LEVELS OF OTHER SERUM ENZYMES 07/19/2018 GELLENDER DO, ISIDRO Calvillo Ot Z60.2 PROBLEMS RELATED TO LIVING ALONE 07/20/2018 GELLENDER DO, ISIDRO Calvillo Ot E87.1 HYPO-OSMOLALITY AND HYPONATREMIA 07/20/2018 GELLENDER DO, ISIDRO Calvillo Ot E87.6 HYPOKALEMIA 07/20/2018 GELLENDER DO, ISIDRO Rajinder Ot I10 ESSENTIAL (PRIMARY) HYPERTENSION 07/20/2018 GELLENDER DO, ISIDRO Calvillo Ot J18.9 PNEUMONIA, UNSPECIFIED ORGANISM 07/20/2018 GELLENDER DO, ISIDRO Calvillo Ot M25.511 PAIN IN RIGHT SHOULDER 07/20/2018 GELLENDER DO, ISIDRO Calvillo Ot N39.0 URINARY TRACT INFECTION, SITE NOT SPECIF 07/20/2018 GELLENDER DO, ISIDRO Calvillo Ot R11.0 NAUSEA 07/20/2018 GELLENDER DO, ISIDRO Calvillo Ot R26.81 UNSTEADINESS ON FEET 07/20/2018 GELLENDER DO, ISIDRO Calvillo Ot R63.0 ANOREXIA 07/20/2018 GELLENDER DO, ISIDRO Calvillo Ot R63.4 ABNORMAL WEIGHT LOSS 07/20/2018 GELLENDER DO, ISIDRO Calvlilo Ot R74.8 ABNORMAL LEVELS OF OTHER SERUM ENZYMES 07/20/2018 GELLENDER DO, ISIDRO Calvillo Ot Z60.2 PROBLEMS RELATED TO LIVING ALONE 07/21/2018 GELLENDER DO, ISIDRO Calvillo Ot E87.1 HYPO-OSMOLALITY AND HYPONATREMIA 07/21/2018 GELLENDER DO, ISIDRO Calvillo Ot E87.6 HYPOKALEMIA 07/21/2018 GELLENDER DO, ISIDRO Calvillo Ot I10 ESSENTIAL (PRIMARY) HYPERTENSION 07/21/2018 GELLENDER DO, ISIDRO Calvillo Ot J18.9 PNEUMONIA, UNSPECIFIED ORGANISM 07/21/2018 GELLENDER DO, ISIDRO Calvillo Ot M25.511 PAIN IN RIGHT SHOULDER 07/21/2018 GELLENDER DO, ISIDRO Calvillo Ot N39.0 URINARY TRACT INFECTION, SITE NOT SPECIF 07/21/2018 GELLENDER DO, ISIDRO Calvillo Ot R11.0 NAUSEA 07/21/2018 GELLENDER DO, ISIDRO Calvillo Ot R26.81 UNSTEADINESS ON FEET 07/21/2018 GELLENDER DO, ISIDRO Calvillo Ot R63.0 ANOREXIA 07/21/2018 GELLENDER DO, ISIDRO Calvillo Ot R63.4 ABNORMAL WEIGHT LOSS 07/21/2018 GELLENDER DO, ISIDRO Calvillo Ot R74.8 ABNORMAL LEVELS OF OTHER SERUM ENZYMES 07/21/2018 GELLENDER DO, ISIDRO Calvillo Ot Z60.2 PROBLEMS RELATED TO LIVING ALONE 07/22/2018 GELLENDER DO, ISIDRO Calvillo Ot E87.1 HYPO-OSMOLALITY AND HYPONATREMIA 07/22/2018 GELLENDER DO, ISIDRO Calvillo Ot E87.6 HYPOKALEMIA 07/22/2018 GELLENDER DO, ISIDRO Rajinder Ot I10 ESSENTIAL (PRIMARY) HYPERTENSION 07/22/2018 GELLENDER DO, ISIDRO Calvillo Ot J18.9 PNEUMONIA, UNSPECIFIED ORGANISM 07/22/2018 GELLENDER DO, ISIDRO Clavillo Ot M25.511 PAIN IN RIGHT SHOULDER 07/22/2018 GELLENDER DO, ISIDRO Calvillo Ot N39.0 URINARY TRACT INFECTION, SITE NOT SPECIF 07/22/2018 GELLENDER DO, ISIDRO Calvillo Ot R11.0 NAUSEA 07/22/2018 GELLENDER DO, ISIDRO Calvillo Ot R26.81 UNSTEADINESS ON FEET 07/22/2018 GELLENDER DO, ISIDRO Calvillo Ot R63.0 ANOREXIA 07/22/2018 GELLENDER DO, ISIDRO Calvillo Ot R63.4 ABNORMAL WEIGHT LOSS 07/22/2018 GELLENDER DO, ISIDRO Calvillo Ot R74.8 ABNORMAL LEVELS OF OTHER SERUM ENZYMES 07/22/2018 GELLENDER DO, ISIDRO Calvillo Ot Z60.2 PROBLEMS RELATED TO LIVING ALONE 07/23/2018 GELLENDER DO, ISIDRO Calvillo Ot E87.1 HYPO-OSMOLALITY AND HYPONATREMIA 07/23/2018 GELLENDER DO, ISIDRO Calvillo Ot E87.6 HYPOKALEMIA 07/23/2018 GELLENDER DO, ISIDRO Calvillo Ot I10 ESSENTIAL (PRIMARY) HYPERTENSION 07/23/2018 GELLENDER DO, ISIDRO Calvillo Ot J18.9 PNEUMONIA, UNSPECIFIED ORGANISM 07/23/2018 GELLENDER DO, ISIDRO Calvillo Ot M25.511 PAIN IN RIGHT SHOULDER 07/23/2018 GELLENDER DO, ISIDRO Calvillo Ot N39.0 URINARY TRACT INFECTION, SITE NOT SPECIF 07/23/2018 GELLENDER DO, ISIDRO Calvillo Ot R11.0 NAUSEA 07/23/2018 GELLENDER DO, ISIDRO Calvillo Ot R26.81 UNSTEADINESS ON FEET 07/23/2018 GELLENDER DO, ISIDRO Calvillo Ot R63.0 ANOREXIA 07/23/2018 GELLENDER DO, ISIDRO Calvillo Ot R63.4 ABNORMAL WEIGHT LOSS 07/23/2018 GELLENDER DO, ISIDRO Calvillo Ot R74.8 ABNORMAL LEVELS OF OTHER SERUM ENZYMES 07/23/2018 GELLENDER DO, ISIDRO Calvillo Ot Z60.2 PROBLEMS RELATED TO LIVING ALONE 07/24/2018 GELLENDER DO, ISIDRO Calvillo Ot E87.1 HYPO-OSMOLALITY AND HYPONATREMIA 07/24/2018 GELLENDER DO, ISIDRO Calvillo Ot E87.6 HYPOKALEMIA 07/24/2018 GELLENDER DO, ISIDRO Calvillo Ot I10 ESSENTIAL (PRIMARY) HYPERTENSION 07/24/2018 GELLENDER DO, ISIDRO Calvillo Ot J18.9 PNEUMONIA, UNSPECIFIED ORGANISM 07/24/2018 GELLENDER DO, ISIDRO Calvillo Ot M25.511 PAIN IN RIGHT SHOULDER 07/24/2018 GELLENDER DO, ISIDRO Calvillo Ot N39.0 URINARY TRACT INFECTION, SITE NOT SPECIF 07/24/2018 GELLENDER DO, ISIDRO Calvillo Ot R11.0 NAUSEA 07/24/2018 GELLENDER DO, ISIDRO Calvillo Ot R26.81 UNSTEADINESS ON FEET 07/24/2018 GELLENDER DO, ISIDRO Calvillo Ot R63.0 ANOREXIA 07/24/2018 GELLENDER DO, ISIDRO Calvillo Ot R63.4 ABNORMAL WEIGHT LOSS 07/24/2018 GELLENDER DO, ISIDRO Calvillo Ot R74.8 ABNORMAL LEVELS OF OTHER SERUM ENZYMES 07/24/2018 GELLENDER DO, ISIDRO Calvillo Ot Z60.2 PROBLEMS RELATED TO LIVING ALONE 07/24/2018 GELLENDER DO, ISIDRO Calvillo Ot E87.1 HYPO-OSMOLALITY AND HYPONATREMIA 07/24/2018 GELLENDER DO, ISIDRO Calvillo Ot E87.6 HYPOKALEMIA 07/24/2018 GELLENDER DO, ISIDRO Calvillo Ot I10 ESSENTIAL (PRIMARY) HYPERTENSION 07/24/2018 GELLENDER DO, ISIDRO Calvillo Ot J18.9 PNEUMONIA, UNSPECIFIED ORGANISM 07/24/2018 GELLENDER DO, ISIDRO Calvillo Ot M25.511 PAIN IN RIGHT SHOULDER 07/24/2018 GELLENDER DO, ISIDRO Calvillo Ot N39.0 URINARY TRACT INFECTION, SITE NOT SPECIF 07/24/2018 GELLENDER DO, ISIDRO Calvillo Ot R11.0 NAUSEA 07/24/2018 GELLENDER DO, ISIDRO Calvillo Ot R26.81 UNSTEADINESS ON FEET 07/24/2018 GELLENDER DO, ISIDRO Calvillo Ot R63.0 ANOREXIA 07/24/2018 GELLENDER DO, ISIDRO Calvillo Ot R63.4 ABNORMAL WEIGHT LOSS 07/24/2018 GELLENDER DO, ISIDRO Calvillo Ot R74.8 ABNORMAL LEVELS OF OTHER SERUM ENZYMES 07/24/2018 GELLENDER DO, ISIDRO Calvillo Ot Z60.2 PROBLEMS RELATED TO LIVING ALONE 07/24/2018 GELLENDER DO, ISIDRO Calvillo Ot E87.1 HYPO-OSMOLALITY AND HYPONATREMIA 07/24/2018 GELLENDER DO, ISIDRO Calvillo Ot E87.6 HYPOKALEMIA 07/24/2018 GELLENDER DO, ISIDRO Rajinder Ot I10 ESSENTIAL (PRIMARY) HYPERTENSION 07/24/2018 GELLENDER DO, ISIDRO Calvillo Ot J18.9 PNEUMONIA, UNSPECIFIED ORGANISM 07/24/2018 GELLENDER DO, ISIDRO Calvillo Ot M25.511 PAIN IN RIGHT SHOULDER 07/24/2018 GELLENDER DO, ISIDRO Calvillo Ot N39.0 URINARY TRACT INFECTION, SITE NOT SPECIF 07/24/2018 GELLENDER DO, ISIDRO Calvillo Ot R11.0 NAUSEA 07/24/2018 GELLENDER DO, ISIDRO Calvillo Ot R26.81 UNSTEADINESS ON FEET 07/24/2018 GELLENDER DO, ISIDRO Calvillo Ot R63.0 ANOREXIA 07/24/2018 GELLENDER DO, ISIDRO Calvillo Ot R63.4 ABNORMAL WEIGHT LOSS 07/24/2018 GELLENDER DO, ISIDRO Calvillo Ot R74.8 ABNORMAL LEVELS OF OTHER SERUM ENZYMES 07/24/2018 GELLENDER DO, ISIDRO Calvillo Ot Z60.2 PROBLEMS RELATED TO LIVING ALONE 07/25/2018 GELLENDER DO, ISIDRO Calvillo Ot E87.1 HYPO-OSMOLALITY AND HYPONATREMIA 07/25/2018 GELLENDER DO, ISIDRO Calvillo Ot E87.6 HYPOKALEMIA 07/25/2018 GELLENDER DO, ISIDRO Calvillo Ot I10 ESSENTIAL (PRIMARY) HYPERTENSION 07/25/2018 GELLENDER DO, ISIDRO Calvillo Ot J18.9 PNEUMONIA, UNSPECIFIED ORGANISM 07/25/2018 GELLENDER DO, ISIDRO Calvillo Ot M25.511 PAIN IN RIGHT SHOULDER 07/25/2018 GELLENDER DO, ISIDRO Calvillo Ot N39.0 URINARY TRACT INFECTION, SITE NOT SPECIF 07/25/2018 GELLENDER DO, ISIDRO Calvillo Ot R11.0 NAUSEA 07/25/2018 GELLENDER DO, ISIDRO Calvillo Ot R26.81 UNSTEADINESS ON FEET 07/25/2018 GELLENDER DO, ISIDRO Calvillo Ot R63.0 ANOREXIA 07/25/2018 GELLENDER DO, ISIDRO Calvillo Ot R63.4 ABNORMAL WEIGHT LOSS 07/25/2018 GELLENDER DO, ISIDRO Calvillo Ot R74.8 ABNORMAL LEVELS OF OTHER SERUM ENZYMES 07/25/2018 GELLENDER DO, ISIDRO Calvillo Ot Z60.2 PROBLEMS RELATED TO LIVING ALONE 07/26/2018 GELLENDER DO, ISIDRO Calvillo Ot E87.1 HYPO-OSMOLALITY AND HYPONATREMIA 07/26/2018 GELLENDER DO, ISIDRO Calvillo Ot E87.6 HYPOKALEMIA 07/26/2018 GELLENDER DO, ISIDRO Calvillo Ot I10 ESSENTIAL (PRIMARY) HYPERTENSION 07/26/2018 GELLENDER DO, ISIDRO Calvillo Ot J18.9 PNEUMONIA, UNSPECIFIED ORGANISM 07/26/2018 GELLENDER DO, ISIDRO Calvillo Ot M25.511 PAIN IN RIGHT SHOULDER 07/26/2018 GELLENDER DO, ISIDRO Calvillo Ot N39.0 URINARY TRACT INFECTION, SITE NOT SPECIF 07/26/2018 GELLENDER DO, ISIDRO Calvillo Ot R11.0 NAUSEA 07/26/2018 GELLENDER DO, ISIDRO Calvillo Ot R26.81 UNSTEADINESS ON FEET 07/26/2018 GELLENDER DO, ISIDRO Calvillo Ot R63.0 ANOREXIA 07/26/2018 GELLENDER DO, ISIDRO Calvillo Ot R63.4 ABNORMAL WEIGHT LOSS 07/26/2018 GELLENDER DO, ISIDRO Calvillo Ot R74.8 ABNORMAL LEVELS OF OTHER SERUM ENZYMES 07/26/2018 GELLENDER DO, ISIDRO Calvillo Ot Z60.2 PROBLEMS RELATED TO LIVING ALONE Procedures There is no data. Results Test [...] plasma calcium measurement (mass/volume) 8.9 mg/dL 8.5-10.1 Automated blood complete blood count (hemogram) panel - 07/16/18 16:22 Blood leukocytes automated count (number/volume) 6.9 10*3/uL 4.3-11.0 Blood erythrocytes automated count (number/volume) 3.96 10*6/uL 4.35-5.85 Venous blood hemoglobin measurement (mass/volume) 12.9 g/dL 11.5-16.0 Blood hematocrit (volume fraction) 34 % 35-52 Automated erythrocyte mean corpuscular volume 87 [foz_us] 80-99 Automated erythrocyte mean corpuscular hemoglobin (mass per erythrocyte) 33 pg 25-34 Automated erythrocyte mean corpuscular hemoglobin concentration measurement ( mass/volume) 38 g/dL 32-36 Automated erythrocyte distribution width ratio 12.1 % 10.0-14.5 Automated blood platelet count (count/volume) 194 10*3/uL 130-400 Automated blood platelet mean volume measurement 9.2 [foz_us] 7.4-10.4 Comprehensive metabolic panel - 07/16/18 16:22 Serum or plasma sodium measurement (moles/volume) 118 mmol/L 135-145 Serum or plasma potassium measurement (moles/volume) 2.8 mmol/L 3.6-5.0 Serum or plasma chloride measurement (moles/volume) 84 mmol/L 98-107 Carbon dioxide 25 mmol/L 21-32 Serum or plasma anion gap determination (moles/volume) 9 mmol/L 5-14 Serum or plasma urea nitrogen measurement (mass/volume) 6 mg/dL 7-18 Serum or plasma creatinine measurement (mass/volume) 0.66 mg/dL 0.60-1.30 Serum or plasma urea nitrogen/creatinine mass ratio 9 NRG Serum or plasma creatinine measurement with calculation of estimated glomerular filtration rate > NRG Serum or plasma glucose measurement (mass/volume) 113 mg/dL 70-105 Serum or plasma calcium measurement (mass/volume) 8.9 mg/dL 8.5-10.1 Serum or plasma total bilirubin measurement (mass/volume) 0.3 mg/dL 0.1-1.0 Serum or plasma alkaline phosphatase measurement (enzymatic activity/volume) 122 U/L 40-136 Serum or plasma aspartate aminotransferase measurement (enzymatic activity/ volume) 85 U/L 5-34 Serum or plasma alanine aminotransferase measurement (enzymatic activity/volume ) 76 U/L 0-55 Serum or plasma protein measurement (mass/volume) 6.1 g/dL 6.4-8.2 Serum or plasma albumin measurement (mass/volume) 3.7 g/dL 3.2-4.5 CALCIUM CORRECTED 9.1 mg/dL 8.5-10.1 PT panel in platelet poor plasma by coagulation assay - 07/16/18 16:22 Prothrombin time (PT) in platelet poor plasma by coagulation assay 14.9 s 12.2-14.7 INR in platelet poor plasma or blood by coagulation assay 1.2 0.8-1.4 Activated partial thromboplastin time (aPTT) in platelet poor plasma bycoagulation assay - 07/16/18 16:22 Activated partial thromboplastin time (aPTT) in platelet poor plasma bycoagulation assay 27 s 24-35 Influenza virus A and B antigen detection - 07/16/18 16:27 FLU RESULT NEGATIVE FOR INFLUENZA A AND B ANTIGENS BY IA NR Complete urinalysis with reflex to culture - 07/16/18 21:30 Urine color determination YELLOW NRG Urine clarity determination SLIGHTLY CLOUDY NRG Urine pH measurement by test strip 6 5-9 Specific gravity of urine by test strip 1.015 1.016- 1.022 Urine protein assay by test strip, semi-quantitative 2+ NEGATIVE Urine glucose detection by automated test strip NEGATIVE NEGATIVE Erythrocytes detection in urine sediment by light microscopy 1+ NEGATIVE Urine ketones detection by automated test strip 1+ NEGATIVE Urine nitrite detection by test strip NEGATIVE NEGATIVE Urine total bilirubin detection by test strip NEGATIVE NEGATIVE Urine urobilinogen measurement by automated test strip (mass/volume) NORMAL NORMAL Urine leukocyte esterase detection by dipstick 3+ NEGATIVE Automated urine sediment erythrocyte count by microscopy (number/high power field) [HPF] NRG Automated urine sediment leukocyte count by microscopy (number/high power field ) TNTC NRG Bacteria detection in urine sediment by light microscopy LARGE NRG Squamous epithelial cells detection in urine sediment by light microscopy 10-25 NRG Crystals detection in urine sediment by light microscopy NONE NRG Casts detection in urine sediment by light microscopy NONE NRG Mucus detection in urine sediment by light microscopy NEGATIVE NRG Complete urinalysis with reflex to culture YES NRG Bacterial urine culture - 07/16/18 21:30 Bacterial urine culture [id number] NRG COLONY COUNT >100,000/ML NRG FTX;REPORTABLE STREPTOCOCCUS VIRIDANS GROUP NRG FREE TEXT ENTRY 2 ID REPORTED 07/18/18 11:05 NRG Complete blood count (CBC) with automated white blood cell (WBC) differential - 07/17/18 05:14 Blood leukocytes automated count (number/volume) 6.8 10*3/uL 4.3-11.0 Blood erythrocytes automated count (number/volume) 3.84 10*6/uL 4.35-5.85 Venous blood hemoglobin measurement (mass/volume) 12.2 g/dL 11.5-16.0 Blood hematocrit (volume fraction) 33 % 35-52 Automated erythrocyte mean corpuscular volume 87 [foz_us] 80-99 Automated erythrocyte mean corpuscular hemoglobin (mass per erythrocyte) 32 pg 25-34 Automated erythrocyte mean corpuscular hemoglobin concentration measurement ( mass/volume) 37 g/dL 32-36 Automated erythrocyte distribution width ratio 12.1 % 10.0-14.5 Automated blood platelet count (count/volume) 193 10*3/uL 130-400 Automated blood platelet mean volume measurement 9.2 [foz_us] 7.4-10.4 Automated blood neutrophils/100 leukocytes 66 % 42-75 Automated blood lymphocytes/100 leukocytes 17 % 12-44 Blood monocytes/100 leukocytes 16 % 0-12 Automated blood eosinophils/100 leukocytes 0 % 0-10 Automated blood basophils/100 leukocytes 0 % 0-10 Blood neutrophils automated count (number/volume) 4.5 10*3 1.8-7.8 Blood lymphocytes automated count (number/volume) 1.1 10*3 1.0-4.0 Blood monocytes automated count (number/volume) 1.1 10*3 0.0-1.0 Automated eosinophil count 0.0 10*3/uL 0.0-0.3 Automated blood basophil count (count/volume) 0.0 10*3/uL 0.0-0.1 Comprehensive metabolic panel - 07/17/18 05:44 Serum or plasma sodium measurement (moles/volume) 121 mmol/L 135-145 Serum or plasma potassium measurement (moles/volume) 3.1 mmol/L 3.6-5.0 Serum or plasma chloride measurement (moles/volume) 90 mmol/L 98-107 Carbon dioxide 23 mmol/L 21-32 Serum or plasma anion gap determination (moles/volume) 8 mmol/L 5-14 Serum or plasma urea nitrogen measurement (mass/volume) 4 mg/dL 7-18 Serum or plasma creatinine measurement (mass/volume) 0.48 mg/dL 0.60-1.30 Serum or plasma urea nitrogen/creatinine mass ratio 8 NRG Serum or plasma creatinine measurement with calculation of estimated glomerular filtration rate > NRG Serum or plasma glucose measurement (mass/volume) 99 mg/dL 70-105 Serum or plasma calcium measurement (mass/volume) 8.3 mg/dL 8.5-10.1 Serum or plasma total bilirubin measurement (mass/volume) 0.3 mg/dL 0.1-1.0 Serum or plasma alkaline phosphatase measurement (enzymatic activity/volume) 120 U/L 40-136 Serum or plasma aspartate aminotransferase measurement (enzymatic activity/ volume) 86 U/L 5-34 Serum or plasma alanine aminotransferase measurement (enzymatic activity/volume ) 76 U/L 0-55 Serum or plasma protein measurement (mass/volume) 5.6 g/dL 6.4-8.2 Serum or plasma albumin measurement (mass/volume) 3.4 g/dL 3.2-4.5 CALCIUM CORRECTED 8.8 mg/dL 8.5-10.1 Magnesium - 07/17/18 05:44 Magnesium 1.5 mg/dL 1.8-2.4 Complete blood count (CBC) with automated white blood cell (WBC) differential - 07/18/18 05:15 Blood leukocytes automated count (number/volume) 7.0 10*3/uL 4.3-11.0 Blood erythrocytes automated count (number/volume) 3.57 10*6/uL 4.35-5.85 Venous blood hemoglobin measurement (mass/volume) 11.1 g/dL 11.5-16.0 Blood hematocrit (volume fraction) 31 % 35-52 Automated erythrocyte mean corpuscular volume 88 [foz_us] 80-99 Automated erythrocyte mean corpuscular hemoglobin (mass per erythrocyte) 31 pg 25-34 Automated erythrocyte mean corpuscular hemoglobin concentration measurement ( mass/volume) 36 g/dL 32-36 Automated erythrocyte distribution width ratio 12.0 % 10.0-14.5 Automated blood platelet count (count/volume) 171 10*3/uL 130-400 Automated blood platelet mean volume measurement 9.7 [foz_us] 7.4-10.4 Automated blood neutrophils/100 leukocytes 69 % 42-75 Automated blood lymphocytes/100 leukocytes 16 % 12-44 Blood monocytes/100 leukocytes 14 % 0-12 Automated blood eosinophils/100 leukocytes 1 % 0-10 Automated blood basophils/100 leukocytes 0 % 0-10 Blood neutrophils automated count (number/volume) 4.8 10*3 1.8-7.8 Blood lymphocytes automated count (number/volume) 1.1 10*3 1.0-4.0 Blood monocytes automated count (number/volume) 1.0 10*3 0.0-1.0 Automated eosinophil count 0.1 10*3/uL 0.0-0.3 Automated blood basophil count (count/volume) 0.0 10*3/uL 0.0-0.1 Comprehensive metabolic panel - 07/18/18 05:15 Serum or plasma sodium measurement (moles/volume) 122 mmol/L 135-145 Serum or plasma potassium measurement (moles/volume) 3.0 mmol/L 3.6-5.0 Serum or plasma chloride measurement (moles/volume) 92 mmol/L 98-107 Carbon dioxide 23 mmol/L 21-32 Serum or plasma anion gap determination (moles/volume) 7 mmol/L 5-14 Serum or plasma urea nitrogen measurement (mass/volume) 4 mg/dL 7-18 Serum or plasma creatinine measurement (mass/volume) 0.42 mg/dL 0.60-1.30 Serum or plasma urea nitrogen/creatinine mass ratio 10 NRG Serum or plasma creatinine measurement with calculation of estimated glomerular filtration rate > NRG Serum or plasma glucose measurement (mass/volume) 91 mg/dL 70-105 Serum or plasma calcium measurement (mass/volume) 7.7 mg/dL 8.5-10.1 Serum or plasma total bilirubin measurement (mass/volume) 0.3 mg/dL 0.1-1.0 Serum or plasma alkaline phosphatase measurement (enzymatic activity/volume) 107 U/L 40-136 Serum or plasma aspartate aminotransferase measurement (enzymatic activity/ volume) 65 U/L 5-34 Serum or plasma alanine aminotransferase measurement (enzymatic activity/volume ) 60 U/L 0-55 Serum or plasma protein measurement (mass/volume) 4.9 g/dL 6.4-8.2 Serum or plasma albumin measurement (mass/volume) 3.0 g/dL 3.2-4.5 CALCIUM CORRECTED 8.5 mg/dL 8.5-10.1 Magnesium - 07/18/18 05:15 Magnesium 1.3 mg/dL 1.8-2.4 Complete blood count (CBC) with automated white blood cell (WBC) differential - 07/19/18 05:12 Blood leukocytes automated count (number/volume) 7.0 10*3/uL 4.3-11.0 Blood erythrocytes automated count (number/volume) 3.60 10*6/uL 4.35-5.85 Venous blood hemoglobin measurement (mass/volume) 11.5 g/dL 11.5-16.0 Blood hematocrit (volume fraction) 32 % 35-52 Automated erythrocyte mean corpuscular volume 88 [foz_us] 80-99 Automated erythrocyte mean corpuscular hemoglobin (mass per erythrocyte) 32 pg 25-34 Automated erythrocyte mean corpuscular hemoglobin concentration measurement ( mass/volume) 36 g/dL 32-36 Automated erythrocyte distribution width ratio 12.4 % 10.0-14.5 Automated blood platelet count (count/volume) 175 10*3/uL 130-400 Automated blood platelet mean volume measurement 9.9 [foz_us] 7.4-10.4 Automated blood neutrophils/100 leukocytes 71 % 42-75 Automated blood lymphocytes/100 leukocytes 15 % 12-44 Blood monocytes/100 leukocytes 13 % 0-12 Automated blood eosinophils/100 leukocytes 1 % 0-10 Automated blood basophils/100 leukocytes 0 % 0-10 Blood neutrophils automated count (number/volume) 5.0 10*3 1.8-7.8 Blood lymphocytes automated count (number/volume) 1.1 10*3 1.0-4.0 Blood monocytes automated count (number/volume) 0.9 10*3 0.0-1.0 Automated eosinophil count 0.1 10*3/uL 0.0-0.3 Automated blood basophil count (count/volume) 0.0 10*3/uL 0.0-0.1 Comprehensive metabolic panel - 07/19/18 05:12 Serum or plasma sodium measurement (moles/volume) 121 mmol/L 135-145 Serum or plasma potassium measurement (moles/volume) 2.9 mmol/L 3.6-5.0 Serum or plasma chloride measurement (moles/volume) 90 mmol/L 98-107 Carbon dioxide 23 mmol/L 21-32 [...] 70-105 Serum or plasma calcium measurement (mass/volume) 7.7 mg/dL 8.5-10.1 Serum or plasma total bilirubin measurement (mass/volume) 0.3 mg/dL 0.1-1.0 Serum or plasma alkaline phosphatase measurement (enzymatic activity/volume) 124 U/L 40-136 Serum or plasma aspartate aminotransferase measurement (enzymatic activity/ volume) 63 U/L 5-34 Serum or plasma alanine aminotransferase measurement (enzymatic activity/volume ) 60 U/L 0-55 Serum or plasma protein measurement (mass/volume) 5.0 g/dL 6.4-8.2 Serum or plasma albumin measurement (mass/volume) 3.0 g/dL 3.2-4.5 CALCIUM CORRECTED 8.5 mg/dL 8.5-10.1 Magnesium - 07/19/18 05:12 Magnesium 1.6 mg/dL 1.8-2.4 Serum or plasma lithium measurement (moles/volume) - 07/19/18 05:12 BNP level 673.0 pg/mL <100.0 Complete urinalysis with reflex to culture - 07/19/18 06:55 Urine color determination YELLOW NRG Urine clarity determination CLEAR NRG Urine pH measurement by test strip 7 5-9 Specific gravity of urine by test strip 1.010 1.016- 1.022 Urine protein assay by test strip, semi-quantitative 1+ NEGATIVE Urine glucose detection by automated test strip NEGATIVE NEGATIVE Erythrocytes detection in urine sediment by light microscopy NEGATIVE NEGATIVE Urine ketones detection by automated test strip NEGATIVE NEGATIVE Urine nitrite detection by test strip NEGATIVE NEGATIVE Urine total bilirubin detection by test strip NEGATIVE NEGATIVE Urine urobilinogen measurement by automated test strip (mass/volume) NORMAL NORMAL Urine leukocyte esterase detection by dipstick NEGATIVE NEGATIVE Automated urine sediment erythrocyte count by microscopy (number/high power field) NONE NRG Automated urine sediment leukocyte count by microscopy (number/high power field ) [HPF] NRG Bacteria detection in urine sediment by light microscopy TRACE NRG Squamous epithelial cells detection in urine sediment by light microscopy 5-10 NRG Crystals detection in urine sediment by light microscopy NONE NRG Casts detection in urine sediment by light microscopy NONE NRG Mucus detection in urine sediment by light microscopy NEGATIVE NRG Complete urinalysis with reflex to culture NO NRG Serum or plasma phosphate measurement (mass/volume) - 07/19/18 08:28 Serum or plasma phosphate measurement (mass/volume) 1.1 mg/dL 2.3-4.7 Automated blood complete blood count (hemogram) panel - 07/19/18 11:35 Blood leukocytes automated count (number/volume) 8.1 10*3/uL 4.3-11.0 Blood erythrocytes automated count (number/volume) 3.58 10*6/uL 4.35-5.85 Venous blood hemoglobin measurement (mass/volume) 11.3 g/dL 11.5-16.0 Blood hematocrit (volume fraction) 32 % 35-52 Automated erythrocyte mean corpuscular volume 88 [foz_us] 80-99 Automated erythrocyte mean corpuscular hemoglobin (mass per erythrocyte) 32 pg 25-34 Automated erythrocyte mean corpuscular hemoglobin concentration measurement ( mass/volume) 36 g/dL 32-36 Automated erythrocyte distribution width ratio 12.5 % 10.0-14.5 Automated blood platelet count (count/volume) 168 10*3/uL 130-400 Automated blood platelet mean volume measurement 9.4 [foz_us] 7.4-10.4 Comprehensive metabolic panel - 07/19/18 11:35 Serum or plasma sodium measurement (moles/volume) 121 mmol/L 135-145 Serum or plasma potassium measurement (moles/volume) 3.5 mmol/L 3.6-5.0 Serum or plasma chloride measurement (moles/volume) 91 mmol/L 98-107 Carbon dioxide 24 mmol/L 21-32 Serum or plasma anion gap determination (moles/volume) 6 mmol/L 5-14 Serum or plasma urea nitrogen measurement (mass/volume) 3 mg/dL 7-18 Serum or plasma creatinine measurement (mass/volume) 0.58 mg/dL 0.60-1.30 Serum or plasma urea nitrogen/creatinine mass ratio 5 NRG Serum or plasma creatinine measurement with calculation of estimated glomerular filtration rate > NRG Serum or plasma glucose measurement (mass/volume) 144 mg/dL 70-105 Serum or plasma calcium measurement (mass/volume) 7.6 mg/dL 8.5-10.1 Serum or plasma total bilirubin measurement (mass/volume) 0.2 mg/dL 0.1-1.0 Serum or plasma alkaline phosphatase measurement (enzymatic activity/volume) 126 U/L 40-136 Serum or plasma aspartate aminotransferase measurement (enzymatic activity/ volume) 67 U/L 5-34 Serum or plasma alanine aminotransferase measurement (enzymatic activity/volume ) 63 U/L 0-55 Serum or plasma protein measurement (mass/volume) 5.3 g/dL 6.4-8.2 Serum or plasma albumin measurement (mass/volume) 3.1 g/dL 3.2-4.5 CALCIUM CORRECTED 8.3 mg/dL 8.5-10.1 Serum or plasma phosphate measurement (mass/volume) - 07/19/18 11:35 Serum or plasma phosphate measurement (mass/volume) 0.8 mg/dL 2.3-4.7 Magnesium - 07/19/18 11:35 Magnesium 2.7 mg/dL 1.8-2.4 Complete blood count (CBC) with automated white blood cell (WBC) differential - 07/20/18 07:30 Blood leukocytes automated count (number/volume) 8.2 10*3/uL 4.3-11.0 Blood erythrocytes automated count (number/volume) 3.49 10*6/uL 4.35-5.85 Venous blood hemoglobin measurement (mass/volume) 11.2 g/dL 11.5-16.0 Blood hematocrit (volume fraction) 31 % 35-52 Automated erythrocyte mean corpuscular volume 89 [foz_us] 80-99 Automated erythrocyte mean corpuscular hemoglobin (mass per erythrocyte) 32 pg 25-34 Automated erythrocyte mean corpuscular hemoglobin concentration measurement ( mass/volume) 36 g/dL 32-36 Automated erythrocyte distribution width ratio 12.7 % 10.0-14.5 Automated blood platelet count (count/volume) 154 10*3/uL 130-400 Automated blood platelet mean volume measurement 9.8 [foz_us] 7.4-10.4 Automated blood neutrophils/100 leukocytes 78 % 42-75 Automated blood lymphocytes/100 leukocytes 11 % 12-44 Blood monocytes/100 leukocytes 10 % 0-12 Automated blood eosinophils/100 leukocytes 1 % 0-10 Automated blood basophils/100 leukocytes 0 % 0-10 Blood neutrophils automated count (number/volume) 6.4 10*3 1.8-7.8 Blood lymphocytes automated count (number/volume) 0.9 10*3 1.0-4.0 Blood monocytes automated count (number/volume) 0.8 10*3 0.0-1.0 Automated eosinophil count 0.0 10*3/uL 0.0-0.3 Automated blood basophil count (count/volume) 0.0 10*3/uL 0.0-0.1 Serum or plasma phosphate measurement (mass/volume) - 07/20/18 07:30 Serum or plasma phosphate measurement (mass/volume) 1.4 mg/dL 2.3-4.7 Comprehensive metabolic panel - 07/20/18 07:30 Serum or plasma sodium measurement (moles/volume) 124 mmol/L 135-145 Serum or plasma potassium measurement (moles/volume) 3.3 mmol/L 3.6-5.0 Serum or plasma chloride measurement (moles/volume) 93 mmol/L 98-107 Carbon dioxide 23 mmol/L 21-32 Serum or plasma anion gap determination (moles/volume) 8 mmol/L 5-14 Serum or plasma urea nitrogen measurement (mass/volume) 2 mg/dL 7-18 Serum or plasma creatinine measurement (mass/volume) 0.43 mg/dL 0.60-1.30 Serum or plasma urea nitrogen/creatinine mass ratio 5 NRG Serum or plasma creatinine measurement with calculation of estimated glomerular filtration rate > NRG Serum or plasma glucose measurement (mass/volume) 88 mg/dL 70-105 Serum or plasma calcium measurement (mass/volume) 7.8 mg/dL 8.5-10.1 Serum or plasma total bilirubin measurement (mass/volume) 0.3 mg/dL 0.1-1.0 Serum or plasma alkaline phosphatase measurement (enzymatic activity/volume) 133 U/L 40-136 Serum or plasma aspartate aminotransferase measurement (enzymatic activity/ volume) 65 U/L 5-34 Serum or plasma alanine aminotransferase measurement (enzymatic activity/volume ) 62 U/L 0-55 Serum or plasma protein measurement (mass/volume) 5.1 g/dL 6.4-8.2 Serum or plasma albumin measurement (mass/volume) 2.9 g/dL 3.2-4.5 CALCIUM CORRECTED 8.7 mg/dL 8.5-10.1 Magnesium - 07/20/18 07:30 Magnesium 1.7 mg/dL 1.8-2.4 Whole blood basic metabolic panel - 07/20/18 14:42 Serum or plasma sodium measurement (moles/volume) 125 mmol/L 135-145 Serum or plasma potassium measurement (moles/volume) 4.4 mmol/L 3.6-5.0 Serum or plasma chloride measurement (moles/volume) 94 mmol/L 98-107 Carbon dioxide 22 mmol/L 21-32 [...] NRG Serum or plasma glucose measurement (mass/volume) 107 mg/dL 70-105 Serum or plasma calcium measurement (mass/volume) 7.6 mg/dL 8.5-10.1 Serum or plasma phosphate measurement (mass/volume) - 07/20/18 14:42 Serum or plasma phosphate measurement (mass/volume) 3.0 mg/dL 2.3-4.7 Magnesium - 07/20/18 14:42 Magnesium 2.4 mg/dL 1.8-2.4 Complete blood count (CBC) with automated white blood cell (WBC) differential - 07/21/18 06:39 Blood leukocytes automated count (number/volume) 7.5 10*3/uL 4.3-11.0 Blood erythrocytes automated count (number/volume) 3.81 10*6/uL 4.35-5.85 Venous blood hemoglobin measurement (mass/volume) 12.0 g/dL 11.5-16.0 Blood hematocrit (volume fraction) 34 % 35-52 Automated erythrocyte mean corpuscular volume 89 [foz_us] 80-99 Automated erythrocyte mean corpuscular hemoglobin (mass per erythrocyte) 32 pg 25-34 Automated erythrocyte mean corpuscular hemoglobin concentration measurement ( mass/volume) 35 g/dL 32-36 Automated erythrocyte distribution width ratio 12.6 % 10.0-14.5 Automated blood platelet count (count/volume) 149 10*3/uL 130-400 Automated blood platelet mean volume measurement 9.6 [foz_us] 7.4-10.4 Automated blood neutrophils/100 leukocytes 73 % 42-75 Automated blood lymphocytes/100 leukocytes 15 % 12-44 Blood monocytes/100 leukocytes 10 % 0-12 Automated blood eosinophils/100 leukocytes 1 % 0-10 Automated blood basophils/100 leukocytes 1 % 0-10 Blood neutrophils automated count (number/volume) 5.5 10*3 1.8-7.8 Blood lymphocytes automated count (number/volume) 1.1 10*3 1.0-4.0 Blood monocytes automated count (number/volume) 0.8 10*3 0.0-1.0 Automated eosinophil count 0.1 10*3/uL 0.0-0.3 Automated blood basophil count (count/volume) 0.0 10*3/uL 0.0-0.1 Comprehensive metabolic panel - 07/21/18 06:39 Serum or plasma sodium measurement (moles/volume) 124 mmol/L 135-145 Serum or plasma potassium measurement (moles/volume) 4.1 mmol/L 3.6-5.0 Serum or plasma chloride measurement (moles/volume) 95 mmol/L 98-107 Carbon dioxide 22 mmol/L 21-32 Serum or plasma anion gap determination (moles/volume) 7 mmol/L 5-14 Serum or plasma urea nitrogen measurement (mass/volume) 2 mg/dL 7-18 Serum or plasma creatinine measurement (mass/volume) 0.49 mg/dL 0.60-1.30 Serum or plasma urea nitrogen/creatinine mass ratio 4 NRG Serum or plasma creatinine measurement with calculation of estimated glomerular filtration rate > NRG Serum or plasma glucose measurement (mass/volume) 86 mg/dL 70-105 Serum or plasma calcium measurement (mass/volume) 8.4 mg/dL 8.5-10.1 Serum or plasma total bilirubin measurement (mass/volume) 0.4 mg/dL 0.1-1.0 Serum or plasma alkaline phosphatase measurement (enzymatic activity/volume) 161 U/L 40-136 Serum or plasma aspartate aminotransferase measurement (enzymatic activity/ volume) 79 U/L 5-34 Serum or plasma alanine aminotransferase measurement (enzymatic activity/volume ) 71 U/L 0-55 Serum or plasma protein measurement (mass/volume) 5.6 g/dL 6.4-8.2 Serum or plasma albumin measurement (mass/volume) 3.2 g/dL 3.2-4.5 CALCIUM CORRECTED 9.0 mg/dL 8.5-10.1 Serum or plasma phosphate measurement (mass/volume) - 07/21/18 06:39 Serum or plasma phosphate measurement (mass/volume) 1.2 mg/dL 2.3-4.7 Magnesium - 07/21/18 06:39 Magnesium 1.7 mg/dL 1.8-2.4 Complete blood count (CBC) with automated white blood cell (WBC) differential - 07/22/18 07:12 Blood leukocytes automated count (number/volume) 8.2 10*3/uL 4.3-11.0 Blood erythrocytes automated count (number/volume) 3.33 10*6/uL 4.35-5.85 Venous blood hemoglobin measurement (mass/volume) 10.8 g/dL 11.5-16.0 Blood hematocrit (volume fraction) 30 % 35-52 Automated erythrocyte mean corpuscular volume 90 [foz_us] 80-99 Automated erythrocyte mean corpuscular hemoglobin (mass per erythrocyte) 32 pg 25-34 Automated erythrocyte mean corpuscular hemoglobin concentration measurement ( mass/volume) 36 g/dL 32-36 Automated erythrocyte distribution width ratio 12.9 % 10.0-14.5 Automated blood platelet count (count/volume) 124 10*3/uL 130-400 Automated blood platelet mean volume measurement 9.9 [foz_us] 7.4-10.4 Automated blood neutrophils/100 leukocytes 73 % 42-75 Automated blood lymphocytes/100 leukocytes 14 % 12-44 Blood monocytes/100 leukocytes 11 % 0-12 Automated blood eosinophils/100 leukocytes 1 % 0-10 Automated blood basophils/100 leukocytes 1 % 0-10 Blood neutrophils automated count (number/volume) 6.0 10*3 1.8-7.8 Blood lymphocytes automated count (number/volume) 1.2 10*3 1.0-4.0 Blood monocytes automated count (number/volume) 0.9 10*3 0.0-1.0 Automated eosinophil count 0.1 10*3/uL 0.0-0.3 Automated blood basophil count (count/volume) 0.0 10*3/uL 0.0-0.1 Comprehensive metabolic panel - 07/22/18 07:12 Serum or plasma sodium measurement (moles/volume) 124 mmol/L 135-145 Serum or plasma potassium measurement (moles/volume) 3.7 mmol/L 3.6-5.0 Serum or plasma chloride measurement (moles/volume) 96 mmol/L 98-107 Carbon dioxide 20 mmol/L 21-32 Serum or plasma anion gap determination (moles/volume) 8 mmol/L 5-14 Serum or plasma urea nitrogen measurement (mass/volume) 2 mg/dL 7-18 Serum or plasma creatinine measurement (mass/volume) 0.43 mg/dL 0.60-1.30 Serum or plasma urea nitrogen/creatinine mass ratio 5 NRG Serum or plasma creatinine measurement with calculation of estimated glomerular filtration rate > NRG Serum or plasma glucose measurement (mass/volume) 88 mg/dL 70-105 Serum or plasma calcium measurement (mass/volume) 8.2 mg/dL 8.5-10.1 Serum or plasma total bilirubin measurement (mass/volume) 0.4 mg/dL 0.1-1.0 Serum or plasma alkaline phosphatase measurement (enzymatic activity/volume) 153 U/L 40-136 Serum or plasma aspartate aminotransferase measurement (enzymatic activity/ volume) 66 U/L 5-34 Serum or plasma alanine aminotransferase measurement (enzymatic activity/volume ) 61 U/L 0-55 Serum or plasma protein measurement (mass/volume) 5.2 g/dL 6.4-8.2 Serum or plasma albumin measurement (mass/volume) 2.9 g/dL 3.2-4.5 CALCIUM CORRECTED 9.1 mg/dL 8.5-10.1 Serum or plasma phosphate measurement (mass/volume) - 07/22/18 07:12 Serum or plasma phosphate measurement (mass/volume) 1.2 mg/dL 2.3-4.7 Magnesium - 07/22/18 07:12 Magnesium 1.6 mg/dL 1.8-2.4 Complete blood count (CBC) with automated white blood cell (WBC) differential - 07/23/18 05:22 Blood leukocytes automated count (number/volume) 8.1 10*3/uL 4.3-11.0 Blood erythrocytes automated count (number/volume) 3.44 10*6/uL 4.35-5.85 Venous blood hemoglobin measurement (mass/volume) 10.9 g/dL 11.5-16.0 Blood hematocrit (volume fraction) 31 % 35-52 Automated erythrocyte mean corpuscular volume 90 [foz_us] 80-99 Automated erythrocyte mean corpuscular hemoglobin (mass per erythrocyte) 32 pg 25-34 Automated erythrocyte mean corpuscular hemoglobin concentration measurement ( mass/volume) 35 g/dL 32-36 Automated erythrocyte distribution width ratio 12.7 % 10.0-14.5 Automated blood platelet count (count/volume) 113 10*3/uL 130-400 Automated blood platelet mean volume measurement 10.3 [foz_us] 7.4-10.4 Automated blood neutrophils/100 leukocytes 73 % 42-75 Automated blood lymphocytes/100 leukocytes 15 % 12-44 Blood monocytes/100 leukocytes 11 % 0-12 Automated blood eosinophils/100 leukocytes 1 % 0-10 Automated blood basophils/100 leukocytes 0 % 0-10 Blood neutrophils automated count (number/volume) 5.9 10*3 1.8-7.8 Blood lymphocytes automated count (number/volume) 1.2 10*3 1.0-4.0 Blood monocytes automated count (number/volume) 0.9 10*3 0.0-1.0 Automated eosinophil count 0.1 10*3/uL 0.0-0.3 Automated blood basophil count (count/volume) 0.0 10*3/uL 0.0-0.1 Comprehensive metabolic panel - 07/23/18 05:22 Serum or plasma sodium measurement (moles/volume) 126 mmol/L 135-145 Serum or plasma potassium measurement (moles/volume) 3.6 mmol/L 3.6-5.0 Serum or plasma chloride measurement (moles/volume) 99 mmol/L 98-107 Carbon dioxide 22 mmol/L 21-32 Serum or plasma anion gap determination (moles/volume) 5 mmol/L 5-14 Serum or plasma urea nitrogen measurement (mass/volume) 3 mg/dL 7-18 Serum or plasma creatinine measurement (mass/volume) 0.48 mg/dL 0.60-1.30 Serum or plasma urea nitrogen/creatinine mass ratio 6 NRG Serum or plasma creatinine measurement with calculation of estimated glomerular filtration rate > NRG Serum or plasma glucose measurement (mass/volume) 93 mg/dL 70-105 Serum or plasma calcium measurement (mass/volume) 8.3 mg/dL 8.5-10.1 Serum or plasma total bilirubin measurement (mass/volume) 0.4 mg/dL 0.1-1.0 Serum or plasma alkaline phosphatase measurement (enzymatic activity/volume) 172 U/L 40-136 Serum or plasma aspartate aminotransferase measurement (enzymatic activity/ volume) 67 U/L 5-34 Serum or plasma alanine aminotransferase measurement (enzymatic activity/volume ) 57 U/L 0-55 Serum or plasma protein measurement (mass/volume) 5.4 g/dL 6.4-8.2 Serum or plasma albumin measurement (mass/volume) 3.0 g/dL 3.2-4.5 CALCIUM CORRECTED 9.1 mg/dL 8.5-10.1 Serum or plasma phosphate measurement (mass/volume) - 07/23/18 05:22 Serum or plasma phosphate measurement (mass/volume) 1.3 mg/dL 2.3-4.7 Magnesium - 07/23/18 05:22 Magnesium 1.5 mg/dL 1.8-2.4 Complete blood count (CBC) with automated white blood cell (WBC) differential - 07/24/18 05:30 Blood leukocytes automated count (number/volume) 8.7 10*3/uL 4.3-11.0 Blood erythrocytes automated count (number/volume) 3.47 10*6/uL 4.35-5.85 Venous blood hemoglobin measurement (mass/volume) 10.9 g/dL 11.5-16.0 Blood hematocrit (volume fraction) 31 % 35-52 Automated erythrocyte mean corpuscular volume 90 [foz_us] 80-99 Automated erythrocyte mean corpuscular hemoglobin (mass per erythrocyte) 31 pg 25-34 Automated erythrocyte mean corpuscular hemoglobin concentration measurement ( mass/volume) 35 g/dL 32-36 Automated erythrocyte distribution width ratio 13.2 % 10.0-14.5 Automated blood platelet count (count/volume) 115 10*3/uL 130-400 Automated blood platelet mean volume measurement 9.6 [foz_us] 7.4-10.4 Automated blood neutrophils/100 leukocytes 76 % 42-75 Automated blood lymphocytes/100 leukocytes 12 % 12-44 Blood monocytes/100 leukocytes 11 % 0-12 Automated blood eosinophils/100 leukocytes 1 % 0-10 Automated blood basophils/100 leukocytes 1 % 0-10 Blood neutrophils automated count (number/volume) 6.6 10*3 1.8-7.8 Blood lymphocytes automated count (number/volume) 1.0 10*3 1.0-4.0 Blood monocytes automated count (number/volume) 1.0 10*3 0.0-1.0 Automated eosinophil count 0.1 10*3/uL 0.0-0.3 Automated blood basophil count (count/volume) 0.1 10*3/uL 0.0-0.1 Comprehensive metabolic panel - 07/24/18 05:30 Serum or plasma sodium measurement (moles/volume) 129 mmol/L 135-145 Serum or plasma potassium measurement (moles/volume) 3.5 mmol/L 3.6-5.0 Serum or plasma chloride measurement (moles/volume) 99 mmol/L 98-107 Carbon dioxide 21 mmol/L 21-32 Serum or plasma anion gap determination (moles/volume) 9 mmol/L 5-14 Serum or plasma urea nitrogen measurement (mass/volume) 2 mg/dL 7-18 Serum or plasma creatinine measurement (mass/volume) 0.46 mg/dL 0.60-1.30 Serum or plasma urea nitrogen/creatinine mass ratio 4 NRG Serum or plasma creatinine measurement with calculation of estimated glomerular filtration rate > NRG Serum or plasma glucose measurement (mass/volume) 97 mg/dL 70-105 Serum or plasma calcium measurement (mass/volume) 8.4 mg/dL 8.5-10.1 Serum or plasma total bilirubin measurement (mass/volume) 0.5 mg/dL 0.1-1.0 Serum or plasma alkaline phosphatase measurement (enzymatic activity/volume) 180 U/L 40-136 Serum or plasma aspartate aminotransferase measurement (enzymatic activity/ volume) 80 U/L 5-34 Serum or plasma alanine aminotransferase measurement (enzymatic activity/volume ) 62 U/L 0-55 Serum or plasma protein measurement (mass/volume) 5.7 g/dL 6.4-8.2 Serum or plasma albumin measurement (mass/volume) 3.1 g/dL 3.2-4.5 CALCIUM CORRECTED 9.1 mg/dL 8.5-10.1 Serum or plasma phosphate measurement (mass/volume) - 07/24/18 05:30 Serum or plasma phosphate measurement (mass/volume) 1.4 mg/dL 2.3-4.7 Magnesium - 07/24/18 05:30 Magnesium 1.6 mg/dL 1.8-2.4 Complete blood count (CBC) with automated white blood cell (WBC) differential - 07/25/18 04:00 Blood leukocytes automated count (number/volume) 8.9 10*3/uL 4.3-11.0 Blood erythrocytes automated count (number/volume) 3.48 10*6/uL 4.35-5.85 Venous blood hemoglobin measurement (mass/volume) 10.8 g/dL 11.5-16.0 Blood hematocrit (volume fraction) 31 % 35-52 Automated erythrocyte mean corpuscular volume 90 [foz_us] 80-99 Automated erythrocyte mean corpuscular hemoglobin (mass per erythrocyte) 31 pg 25-34 Automated erythrocyte mean corpuscular hemoglobin concentration measurement ( mass/volume) 34 g/dL 32-36 Automated erythrocyte distribution width ratio 13.2 % 10.0-14.5 Automated blood platelet count (count/volume) 94 10*3/uL 130-400 Automated blood platelet mean volume measurement 9.6 [foz_us] 7.4-10.4 Automated blood neutrophils/100 leukocytes 73 % 42-75 Automated blood lymphocytes/100 leukocytes 13 % 12-44 Blood monocytes/100 leukocytes 13 % 0-12 Automated blood eosinophils/100 leukocytes 1 % 0-10 Automated blood basophils/100 leukocytes 1 % 0-10 Blood neutrophils automated count (number/volume) 6.5 10*3 1.8-7.8 Blood lymphocytes automated count (number/volume) 1.1 10*3 1.0-4.0 Blood monocytes automated count (number/volume) 1.1 10*3 0.0-1.0 Automated eosinophil count 0.1 10*3/uL 0.0-0.3 Automated blood basophil count (count/volume) 0.1 10*3/uL 0.0-0.1 Comprehensive metabolic panel - 07/25/18 04:00 Serum or plasma sodium measurement (moles/volume) 131 mmol/L 135-145 Serum or plasma potassium measurement (moles/volume) 3.2 mmol/L 3.6-5.0 Serum or plasma chloride measurement (moles/volume) 102 mmol/L 98-107 Carbon dioxide 21 mmol/L 21-32 Serum or plasma anion gap determination (moles/volume) 8 mmol/L 5-14 Serum or plasma urea nitrogen measurement (mass/volume) 4 mg/dL 7-18 Serum or plasma creatinine measurement (mass/volume) 0.45 mg/dL 0.60-1.30 Serum or plasma urea nitrogen/creatinine mass ratio 9 NRG Serum or plasma creatinine measurement with calculation of estimated glomerular filtration rate > NRG Serum or plasma glucose measurement (mass/volume) 102 mg/dL 70-105 Serum or plasma calcium measurement (mass/volume) 8.4 mg/dL 8.5-10.1 Serum or plasma total bilirubin measurement (mass/volume) 0.6 mg/dL 0.1-1.0 Serum or plasma alkaline phosphatase measurement (enzymatic activity/volume) 203 U/L 40-136 Serum or plasma aspartate aminotransferase measurement (enzymatic activity/ volume) 90 U/L 5-34 Serum or plasma alanine aminotransferase measurement (enzymatic activity/volume ) 64 U/L 0-55 Serum or plasma protein measurement (mass/volume) 5.6 g/dL 6.4-8.2 Serum or plasma albumin measurement (mass/volume) 3.0 g/dL 3.2-4.5 CALCIUM CORRECTED 9.2 mg/dL 8.5-10.1 Serum or plasma phosphate measurement (mass/volume) - 07/25/18 04:00 Serum or plasma phosphate measurement (mass/volume) 1.2 mg/dL 2.3-4.7 Magnesium - 07/25/18 04:00 Magnesium 1.5 mg/dL 1.8-2.4 Sputum Gram stain - 07/25/18 11:44 Sputum Gram stain columnar epithelial cells NRG Bacteria identification in bronchial specimen by aerobe culture - 07/25/18 11: 44 Bacteria identification in bronchial specimen by aerobe culture NG NRG C FUNGUS SPUTUM FLUID TISSUE - 07/25/18 11:44 FTX;REPORTABLE FINAL REQUIRES 4 WEEKS NRG FUNGUS EXAM CURRENT REPORT: NEGATIVE NRG Mycobacterium species detection by organism specific culture - 07/25/18 11:45 Complete blood count (CBC) with automated white blood cell (WBC) differential - 07/26/18 04:15 Blood leukocytes automated count (number/volume) 11.1 10*3/uL 4.3-11.0 Blood erythrocytes automated count (number/volume) 3.25 10*6/uL 4.35-5.85 Venous blood hemoglobin measurement (mass/volume) 10.3 g/dL 11.5-16.0 Blood hematocrit (volume fraction) 30 % 35-52 Automated erythrocyte mean corpuscular volume 92 [foz_us] 80-99 Automated erythrocyte mean corpuscular hemoglobin (mass per erythrocyte) 32 pg 25-34 Automated erythrocyte mean corpuscular hemoglobin concentration measurement ( mass/volume) 35 g/dL 32-36 Automated erythrocyte distribution width ratio 13.5 % 10.0-14.5 Automated blood platelet count (count/volume) 94 10*3/uL 130-400 Automated blood platelet mean volume measurement 9.2 [foz_us] 7.4-10.4 Automated blood neutrophils/100 leukocytes 80 % 42-75 Automated blood lymphocytes/100 leukocytes 8 % 12-44 Blood monocytes/100 leukocytes 11 % 0-12 Automated blood eosinophils/100 leukocytes 0 % 0-10 Automated blood basophils/100 leukocytes 0 % 0-10 Blood neutrophils automated count (number/volume) 8.9 10*3 1.8-7.8 Blood lymphocytes automated count (number/volume) 0.9 10*3 1.0-4.0 Blood monocytes automated count (number/volume) 1.3 10*3 0.0-1.0 Automated eosinophil count 0.0 10*3/uL 0.0-0.3 Automated blood basophil count (count/volume) 0.0 10*3/uL 0.0-0.1 Comprehensive metabolic panel - 07/26/18 04:15 Serum or plasma sodium measurement (moles/volume) 134 mmol/L 135-145 Serum or plasma potassium measurement (moles/volume) 4.1 mmol/L 3.6-5.0 Serum or plasma chloride measurement (moles/volume) 105 mmol/L 98-107 Carbon dioxide 21 mmol/L 21-32 Serum or plasma anion gap determination (moles/volume) 8 mmol/L 5-14 Serum or plasma urea nitrogen measurement (mass/volume) 6 mg/dL 7-18 Serum or plasma creatinine measurement (mass/volume) 0.57 mg/dL 0.60-1.30 Serum or plasma urea nitrogen/creatinine mass ratio 11 NRG Serum or plasma creatinine measurement with calculation of estimated glomerular filtration rate > NRG Serum or plasma glucose measurement (mass/volume) 153 mg/dL 70-105 Serum or plasma calcium measurement (mass/volume) 8.4 mg/dL 8.5-10.1 Serum or plasma total bilirubin measurement (mass/volume) 0.4 mg/dL 0.1-1.0 Serum or plasma alkaline phosphatase measurement (enzymatic activity/volume) 216 U/L 40-136 Serum or plasma aspartate aminotransferase measurement (enzymatic activity/ volume) 89 U/L 5-34 Serum or plasma alanine aminotransferase measurement (enzymatic activity/volume ) 67 U/L 0-55 Serum or plasma protein measurement (mass/volume) 5.5 g/dL 6.4-8.2 Serum or plasma albumin measurement (mass/volume) 3.0 g/dL 3.2-4.5 CALCIUM CORRECTED 9.2 mg/dL 8.5-10.1 Serum or plasma phosphate measurement (mass/volume) - 07/26/18 04:15 Serum or plasma phosphate measurement (mass/volume) 1.2 mg/dL 2.3-4.7 Magnesium - 07/26/18 04:15 Magnesium 1.9 mg/dL 1.8-2.4 Encounters ACCT No. Visit Date/Time Discharge Status Pt. Type Provider Facility Loc./Unit Complaint [id number] 07/16/2018 15:36:00 07/26/2018 12:05:00 DIS Inpatient ISIDRO IRIZARRY DO [facility] 4TH ELECTROLYTE IMBALANCE , RESP DISTRESS, HYPOKALEMIA [id number] 07/18/2018 13:15:00 07/18/2018 23:59:59 CLS Preadmit ISIDRO IRIZARRY DO [facility] REHAB UNSTEADY GAIT; UNABLE TO WALK ALONE [id number] 07/03/2018 18:32:00 07/09/2018 11:30:00 DIS Outpatient ASIFPARRIS HUTCHINSON ISIDRO Calvillo [facility] 4TH HYPONATREMIA, ELEVATED LIVER TEST [id number] 01/24/2018 14:59:00 01/24/2018 23:59:59 CLS Outpatient NIKI LEWIS FACC, MATTHEW MELTONP CCDS [facility] LAB HYPERLIPIDEMIA ,PAD,CAD [id number] 10/26/2017 10:33:00 10/26/2017 23:59:59 CLS Outpatient JUAN C HUTCHINSON ISIDRO Rajinder [facility] RAD YEARLY [id number] 09/04/2017 07:11:00 09/05/2017 10:50:00 DIS Outpatient NIKI LEWIS FACMartha, MATTHEW FACP CCDS [facility] PAD,HTN,HL, TOBACCO USE [id number] 01/30/2017 07:11:00 01/30/2017 23:59:59 CLS Outpatient NIKI LEWIS FACMartha, MATTHEW MELTONP CCDS [facility] CARD CHEST DISCOMFORT R07.89 [id number] 10/25/2016 10:30:00 10/25/2016 23:59:59 CLS Outpatient ASIFPARRIS HUTCHINSON ISIDRO Calvillo [facility] RAD YEARLY SCREENING [id number] 11/01/2015 10:24:00 11/01/2015 23:59:59 CLS Outpatient JUAN C HUTCHINSON ISIDRO Rajinder [facility] RAD LEFT BREAST HEAVINESS AND FULLNESS [id number] 04/22/2015 11:11:00 04/22/2015 23:59:59 CLS Outpatient JUANA WHEELER [facility] RAD BACK PAIN [id number] 10/22/2014 09:45:00 10/22/2014 23:59:59 CLS Outpatient JUAN C HUTCHINSON ISIDRO Rajinder [facility] RAD SCREENING [id number] 06/04/2014 07:01:00 06/04/2014 15:00:00 DIS Outpatient CHALINO MCDUFFIE MD [facility] CATH CLAUDICATION,PAD, HLP [id number] 05/26/2014 07:04:00 05/26/2014 18:45:00 DIS Outpatient NIKI LEWIS FACCMATTHEW FACP CCDS [facility] CATH ABNORMAL ESAU , CLAUDICATION [id number] 04/20/2014 11:34:00 04/20/2014 23:59:59 CLS Outpatient SARAHTUNDE JUANA Carisa ROMERO [facility] CARD CP,HTN,AFIB [id number] 04/16/2014 12:33:00 04/16/2014 23:59:59 CLS Outpatient JUANA WHEELER Carisa HOSE BUILDER [facility] RAD AFIB,CP,HTN [id number] 10/20/2013 10:30:00 10/20/2013 23:59:59 CLS Outpatient ISIDRO IRIZARRY DO [facility] RAD SCREENING [id number] 10/17/2012 15:11:00 10/17/2012 23:59:59 CLS Outpatient ISIDRO IRIZARRY DO [facility] RAD SCREENING [id number] 10/16/2012 12:26:00 10/16/2012 16:20:00 DIS [facility] [id number] 10/15/2012 08:32:00 10/15/2012 23:59:59 CLS Outpatient REHANA LAMAS MD [facility] PREOP RIGHT WRIST FRACTURE [id number] 10/14/2012 14:41:00 10/14/2012 15:40:00 DIS Emergency CHAY TNOY [facility] ER RING NEEDS TO BE CUT OFF DUE TO INJURY [id number] 10/12/2012 19:55:00 10/12/2012 21:04:00 DIS Emergency SWETHA RUIZ MD [facility] ER FALL; R WRIST INJ [id number] 10/25/2015 10:30:00 Document Registration [id number] 11/02/2014 10:33:00 Document Registration [id number] 11/02/2014 10:33:00 Document Registration [id number] 11/02/2014 10:33:00 Document Registration [id number] 11/02/2014 10:33:00 Document Registration [id number] 11/02/2014 10:33:00 Document Registration [id number] 11/02/2014 10:33:00 Document Registration [id number] 11/02/2014 10:33:00 Document Registration [id number] 04/22/2012 12:56:00 Document Registration [id number] 10/16/2011 11:10:00 Document Registration [id number] 09/05/2011 05:43:00 Document Registration [id number] 09/04/2011 09:30:00 Document Registration [id number] 11/30/2010 12:44:00 Document Registration [id number] 10/14/2010 08:41:00 Document Registration [id number] 09/06/2010 05:35:00 Document Registration [id number] 09/05/2010 07:49:00 Document Registration [id number] 08/22/2010 11:43:00 Document Registration [id number] 05/03/2010 05:49:00 Document Registration
--- NOTE | 2018-07-30 18:44 | NUR ---
[facility] in ED - 07/30/18 at 2056 by [id number] Aryan gallardo pt is a DNR.
[2018-07-30 19:20] LABS: HEMOGLOBIN 11.4 G/DL (11.5-16.0); MEAN PLATELET VOLUME 10.5 FL (7.4-10.4); RED CELL DISTRIBUTION WIDTH 13.1 % (10.0-14.5); WHITE BLOOD COUNT 14.1 10^3/uL (4.3-11.0)
[2018-07-30 19:45] LABS: ALANINE AMINOTRANSFERASE 85 U/L (0-55); ALBUMIN 3.5 GM/DL (3.2-4.5); ALKALINE PHOSPHATASE 319 U/L (40-136); BILIRUBIN,TOTAL 1.9 MG/DL (0.1-1.0); BUN/CREATININE RATIO 17; CALCIUM 9.3 MG/DL (8.5-10.1); CARBON DIOXIDE 24 MMOL/L (21-32); CHLORIDE 85 MMOL/L (98-107); CREATININE SERUM 0.59 MG/DL (0.60-1.30); GFR ESTIMATED > 60; GLUCOSE 127 MG/DL (70-105); MAGNESIUM 1.5 MG/DL (1.8-2.4); POTASSIUM 2.6 MMOL/L (3.6-5.0); TOTAL PROTEIN 6.4 GM/DL (6.4-8.2)
[2018-07-30 19:47] LABS: SODIUM 124 MMOL/L (135-145)
--- NOTE | 2018-07-30 19:56 | Diagnostic Imaging Report ---
INDICATION: Constipation. Rectal bleeding. COMPARISON: 07/25/2018. FINDINGS: PA chest. There is mild obstructive lung disease. There are no acute infiltrates. There has been clearing of the upper lobe infiltrates and pulmonary edema since the previous exam. Heart size has decreased as well. Pleural calcification in the lung apices more prominent on the right is unchanged. Upright and supine abdomen shows no free air. There are no air-fluid levels. A few mildly dilated gas-filled loops of small bowel noted in the mid abdomen. There is stool throughout the colon, though there does not appear to be a large stool volume. There is no evidence of impacted stool in the rectal vault. No pathologic calcifications. There is degenerative lumbosacral spine disease. IMPRESSION: 1. Clearing of infiltrates and decreasing cardiac size since the previous exam. 2. No evidence of impacted stool or constipation. No evidence of bowel obstruction. Dictated by: Dictated on workstation # [id number]
--- NOTE | 2018-07-30 19:59 | ED General ---
General Chief Complaint: Rect Problems Stated Complaint: RECTAL BLEEDING, LOW URINE OUTPUT,DISCOMFORT IN AB Nursing Triage Note: Pt brought to ED by family via wheelchair. Family reports pt has not had a BM in approximately 7 days. Pt reports using an enema this AM and then having rectal bleeding afterward. Pt reports soaking through toilet paper in, underwear and jeans. Family reports pt was just discharged from [facility] a couple of days ago and has had issue with electrolytes. Family reports pt has mass on adrenal gland. Family reports pt's legs began swelling this morning. Family also reports pt has slurred speech. No defecits noted upon assessment. Nursing Sepsis Screen: No Definite Risk Source of Information: Patient, Family, Old Records Exam Limitations: No Limitations History of Present Illness Date Seen by Provider: Jul 30, 2018 Time Seen by Provider: 17:00 Initial Comments This 78-year-old woman presented to the emergency room accompanied by family including her [id number] and niece with multiple complaints. She has had increasing leg swelling in recent days. She also has had bleeding from the rectum after giving herself an enema. She has felt constipated over the past few days and has not had a significant bowel movement in about a week. Family states she has been weaker in recent days and has had some slurring of the speech, although her speech now seems to be fairly normal. She does live at home and gets support from her family. She requires a walker and is now even having trouble walking with a walker. Her urine output has been decreased, and she has not urinated since early this morning. She had a prolonged hospital stay from July 16 through July 26. She had urinary tract infection and pneumonia and was treated with Rocephin and azithromycin. She also had severe electrolyte disturbances during that hospitalization. She had bronchoscopy performed by Dr. Rosales as well. 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 Patient also has a known adrenal mass. Her primary care providers Dr. Irizarry. Her wire chief is Dr. العراقي. Allergies and Home Medications Allergies Coded Allergies: NKANo Known Allergies (Verified Allergy, Unknown, 07/03/18) Home Medications Aspirin 81 Mg Tablet., 81 MG PO HS, (Reported) Calcium Carbonate/Vitamin D3 1 Each Tablet, 1 TAB PO HS, (Reported) Clopidogrel Bisulfate 75 Mg Tablet, 75 MG PO DAILY, (Reported) Diltiazem HCl 180 Mg Cap.er.24h, 180 MG PO DAILY, (Reported) Lisinopril 10 Mg Tablet, 10 MG PO DAILY, (Reported) Magnesium Oxide 400 Mg Tablet, 400 MG PO BIDPC Prescribed by: MICHELLE QUIJANO on 07/26/18 1119 Multivit-Min/FA/Lycopene/Lut 1 Each Tablet, 1 TAB PO DAILY, (Reported) Simvastatin 20 Mg Tablet, 20 MG PO HS, (Reported) Sodium Chloride 1 Gm Tab, 1 GM PO 1500, (Reported) (1GM) TABLET Patient Home Medication List Home Medication List Reviewed: Yes Review of Systems Review of Systems Constitutional: see HPI EENTM: no symptoms reported Respiratory: see HPI Cardiovascular: no symptoms reported Gastrointestinal: see HPI Genitourinary: see HPI : No Musculoskeletal: no symptoms reported Skin: no symptoms reported Psychiatric/Neurological: See HPI Hematologic/Lymphatic: No Symptoms Reported Past Rleslys-Tmamoj-Ptgstp Hx Past Med/Social Hx: Reviewed and Corrections made Patient Social History Alcohol Use: Occasionally Uses Recreational Drug Use: No Smoking Status: Former Smoker Type Used: Cigarettes Recent Foreign Travel: No Contact w/Someone Who Travel: No Recent Infectious Disease Expo: No Recent Hopitalizations: Yes Physical Abuse: No Sexual Abuse: No Immunizations Up To Date Tetanus Booster (TDap): More than 5yrs PED Vaccines UTD: No Date of Pneumonia Vaccine: Jun 07, 2017 Date of Influenza Vaccine: Feb 04, 2018 Past Medical History Surgeries: Yes (pericardial effusion drained,mole removed) Orthopedic, Vascular Surgery (stenting of the lower extremities) Respiratory: No Currently Using CPAP: No Currently Using BIPAP: No Cardiac: Yes Hypertension, Peripheral Vascular Neurological: No : No Reproductive Disorders: No Sexually Transmitted Disease: No Genitourinary: No Gastrointestinal: No Musculoskeletal: Yes (RIGHT WRIST FX, RIGHT SHOULDER PAIN) Endocrine: Yes (severe electrolyte disturbances) HEENT: No Loss of Vision: Denies Hearing Impairment: Denies Cancer: Yes Lung (small cell carcinoma) Did You Recieve Any Treatments: No Psychosocial: No Integumentary: No Blood Disorders: No Family Medical History Reviewed Nursing Family Hx Alzheimer's disease Cardiovascular disease Diabetes mellitus Parkinson's disease Physical Exam Vital Signs Vital Signs - First Documented 07/30/18 18:20 Temp 96.8 Pulse 102 Resp 17 B/P (MAP) 157/66 (96) Pulse Ox 95 O2 Delivery Room Air Capillary Refill : Less Than 3 Seconds Height, Weight, BMI Height: 5'5.50" Weight: 120lbs. 1.0oz. 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 Norm as Tested Skin: Normal Color, Warm/Dry Progress/Results/Core Measures Suspected Sepsis Recent Fever Within 48 Hours: No Infection Criteria Present: None New/Unexplained Altered Menta: No Sepsis Screen: No Definite Risk SIRS Temperature:96.8 Pulse: 102 Respiratory Rate: 17 Laboratory Tests 07/30/18 18:45: White Blood Count 14.1H Blood Pressure 157 /66 Mean: 96 Laboratory Tests 07/30/18 18:45: Creatinine 0.59L, Platelet Count 68L, Total Bilirubin 1.9H Results/Orders Lab Results Laboratory Tests Test 07/30/18 18:45 07/30/18 20:00 Range/Units White Blood Count 14.1 H 4.3-11.0 10^3/uL Red Blood Count 3.64 L 4.35-5.85 10^6/uL Hemoglobin 11.4 L 11.5-16.0 G/DL Hematocrit 32 L 35-52 % Mean Corpuscular Volume 87 80-99 FL Mean Corpuscular Hemoglobin 31 25-34 PG Mean Corpuscular Hemoglobin Concent 36 32-36 G/DL Red Cell Distribution Width 13.1 10.0-14.5 % Platelet Count 68 L 130-400 10^3/uL Mean Platelet Volume 10.5 H 7.4-10.4 FL Sodium Level 124 *L 135-145 MMOL/L Potassium Level 2.6 L 3.6-5.0 MMOL/L Chloride Level 85 L 98-107 MMOL/L Carbon Dioxide Level 24 21-32 MMOL/L Anion Gap 15 H 5-14 MMOL/L Blood Urea Nitrogen 10 7-18 MG/DL Creatinine 0.59 L 0.60-1.30 MG/DL Estimat Glomerular Filtration Rate > 60 BUN/Creatinine Ratio 17 Glucose Level 127 H 70-105 MG/DL Calcium Level 9.3 8.5-10.1 MG/DL Corrected Calcium 9.7 8.5-10.1 MG/DL Magnesium Level 1.5 L 1.8-2.4 MG/DL Total Bilirubin 1.9 H 0.1-1.0 MG/DL Aspartate Amino Transf (AST/SGOT) 151 H 5-34 U/L Alanine Aminotransferase (ALT/SGPT) 85 H 0-55 U/L Alkaline Phosphatase 319 H 40-136 U/L C-Reactive Protein High Sensitivity 4.87 H 0.00-0.50 MG/DL Total Protein 6.4 6.4-8.2 GM/DL Albumin 3.5 3.2-4.5 GM/DL Serum Alcohol < 10 <10 MG/DL Urine Color SEMAJ H Urine Clarity CLEAR Urine pH 6 5-9 Urine Specific [place] 1.010 L 1.016-1.022 Urine Protein 2+ H NEGATIVE Urine Glucose (UA) NEGATIVE NEGATIVE Urine Ketones NEGATIVE NEGATIVE Urine Nitrite NEGATIVE NEGATIVE Urine Bilirubin 1+ H NEGATIVE Urine Urobilinogen 1 NORMAL MG/DL Urine Leukocyte Esterase 1+ H NEGATIVE Urine RBC (Auto) NEGATIVE NEGATIVE Urine RBC NONE /HPF Urine WBC 2-5 /HPF Urine Crystals NONE /LPF Urine Bacteria TRACE /HPF Urine Casts PRESENT /LPF Urine Hyaline Casts 5-10 H /LPF Urine Mucus SMALL H /LPF Urine Culture Indicated NO My Orders Orders - KONRAD JONES MD Alcohol (07/30/18 19:10) Cbc No Diff (07/30/18 19:10) Comprehensive Metabolic Panel (07/30/18 19:10) Magnesium (07/30/18 19:10) Ua Culture If Indicated (07/30/18 19:10) Saline Lock/Iv-Start (07/30/18 19:10) Hs C Reactive Protein (07/30/18 19:37) Acute Abd Series (07/30/18 19:39) Ns Iv 1000 Ml (Sodium Chloride 0.9%) (07/30/18 20:00) Potassium Cl 10meq/50ml Ivpb (Kcl 10 Meq (07/30/18 20:00) Sodium Urine Random (07/30/18 20:16) Medications Given in ED Current Medications Medications Dose Ordered Sig/Jaime Route Start Time Stop Time Status Last Admin Dose Admin Potassium Chloride 50 ml @ 50 mls/hr ONCE ONCE IV 07/30/18 20:00 07/30/18 20:59 DC 07/30/18 20:40 50 MLS/HR Sodium Chloride 1,000 ml @ 150 mls/hr Q6H40M ONCE IV 07/30/18 20:00 07/31/18 02:39 07/30/18 20:40 150 MLS/HR Vital Signs/I&O 07/30/18 18:20 Temp 96.8 Pulse 102 Resp 17 B/P (MAP) 157/66 (96) Pulse Ox 95 O2 Delivery Room Air Capillary Refill : Less Than 3 Seconds Blood Pressure Mean: 96 Progress Note : Progress Note Patient's rectal bleeding was evaluated with a rectal exam. She had a small tear just inside the rectal wall that was visible with external exam. It had stopped bleeding. I suspect this was trauma related to insertion of the enema tip. Antibiotic ointment was applied. Lab workup revealed significant electrolyte disturbances. Replacement of potassium and sodium was started in the ER. Review of chart notes a pathology result of suspected small cell carcinoma on the bronchoscopy washing performed last week. I discussed the case with Dr. Irizarry. Admission was agreed upon with consult to Dr. Rosales. Patient and family were not yet aware of the carcinoma diagnosis. I explained the pathology report to them and answered questions. Method of electrolyte replacement was discussed with Dr. Rosales. He would also like a phosphorus checked in the morning. Patient was concerned about possible constipation. However, no constipation was evident on her x-rays. Diagnostic Imaging Diagonstic Imaging: Xray Plain Films/CT/US/NM/MRI: chest Comments Acute abdominal series viewed by me and report reviewed. See report below: Departure Communication (Admissions) Time/Spoke to Admitting Phy: 20:40 Dr. Irizarry Time/Spoke to Consulting Phy: 20:55 Dr. Rosales Impression Primary Impression: Hypokalemia Additional Impressions: Hypomagnesemia Hyponatremia Small cell lung cancer Rectal bleeding Rectal trauma Qualified Codes: S36.60XA - Unspecified injury of rectum, initial encounter Generalized weakness Disposition: ADMITTED INPATIENT Condition: Improved Admissions Decision to Admit Reason: Admit from ER (General) Decision to Admit/Date: Jul 30, 2018 Time/Decision to Admit Time: 19:55 Departure-Patient Inst. Referrals: ISIDRO IRIZARRY DO (PCP/Family) Primary Care Physician KONRAD JONES MD Jul 30, 2018 19:59
[2018-07-30] MEDS ORDERED: POTASSIUM CL 10MEQ/50ML IVPB 50 ML IV ONE (20:00)
[2018-07-30] MEDS ORDERED: NS IV 1000 ML 1,000 ML IV ONE (20:00)
[2018-07-30 20:30] LABS: GLUCOSE, URINE (UA) NEGATIVE (NEGATIVE); KETONES,URINE NEGATIVE (NEGATIVE); LEUKOCYTE ESTERASE ,URINE 1+ (NEGATIVE); NITRITE,URINE NEGATIVE (NEGATIVE); PH,URINE 6 (5-9); PROTEIN,URINE 2+ (NEGATIVE); UROBILINOGEN,URINE 1 MG/DL (NORMAL)
[2018-07-30 20:31] LABS: CLARITY,URINE CLEAR; COLOR,URINE AMBER
[2018-07-30 20:39] LABS: BILIRUBIN,URINE 1+ (NEGATIVE)
[2018-07-30 20:48] LABS: BACTERIA,URINE TRACE /HPF
--- OUTSIDE RECORDS SUMMARY | 2018-07-30 21:22 | XMS REPORT | Continuity of Care Document ---
Author Author [facility] Organization [facility] Address Unknown Phone Unavailable Allergies Active [...] 427.31 ATRIAL FIBRILLATION 09/05/2011 Ot 440.21 ATHEROSCL [place] ARTER EXTREM W INTERMIT 09/05/2011 Ot V45.89 [...] TRIPPING, OR STUMBLI 04/25/2014 BAIMA, JUANA L SERVICE ATTENDANT Ot 401.9 04/25/2014 BAIMA, JUANA L SERVICE ATTENDANT Ot 427.31 04/25/2014 BAIMA, JUANA L SERVICE ATTENDANT Ot 443.9 04/25/2014 BAIMA, JUANA L SERVICE ATTENDANT Ot 786.50 04/25/2014 BAIMA, JUANA L SERVICE ATTENDANT Ot 401.9 04/25/2014 BAIMA, JUANA L SERVICE ATTENDANT Ot 427.31 04/25/2014 BAIMA, JUANA L SERVICE ATTENDANT Ot 443.9 04/25/2014 BAIMA, JUANA L SERVICE ATTENDANT Ot 786.50 05/11/2014 BAIMA, JUANA L SERVICE ATTENDANT Ot 401.9 05/11/2014 BAIMA, JUANA L SERVICE ATTENDANT Ot 427.31 05/11/2014 BAIMA, JUANA L SERVICE ATTENDANT Ot 443.9 05/11/2014 BAIMA, JUANA L SERVICE ATTENDANT Ot 786.50 05/13/2014 BAIMA, JUANA L SERVICE ATTENDANT Ot 401.9 05/13/2014 BAIMA, JUANA L SERVICE ATTENDANT Ot 427.31 05/13/2014 BAIMA, JUANA L SERVICE ATTENDANT Ot 786.50 05/26/2014 NIKI LEWIS FACC, MATTHEW MELTONP CCDS Ot 272.4 HYPERLIPIDEMIA NEC/NOS 05/26/2014 NIKI LEWIS FACC, MATTHEW FACP CCDS Ot 401.9 HYPERTENSION NOS 05/26/2014 NIKI LEWIS FACC, MATTHEW FACP CCDS Ot 433.10 CAROTID ARTERY OCCLUSION W O CEREBRAL IN 05/26/2014 NIKI LEWIS FACC, MATTHEW FACP CCDS Ot 440.21 ATHEROSCL [place] ARTER EXTREM W INTERMIT 05/26/2014 NIKI LEWIS [...] 06/04/2014 CHALINO MCDUFFIE MD Ot 440.20 ATHEROSCLEROSIS [place] ARTERIES EXTREMIT 06/04/2014 CHALINO MCDUFFIE MD Ot [...] DO Ot V76.12 11/02/2014 SUMMER, JUANA L SERVICE ATTENDANT Ot 401.9 11/02/2014 BAIMA, JUANA L SERVICE ATTENDANT Ot 427.31 11/02/2014 BAIMA, JUANA L SERVICE ATTENDANT Ot 786.50 11/02/2014 BAIMA, JUANA L SERVICE ATTENDANT Ot 401.9 11/02/2014 BAIMA, JUANA L SERVICE ATTENDANT Ot 427.31 11/02/2014 BAIMA, JUANA L SERVICE ATTENDANT Ot 443.9 11/02/2014 BAIMA, JUANA L SERVICE ATTENDANT Ot 786.50 11/02/2014 ISIDRO IRIZARRY DO Ot V76.12 12/02/2014 ISIDRO IRIZARRY DO Ot V76.12 05/13/2015 BAIMA, JUANA L SERVICE ATTENDANT Ot M54.9 06/02/2015 BAIMA, JUANA L SERVICE ATTENDANT Ot M54.9 10/25/2015 Ot Z12.31 ENCNTR SCREEN [...] NEOPLASM OF [place]ESS[place] 10/25/2016 JUANA WHEELER L SERVICE ATTENDANT Ot 401.9 HYPERTENSION NOS 10/25/2016 BAIMA, JUANA L SERVICE ATTENDANT Ot 427.31 ATRIAL FIBRILLATION 10/25/2016 BAIMA, JUANA L SERVICE ATTENDANT Ot 786.50 CHEST PAIN NOS 10/25/2016 BAIMA, JUANA L SERVICE ATTENDANT Ot 401.9 HYPERTENSION NOS 10/25/2016 BAIMA, JUANA L SERVICE ATTENDANT Ot 427.31 ATRIAL FIBRILLATION 10/25/2016 BAIMA, JUANA L SERVICE ATTENDANT Ot 443.9 PERIPH VASCULAR DIS NOS 10/25/2016 BAIMA, JUANA L SERVICE ATTENDANT Ot 786.50 CHEST PAIN NOS 10/25/2016 GELLENDER DO, ISIDRO Calvillo Ot V76.12 OTH SCREEN MAMMO-MALIGN NEOPLASM OF [place] 10/25/2016 JUANA WHEELER L SERVICE ATTENDANT Ot M54.9 DORSALGIA, UNSPECIFIED 10/25/2016 Ot Z12.31 [...] FACC, MATTHEW FACP CCDS Ot I70.213 ATHSCL [place] ARTERIES OF EXTRM W INTRMT 01/31/2017 NIKI LEWIS FACC, ALI FACP CCDS Ot R07.89 OTHER CHEST PAIN 01/31/2017 NIKI LEWIS FACC, ALI FACP CCDS Ot E78.4 OTHER HYPERLIPIDEMIA 01/31/2017 NIKI LEWIS FACC, ALI FACP CCDS Ot I10 ESSENTIAL (PRIMARY) HYPERTENSION 01/31/2017 NIKI LEWIS FACC, ALI FACP CCDS Ot I70.213 ATHSCL [place] ARTERIES OF EXTRM W INTRMT 01/31/2017 NIKI LEWIS FACC, ALI FACP CCDS Ot R07.89 OTHER CHEST PAIN 02/20/2017 NIKI LEWIS FACC, ALI FACP CCDS Ot E78.4 OTHER HYPERLIPIDEMIA 02/20/2017 NIKI LEWIS FACC, ALI FACP CCDS Ot I10 ESSENTIAL (PRIMARY) HYPERTENSION 02/20/2017 NIKI LEWIS FACC, ALI FACP CCDS Ot I70.213 ATHSCL [place] ARTERIES OF EXTRM W INTRMT 02/20/2017 NIKI [...] NEOPLASM OF [place] 09/03/2017 JUANA WHEELER L SERVICE ATTENDANT Ot 401.9 HYPERTENSION NOS 09/03/2017 EVAN WHEELERHER L SERVICE ATTENDANT Ot 427.31 ATRIAL FIBRILLATION 09/03/2017 EVAN WHEELERHER L SERVICE ATTENDANT Ot 786.50 CHEST PAIN NOS 09/03/2017 BAIMA JUANA L SERVICE ATTENDANT Ot 401.9 HYPERTENSION NOS 09/03/2017 JUANA WHEELER SERVICE ATTENDANT Ot 427.31 ATRIAL FIBRILLATION 09/03/2017 JUANA WHEELER SERVICE ATTENDANT Ot 443.9 PERIPH VASCULAR DIS NOS 09/03/2017 JUANA WHEELER SERVICE ATTENDANT Ot 786.50 CHEST PAIN NOS 09/03/2017 ISIDRO IRIZARRY DO Ot V76.12 OTH SCREEN MAMMO-MALIGN NEOPLASM OF [place] 09/03/2017 JUANA WHEELER SERVICE ATTENDANT Ot M54.9 DORSALGIA, UNSPECIFIED 09/03/2017 Ot Z12.31 [...] FACC, ALI FACP CCDS Ot I70.213 ATHSCL [place] ARTERIES OF EXTRM W INTRMT 09/03/2017 NIKI [...] FACC, ALI FACP CCDS Ot 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 09/05/2017 MATTHEW PRINCE MD, FACC FACP CCDS Ot Z79.02 [employer] MANAGER (CURRENT) USE OF ANTITHROMBOTI 09/05/2017 MATTHEW PRINCE MD, FACC FACP CCDS Ot Z79.82 MCC (CURRENT) USE OF ASPIRIN 09/05/2017 NIKI LEWIS FACC ALI FACP CCDS Ot Z79.899 OTHER [employer] MANAGER (CURRENT) DRUG THERAPY 09/05/2017 NIKI LEWIS FACC, [...] FACC, ALI FACP CCDS Ot I70.212 ATHSCL [place] ARTERIES OF EXTRM [facility] 09/05/2017 NIKI LEWIS FACC, ALI FACP CCDS Ot Z79.02 [employer] SERVICES MANAGER (CURRENT) USE OF ANTITHROMBOTI 09/05/2017 NIKI MELTONC, ALI FACP CCDS Ot Z79.82 MCC (CURRENT) USE OF ASPIRIN 09/05/2017 NIKI MELTONC, ALI FACP CCDS Ot Z79.899 OTHER [employer] MANAGER (CURRENT) DRUG THERAPY 09/05/2017 NIKI LEWIS FACC, [...] FACC, ALI FACP CCDS Ot 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 09/05/2017 NIKI LEWIS FACC, ALI FACP CCDS Ot Z79.02 [employer] SERVICES MANAGER (CURRENT) USE OF ANTITHROMBOTI 09/05/2017 NIKI LEWIS [facility], MATTHEW FACP CCDS Ot Z79.82 MCC (CURRENT) USE OF ASPIRIN 09/05/2017 NIKI LEWIS [facility]ACC[facility] CCD[facility] Ot Z79.899 OTHER [employer] MANAGER (CURRENT) DRUG THERAPY 09/05/2017 NIKI LEWIS FACC, [facility]W [facility] CCDS Ot Z87.891 PERSONAL HISTORY OF [...] NEOPLASM OF JESS[place] 01/24/2018 BAIMA, JUANA L SERVICE ATTENDANT Ot 401.9 HYPERTENSION NOS 01/24/2018 BAIMA, JUANA L SERVICE ATTENDANT Ot 427.31 ATRIAL FIBRILLATION 01/24/2018 BAIMA, JUANA L SERVICE ATTENDANT Ot 786.50 CHEST PAIN NOS 01/24/2018 BAIMA, JUANA L SERVICE ATTENDANT Ot 401.9 HYPERTENSION NOS 01/24/2018 BAIMA, JUANA L SERVICE ATTENDANT Ot 427.31 ATRIAL FIBRILLATION 01/24/2018 BAIMA, JUANA L SERVICE ATTENDANT Ot 443.9 PERIPH VASCULAR DIS NOS 01/24/2018 BAIMA, JUANA L SERVICE ATTENDANT Ot 786.50 CHEST PAIN NOS 01/24/2018 GELLENDER DO, ISIDRO Calvillo Ot V76.12 OTH SCREEN MAMMO-MALIGN NEOPLASM OF [place] 01/24/2018 JUANA WHEELER SERVICE ATTENDANT Ot M54.9 DORSALGIA, UNSPECIFIED 01/24/2018 Ot Z12.31 ENCNTR SCREEN MAMMOGRAM FOR MALIGNANT NE 01/24/2018 ASIFLENDER DO, ISIDRO Calvillo Ot N64.9 DISORDER OF BREAST, UNSPECIFIED 01/24/2018 [facility] ISIDRO Calvillo Ot Z12.31 ENCNTR SCREEN MAMMOGRAM FOR MALIGNANT NE 01/24/2018 NIKI LEWIS FACC, ALI FACP CCDS Ot E78.4 OTHER HYPERLIPIDEMIA 01/24/2018 NIKI LEWIS FACC, ALI FACP CCDS Ot I10 ESSENTIAL (PRIMARY) HYPERTENSION 01/24/2018 INKI LEWIS FACC, ALI FACP CCDS Ot I70.213 ATHSCL [place] ARTERIES OF EXTRM W INTRMT 01/24/2018 NIKI LEWIS FACC, ALI FACP CCDS Ot R07.89 OTHER CHEST PAIN 01/24/2018 [facility], ISIDRO Calvillo Ot Z12.31 ENCNTR [...] DOISIDRO Ot I10 ESSENTIAL (PRIMARY) HYPERTENSION 07/09/2018 [facility] Ot I25.10 ATHSCL HEART DISEASE OF [place] CORONARY 07/09/2018 [facility] DO[facility] Ot K59.00 CONSTIPATION, UNSPECIFIED 07/09/2018 [...] Calvillo Ot I25.10 ATHSCL HEART DISEASE OF [place] CORONARY 07/15/2018 GELLENDER DO, ISIDRO Calvillo Ot [...] ESSENTIAL (PRIMARY) HYPERTENSION 07/15/2018 GELLENDER DO, ISIDRO Calivllo Ot I25.10 ATHSCL HEART DISEASE OF [place] CORONARY 07/15/2018 GELLENDER DO, ISIDRO A Ot [...] Calvillo Ot I25.10 ATHSCL HEART DISEASE OF [place] CORONARY 07/15/2018 GELLENDER DO, ISIDRO Calvillo Ot [...] ABNORMAL WEIGHT LOSS 07/20/2018 GELLENDER DO, ISIDRO Calvillo Ot R74.8 ABNORMAL [...] PNEUMONIA, UNSPECIFIED ORGANISM 07/22/2018 GELLENDER DO, ISIDRO Calvillo Ot M25.511 PAIN IN RIGHT SHOULDER 07/22/2018 [...] SITE NOT SPECIF 07/23/2018 GELLENDER DO, ISIDRO Clavillo Ot R11.0 NAUSEA 07/23/2018 GELLENDER DO, ISIDRO [...] ESSENTIAL (PRIMARY) HYPERTENSION 07/24/2018 GELLENDER DO, ISIDRO Calvlilo Ot J18.9 PNEUMONIA, UNSPECIFIED ORGANISM 07/24/2018 GELLENDER [...] Z60.2 PROBLEMS RELATED TO LIVING ALONE 07/26/2018 [facility], ISIDRO Calvillo Ot E27.9 DISORDER OF ADRENAL GLAND, UNSPECIFIED 07/26/2018 [facility] ISID[facility] Calvillo Ot E83.42 HYPOMAGNESEMIA 07/26/2018 [facility], ISIDRO Calvillo Ot E83.51 HYPOCALCEMIA 07/26/2018 [facility], ISIDRO Calvillo Ot E87.1 HYPO-OSMOLALITY AND HYPONATREMIA 07/26/2018 [facility], ISIDRO Calvillo Ot E87.6 HYPOKALEMIA 07/26/2018 [facility], ISIDRO Calvillo Ot I10 ESSENTIAL (PRIMARY) HYPERTENSION 07/26/2018 [facility] DO, ISIDRO Calvillo Ot I65.23 OCCLUSION AND STENOSIS OF BILATERAL [place] 07/26/2018 [facility], ISIDRO Calvillo Ot I70.203 UNSP ATHSCL [place] ARTERIES OF EXTREMITI 07/26/2018 [facility], ISIDRO Calvillo Ot J18.9 PNEUMONIA, UNSPECIFIED ORGANISM 07/26/2018 [facility], ISIDRO Calvillo Ot M25.511 PAIN IN RIGHT SHOULDER 07/26/2018 [facility], ISIDRO Calvillo Ot N39.0 URINARY TRACT INFECTION, SITE NOT SPECIF 07/26/2018 [facility] DO, ISIDRO Calvillo Ot R11.0 NAUSEA 07/26/2018 [facility], ISIDRO Calvillo Ot R26.81 UNSTEADINESS ON FEET 07/26/2018 [facility], ISIDRO Calvillo Ot R59.0 LOCALIZED ENLARGED LYMPH NODES 07/26/2018 [facility], ISIDRO Calvillo Ot R63.0 ANOREXIA 07/26/2018 [facility] R63.4 ABNORMAL WEIGHT LOSS 07/26/2018 [facility] Ot R74.8 ABNORMAL LEVELS OF OTHER SERUM ENZYMES 07/26/2018 [facility], ISIDRO Calvillo Ot R91.8 OTHER NONSPECIFIC ABNORMAL FINDING OF SHERRI 07/26/2018 [facility], ISIDRO Calvillo Ot Z60.2 PROBLEMS RELATED TO LIVING ALONE 07/26/2018 [facility], ISIDRO Calvillo Ot Z79.02 [employer] MANAGER (CURRENT) USE OF ANTITHROMBOTI 07/26/2018 [facility], ISIDRO Calvillo Ot Z87.891 PERSONAL HISTORY OF NICOTINE DEPENDENCE 07/26/2018 [facility], ISIDRO Calvillo Ot Z95.820 PERIPHERAL VASCULAR ANGIOPLASTY STATUS W Procedures Code Description Performed By Performed On [id number] DRAINAGE OF RIGHT UPPER LUNG LOBE, ENDO, 07/25/2018 [id number] EXTRACTION OF RIGHT UPPER LOBE BRONCHUS, 07/25/2018 Results Test Result Range Automated blood complete [...] INFLUENZA A AND B ANTIGENS BY IA NRG Complete urinalysis with reflex to culture - [...] culture - 07/16/18 21:30 Bacterial urine culture [id number] NRG COLONY COUNT >100,000/ML NRG FTX;REPORTABLE STREPTOCOCCUS [...] - 07/26/18 04:15 Magnesium 1.9 mg/dL 1.8-2.4 Automated blood complete blood count (hemogram) panel - 07/30/18 18:45 Blood leukocytes automated count (number/volume) 14.1 10*3/uL 4.3-11.0 Blood erythrocytes automated count (number/volume) 3.64 10*6/uL 4.35-5.85 Venous blood hemoglobin measurement (mass/volume) 11.4 g/dL 11.5-16.0 Blood hematocrit (volume fraction) 32 % 35-52 Automated erythrocyte mean corpuscular volume 87 [foz_us] 80-99 Automated erythrocyte mean corpuscular hemoglobin (mass per erythrocyte) 31 pg 25-34 Automated erythrocyte mean corpuscular hemoglobin concentration measurement ( mass/volume) 36 g/dL 32-36 Automated erythrocyte distribution width ratio 13.1 % 10.0-14.5 Automated blood platelet count (count/volume) 68 10*3/uL 130-400 Automated blood platelet mean volume measurement 10.5 [foz_us] 7.4-10.4 Comprehensive metabolic panel - 07/30/18 18:45 Serum or plasma sodium measurement (moles/volume) 124 mmol/L 135-145 Serum or plasma potassium measurement (moles/volume) 2.6 mmol/L 3.6-5.0 Serum or plasma chloride measurement (moles/volume) 85 mmol/L 98-107 Carbon dioxide 24 mmol/L 21-32 Serum or plasma anion gap determination (moles/volume) 15 mmol/L 5-14 Serum or plasma urea nitrogen measurement (mass/volume) 10 mg/dL 7-18 Serum or plasma creatinine measurement (mass/volume) 0.59 mg/dL 0.60-1.30 Serum or plasma urea nitrogen/creatinine mass ratio 17 NRG Serum or plasma creatinine measurement with calculation of estimated glomerular filtration rate > NRG Serum or plasma glucose measurement (mass/volume) 127 mg/dL 70-105 Serum or plasma calcium measurement (mass/volume) 9.3 mg/dL 8.5-10.1 Serum or plasma total bilirubin measurement (mass/volume) 1.9 mg/dL 0.1-1.0 Serum or plasma alkaline phosphatase measurement (enzymatic activity/volume) 319 U/L 40-136 Serum or plasma aspartate aminotransferase measurement (enzymatic activity/ volume) 151 U/L 5-34 Serum or plasma alanine aminotransferase measurement (enzymatic activity/volume ) 85 U/L 0-55 Serum or plasma protein measurement (mass/volume) 6.4 g/dL 6.4-8.2 Serum or plasma albumin measurement (mass/volume) 3.5 g/dL 3.2-4.5 CALCIUM CORRECTED 9.7 mg/dL 8.5-10.1 Magnesium - 07/30/18 18:45 Magnesium 1.5 mg/dL 1.8-2.4 Serum or plasma ethanol measurement (mass/volume) - 07/30/18 18:45 Serum or plasma ethanol measurement (mass/volume) < mg/dL <10 Serum or plasma C reactive protein measurement (mass/volume) - 07/30/18 18:45 Serum or plasma C reactive protein measurement (mass/volume) 4.87 mg /dL 0.00-0.50 Complete urinalysis with reflex to culture - 07/30/18 20:00 Urine color determination SEMAJ NRG Urine clarity determination CLEAR NRG Urine [...] Urine total bilirubin detection by test strip 1+ NEGATIVE Urine urobilinogen measurement by automated test strip (mass/volume) 1 mg/dL NORMAL Urine leukocyte esterase detection by dipstick 1+ NEGATIVE Automated urine sediment erythrocyte count by microscopy (number/high power field) NONE NRG Automated urine sediment leukocyte count by microscopy (number/high power field ) [HPF] NRG Bacteria detection in urine sediment by light microscopy TRACE NRG Crystals detection in urine sediment by light microscopy NONE NRG Casts detection in urine sediment by light microscopy PRESENT NRG Mucus detection in urine sediment by light microscopy SMALL NRG Complete urinalysis with reflex to culture NO NRG Hyaline casts detection in urine sediment by light microscopy 5-10 NRG Encounters ACCT No. Visit Date/Time Discharge Status Pt. Type Provider Facility Loc./Unit Complaint [id number] 07/16/2018 15:36:00 07/26/2018 12:05:00 DIS Outpatient ISIDRO IRIZARRY DO [facility] 4TH ELECTROLYTE IMBALANCE , RESP DISTRESS, HYPOKALEMIA [id number] 07/18/2018 13:15:00 07/18/2018 23:59:59 CLS Preadmit ISIDRO IRIZARRY DO [facility] REHAB UNSTEADY GAIT; UNABLE TO WALK ALONE [id number] 07/03/2018 18:32:00 07/09/2018 11:30:00 DIS Outpatient ISIDRO IRIZARRY DO [facility] 4TH HYPONATREMIA, ELEVATED LIVER TEST [id number] 01/24/2018 14:59:00 01/24/2018 23:59:59 CLS Outpatient NIKI LEWIS FACC, MATTHEW FACP CCDS [facility] LAB HYPERLIPIDEMIA ,PAD,CAD [id number] 10/26/2017 10:33:00 10/26/2017 23:59:59 CLS Outpatient ISIDRO IRIZARRY DO [facility] RAD YEARLY [id number] 09/04/2017 07:11:00 09/05/2017 10:50:00 DIS Outpatient NIKI LEWIS FACC, MATTHEW FACP CCDS [facility] CATH PAD,HTN,HL, TOBACCO USE [id number] 01/30/2017 07:11:00 01/30/2017 23:59:59 CLS Outpatient NIKI LEWIS FACC, MATTHEW FACP CCDS [facility] CARD CHEST DISCOMFORT R07.89 [id number] 10/25/2016 10:30:00 10/25/2016 23:59:59 CLS Outpatient ISIDRO IRIZARRY DO [facility] RAD YEARLY SCREENING [id number] 11/01/2015 10:24:00 11/01/2015 23:59:59 CLS Outpatient ISIDRO IRIZARRY DO [facility] RAD LEFT BREAST HEAVINESS AND FULLNESS [id number] 04/22/2015 11:11:00 04/22/2015 23:59:59 CLS Outpatient JUANA WHEELER [facility] RAD BACK PAIN [id number] 10/22/2014 09:45:00 10/22/2014 23:59:59 CLS Outpatient ISIDRO IRIZARRY DO [facility] RAD SCREENING [id number] 06/04/2014 07:01:00 06/04/2014 15:00:00 DIS Outpatient CHALINO MCDUFFIE MD [facility] CATH CLAUDICATION,PAD, HLP [id number] 05/26/2014 07:04:00 05/26/2014 18:45:00 DIS Outpatient NIKI LEWIS FACC, MATTHEW FACP CCDS [facility] CATH ABNORMAL ESAU , CLAUDICATION [id number] 04/20/2014 11:34:00 04/20/2014 23:59:59 CLS Outpatient BAIMA, JUANA L SERVICE ATTENDANT [facility] CARD CP,HTN,AFIB [id number] 04/16/2014 12:33:00 04/16/2014 23:59:59 CLS Outpatient JUANA WHEELER [facility] RAD AFIB,CP,HTN [id number] 10/20/2013 10:30:00 10/20/2013 23:59:59 CLS Outpatient JUAN C HUTCHINSON ISIDRO Rajinder [facility] RAD SCREENING [id number] 10/17/2012 15:11:00 10/17/2012 23:59:59 CLS Outpatient CHANTELLIRINA ISIDRO [facility] RAD SCREENING [id number] 10/16/2012 12:26:00 10/16/2012 16:20:00 DIS [facility] [id number] 10/15/2012 08:32:00 10/15/2012 23:59:59 CLS Outpatient REHANA LAMAS MD [facility] PREOP RIGHT WRIST FRACTURE [id number] 10/14/2012 14:41:00 10/14/2012 15:40:00 DIS Emergency CHAY TONY [facility] ER RING NEEDS TO BE CUT OFF DUE TO INJURY [id number] 10/12/2012 19:55:00 10/12/2012 21:04:00 DIS Emergency SWETHA RUIZ MD [facility] ER FALL; R WRIST INJ [id number] 07/30/2018 19:24:00 Document Registration [id number] 10/25/2015 10:30:00 Document Registration [id number] 11/02/2014 10:33:00 Document Registration [id number] 11/02/2014 10:33:00 Document Registration [id number] 11/02/2014 10:33:00 Document Registration [id number] 11/02/2014 10:33:00 Document Registration [id number] 11/02/2014 10:33:00 Document Registration [id number] 11/02/2014 10:33:00 Document Registration [id number] 11/02/2014 10:33:00 Document Registration [id number] 04/22/2012 12:56:00 Document Registration [id number] 10/16/2011 11:10:00 Document Registration [id number] 09/05/2011 05:43:00 Document Registration [id number] 09/04/2011 09:30:00 Document Registration [id number] 11/30/2010 12:44:00 Document Registration [id number] 10/14/2010 08:41:00 Document Registration [id number] 09/06/2010 05:35:00 Document Registration [id number] 09/05/2010 07:49:00 Document Registration [id number] 08/22/2010 11:43:00 Document Registration [id number] 05/03/2010 05:49:00 Document Registration
--- NOTE | 2018-07-30 21:52 | NUR ---
ALLAN ALMANZAR I admitted to room 432-1, with an admitting diagnosis of ELECTROLYTE IMBALANCE, on 07/30/18 from ED via [facility], accompanied by STAFF AND FAMILY.ALLAN ALMANZAR I introduced to surroundings, call light, bed controls, phone, TV, temperature control, lights, meal times, smoking policy, visitor policy, side rail policy, bathrooms and showers. Patient Rights given to patient in the handbook. ALLAN ALMANZAR I verbalizes understanding that [facility] is not responsible for the loss or damage to any personal effects or valuables that are kept in the patients possessions during their hospitalization.
[2018-07-30 22:23] VITALS: BP 101/64
[2018-07-30 22:27] VITALS: BP 101/64
[2018-07-30] MEDS: POTASSIUM CL 10 MEQ/50 ML IVPB (PRE-MIX) IV SCH ×2 (22:45→23:46)
[2018-07-30] MEDS: MAGNESIUM 1 GM/100 ML IVPB IV SCH ×2 (22:45→23:46)
[2018-07-30] MEDS: NS IV 1000 ML 1,000 ML IV SCH (23:20)
[2018-07-31 00:39] VITALS: BP 143/70
[2018-07-31] MEDS: MAGNESIUM 1 GM/100 ML IVPB IV SCH ×2 (00:46→01:51)
[2018-07-31] MEDS: POTASSIUM CL 10 MEQ/50 ML IVPB (PRE-MIX) IV SCH ×3 (00:47→02:57)
[2018-07-31] MEDS: NS IV 1000 ML 1,000 ML IV SCH (02:57)
[2018-07-31 04:00] VITALS: BP 127/60
[2018-07-31] MEDS ORDERED: KCL 20 MEQ TAB (K-DUR) PO ONE (04:00)
[2018-07-31 05:49] LABS: BASOPHILS % (AUTO) 0 % (0-10); EOSINOPHILS # (AUTO) 0.1 10^3/uL (0.0-0.3); EOSINOPHILS % (AUTO) 1 % (0-10); HEMATOCRIT 29 % (35-52); LYMPHOCYTES # (AUTO) 1.4 X 10^3 (1.0-4.0); LYMPHOCYTES % (AUTO) 12 % (12-44); MEAN CORPUSCULAR HEMOGLOBIN 31 PG (25-34); MEAN CORPUSCULAR HGB CONC 35 G/DL (32-36); MEAN CORPUSCULAR VOLUME 88 FL (80-99); MEAN PLATELET VOLUME 9.3 FL (7.4-10.4); MONOCYTES # (AUTO) 1.1 X 10^3 (0.0-1.0); MONOCYTES % (AUTO) 9 % (0-12); NEUTROPHILS # (AUTO) 9.1 X 10^3 (1.8-7.8); NEUTROPHILS % (AUTO) 78 % (42-75); PLATELET COUNT 53 10^3/uL (130-400); WHITE BLOOD COUNT 11.7 10^3/uL (4.3-11.0)
[2018-07-31 06:09] LABS: ALANINE AMINOTRANSFERASE 73 U/L (0-55); ALKALINE PHOSPHATASE 271 U/L (40-136); BILIRUBIN,TOTAL 1.8 MG/DL (0.1-1.0); BUN/CREATININE RATIO 18; CALCIUM 8.1 MG/DL (8.5-10.1); CARBON DIOXIDE 23 MMOL/L (21-32); CHLORIDE 89 MMOL/L (98-107); GFR ESTIMATED > 60; GLUCOSE 122 MG/DL (70-105); MAGNESIUM 2.3 MG/DL (1.8-2.4); POTASSIUM 3.2 MMOL/L (3.6-5.0); TOTAL PROTEIN 5.2 GM/DL (6.4-8.2)
[2018-07-31 06:24] LABS: SODIUM 123 MMOL/L (135-145)
[2018-07-31] MEDS ORDERED: KCL 20 MEQ TAB (K-DUR) PO NR (07:15)
[2018-07-31] MEDS ORDERED: POTASSIUM CL 10MEQ/50ML IVPB 50 ML IV SCH (07:15)
--- NOTE | 2018-07-31 07:15 | Pulmonary Consultation ---
History of Present Illness History of Present Illness Date of Consultation 07/31/18 07:06 Time Seen by Provider: 07:06 Date of Admission History of Present Illness 78yo s/p recent hospitalization (07/16-07/26) and bronchoscopy secondary to lung mass. Cytology from bronchoscopy shows small cell lung cancer. During last hospitalization pt had severe hyponatremia and hypokalemia that was replaced aggressively. PT is presenting to ED secondary to rectal bleeding and constipation. I am consulted for pulmonary management. Allergies and Home Medications Allergies Coded Allergies: JAYANo Known Allergies (Verified Allergy, Unknown, 07/03/18) Home Medications Aspirin 81 Mg Tablet.dr, 81 MG PO HS, (Reported) Calcium Carbonate/Vitamin D3 1 Each Tablet, 1 TAB PO HS, (Reported) Clopidogrel Bisulfate 75 Mg Tablet, 75 MG PO DAILY, (Reported) Diltiazem HCl 180 Mg Cap.er.24h, 180 MG PO DAILY, (Reported) Lisinopril 10 Mg Tablet, 10 MG PO DAILY, (Reported) Magnesium Oxide 400 Mg Tablet, 400 MG PO BIDPC Prescribed by: MICHELLE QUIJANO on 07/26/18 1119 Multivit-Min/FA/Lycopene/Lut 1 Each Tablet, 1 TAB PO DAILY, (Reported) Simvastatin 20 Mg Tablet, 20 MG PO HS, (Reported) Sodium Chloride 1 Gm Tab, 1 GM PO 1500, (Reported) (1GM) TABLET Past Bbnizkk-Lokkhi-Sdnhbs Hx Past Med/Social Hx: Reviewed and Corrections made Patient Social History Alcohol Use: Occasionally Uses Recreational Drug Use: No Smoking Status: Former Smoker Type Used: Cigarettes Recent Foreign Travel: No Contact w/Someone Who Travel: No Recent Infectious Disease Expo: No Recent Hopitalizations: Yes Physical Abuse: No Sexual Abuse: No Immunizations Up To Date Tetanus Booster (TDap): More than 5yrs PED Vaccines UTD: No Date of Pneumonia Vaccine: Jun 07, 2017 Date of Influenza Vaccine: Feb 04, 2018 Past Medical History Surgeries: Yes (pericardial effusion drained,mole removed) Orthopedic, Vascular Surgery (stenting of the lower extremities) Respiratory: No Currently Using CPAP: No Currently Using BIPAP: No Cardiac: Yes Hypertension, Peripheral Vascular Neurological: No : No Reproductive Disorders: No Sexually Transmitted Disease: No Genitourinary: No Gastrointestinal: No Musculoskeletal: Yes (RIGHT WRIST FX, RIGHT SHOULDER PAIN) Endocrine: Yes (severe electrolyte disturbances) HEENT: No Loss of Vision: Denies Hearing Impairment: Denies Cancer: Yes Lung (small cell carcinoma) Did You Recieve Any Treatments: No Psychosocial: No Integumentary: No Blood Disorders: No Family Medical History Reviewed Nursing Family Hx Alzheimer's disease Cardiovascular disease Diabetes mellitus Parkinson's disease Review of Systems Time Seen by Provider: 08:06 Constitutional: Weakness, Malaise; No: Fever, Chills, Sweats, Other Eyes: No: Pain, Vision change, Conjunctivae inflammation, Eyelid inflammation, Other, Redness ENT: No: Ear pain, Ear discharge, Nose pain, Nose discharge, Nose congestion, Mouth pain, Mouth swelling, Throat pain, Throat swelling, Other Respiratory: Cough, Dry, Shortness of breath, SOB with excertion; No: Wheezing , Hemoptysis, Pleuritic Pain, Sputum, Wheezing, Other Cardiovascular: No: Chest Pain, Palpitations, Orthopnea, Paroxysmal Noc. Dyspnea, Edema, Lt Headedness, Other Gastrointestinal: Constipation, Hematochezia; No: Nausea, Vomiting, Abdominal Pain, Diarrhea, Melena, Other Sepsis Event Evaluation Height, Weight, BMI Height: 5'6.00" Weight: 122lbs. 11.2oz. 55.851020fs; 19.8 BMI Method:Stated Exam Exam Vital Signs Date Time Temp Pulse Resp B/P (MAP) Pulse Ox O2 Delivery O2 Flow Rate FiO2 07/31/18 04:00 98.4 88 18 127/60 (82) 97 Room Air 07/31/18 01:00 91 07/31/18 00:39 97.4 96 18 143/70 (94) 98 Room Air 07/30/18 23:52 Room Air 07/30/18 22:27 97.7 86 19 101/64 (76) 99 Room Air 07/30/18 22:23 97.7 86 19 101/64 99 Room Air 07/30/18 22:19 85 07/30/18 21:40 96.8 86 18 158/77 (104) 98 Room Air 07/30/18 18:20 96.8 102 17 157/66 (96) 95 Room Air I & O 07/31/18 07:00 Intake Total 1500 ml Output Total 150 ml Balance 1350 ml Height & Weight Height: 5'6.00" Weight: 122lbs. 11.2oz. 55.866973yh; 19.8 BMI Method:Stated General Appearance: No Apparent Distress, WD/WN HEENT: PERRL/EOMI, Normal ENT Inspection, Other (mucous membranes somewhat dry) Neck: Normal Inspection Respiratory: Lungs Clear, Normal Breath Sounds, No Accessory Muscle Use, No Respiratory Distress Cardiovascular: Regular Rate, Rhythm, No Edema, No Murmur Capillary Refill: Less Than 3 Seconds Extremity: Normal Inspection, Non Tender, Pedal Edema Neurologic/Psychiatric: Alert, Oriented x3, No Motor/Sensory Deficits, Normal Mood/Affect, shroudman II-XII Norm as Tested Skin: Normal Color, Warm/Dry Results Lab Laboratory Tests 07/30/18 18:45 07/31/18 05:15 Assessment/Plan Assessment/Plan Small cell lung cancer - dx via bronchoscopy 07/25 -Consult oncology -Check CXR 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
[2018-07-31 08:00] VITALS: BP 158/72
[2018-07-31] MEDS ORDERED: POTASSIUM PHOSPHATE INJ 30 MM in NS (IVPB) 250 ML IV ONE (08:00)
[2018-07-31] MEDS ORDERED: ENOXAPARIN 40 MG/0.4 ML (LOVENOX) SYR SC SCH (08:30)
--- NOTE | 2018-07-31 08:42 | History & Physicial ---
History of Present Illness History of Present Illness Reason for visit/HPI Patient brought to the emergency room by car. Friend brought patient to the emergency room due to slurry speech. Patient constipated for 7 days and took an enema. Patient had rectal bleeding due to the enema. Patient had weakness Patient has lung cancer and adrenal tumor. Area Patient has abnormal electrolytes, magnesium, and phosphorus. Patient lives alone Date of Admission Jul 30, 2018 at 20:55 Time Seen by a Provider: 08:37 I consulted on this patient on 07/31/18 08:37 Attending Physician Dru Galarza DO Admitting Physician Dru Galarza DO Consult Allergies and Home Medications Allergies Coded Allergies: NKANo Known Allergies (Verified Allergy, Unknown, 07/03/18) Home Medications Aspirin 81 Mg Tablet.dr, 81 MG PO HS, (Reported) Calcium Carbonate/Vitamin D3 1 Each Tablet, 1 TAB PO HS, (Reported) Clopidogrel Bisulfate 75 Mg Tablet, 75 MG PO DAILY, (Reported) Diltiazem HCl 180 Mg Cap.er.24h, 180 MG PO DAILY, (Reported) Lisinopril 10 Mg Tablet, 10 MG PO DAILY, (Reported) Magnesium Oxide 400 Mg Tablet, 400 MG PO BIDPC Prescribed by: MICHELLE QUIJANO on 07/26/18 1119 Multivit-Min/FA/Lycopene/Lut 1 Each Tablet, 1 TAB PO DAILY, (Reported) Simvastatin 20 Mg Tablet, 20 MG PO HS, (Reported) Sodium Chloride 1 Gm Tab, 1 GM PO 1500, (Reported) (1GM) TABLET Patient Home Medication List Home Medication List Reviewed: No Past Nnhfzfp-Lneuvg-Xupkhs Hx Patient Social History Employed/Student: retired Alcohol Use: Occasionally Uses Recreational Drug Use: No Smoking Status: Former Smoker Type Used: Cigarettes Recent Foreign Travel: No Contact w/other who traveled: No Recent Hopitalizations: Yes Recent Infectious Disease Expo: No Immunizations Up To Date Tetanus Booster (TDap): More than 5yrs Pediatric: No Date of Pneumonia Vaccine: Jun 07, 2017 Date of Influenza Vaccine: Feb 04, 2018 Surgeries Yes (pericardial effusion drained,mole removed) Orthopedic, Vascular Surgery (stenting of the lower extremities) Respiratory No Currently Using CPAP: No Currently Using BIPAP: No Cardiovascular Yes Hypertension, Peripheral Vascular Neurological No Reproductive System : No Hx Reproductive Disorders: No Sexually Transmitted Disease: No Genitourinary No Gastrointestinal No Musculoskeletal Yes (RIGHT WRIST FX, RIGHT SHOULDER PAIN) Endocrine History of Endocrine Disorders: Yes (severe electrolyte disturbances) HEENT History of HEENT Disorders: No Loss of Vision: Denies Hearing Impairment: Denies Cancer Yes Lung (small cell carcinoma) Did You Recieve Any Treatments: No Psychosocial History of Psychiatric Problem: No Integumentary History of Skin or Integumenta: No Blood Transfusions History of Blood Disorders: No Family Medical History Family Hx: Alzheimer's disease Cardiovascular disease Diabetes mellitus Parkinson's disease Review of Systems Constitutional: malaise, weakness EENTM: no symptoms reported, other (Hearing aid) Respiratory: no symptoms reported Cardiovascular: no symptoms reported Gastrointestinal: no symptoms reported, other (Blood in stools from enema) Physical Exam Vital Signs Vital Signs - First Documented 07/30/18 18:20 Temp 96.8 Pulse 102 Resp 17 B/P (MAP) 157/66 (96) Pulse Ox 95 O2 Delivery Room Air Capillary Refill : Less Than 3 Seconds Height, Weight, BMI Height: 5'6.00" Weight: 122lbs. 11.2oz. 55.330938jn; 19.8 BMI Method:Stated General Appearance: No Apparent Distress Eyes: Bilateral Eye Normal Inspection HEENT: Normal ENT Inspection Neck: Normal Inspection Respiratory: Lungs Clear, No Accessory Muscle Use, No Respiratory Distress Cardiovascular: Regular Rate, Rhythm Gastrointestinal: Non Tender, Soft Assessment/Plan Assessment and Plan Electrolyte disturbance. Small cell lung cancer. Adrenal tumor. Electrolyte imbalance. Hypophosphatemia. Hypomagnesemia. Weakness. Patient lives alone Admission Diagnosis Admission Status: Inpatient Order (span 2 midnights) Reason for Inpatient Admission: Weakness. Slurred speech. Electrolyte and phosphorus and magnesium abnormalities. Lung cancer. Clinical Quality Measures DVT/VTE Risk/Contraindication: Risk Factor Score Per Nursin RFS Level Per Nursing on Admit: 3=High DRU GALARZA DO Jul 31, 2018 08:42
[2018-07-31] MEDS ORDERED: ENOXAPARIN 40 MG/0.4 ML (LOVENOX) SYR ONE (08:51)
[2018-07-31] MEDS: FUROSEMIDE 40 MG (LASIX) TAB PO SCH (08:58)
--- NOTE | 2018-07-31 10:54 | Diagnostic Imaging Report ---
INDICATION: Shortness of air. Lung cancer. COMPARISON: CT chest dated 07/18/2018 FINDINGS: Single frontal radiographic view of the chest shows stable cardiac silhouette and pulmonary vasculature. Right suprahilar masslike opacity measures 3.4 x 2.4 cm. Calcified pleural thickening of the right apex is also again noted. There may be small left effusion. No large effusion is seen on the right. There is no pneumothorax on either side. Bony structures show no gross acute abnormalities. IMPRESSION: 1. Redemonstration of right suprahilar mass. 2. Perhaps trace left basilar effusion. Dictated by: Dictated on workstation # [id number]
--- NOTE | 2018-07-31 11:57 | NUR ---
SPOKE WITH THE PATIENT AND PERSON IN THE ROOM WITH HER REGARDING MEDICATIONS. THEY BROUGHT IN HER BOTTLES. WE WENT OVER THE BOTTLES. SHE HAS A BOTTLE FROM [facility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facility] DID NOT DISPENSE IT A PRESCRIPTION AND THE WOMAN IN THE ROOM WITH HER STATES SHE HAS NOT BOUGHT ANY OTC. I REMOVED IT FROM THE MED REC AT THIS TIME IT IS PRESUMED SHE HAS NOT BEEN ABLE TO START TAKING IT. OTC MEDS SHE HAS THAT SHE DOES TAKE DAILY ARE: ASPIRIN 81MG HS [employer] DAILY CALCIUM +D HS
[2018-07-31 12:00] VITALS: BP 154/71
--- NOTE | 2018-07-31 13:32 | Consultation ---
History of Present Illness History of Present Illness Patient Consulted On(sal/time) 07/31/18 13:25 Time Seen by Provider: 11:04 History of Present Illness Surgery asked to consult regarding need for Port placement. HPI per ED: This 78-year-old woman presented to the emergency room accompanied by family including her zgxfkh-fn-elr and niece with multiple complaints. She has had increasing leg swelling in recent days. She also has had bleeding from the rectum after giving herself an enema. She has felt constipated over the past few days and has not had a significant bowel movement in about a week. Family states she has been weaker in recent days and has had some slurring of the speech, although her speech now seems to be fairly normal. She does live at home and gets support from her family. She requires a walker and is now even having trouble walking with a walker. Her urine output has been decreased , and she has not urinated since early this morning. She had a prolonged hospital stay from July 16 through July 26. She had urinary tract infection and pneumonia and was treated with Rocephin and azithromycin. She also had severe electrolyte disturbances during that hospitalization. She had bronchoscopy performed by Dr. Rosales as well. 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 Patient also has a known adrenal mass. Her primary care providers Dr. Galarza. Her tooth cutter is Dr. العراقي. When I saw her today pt was sitting in the bed, comfortable. She states she was admitted for weakness and pneumonia. She was recently diagnosed with Lung Cancer and has poor veins, she will need halfway chemotherapy. Allergies and Home Medications Allergies Coded Allergies: NKANo Known Allergies (Verified Allergy, Unknown, 07/03/18) Home Medications Aspirin 81 Mg Tablet.dr, 81 MG PO HS, (Reported) Calcium Carbonate/Vitamin D3 1 Each Tablet, 1 TAB PO HS, (Reported) Clopidogrel Bisulfate 75 Mg Tablet, 75 MG PO DAILY, (Reported) Diltiazem HCl 180 Mg Cap.er.24h, 180 MG PO DAILY, (Reported) Lisinopril 10 Mg Tablet, 10 MG PO DAILY, (Reported) Multivit-Min/FA/Lycopene/Lut 1 Each Tablet, 1 TAB PO DAILY, (Reported) Simvastatin 20 Mg Tablet, 20 MG PO HS, (Reported) Sodium Chloride 1 Gm Tab, 2 GM PO DAILY, (Reported) TAKES 2 (1GM) TABLETS Patient Home Medication List Home Medication List Reviewed: Yes Past Gzlknzp-Xwjotr-Heqwpe Hx Patient Social History Alcohol Use: Occasionally Uses Recreational Drug Use: No Smoking Status: Former Smoker Type Used: Cigarettes Recent Foreign Travel: No Contact w/Someone Who Travel: No Recent Infectious Disease Expo: No Recent Hopitalizations: Yes Immunizations Up To Date Tetanus Booster (TDap): More than 5yrs PED Vaccines UTD: No Date of Pneumonia Vaccine: Jun 07, 2017 Date of Influenza Vaccine: Feb 04, 2018 Surgeries History of Surgeries: Yes (pericardial effusion drained,mole removed) Surgeries: Orthopedic, Vascular Surgery (stenting of the lower extremities) Respiratory History of Respiratory Disorde: No Cardiovascular History of Cardiac Disorders: Yes Cardiac Disorders: Hypertension, Peripheral Vascular Neurological History of Neurological Disord: No Reproductive System : No Hx Reproductive Disorders: No Sexually Transmitted Disease: No Genitourinary History of Genitourinary Disor: No Gastrointestinal History of Gastrointestinal Di: No Musculoskeletal History of Musculoskeletal Dis: Yes (RIGHT WRIST FX, RIGHT SHOULDER PAIN) Endocrine History of Endocrine Disorders: Yes (severe electrolyte disturbances) HEENT History of HEENT Disorders: No Loss of Vision: Denies Hearing Impairment: Denies Cancer History of Cancer: Yes Cancer: Lung (small cell carcinoma) Psychosocial History of Psychiatric Problem: No Integumentary History of Skin or Integumenta: No Blood Transfusions History of Blood Disorders: No Family Medical History Significant Family History: CAD Over 55 Years Old, Diabetes Family Medial History: Alzheimer's disease Cardiovascular disease Diabetes mellitus Parkinson's disease Review of Systems-General Constitutional: No chills, No diaphoresis; malaise, weakness EENTM: No blurred vision, No double vision, No epistaxis, No throat swelling Respiratory: cough, dyspnea on exertion; No hemoptysis; short of breath Cardiovascular: No chest pain; edema, palpitations Gastrointestinal: No abdominal pain, No constipation, No hematemesis Genitourinary: No dysuria; frequency; No hematuria Musculoskeletal: back pain, joint pain, joint swelling, muscle stiffness Skin: No change in color, No change in hair/nails Psychiatric/Neurological: Denies Anxiety, Denies Depressed, Denies Seizure, Denies Tremors Physical Exam-General Problems Physical Exam Vital Signs Vital Signs - First Documented 07/30/18 18:20 Temp 96.8 Pulse 102 Resp 17 B/P (MAP) 157/66 (96) Pulse Ox 95 O2 Delivery Room Air Capillary Refill : Less Than 3 Seconds General Appearance: no apparent distress, cachetic Eyes: Bilateral Eye PERRL, Bilateral Eye EOMI HEENT: pharynx normal; No scleral icterus (R), No scleral icterus (L) Neck: non-tender, full range of motion, supple Respiratory: chest non-tender, normal breath sounds, no respiratory distress, no accessory muscle use, crackles (?? 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 tested, alert, normal mood/affect, oriented x 3 Skin: normal color, warm/dry Lymphatic: no adenopathy (cervical or inguinal) Data Review Labs Laboratory Tests 07/30/18 18:45: White Blood Count 14.1H, Red Blood Count 3.64L, Hemoglobin 11.4L, Hematocrit 32L , Mean Corpuscular Volume 87, Mean Corpuscular Hemoglobin 31, Mean Corpuscular Hemoglobin Concent 36, Red Cell Distribution Width 13.1, Platelet Count 68L, Mean Platelet Volume 10.5H, Sodium Level 124*L, Potassium Level 2.6L, Chloride Level 85L, Carbon Dioxide Level 24, Anion Gap 15H, Blood Urea Nitrogen 10, Creatinine 0.59L, Estimat Glomerular Filtration Rate > 60, BUN/Creatinine Ratio 17, Glucose Level 127H, Calcium Level 9.3, Corrected Calcium 9.7, Magnesium Level 1.5L, Total Bilirubin 1.9H, Aspartate Amino Transf (AST/SGOT) 151H, Alanine Aminotransferase (ALT/SGPT) 85H, Alkaline Phosphatase 319H, C-Reactive Protein High Sensitivity 4.87H, Total Protein 6.4, Albumin 3.5, Serum Alcohol < 10 07/30/18 20:00: Urine Color AMBERH, Urine Clarity CLEAR, Urine pH 6, Urine Specific Graton 1.010L, Urine Protein 2+H, Urine Glucose (UA) NEGATIVE, Urine Ketones NEGATIVE, Urine Nitrite NEGATIVE, Urine Bilirubin 1+H, Urine Urobilinogen 1, Urine Leukocyte Esterase 1+H, Urine RBC (Auto) NEGATIVE, Urine RBC NONE, Urine WBC 2-5 , Urine Crystals NONE, Urine Bacteria TRACE, Urine Casts PRESENT, Urine Hyaline Casts 5-10H, Urine Mucus SMALLH, Urine Culture Indicated NO 07/31/18 05:15: White Blood Count 11.7H, Red Blood Count 3.25L, Hemoglobin 10.0L, Hematocrit 29L , Mean Corpuscular Volume 88, Mean Corpuscular Hemoglobin 31, Mean Corpuscular Hemoglobin Concent 35, Red Cell Distribution Width 13.0, Platelet Count 53L, Mean Platelet Volume 9.3, Sodium Level 123*L, Potassium Level 3.2L, Chloride Level 89L, Carbon Dioxide Level 23, Anion Gap 11, Blood Urea Nitrogen 9, Creatinine 0.50L, Estimat Glomerular Filtration Rate > 60, BUN/Creatinine Ratio 18, Glucose Level 122H, Calcium Level 8.1L, Corrected Calcium 8.9, Magnesium Level 2.3, Total Bilirubin 1.8H, Aspartate Amino Transf (AST/SGOT) 135H, Alanine Aminotransferase (ALT/SGPT) 73H, Alkaline Phosphatase 271H, Total Protein 5.2L, Albumin 3.0L, Neutrophils (%) (Auto) 78H, Lymphocytes (%) (Auto) 12, Monocytes (%) (Auto) 9, Eosinophils (%) (Auto) 1, Basophils (%) (Auto) 0, Neutrophils # (Auto) 9.1H, Lymphocytes # (Auto) 1.4, Monocytes # (Auto) 1.1H, Eosinophils # (Auto) 0.1, Basophils # (Auto) 0.0, Phosphorus Level 0.7*L, B- Type Natriuretic Peptide 327.9H Assessment/Plan Assessment/Plan Assessment/Plan Venous Insufficiency Lung CA Abnormal Coagulation secondary to Plavix Hyponatremia Hypokalemia Plan is to place Alicia-Cath for long-term chemotherapy and IV access in a pt with poor veins. She can have this done as an inpt or as outpt; I will defer to Oncology and Pulmonary on the timing of Alicia-cath placement. If it needs to be done as an inpt, she will need to stop her Plavix for 3-5 days. She is getting Electrolyte replacement and needs maximum medical management. Clinical Quality Measures DVT/VTE Risk/Contraindication: Risk Factor Score Per Nursin RFS Level Per Nursing on Admit: 3=High LU PETTIT DO Jul 31, 2018 13:32
[2018-07-31] MEDS ORDERED: HOLD METFORMIN - RECEIVED CONTRAST 20 ML VIAL IV SCH (16:00)
[2018-07-31] MEDS ORDERED: IOHEXOL 350 MG/ML 100 ML (OMNIPAQUE 350) VIAL IV ONE (16:00)
[2018-07-31 16:45] VITALS: BP 149/68
--- NOTE | 2018-07-31 16:59 | Diagnostic Imaging Report ---
PROCEDURE: CT abdomen and pelvis with and without contrast. TECHNIQUE: Precontrast acquisitions were acquired through the abdomen and pelvis. Multiple contiguous axial images were obtained through the abdomen and pelvis after the administration of intravenous contrast. Auto Exposure Controls were utilized during the CT exam to meet ALARA standards for radiation dose reduction. INDICATION: Small cell lung cancer for staging. COMPARISON: No priors. FINDINGS: There are multiple hypodense but solid liver lesions given the history presumptively reflective of widespread left and right lobe multifocal hepatic metastasis. There is hepatomegaly present. The liver lesions are innumerable with the largest mass measuring 2.5 cm. There is heterogeneous irregular thickening of the left adrenal gland, suspicious for its neoplastic involvement owing to metastasis, this was 1.6 cm in thickness with the length of 3.7 cm. The right adrenal is negative. No evidence for pancreatic mass. There is trace free fluid in the pelvic cul-de-sac. There is no bowel, biliary, or urinary tract obstruction. The kidneys are unobstructed and normal. There are aortoiliac atherosclerotic vascular calcifications without aneurysm. There is no abdominopelvic mesenteric or retroperitoneal lymphadenopathy. No suspicious lytic or sclerotic bone lesion. IMPRESSION: 1. Findings presumed to reflect multifocal widespread hepatic involvement by metastatic disease with resultant hepatomegaly. 2. 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 3. No other acute or suspicious finding with small-volume pelvic free fluid, nonloculated. Dictated by: Dictated on workstation # [id number]
[2018-07-31 17:18] LABS: BUN/CREATININE RATIO 15; CARBON DIOXIDE 20 MMOL/L (21-32); CHLORIDE 95 MMOL/L (98-107); CREATININE SERUM 0.61 MG/DL (0.60-1.30); GFR ESTIMATED > 60; GLUCOSE 98 MG/DL (70-105); PHOSPHORUS 1.6 MG/DL (2.3-4.7); POTASSIUM 4.1 MMOL/L (3.6-5.0)
[2018-07-31 17:19] LABS: SODIUM 125 MMOL/L (135-145)
--- NOTE | 2018-07-31 17:31 | NUR ---
Critical Lab reported Na 125 improvement to previous no physician contact made
[2018-07-31] MEDS: KCL 10 MEQ TAB (MICRO K) PO SCH (18:31)
[2018-07-31 20:20] VITALS: BP 163/74
[2018-08-01] VITALS: BP 160/72
[2018-08-01 04:00] VITALS: BP 158/70
[2018-08-01] MEDS: KCL 10 MEQ TAB (MICRO K) PO SCH ×2 (05:48→16:24)
[2018-08-01 06:40] LABS: BASOPHILS % (AUTO) 0 % (0-10); EOSINOPHILS # (AUTO) 0.1 10^3/uL (0.0-0.3); EOSINOPHILS % (AUTO) 1 % (0-10); HEMATOCRIT 26 % (35-52); HEMOGLOBIN 9.1 G/DL (11.5-16.0); LYMPHOCYTES # (AUTO) 1.3 X 10^3 (1.0-4.0); LYMPHOCYTES % (AUTO) 12 % (12-44); MEAN CORPUSCULAR HEMOGLOBIN 31 PG (25-34); MEAN CORPUSCULAR HGB CONC 35 G/DL (32-36); MEAN CORPUSCULAR VOLUME 90 FL (80-99); MEAN PLATELET VOLUME 9.3 FL (7.4-10.4); MONOCYTES # (AUTO) 1.1 X 10^3 (0.0-1.0); MONOCYTES % (AUTO) 10 % (0-12); NEUTROPHILS # (AUTO) 8.2 X 10^3 (1.8-7.8); NEUTROPHILS % (AUTO) 77 % (42-75); PLATELET COUNT 58 10^3/uL (130-400); RED CELL DISTRIBUTION WIDTH 13.7 % (10.0-14.5); WHITE BLOOD COUNT 10.7 10^3/uL (4.3-11.0)
[2018-08-01 07:50] LABS: ALANINE AMINOTRANSFERASE 88 U/L (0-55); ALBUMIN 2.9 GM/DL (3.2-4.5); ALKALINE PHOSPHATASE 326 U/L (40-136); BILIRUBIN,TOTAL 2.3 MG/DL (0.1-1.0); BUN/CREATININE RATIO 14; CALCIUM 8.7 MG/DL (8.5-10.1); CARBON DIOXIDE 23 MMOL/L (21-32); CHLORIDE 99 MMOL/L (98-107); CREATININE SERUM 0.57 MG/DL (0.60-1.30); GFR ESTIMATED > 60; GLUCOSE 107 MG/DL (70-105); MAGNESIUM 1.6 MG/DL (1.8-2.4); POTASSIUM 3.3 MMOL/L (3.6-5.0); SODIUM 131 MMOL/L (135-145); TOTAL PROTEIN 5.4 GM/DL (6.4-8.2)
--- NOTE | 2018-08-01 07:59 | Pulmonary Progress Note ---
Subjective Time Seen by a Provider: 05:23 Subjective/Events-last exam No complications noted. Sepsis Event Evaluation Height, Weight, BMI Height: 5'6.00" Weight: 122lbs. 11.2oz. 55.943119va; 19.8 BMI Method:Stated Exam Exam Vital Signs Date Time Temp Pulse Resp B/P (MAP) Pulse Ox O2 Delivery O2 Flow Rate FiO2 08/01/18 04:00 98.0 94 18 158/70 (99) 95 Room Air 08/01/18 01:00 95 08/01/18 00:00 97.9 93 18 160/72 (101) 95 Room Air 07/31/18 20:20 98.9 94 18 163/74 (103) 94 Room Air 07/31/18 20:00 Room Air 07/31/18 19:00 89 07/31/18 16:45 98.6 84 18 149/68 (95) 95 Room Air 07/31/18 13:00 91 07/31/18 12:00 98.8 94 18 154/71 (98) 96 Room Air 07/31/18 08:00 96 Room Air 07/31/18 08:00 98.2 87 18 158/72 (100) 97 Room Air I & O 08/01/18 07:00 Intake Total 1885 ml Output Total 1850 ml Balance 35 ml Height & Weight Height: 5'6.00" Weight: 122lbs. 11.2oz. 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
[2018-08-01 08:00] VITALS: BP 168/81
[2018-08-01] MEDS ORDERED: POTASSIUM PHOSPHATE INJ 30 MM in NS (IVPB) 250 ML IV ONE (08:00)
--- NOTE | 2018-08-01 08:26 | Progress Note (SOAP) ---
Subjective Time Seen by a Provider: 08:21 Subjective/Events-last exam Patient feeling okay. Patient have bone scan today. Patient saw Dr. Lara last night. Platelet count 58. Sodium 131 is better. Potassium 3.3. Phosphorus 1.5 low. Magnesium 1.6 low. Increased liver tests. Patient has lung cancer. This is metastatic to liver and probably adrenal. Patient has small cell lung cancer primary Objective Exam Vital Signs Date Time Temp Pulse Resp B/P (MAP) Pulse Ox O2 Delivery O2 Flow Rate FiO2 08/01/18 04:00 98.0 94 18 158/70 (99) 95 Room Air 08/01/18 01:00 95 08/01/18 00:00 97.9 93 18 160/72 (101) 95 Room Air 07/31/18 20:20 98.9 94 18 163/74 (103) 94 Room Air 07/31/18 20:00 Room Air 07/31/18 19:00 89 07/31/18 16:45 98.6 84 18 149/68 (95) 95 Room Air 07/31/18 13:00 91 07/31/18 12:00 98.8 94 18 154/71 (98) 96 Room Air I & O 08/01/18 07:00 Intake Total 1885 ml Output Total 1850 ml Balance 35 ml Capillary Refill : Less Than 3 Seconds General Appearance: No Apparent Distress, Thin HEENT: Normal ENT Inspection Neck: Full Range of Motion, Normal Inspection Respiratory: No Accessory Muscle Use, No Respiratory Distress Results Lab Laboratory Tests 07/31/18 16:50 08/01/18 06:15 Laboratory Tests 07/31/18 16:50: Sodium Level 125*L, Potassium Level 4.1, Chloride Level 95L, Carbon Dioxide Level 20L, Anion Gap 10, Blood Urea Nitrogen 9, Creatinine 0.61, Estimat Glomerular Filtration Rate > 60, BUN/Creatinine Ratio 15, Glucose Level 98, Calcium Level 8.0L, Phosphorus Level 1.6L, B-Type Natriuretic Peptide 772.8H 08/01/18 06:15: Sodium Level 131L, Potassium Level 3.3L, Chloride Level 99, Carbon Dioxide Level 23, Anion Gap 9, Blood Urea Nitrogen 8, Creatinine 0.57L, Estimat Glomerular Filtration Rate > 60, BUN/Creatinine Ratio 14, Glucose Level 107H, Calcium Level 8.7, Phosphorus Level 1.5L, White Blood Count 10.7, Red Blood Count 2.94L, Hemoglobin 9.1L, Hematocrit 26L, Mean Corpuscular Volume 90, Mean Corpuscular Hemoglobin 31, Mean Corpuscular Hemoglobin Concent 35, Red Cell Distribution Width 13.7, Platelet Count 58L, Mean Platelet Volume 9.3, Neutrophils (%) (Auto) 77H, Lymphocytes (%) (Auto) 12, Monocytes (%) (Auto) 10, Eosinophils (%) (Auto) 1, Basophils (%) (Auto) 0, Neutrophils # (Auto) 8.2H, Lymphocytes # (Auto) 1.3, Monocytes # (Auto) 1.1H, Eosinophils # (Auto) 0.1, Basophils # (Auto) 0.0, Corrected Calcium 9.6, Magnesium Level 1.6L, Total Bilirubin 2.3H, Aspartate Amino Transf (AST/SGOT) 185H, Alanine Aminotransferase (ALT/SGPT) 88H, Alkaline Phosphatase 326H, Lactate Dehydrogenase 793H, Total Protein 5.4L, Albumin 2.9L Assessment/Plan Assessment/Plan Assess & Plan/Chief Complaint Small cell lung cancer. Metastasis to liver. Probable adrenal mass. Hypertension. Clinical Quality Measures Admission Status Admission Dx Electrolyte disturbance. Small cell lung cancer. Adrenal tumor. Electrolyte imbalance. Hypophosphatemia. Hypomagnesemia. Weakness. Patient lives alone DVT/VTE Risk/Contraindication: Risk Factor Score Per Nursin RFS Level Per Nursing on Admit: 3=High ISIDRO IRIZARRY DO Aug 01, 2018 08:26
[2018-08-01] MEDS ORDERED: GADOBUTROL 7.5 MMOL/7.5 ML (GADAVIST) VIAL IV ONE (09:00)
[2018-08-01] MEDS ORDERED: ENOXAPARIN 40 MG/0.4 ML (LOVENOX) SYR SC SCH (09:00)
[2018-08-01] MEDS: SPIRONOLACTONE 25 MG (ALDACTONE) TAB PO SCH (09:44)
[2018-08-01] MEDS: FUROSEMIDE 40 MG (LASIX) TAB PO SCH (09:44)
[2018-08-01] MEDS: MAGNESIUM 1 GM/100 ML IVPB 100 ML IV SCH ×4 (09:45→17:14)
[2018-08-01] MEDS ORDERED: ENOXAPARIN 30 MG/0.3 ML (LOVENOX) SYR SC SCH (10:00)
--- NOTE | 2018-08-01 10:12 | Diagnostic Imaging Report ---
PROCEDURE: MR imaging of the brain with and without contrast. TECHNIQUE: Multiplanar, multisequence MR imaging of the brain was performed with and without contrast. INDICATION: Lung cancer. FINDINGS: The ventricles and sulci are prominent consistent with the patient's age. Moderate periventricular and subcortical white matter signal abnormalities are noted consistent with chronic microvascular ischemia. No diffusion restriction is identified. No acute intra-axial or extra-axial hemorrhage is detected. The corpus callosum is unremarkable. The sella and parasellar structures are unremarkable. No abnormal enhancement following contrast administration is seen. IMPRESSION: Cerebral atrophy and changes of chronic microvascular ischemia. No acute intracranial process is detected. There are no findings to suggest intracranial metastatic disease. Dictated by: Dictated on workstation # [id number]
[2018-08-01 12:00] VITALS: BP 168/79
[2018-08-01] MEDS ORDERED: ONDANSETRON MDV (CANCER CENTER 16 MG, DEXAMETHASONE INJECTION 10 MG in NS (IVPB) CANCER... IV ONE (12:41)
[2018-08-01] MEDS ORDERED: FOSAPREPITANT DIMEGLUMINE 150 MG in NS (IVPB) CANCER CENTER ONLY 150 ML IV ONE (12:43)
[2018-08-01] MEDS ORDERED: NS IV 1000 ML (CANCER CTR) IV SCH (12:45)
[2018-08-01] MEDS ORDERED: ETOPOSIDE 150 MG in NORMAL SALINE (CANCER CENTER) 500 ML IV SCH (13:00)
--- NOTE | 2018-08-01 13:15 | NUR ---
Pt IV saline locked at this time and pt transported to to [facility] via wheelchair. Plan is for Chemo and for pt and pt family member to have discussion with Dr Corrigan. Will resume Potassium phosphate and magnesium when pt returns to floor.
--- NOTE | 2018-08-01 14:14 | Diagnostic Imaging Report ---
INDICATION: Small cell lung cancer. TECHNIQUE: Patient was administered 26.1 mCi of technetium-99m MDP intravenously and whole body imaging was performed after three-hour delay. COMPARISON: No prior bone scans are available for comparison. FINDINGS: There is normal uptake of activity by the axial and appendicular skeleton. There is uptake by the kidneys with excretion into the bladder. Mild uptake is identified in an upper thoracic vertebral body, approximately T5 or T4, indeterminate. Vague uptake in the region of the mid shaft of left humerus is also seen, indeterminate. No other suspicious foci are identified. There is left convexity lumbar scoliotic curvature. IMPRESSION: Mild increased uptake is identified in an upper thoracic vertebral body as well as in the mid shaft of left humerus, nonspecific. A metastatic disease cannot be entirely excluded. Continued follow-up is recommended. Dictated by: Dictated on workstation # [id number]
[2018-08-01 16:00] VITALS: BP 168/77
--- NOTE | 2018-08-01 16:45 | Progress Note ---
Subjective Time Seen by a Provider: 16:01 Subjective/Events-last exam Pt seen and examined, states she went down for chemo today and is taking pills; she has another round of chemo scheduled for tomorrow. Review of Systems General: No Chills, No Night Sweats; Fatigue, Malaise Pulmonary: Dyspnea; No Cough Cardiovascular: No: Chest Pain, Palpitations Gastrointestinal: Nausea; No: Vomiting Objective Exam Vital Signs Date Time Temp Pulse Resp B/P (MAP) Pulse Ox O2 Delivery O2 Flow Rate FiO2 08/01/18 13:06 99 08/01/18 12:00 98.7 93 20 168/79 (108) 95 Room Air 08/01/18 09:04 Room Air 08/01/18 08:00 98.4 102 20 168/81 (110) 93 Room Air 08/01/18 07:03 94 08/01/18 04:00 98.0 94 18 158/70 (99) 95 Room Air 08/01/18 01:00 95 08/01/18 00:00 97.9 93 18 160/72 (101) 95 Room Air 07/31/18 20:20 98.9 94 18 163/74 (103) 94 Room Air 07/31/18 20:00 Room Air 07/31/18 19:00 89 07/31/18 16:45 98.6 84 18 149/68 (95) 95 Room Air I & O 08/01/18 07:00 Intake Total 1885 ml Output Total 1850 ml Balance 35 ml Capillary Refill : Less Than 3 Seconds General Appearance: No Apparent Distress, Chronically ill, Thin Neck: Full Range of Motion, Normal Inspection Respiratory: Lungs Clear, No Accessory Muscle Use, No Respiratory Distress Cardiovascular: Regular Rate, Rhythm, Normal Peripheral Pulses Gastrointestinal: normal bowel sounds, non tender, soft, no organomegaly, no pulsatile mass Extremity: Non Tender, Pedal Edema Neurologic/Psychiatric: Alert, Oriented x3, No Motor/Sensory Deficits, Normal Mood/Affect, 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 Norm as Tested Skin: Normal Color, Warm/Dry Results Lab Laboratory Tests 07/31/18 16:50: Sodium Level 125*L, Potassium Level 4.1, Chloride Level 95L, Carbon Dioxide Level 20L, Anion Gap 10, Blood Urea Nitrogen 9, Creatinine 0.61, Estimat Glomerular Filtration Rate > 60, BUN/Creatinine Ratio 15, Glucose Level 98, Calcium Level 8.0L, Phosphorus Level 1.6L, B-Type Natriuretic Peptide 772.8H 08/01/18 06:15: Sodium Level 131L, Potassium Level 3.3L, Chloride Level 99, Carbon Dioxide Level 23, Anion Gap 9, Blood Urea Nitrogen 8, Creatinine 0.57L, Estimat Glomerular Filtration Rate > 60, BUN/Creatinine Ratio 14, Glucose Level 107H, Calcium Level 8.7, Phosphorus Level 1.5L, White Blood Count 10.7, Red Blood Count 2.94L, Hemoglobin 9.1L, Hematocrit 26L, Mean Corpuscular Volume 90, Mean Corpuscular Hemoglobin 31, Mean Corpuscular Hemoglobin Concent 35, Red Cell Distribution Width 13.7, Platelet Count 58L, Mean Platelet Volume 9.3, Neutrophils (%) (Auto) 77H, Lymphocytes (%) (Auto) 12, Monocytes (%) (Auto) 10, Eosinophils (%) (Auto) 1, Basophils (%) (Auto) 0, Neutrophils # (Auto) 8.2H, Lymphocytes # (Auto) 1.3, Monocytes # (Auto) 1.1H, Eosinophils # (Auto) 0.1, Basophils # (Auto) 0.0, Corrected Calcium 9.6, Magnesium Level 1.6L, Total Bilirubin 2.3H, Aspartate Amino Transf (AST/SGOT) 185H, Alanine Aminotransferase (ALT/SGPT) 88H, Alkaline Phosphatase 326H, Lactate Dehydrogenase 793H, Total Protein 5.4L, Albumin 2.9L Assessment/Plan Assessment/Plan Assessment/Plan Small cell lung cancer. Metastasis to liver. Probable adrenal mass. Hypertension. Pt is currently getting chemotherapy, IV and oral. I am available whenever to place [facility]-cath; pt will have to stop her anticoagulation for 3-5 days to get that done. Clinical Quality Measures DVT/VTE Risk/Contraindication: Risk Factor Score Per Nursin RFS Level Per Nursing on Admit: 3=High LU PETTIT DO Aug 01, 2018 16:45
--- NOTE | 2018-08-01 18:13 | Progress Note-Standard ---
Standard Progress Note Progress Notes/Assess & Plan Date Seen by a Provider: Aug 01, 2018 Time Seen by a Provider: 18:07 Progress/Assessment & Plan 78-year-old female with recent diagnosis of small cell lung cancer. Staging studies showing metastasis extensively to liver, left adrenal gland and bone. MRI head negative with age-related changes. 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 Discussed the diagnosis, prognosis and treatment options with the patient and her dcjqlr-xn-kvo who is her medical power of baggageman and answered their questions. I informed them that the median survival for extensive stage small cell lung cancer without treatment is approximately 7-8 weeks and with treatment is more than 10 months. Response rates with first line treatment is approximately 90 percent range. Patient wanted to proceed with the chemotherapy. I will start her on treatment with the carboplatin and etoposide regimen starting today. She will receive chemotherapy IV until Sunday and will take oral etoposide on Sunday. Port can be inserted in approximately 3 weeks prior to the start of second cycle of chemotherapy. I will avoid antiplatelet agents as patient already has thrombocytopenia. If this is worsening, we may even need to stop prophylactic Lovenox. Monitor lab work tomorrow. HERLINDA MAS Aug 01, 2018 18:13
[2018-08-01 20:00] VITALS: BP 161/69
[2018-08-02] VITALS: BP 152/70
[2018-08-02 04:00] VITALS: BP 150/75
[2018-08-02 05:05] LABS: BASOPHILS % (AUTO) 0 % (0-10); EOSINOPHILS # (AUTO) 0.1 10^3/uL (0.0-0.3); EOSINOPHILS % (AUTO) 1 % (0-10); HEMATOCRIT 24 % (35-52); HEMOGLOBIN 8.2 G/DL (11.5-16.0); LYMPHOCYTES # (AUTO) 1.1 X 10^3 (1.0-4.0); LYMPHOCYTES % (AUTO) 11 % (12-44); MEAN CORPUSCULAR HEMOGLOBIN 31 PG (25-34); MEAN CORPUSCULAR HGB CONC 34 G/DL (32-36); MEAN CORPUSCULAR VOLUME 91 FL (80-99); MEAN PLATELET VOLUME 9.5 FL (7.4-10.4); MONOCYTES # (AUTO) 0.8 X 10^3 (0.0-1.0); MONOCYTES % (AUTO) 9 % (0-12); NEUTROPHILS # (AUTO) 7.7 X 10^3 (1.8-7.8); NEUTROPHILS % (AUTO) 79 % (42-75); PLATELET COUNT 44 10^3/uL (130-400); RED CELL DISTRIBUTION WIDTH 13.6 % (10.0-14.5); WHITE BLOOD COUNT 9.8 10^3/uL (4.3-11.0)
[2018-08-02 05:32] LABS: ALANINE AMINOTRANSFERASE 89 U/L (0-55); ALBUMIN 2.7 GM/DL (3.2-4.5); ALKALINE PHOSPHATASE 296 U/L (40-136); BILIRUBIN,TOTAL 2.7 MG/DL (0.1-1.0); BUN/CREATININE RATIO 21; CALCIUM 8.4 MG/DL (8.5-10.1); CARBON DIOXIDE 24 MMOL/L (21-32); CHLORIDE 99 MMOL/L (98-107); CREATININE SERUM 0.57 MG/DL (0.60-1.30); GFR ESTIMATED > 60; GLUCOSE 144 MG/DL (70-105); MAGNESIUM 2.3 MG/DL (1.8-2.4); PHOSPHORUS 3.1 MG/DL (2.3-4.7); POTASSIUM 3.9 MMOL/L (3.6-5.0); SODIUM 133 MMOL/L (135-145); TOTAL PROTEIN 5.1 GM/DL (6.4-8.2)
[2018-08-02] MEDS: KCL 10 MEQ TAB (MICRO K) PO SCH ×2 (06:09→17:43)
[2018-08-02 08:00] VITALS: BP 132/64
[2018-08-02] MEDS ORDERED: PALONOSETRON HCL 0.25 MG, DEXAMETHASONE INJECTION 10 MG in NS (IVPB) CANCER CENTER 50 ML IV SCH (08:00)
--- NOTE | 2018-08-02 08:10 | Progress Note (SOAP) ---
Subjective Time Seen by a Provider: 08:07 Subjective/Events-last exam Patient feeling okay. Patient has metastasis to bone. Patient getting IV chemotherapy today. Lovenox DC'd due to platelet count going down. A stress metastasis to liver. Patient has primary lung cancer Objective Exam Vital Signs Date Time Temp Pulse Resp B/P (MAP) Pulse Ox O2 Delivery O2 Flow Rate FiO2 08/02/18 07:05 105 08/02/18 04:00 98.0 92 18 150/75 (100) 96 Room Air 08/02/18 01:00 94 08/02/18 00:00 97.0 96 18 152/70 (97) 96 Room Air 08/01/18 20:00 98.3 98 20 161/69 (99) 94 Room Air 08/01/18 20:00 Room Air 08/01/18 19:06 99 08/01/18 16:00 99.0 97 20 168/77 (107) 93 Room Air 08/01/18 13:06 99 08/01/18 12:00 98.7 93 20 168/79 (108) 95 Room Air 08/01/18 09:04 Room Air I & O 08/02/18 07:00 Intake Total 1360 ml Output Total 2300 ml Balance -940 ml Capillary Refill : Less Than 3 Seconds General Appearance: No Apparent Distress, Thin HEENT: Normal ENT Inspection Neck: Full Range of Motion, Normal Inspection Respiratory: No Accessory Muscle Use, No Respiratory Distress Cardiovascular: Regular Rate, Rhythm Gastrointestinal: non tender, soft Results Lab Laboratory Tests 08/02/18 04:50 Laboratory Tests 08/02/18 04:50: White Blood Count 9.8, Red Blood Count 2.64L, Hemoglobin 8.2L, Hematocrit 24L, Mean Corpuscular Volume 91, Mean Corpuscular Hemoglobin 31, Mean Corpuscular Hemoglobin Concent 34, Red Cell Distribution Width 13.6, Platelet Count 44L, Mean Platelet Volume 9.5, Neutrophils (%) (Auto) 79H, Lymphocytes (%) (Auto) 11L , Monocytes (%) (Auto) 9, Eosinophils (%) (Auto) 1, Basophils (%) (Auto) 0, Neutrophils # (Auto) 7.7, Lymphocytes # (Auto) 1.1, Monocytes # (Auto) 0.8, Eosinophils # (Auto) 0.1, Basophils # (Auto) 0.0, Sodium Level 133L, Potassium Level 3.9, Chloride Level 99, Carbon Dioxide Level 24, Anion Gap 10, Blood Urea Nitrogen 12, Creatinine 0.57L, Estimat Glomerular Filtration Rate > 60, BUN/ Creatinine Ratio 21, Glucose Level 144H, Calcium Level 8.4L, Corrected Calcium 9.4, Phosphorus Level 3.1, Magnesium Level 2.3, Total Bilirubin 2.7H, Aspartate Amino Transf (AST/SGOT) 189H, Alanine Aminotransferase (ALT/SGPT) 89H, Alkaline Phosphatase 296H, Total Protein 5.1L, Albumin 2.7L Assessment/Plan Assessment/Plan Assess & Plan/Chief Complaint Small cell lung cancer. Metastasis to liver. Probable adrenal mass. Hypertension.. . 08/02/18. Small cell lung cancer. Potassium is to liver and bone and adrenal. Hypertension. Electrolyte imbalance. Hypophosphatemia. Hypomagnesemia Clinical Quality Measures Admission Status Admission Dx Electrolyte disturbance. Small cell lung cancer. Adrenal tumor. Electrolyte imbalance. Hypophosphatemia. Hypomagnesemia. Weakness. Patient lives alone DVT/VTE Risk/Contraindication: Risk Factor Score Per Nursin RFS Level Per Nursing on Admit: 3=High ISIDRO IRIZARRY DO Aug 02, 2018 08:10
--- NOTE | 2018-08-02 09:04 | NUR ---
prior to a.m. medications pulse was 114 and b/p was 132/64
[2018-08-02] MEDS: SPIRONOLACTONE 25 MG (ALDACTONE) TAB PO SCH (09:07)
[2018-08-02] MEDS: FUROSEMIDE 40 MG (LASIX) TAB PO SCH (09:07)
--- NOTE | 2018-08-02 11:50 | Progress Note-Standard ---
Standard Progress Note Progress Notes/Assess & Plan Date Seen by a Provider: Aug 02, 2018 Time Seen by a Provider: 11:44 Progress/Assessment & Plan 78-year-old female with recent diagnosis of small cell lung cancer with metastasis to liver, left adrenal gland and bone. MRI head negative with age- related changes. 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 Started on palliative chemotherapy with the carboplatin and etoposide regimen on 08/01/2018 and tolerated this well. She denied any nausea or vomiting. Bowels functioning well. Appetite is good. She will receive chemotherapy IV today and will take oral etoposide on Sunday. Port to be inserted in approximately 3 weeks prior to the start of second cycle of chemotherapy. Patient's major complaint today is dry mouth. Lab work reviewed today and sodium is almost normal. LFTs stable. Will DC fluid restriction and DC Lasix. Monitor labwork daily. Dr. Varner is covering for this weekend. HERLINDA MAS Aug 02, 2018 11:50
[2018-08-02 12:00] VITALS: BP 152/68
--- NOTE | 2018-08-02 12:23 | NUR ---
attempt to call report to RONI Vásquez at this time. This RN left a phone number with staff for him to call this RN back, Addendum: 08/02/18 at 1246 by XIN SHAHID RN wrong patient chart
[2018-08-02] MEDS ORDERED: NS IV 500 ML (CANCER CENTER) 500 ML ONE (12:37)
--- NOTE | 2018-08-02 12:48 | NUR ---
TO CHEMO PER W/C WITH ASSISTANCE FROM [facility] STAFF AT THIS TIME. THIS RN WILL ASSUME CARE OF THIS PATIENT AT THIS TIME.
--- NOTE | 2018-08-02 14:25 | NUR ---
PATIENT BACK FROM CHEMO AT THIS TIME VIA W.Martha ACCOMPANIED BY [facility], RN
[2018-08-02 16:00] VITALS: BP 147/67
--- NOTE | 2018-08-02 16:22 | NUR ---
Received referral from Dr. Valdez to assist in continued care plans for pt. She is a 78 year old who lives alone locally. Her megbre-se-gkr is her primary caregiver and DPOA for health care decisions.Pt states she will bring her Advance Directive paper work in for our medical records. Pt isn't interested in [facility] home placement at this time. She has a niece Marisabel Marrero who works for Home care and is in process obtaining a Med alert system for her at home., She also has a sister-in -law who lives two blocks down who can assist her. She plans to talk with her family this week-end and understands she may be discharged on Sunday.Will follow and assist with continued care plans.
[2018-08-02 20:04] VITALS: BP 167/78
[2018-08-03] VITALS (7 sets, daily range): BP systolic 158–181; BP diastolic 74–84
[2018-08-03 05:04] LABS: BASOPHILS % (AUTO) 0 % (0-10); EOSINOPHILS % (AUTO) 0 % (0-10); HEMATOCRIT 23 % (35-52); HEMOGLOBIN 7.9 G/DL (11.5-16.0); LYMPHOCYTES # (AUTO) 0.9 X 10^3 (1.0-4.0); LYMPHOCYTES % (AUTO) 9 % (12-44); MEAN CORPUSCULAR HEMOGLOBIN 31 PG (25-34); MEAN CORPUSCULAR HGB CONC 34 G/DL (32-36); MEAN CORPUSCULAR VOLUME 91 FL (80-99); MEAN PLATELET VOLUME 9.6 FL (7.4-10.4); MONOCYTES # (AUTO) 0.5 X 10^3 (0.0-1.0); MONOCYTES % (AUTO) 5 % (0-12); NEUTROPHILS # (AUTO) 7.9 X 10^3 (1.8-7.8); NEUTROPHILS % (AUTO) 86 % (42-75); PLATELET COUNT 48 10^3/uL (130-400); RED CELL DISTRIBUTION WIDTH 14.4 % (10.0-14.5); WHITE BLOOD COUNT 9.2 10^3/uL (4.3-11.0)
[2018-08-03 05:24] LABS: ALANINE AMINOTRANSFERASE 102 U/L (0-55); ALBUMIN 2.8 GM/DL (3.2-4.5); ALKALINE PHOSPHATASE 334 U/L (40-136); BILIRUBIN,TOTAL 2.2 MG/DL (0.1-1.0); BUN/CREATININE RATIO 30; CALCIUM 8.8 MG/DL (8.5-10.1); CARBON DIOXIDE 23 MMOL/L (21-32); CHLORIDE 101 MMOL/L (98-107); CREATININE SERUM 0.64 MG/DL (0.60-1.30); GFR ESTIMATED > 60; GLUCOSE 125 MG/DL (70-105); MAGNESIUM 2.1 MG/DL (1.8-2.4); PHOSPHORUS 3.1 MG/DL (2.3-4.7); POTASSIUM 4.9 MMOL/L (3.6-5.0); SODIUM 132 MMOL/L (135-145); TOTAL PROTEIN 5.2 GM/DL (6.4-8.2)
--- NOTE | 2018-08-03 06:25 | NUR ---
Dr. Rosales notified of patients potassium level being 4.9 this AM and that he has orders to give 40mEq potassium BID. Telephone order to d/c order for 40 mEq potassium BID at this time. Order read back and confirmed.
--- NOTE | 2018-08-03 07:34 | Pulmonary Progress Note ---
Subjective Date Seen by a Provider: Aug 02, 2018 (late note tody is 08/03) Time Seen by a Provider: 07:34 Subjective/Events-last exam Pt feels improved. Sepsis Event Evaluation Height, Weight, BMI Height: 5'6.00" Weight: 122lbs. 11.2oz. 55.396445mk; 19.8 BMI Method:Stated Exam Exam Vital Signs Date Time Temp Pulse Resp B/P (MAP) Pulse Ox O2 Delivery O2 Flow Rate FiO2 08/03/18 07:05 106 08/03/18 04:46 98.4 99 20 158/74 (102) 92 Room Air 08/03/18 01:00 97 08/03/18 00:31 97.6 100 18 161/81 (107) 94 Room Air 08/02/18 20:04 99.4 110 20 167/78 (107) 96 Room Air 08/02/18 20:00 96 Room Air 08/02/18 19:00 107 08/02/18 16:00 98.4 100 18 147/67 (93) 97 Room Air 08/02/18 14:33 109 08/02/18 13:00 103 08/02/18 12:00 98.8 101 18 152/68 (96) 94 Room Air 08/02/18 08:00 98.4 114 18 132/64 (86) 94 Room Air 08/02/18 08:00 96 Room Air I & O 08/03/18 07:00 Intake Total 1180 ml Output Total 700 ml Balance 480 ml Height & Weight Height: 5'6.00" Weight: 122lbs. 11.2oz. 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
--- NOTE | 2018-08-03 07:36 | Pulmonary Progress Note ---
Subjective Date Seen by a Provider: Aug 03, 2018 Time Seen by a Provider: 07:35 Subjective/Events-last exam No complications noted. Sepsis Event Evaluation Height, Weight, BMI Height: 5'6.00" Weight: 122lbs. 11.2oz. 55.365793wv; 19.8 BMI Method:Stated Exam Exam Vital Signs Date Time Temp Pulse Resp B/P (MAP) Pulse Ox O2 Delivery O2 Flow Rate FiO2 08/03/18 07:05 106 08/03/18 04:46 98.4 99 20 158/74 (102) 92 Room Air 08/03/18 01:00 97 08/03/18 00:31 97.6 100 18 161/81 (107) 94 Room Air 08/02/18 20:04 99.4 110 20 167/78 (107) 96 Room Air 08/02/18 20:00 96 Room Air 08/02/18 19:00 107 08/02/18 16:00 98.4 100 18 147/67 (93) 97 Room Air 08/02/18 14:33 109 08/02/18 13:00 103 08/02/18 12:00 98.8 101 18 152/68 (96) 94 Room Air 08/02/18 08:00 98.4 114 18 132/64 (86) 94 Room Air 08/02/18 08:00 96 Room Air I & O 08/03/18 07:00 Intake Total 1180 ml Output Total 700 ml Balance 480 ml Height & Weight Height: 5'6.00" Weight: 122lbs. 11.2oz. 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
--- NOTE | 2018-08-03 09:59 | Progress Note-Standard ---
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 Patient was started on palliative chemotherapy with carboplatin and etoposide on 08/01/18 and will receive day 3 etoposide today. This morning she complained of back pain which responded well with heated blankets. Patient also reported a mix of diarrhea and bright red bloody stools this morning, witnessed by the nursing aid. Patient reports that on Sunday, she attempted manual disimpaction of stool and experienced a significant amount of rectal bleeding as well. Otherwise she feels well and has had no other reactions to the chemotherapy. On exam, patient is alert, oriented and talkative. She appears comfortable. Lungs are clear, heart is tachy but regular. Abdomen is soft, nondistended and nontender. No significant edema noted. 1. Metastatic small cell lung cancer. Receiving chemotherapy with carbo/ etoposide and tolerating well. Receiving PO etoposide today, which will conclude treatment for the first cycle. No expected cytopenias from chemo until 2nd week of treatment but could occur in a few days. Treatment should also help significantly with SIADH. 2. Anemia and thrombocytopenia. This can be seen with acute illness. We will need to check for nutritional deficiencies. I think the elevated bilirubin is related to liver disease rather than hemolysis but we will also order confirmatory labs for this. Peripheral smear will also help determine if she has thrombotic microangiopathy. Another issue of concern is blood from the rectum. From history, it may be injury or irritation to local mucosal lining from her attempted manual disimpaction, but we will need endoscopy as some point. If anemia worsens tomorrow, strongly consider colonoscopy this weekend. 3. Transaminitis. Slight trend towards worsening in the last 3 days but can also be seen as relatively stable. Likely due to metastatic liver disease. Continue to monitor. Will continue to follow. EMERY WEAVER MD Aug 03, 2018 09:59
[2018-08-03] MEDS ORDERED: ONDANSETRON 8 MG (ZOFRAN) ORAL DISSOLVE TAB PO ONE (12:00)
[2018-08-03] MEDS ORDERED: ONDANSETRON 4 MG (ZOFRAN) ORAL DISSOLVE TAB PO SCH (12:00)
--- NOTE | 2018-08-03 12:40 | Progress Note-Hospitalist ---
Subjective HPI/CC On Admission Date Seen by Provider: Aug 03, 2018 Time Seen by Provider: 11:45 Subjective/Events-last exam Patient talkative Rectal bleeding noted so I did notify Dr Pritchard in case it increases Breathing well Sodium level 132 Weakness reported generalized DC Tely Review of Systems General: Fatigue Gastrointestinal: Melena Objective Exam Vital Signs Vital Signs Date Time Temp Pulse Resp B/P (MAP) Pulse Ox O2 Delivery O2 Flow Rate FiO2 08/03/18 12:00 98.8 100 20 164/78 (106) 95 Room Air Capillary Refill : Less Than 3 Seconds General Appearance: No Apparent Distress, Chronically ill, Thin HEENT: Normal ENT Inspection Neck: Full Range of Motion, Normal Inspection Respiratory: Lungs Clear, Normal Breath Sounds, No Accessory Muscle Use, No Respiratory Distress Cardiovascular: Regular Rate, Rhythm, No Edema Gastrointestinal: Non Tender, Soft Extremity: Non Tender, Pedal Edema Neurologic/Psychiatric: Alert, Oriented x3, No Motor/Sensory Deficits, Normal Mood/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 Assessment/Plan Assessment and Plan Assess & Plan/Chief Complaint Assessment: Hyponatremia Small cell lung cancer. Adrenal tumor. Hypophosphatemia. Hypomagnesemia. Weakness. Patient lives alone rectal bleeding Plan: Dr Pritchard on board Monitor labs IVF Supportive care Diagnosis/Problems Diagnosis/Problems (1) Small cell lung cancer Status: Chronic (2) Rectal bleeding Status: Acute (3) Hyponatremia Status: Acute (4) Generalized weakness Status: Acute (5) Hypomagnesemia Status: Acute (6) Hypokalemia Status: Acute (7) Electrolyte abnormality (8) Elevated liver enzymes Status: Acute (9) Nausea Status: Acute Clinical Quality Measures DVT/VTE Risk/Contraindication: Risk Factor Score Per Nursin RFS Level Per Nursing on Admit: 3=High MYRON ALEXANDRA DO Aug 03, 2018 12:40
[2018-08-03] MEDS ORDERED: ETOPOSIDE 50 MG PO ONE (13:00)
[2018-08-03] MEDS ORDERED: ONDANSETRON 8 MG (ZOFRAN) ORAL DISSOLVE TAB PO PRN (20:00)
[2018-08-03] MEDS ORDERED: ONDANSETRON 4 MG (ZOFRAN) ORAL DISSOLVE TAB PO PRN (20:00)
--- NOTE | 2018-08-03 21:17 | Progress Note ---
Subjective Date Seen by a Provider: Aug 03, 2018 Time Seen by a Provider: 13:35 Subjective/Events-last exam acid patient for bright red blood stools per Dr. Le Patient's in 8-year-old female with lung cancer undergoing chemotherapy. Patient last Sunday had to disimpact herself and was also using enema she states. Patient was having some bright red blood at that time. Patient not having really any significant bleeding until this morning when she had some loose stool which she states seemed to be more blood. this occurred one time today. Patient is anemic. She was having some back and neck discomfort but she states that she is using some warm blankets and this helped and did alleviate the pain. Patient denies any nausea vomiting fever sweats chills shortness of breath or chest pain. Objective Exam Vital Signs Date Time Temp Pulse Resp B/P (MAP) Pulse Ox O2 Delivery O2 Flow Rate FiO2 08/03/18 19:23 98.2 105 18 178/81 (113) 94 Room Air 08/03/18 16:23 98.2 111 18 179/82 (114) 95 Room Air 08/03/18 12:00 98.8 100 20 164/78 (106) 95 Room Air 08/03/18 08:00 97.9 114 20 181/84 (116) 97 Room Air 08/03/18 08:00 96 Room Air 08/03/18 07:05 106 08/03/18 04:46 98.4 99 20 158/74 (102) 92 Room Air 08/03/18 01:00 97 08/03/18 00:31 97.6 100 18 161/81 (107) 94 Room Air I & O 08/03/18 07:00 Intake Total 1180 ml Output Total 700 ml Balance 480 ml Capillary Refill : Less Than 3 Seconds General Appearance: No Apparent Distress, Chronically ill, Thin HEENT: Normal ENT Inspection Neck: Full Range of Motion, Normal Inspection Respiratory: Lungs Clear, Normal Breath Sounds, No Accessory Muscle Use, No Respiratory Distress Cardiovascular: Regular Rate, Rhythm, No Edema Gastrointestinal: non tender, soft Extremity: Non Tender, Pedal Edema Neurologic/Psychiatric: Alert, Oriented x3, No Motor/Sensory Deficits, Normal Mood/Affect, 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 Norm as Tested Skin: Normal Color, Warm/Dry Other comments rectal deferred at this time Results Lab Laboratory Tests 08/03/18 05:00: White Blood Count 9.2, Red Blood Count 2.52L, Hemoglobin 7.9L, Hematocrit 23L, Mean Corpuscular Volume 91, Mean Corpuscular Hemoglobin 31, Mean Corpuscular Hemoglobin Concent 34, Red Cell Distribution Width 14.4, Platelet Count 48L, Mean Platelet Volume 9.6, Neutrophils (%) (Auto) 86H, Lymphocytes (%) (Auto) 9L , Monocytes (%) (Auto) 5, Eosinophils (%) (Auto) 0, Basophils (%) (Auto) 0, Neutrophils # (Auto) 7.9H, Lymphocytes # (Auto) 0.9L, Monocytes # (Auto) 0.5, Eosinophils # (Auto) 0.0, Basophils # (Auto) 0.0, Sodium Level 132L, Potassium Level 4.9, Chloride Level 101, Carbon Dioxide Level 23, Anion Gap 8, Blood Urea Nitrogen 19H, Creatinine 0.64, Estimat Glomerular Filtration Rate > 60, BUN/ Creatinine Ratio 30, Glucose Level 125H, Calcium Level 8.8, Corrected Calcium 9.8, Phosphorus Level 3.1, Magnesium Level 2.1, Total Bilirubin 2.2H, Aspartate Amino Transf (AST/SGOT) 229H, Alanine Aminotransferase (ALT/SGPT) 102H, Alkaline Phosphatase 334H, Total Protein 5.2L, Albumin 2.8L Assessment/Plan Assessment/Plan Assessment/Plan Small cell lung cancer. bright red blood in stool Hypertension. Electrolyte imbalance. patient with anemia and having some blood in the stools. Continue to follow hemoglobin and transfuse PRBCs as needed. She is on Plavix and aspirin to discontinue. Can due to colonoscopy to evaluate either inpatient versus outpatient depending upon if remains stable or not. Will follow. Clinical Quality Measures DVT/VTE Risk/Contraindication: Risk Factor Score Per Nursin RFS Level Per Nursing on Admit: 3=High LAKHWINDER BRYANT DO Aug 03, 2018 21:17
[2018-08-04 06:11] LABS: ABSOLUTE RETIC # 24 10e9/L (24-90); BASOPHILS % (AUTO) 0 % (0-10); EOSINOPHILS # (AUTO) 0.1 10^3/uL (0.0-0.3); EOSINOPHILS % (AUTO) 1 % (0-10); HEMATOCRIT 21 % (35-52); LYMPHOCYTES # (AUTO) 0.7 X 10^3 (1.0-4.0); LYMPHOCYTES % (AUTO) 14 % (12-44); MEAN CORPUSCULAR HEMOGLOBIN 31 PG (25-34); MEAN CORPUSCULAR HGB CONC 34 G/DL (32-36); MEAN CORPUSCULAR VOLUME 92 FL (80-99); MONOCYTES # (AUTO) 0.2 X 10^3 (0.0-1.0); MONOCYTES % (AUTO) 3 % (0-12); NEUTROPHILS # (AUTO) 3.9 X 10^3 (1.8-7.8); NEUTROPHILS % (AUTO) 82 % (42-75); RED CELL DISTRIBUTION WIDTH 14.2 % (10.0-14.5); RETICULOCYTE % 1.07 % (0.50-2.40); WHITE BLOOD COUNT 4.8 10^3/uL (4.3-11.0)
[2018-08-04 06:21] LABS: PLATELET COUNT 33 10^3/uL (130-400)
[2018-08-04 06:34] LABS: BUN/CREATININE RATIO 46; CALCIUM 8.2 MG/DL (8.5-10.1); CARBON DIOXIDE 23 MMOL/L (21-32); CHLORIDE 99 MMOL/L (98-107); CREATININE SERUM 0.56 MG/DL (0.60-1.30); GFR ESTIMATED > 60; GLUCOSE 97 MG/DL (70-105); MAGNESIUM 1.9 MG/DL (1.8-2.4); PHOSPHORUS 3.7 MG/DL (2.3-4.7); POTASSIUM 5.2 MMOL/L (3.6-5.0); SODIUM 131 MMOL/L (135-145)
[2018-08-04 08:00] VITALS: BP 152/70
--- NOTE | 2018-08-04 09:45 | NUR ---
ZOFRAN 8MG PO FOR NAUSEA AND DRY HEAVES. NO EMESIS.
[2018-08-04] MEDS ORDERED: ONDANSETRON 4 MG/2 ML (SDV) Z0FRAN IVP PRN (11:00)
--- NOTE | 2018-08-04 11:03 | Progress Note-Standard ---
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 Patient was started on palliative chemotherapy with carboplatin and etoposide on 08/01/18 and completed day 3 on 08/03/18. This morning, patient had two episodes of uncontrolled nausea and dry heaves. Sublingual zofran had minimal effect. Now, patient is doing better with no nausea. She has not had recurrence of back pain since yesterday. Stools have been very dark but no gross blood. On exam, patient is alert, oriented and talkative. She appears comfortable. Lungs are clear, heart is tachy but regular. Abdomen is soft, nondistended and nontender. No significant edema noted. 1. Metastatic small cell lung cancer. Completed cycle 1 chemotherapy with carbo /etoposide and suffered mainly with nausea, for which we will prescribe IV antiemetics. No expected cytopenias from chemo until 2nd week of treatment but could occur at the end of the first week (soon). Treatment should also help significantly with SIADH. 2. Anemia and thrombocytopenia secondary to acute illness vs GI bleed vs chemotherapy. Anemia and thrombocytopenia have worsened today. Nutritional deficiencies workup is pending. Peripheral smear reviewed, showing some hyposegmented neutrophils and scant enlarged platelets but no schistocytes. I think the elevated bilirubin is related to liver disease rather than hemolysis, and the smear supports this assumption. Patient does have significant exposure to Lovenox in this and previous recent hospitalizations, but there are definite other reasons for thrombocytopenia and no clear thrombosis so we will hold off on HIT workup for now. Surgery is contemplating endoscopy tomorrow due to progressive decline in hgb. If endoscopy is necessary platelet transfusion prior to the procedure is recommended. 3. Transaminitis. Slight trend towards worsening in the last 3 days but can also be seen as relatively stable. Likely due to metastatic liver disease. Continue to monitor. Will continue to follow. EMERY WEAVER MD Aug 04, 2018 11:03
--- NOTE | 2018-08-04 12:11 | Progress Note ---
Subjective Date Seen by a Provider: Aug 04, 2018 Time Seen by a Provider: 12:07 Subjective/Events-last exam Patient hgb with drop to 7. Patient not had any more bloody stools. Denies any abdominal pain. Had some nausea. Denies fever sweats chills shortness of breath or chest pain. Objective Exam Vital Signs Date Time Temp Pulse Resp B/P (MAP) Pulse Ox O2 Delivery O2 Flow Rate FiO2 08/04/18 08:00 98.2 105 16 152/70 (97) 97 Room Air 08/04/18 08:00 98.2 105 16 152/70 (97) 97 08/04/18 08:00 Room Air 08/03/18 23:51 99.0 94 16 158/74 (102) 95 Room Air 08/03/18 20:00 94 Room Air 08/03/18 19:23 98.2 105 18 178/81 (113) 94 Room Air 08/03/18 16:23 98.2 111 18 179/82 (114) 95 Room Air I & O 08/04/18 07:00 Intake Total 2070 ml Balance 2070 ml Capillary Refill : Less Than 3 SecondsLess Than 3 Seconds General Appearance: No Apparent Distress, Thin HEENT: Normal ENT Inspection Neck: Full Range of Motion, Normal Inspection Respiratory: Lungs Clear, Normal Breath Sounds, No Accessory Muscle Use, No Respiratory Distress Cardiovascular: Regular Rate, Rhythm, No Edema Gastrointestinal: non tender, soft Extremity: Non Tender, Pedal Edema Neurologic/Psychiatric: Alert, Oriented x3, No Motor/Sensory Deficits, Normal Mood/Affect, 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 Norm as Tested Skin: Normal Color, Warm/Dry Results Lab Laboratory Tests 08/04/18 06:00: White Blood Count 4.8, Red Blood Count 2.25L, Hemoglobin 7.0L, Hematocrit 21L, Mean Corpuscular Volume 92, Mean Corpuscular Hemoglobin 31, Mean Corpuscular Hemoglobin Concent 34, Red Cell Distribution Width 14.2, Platelet Count 33*L, Mean Platelet Volume 9.0, Neutrophils (%) (Auto) 82H, Lymphocytes (%) (Auto) 14 , Monocytes (%) (Auto) 3, Eosinophils (%) (Auto) 1, Basophils (%) (Auto) 0, Neutrophils # (Auto) 3.9, Lymphocytes # (Auto) 0.7L, Monocytes # (Auto) 0.2, Eosinophils # (Auto) 0.1, Basophils # (Auto) 0.0, Absolute Reticulocyte Count 24 , Percent Reticulocyte Count 1.07, Sodium Level 131L, Potassium Level 5.2H, Chloride Level 99, Carbon Dioxide Level 23, Anion Gap 9, Blood Urea Nitrogen 26H , Creatinine 0.56L, Estimat Glomerular Filtration Rate > 60, BUN/Creatinine Ratio 46, Glucose Level 97, Calcium Level 8.2L, Phosphorus Level 3.7, Magnesium Level 1.9 Assessment/Plan Assessment/Plan Assessment/Plan Small cell lung cancer. bright red blood in stool Hypertension. Electrolyte imbalance. Anemia Thrombocytopenia patient with anemia and having some blood in the stools, none since yesterday Continue to follow hemoglobin and transfuse PRBCs as needed and platelets. Can due to colonoscopy to evaluate either inpatient versus outpatient depending upon if remains stable or not. Patient discussed this and would like to wait outpatient if can. If continues to drop would benefit from doing inpatient. Clinical Quality Measures DVT/VTE Risk/Contraindication: Risk Factor Score Per Nursin RFS Level Per Nursing on Admit: 3=High LAKHWINDER BYRANT DO Aug 04, 2018 12:10
--- NOTE | 2018-08-04 13:19 | Progress Note-Hospitalist ---
Subjective HPI/CC On Admission Date Seen by Provider: Aug 04, 2018 Time Seen by Provider: 12:00 Subjective/Events-last exam Patient doing well Likely will have endoscopy tomorrow Having some bleeding but not much Overall feeling pretty good since admission Review of Systems General: Fatigue Gastrointestinal: Melena Objective Exam Vital Signs Vital Signs Date Time Temp Pulse Resp B/P (MAP) Pulse Ox O2 Delivery O2 Flow Rate FiO2 08/04/18 08:00 98.2 105 16 152/70 (97) 97 Room Air Capillary Refill : Less Than 3 SecondsLess Than 3 Seconds General Appearance: No Apparent Distress, WD/WN, Chronically ill, Thin HEENT: Normal ENT Inspection Neck: Full Range of Motion, Normal Inspection Respiratory: Lungs Clear, Normal Breath Sounds, No Accessory Muscle Use, No Respiratory Distress Cardiovascular: Regular Rate, Rhythm, No Edema Gastrointestinal: Non Tender, Soft Extremity: Non Tender, Pedal Edema Neurologic/Psychiatric: Alert, Oriented x3, No Motor/Sensory Deficits, Normal Mood/Affect, 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 Assessment/Plan Assessment and Plan Assess & Plan/Chief Complaint Assessment: Hyponatremia Small cell lung cancer. Adrenal tumor. Hypophosphatemia. Hypomagnesemia. Weakness. Patient lives alone Rectal bleeding Plan: Dr Pritchard on board and may need endo this week prior to DC Monitor labs IVF Supportive care Diagnosis/Problems Diagnosis/Problems (1) Small cell lung cancer Status: Chronic (2) Rectal bleeding Status: Acute (3) Hyponatremia Status: Acute (4) Generalized weakness Status: Acute (5) Hypomagnesemia Status: Acute (6) Hypokalemia Status: Acute (7) Electrolyte abnormality (8) Elevated liver enzymes Status: Acute (9) Nausea Status: Acute Clinical Quality Measures DVT/VTE Risk/Contraindication: Risk Factor Score Per Nursin RFS Level Per Nursing on Admit: 3=High MYRON ALEXANDRA DO Aug 04, 2018 13:19
[2018-08-04 16:08] VITALS: BP 157/67
[2018-08-04 19:49] LABS: BAND NEUTROPHILS 3 %; BASOPHILS % (MANUAL) 1 %; EOSINOPHILS % (MANUAL) 2 %; LYMPHOCYTES % (MANUAL) 12 %; MONOCYTES % (MANUAL) 5 %; NEUTROPHILS % (MANUAL) 77 %
[2018-08-04 23:43] VITALS: BP 133/53
[2018-08-05] VITALS (19 sets, daily range): BP systolic 138–183; BP diastolic 55–76
[2018-08-05 04:54] LABS: BASOPHILS % (AUTO) 0 % (0-10); EOSINOPHILS % (AUTO) 1 % (0-10); LYMPHOCYTES # (AUTO) 0.5 X 10^3 (1.0-4.0); LYMPHOCYTES % (AUTO) 24 % (12-44); MEAN CORPUSCULAR HEMOGLOBIN 31 PG (25-34); MEAN CORPUSCULAR HGB CONC 34 G/DL (32-36); MEAN CORPUSCULAR VOLUME 91 FL (80-99); MONOCYTES # (AUTO) 0.1 X 10^3 (0.0-1.0); MONOCYTES % (AUTO) 2 % (0-12); NEUTROPHILS # (AUTO) 1.7 X 10^3 (1.8-7.8); NEUTROPHILS % (AUTO) 73 % (42-75); RED CELL DISTRIBUTION WIDTH 14.3 % (10.0-14.5); WHITE BLOOD COUNT 2.3 10^3/uL (4.3-11.0)
[2018-08-05 05:00] LABS: HEMATOCRIT 16 % (35-52); HEMOGLOBIN 5.6 G/DL (11.5-16.0); PLATELET COUNT 24 10^3/uL (130-400)
--- NOTE | 2018-08-05 05:07 | NUR ---
At 0500 this nurse notified by lab of critical Hgb 5.6, Hct 16, and Plt 24. Dr. Varner, oncologist administration vice president, notified of critical results at 0504 and that patient is a [employer] with signed consent forms refusing blood products in chart. No new orders given at this time.
[2018-08-05 05:11] LABS: BUN/CREATININE RATIO 48; CARBON DIOXIDE 22 MMOL/L (21-32); CHLORIDE 101 MMOL/L (98-107); CREATININE SERUM 0.62 MG/DL (0.60-1.30); GFR ESTIMATED > 60; GLUCOSE 90 MG/DL (70-105); PHOSPHORUS 4.6 MG/DL (2.3-4.7); POTASSIUM 5.2 MMOL/L (3.6-5.0); SODIUM 132 MMOL/L (135-145)
[2018-08-05] MEDS ORDERED: NS IV 500 ML 500 ML IV SCH (07:38)
--- NOTE | 2018-08-05 07:41 | Progress Note (SOAP) ---
Subjective Time Seen by a Provider: 07:38 Subjective/Events-last exam Patient is a Jehovah witness. Patient refuses blood. Patient's hemoglobin 5.6. Patient's hematocrit 16. Platelet count 24,000. Patient feels okay today. Patient has small cell lung cancer with metastasis to liver. Patient passing bright red blood. Patient also having black stools. Patient being seen by surgeon for evaluation. Objective Exam Vital Signs Date Time Temp Pulse Resp B/P (MAP) Pulse Ox O2 Delivery O2 Flow Rate FiO2 08/04/18 23:43 98.6 92 14 133/53 (79) 96 Room Air 08/04/18 20:00 Room Air 08/04/18 16:08 97.8 105 14 157/67 (97) 95 Room Air 08/04/18 08:00 98.2 105 16 152/70 (97) 97 Room Air 08/04/18 08:00 98.2 105 16 152/70 (97) 97 08/04/18 08:00 Room Air I & O 08/05/18 07:00 Intake Total 1310 ml Balance 1310 ml Capillary Refill : Less Than 3 SecondsLess Than 3 Seconds General Appearance: No Apparent Distress, Thin HEENT: Normal ENT Inspection Neck: Full Range of Motion, Normal Inspection Respiratory: No Accessory Muscle Use, No Respiratory Distress Cardiovascular: Regular Rate, Rhythm Gastrointestinal: non tender, soft Results Lab Laboratory Tests 08/05/18 04:45 Laboratory Tests 08/05/18 04:45: White Blood Count 2.3L, Red Blood Count 1.80L, Hemoglobin 5.6*L, Hematocrit 16*L , Mean Corpuscular Volume 91, Mean Corpuscular Hemoglobin 31, Mean Corpuscular Hemoglobin Concent 34, Red Cell Distribution Width 14.3, Platelet Count 24*L, Mean Platelet Volume 9.0, Neutrophils (%) (Auto) 73, Lymphocytes (%) (Auto) 24, Monocytes (%) (Auto) 2, Eosinophils (%) (Auto) 1, Basophils (%) (Auto) 0, Neutrophils # (Auto) 1.7L, Lymphocytes # (Auto) 0.5L, Monocytes # (Auto) 0.1, Eosinophils # (Auto) 0.0, Basophils # (Auto) 0.0, Sodium Level 132L, Potassium Level 5.2H, Chloride Level 101, Carbon Dioxide Level 22, Anion Gap 9, Blood Urea Nitrogen 30H, Creatinine 0.62, Estimat Glomerular Filtration Rate > 60, BUN /Creatinine Ratio 48, Glucose Level 90, Calcium Level 8.0L, Phosphorus Level 4.6 , Magnesium Level 2.0 Assessment/Plan Assessment/Plan Assess & Plan/Chief Complaint Small cell lung cancer. Metastasis to liver. Probable adrenal mass. Hypertension.. . 08/02/18. Small cell lung cancer. Potassium is to liver and bone and adrenal. Hypertension. Electrolyte imbalance. Hypophosphatemia. Hypomagnesemia. . 08/05/18. Small cell lung cancer. Anemia. Thrombocytopenia. Hypertension history. Electrolyte imbalance improved. Hypomagnesemia. Hypophosphatemia. Patient passing black stools. Previous to that patient passing bloody stools area Jehovah witness and refuses blood products Clinical Quality Measures Admission Status Admission Dx Electrolyte disturbance. Small cell lung cancer. Adrenal tumor. Electrolyte imbalance. Hypophosphatemia. Hypomagnesemia. Weakness. Patient lives alone DVT/VTE Risk/Contraindication: Risk Factor Score Per Nursin RFS Level Per Nursing on Admit: 3=High ISIDRO IRIZARRY DO Aug 05, 2018 07:41
[2018-08-05] MEDS ORDERED: diphenhydrAMINE 50 MG/ML INJ (BENADRYL) IV PRN (07:45)
[2018-08-05] MEDS ORDERED: IRON DEXTRAN INJECTION 25 MG in NS (IVPB) 5.75 ML IV ONE (07:45)
[2018-08-05] MEDS ORDERED: RT-ALBUTEROL SULF 2.5 MG/3 ML PRE-MIX VIAL IH PRN (07:45)
[2018-08-05] MEDS ORDERED: HYDROCORTISONE 100 MG/2 ML (Solu-CORTEF) VIAL IV PRN (07:45)
[2018-08-05] MEDS ORDERED: EPINEPHrine INJECTION 1 MG/ML AMP IM PRN (07:45)
--- NOTE | 2018-08-05 08:05 | Pulmonary Progress Note ---
Subjective Time Seen by a Provider: 05:22 Subjective/Events-last exam Pt denies any complaints. Sepsis Event Evaluation Height, Weight, BMI Height: 5'6.00" Weight: 122lbs. 11.2oz. [id number]; 19.8 BMI Method:Stated Exam Exam Vital Signs Date Time Temp Pulse Resp B/P (MAP) Pulse Ox O2 Delivery O2 Flow Rate FiO2 08/04/18 23:43 98.6 92 14 133/53 (79) 96 Room Air 08/04/18 20:00 Room Air 08/04/18 16:08 97.8 105 14 157/67 (97) 95 Room Air I & O 08/05/18 07:00 Intake Total 1310 ml Balance 1310 ml Height & Weight Height: 5'6.00" Weight: 122lbs. 11.2oz. 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 Norm as Tested Skin: Normal Color, Warm/Dry Results Lab Laboratory Tests 08/04/18 06:00 08/05/18 04:45 Assessment/Plan Assessment/Plan Small cell lung cancer - dx via bronchoscopy 07/25 - oncology following SIADH secondary to cancer -Fluid restriction -Monitor Severe anemia -- transfer to ICU -Repeat H&H to ensure no lab error -Have lab use micro tubes for all blood draws -Check coags -Check occult stool -Pt is Jehovah witness and can not have blood products -Hematology is following -Consider adding Fe, B12, folate supplementation Thrombocytopenia -Monitor Hyperkalemia -Monitor Hypokalemia, hypomag, hypophos -replace Debility -PT/OT RAYA CAM DO Aug 05, 2018 08:05
[2018-08-05] MEDS ORDERED: SOD POLYSTERENE 15 GM/60 ML (KAYEXALATE) UNIT DOSE PO ONE (08:15)
[2018-08-05] MEDS: NS IV 1000 ML 1,000 ML IV SCH ×2 (08:30→21:57)
[2018-08-05] MEDS ORDERED: IRON DEXTRAN INJECTION 1,000 MG in NS (IVPB) 250 ML IV NR (08:30)
[2018-08-05] MEDS: PANTOPRAZOLE 40 MG (PROTONIX) VIAL IV SCH ×2 (08:34→22:05)
--- NOTE | 2018-08-05 08:45 | NUR ---
DR. PETTIT NOTIFIED OF H/H. ORDER FOR NPO.
[2018-08-05] MEDS ORDERED: IRON SUCROSE 200 MG/10 ML (VENOFER) VIAL IV SCH (09:00)
--- NOTE | 2018-08-05 09:15 | NUR ---
LAB NOTIFIED OF NEED TO USE MICRO/PED TUBES FOR LAB DRAWS.
--- NOTE | 2018-08-05 09:16 | NUR ---
DR. MAS HERE. ORDERS REC'D. ORDER TO DC IRON DEXTRAN.
[2018-08-05 09:18] LABS: MEAN PLATELET VOLUME 8.9 FL (7.4-10.4); RED CELL DISTRIBUTION WIDTH 14.3 % (10.0-14.5); WHITE BLOOD COUNT 1.9 10^3/uL (4.3-11.0)
[2018-08-05 09:23] LABS: HEMOGLOBIN 5.4 G/DL (11.5-16.0)
[2018-08-05 09:32] LABS: INR 1.3 (0.8-1.4); PROTHROMBIN TIME PATIENT 16.2 SEC (12.2-14.7)
[2018-08-05] MEDS ORDERED: [UNRECOGNIZED DRUG - REMARK] SC ONE (09:52)
[2018-08-05] MEDS ORDERED: CYANOCOBALAMIN INJ 1000 MCG/ML IM NR (10:11)
--- NOTE | 2018-08-05 10:45 | NUR ---
TO ICU 10 PER BED. REPORT TO MARYAM.
--- NOTE | 2018-08-05 11:00 | NUR ---
Pastoral care visit.
--- NOTE | 2018-08-05 11:04 | NUR ---
DR. CAM, JUAN C, AND CHACE NOTIFIED OF TRANSFER TO ICU. HOME MEDS SENT TO HOME WITH SISTER IN LAW. Addendum: 08/05/18 at 1105 by EDWIN SANDY RN SISTER IN LAW JOSE F RUBY.
--- NOTE | 2018-08-05 14:50 | NUR ---
PALLIATIVE CARE RN in to see the patient at the suggestion of Stephanie TAMAYO. Patient was agreeable to the visit. We discussed her medical issues for which she was able to explain well. She reports having made a Living Will and spoken with her [id number] regarding wishes for life saving measures. She is agreeable to visits so this RN will continue to offer supportive visits.
--- NOTE | 2018-08-05 15:17 | Progress Note ---
Subjective Time Seen by a Provider: 13:04 Subjective/Events-last exam Pt seen and examined, denies abdominal pain. She states she does feel weak. Review of Systems General: No Chills, No Night Sweats; Fatigue, Malaise Pulmonary: No Dyspnea, No Cough Cardiovascular: No: Chest Pain, Palpitations Gastrointestinal: Melena; No: Nausea, Vomiting Focused Exam Lactate Level 08/05/18 09:10: Lactic Acid Level 1.43 Objective Exam Vital Signs Date Time Temp Pulse Resp B/P (MAP) Pulse Ox O2 Delivery O2 Flow Rate FiO2 08/05/18 14:00 96 21 162/67 (98) 93 Room Air 08/05/18 13:10 87 08/05/18 13:00 93 15 156/66 (96) 98 Room Air 08/05/18 12:00 97 17 151/64 (93) 96 Room Air 08/05/18 11:45 104 21 156/73 (100) Room Air 08/05/18 11:30 Room Air 08/05/18 11:30 102 15 155/67 (96) 96 Room Air 08/05/18 11:17 90 08/05/18 11:15 90 16 141/55 (83) 95 Room Air 08/05/18 11:00 98 15 138/64 (88) Room Air 08/05/18 10:00 100.0 96 20 142/66 (91) 96 Room Air 08/05/18 08:00 98.8 105 20 152/65 (94) 96 Room Air 08/05/18 08:00 Room Air 08/04/18 23:43 98.6 92 14 133/53 (79) 96 Room Air 08/04/18 20:00 Room Air 08/04/18 16:08 97.8 105 14 157/67 (97) 95 Room Air I & O 08/05/18 07:00 Intake Total 1310 ml Balance 1310 ml Capillary Refill : Less Than 3 SecondsLess Than 3 Seconds General Appearance: No Apparent Distress, Chronically ill, Thin Respiratory: No Accessory Muscle Use, No Respiratory Distress Cardiovascular: Regular Rate, Rhythm, No Murmur Gastrointestinal: non tender, soft Extremity: Non Tender, Pedal Edema Neurologic/Psychiatric: Alert, Oriented x3, Normal Mood/Affect, supervisor 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 II-XII Norm as Tested Skin: Warm/Dry, Pallor Results Lab Laboratory Tests 08/05/18 04:45: White Blood Count 2.3L, Red Blood Count 1.80L, Hemoglobin 5.6*L, Hematocrit 16*L , Mean Corpuscular Volume 91, Mean Corpuscular Hemoglobin 31, Mean Corpuscular Hemoglobin Concent 34, Red Cell Distribution Width 14.3, Platelet Count 24*L, Mean Platelet Volume 9.0, Neutrophils (%) (Auto) 73, Lymphocytes (%) (Auto) 24, Monocytes (%) (Auto) 2, Eosinophils (%) (Auto) 1, Basophils (%) (Auto) 0, Neutrophils # (Auto) 1.7L, Lymphocytes # (Auto) 0.5L, Monocytes # (Auto) 0.1, Eosinophils # (Auto) 0.0, Basophils # (Auto) 0.0, Sodium Level 132L, Potassium Level 5.2H, Chloride Level 101, Carbon Dioxide Level 22, Anion Gap 9, Blood Urea Nitrogen 30H, Creatinine 0.62, Estimat Glomerular Filtration Rate > 60, BUN /Creatinine Ratio 48, Glucose Level 90, Calcium Level 8.0L, Phosphorus Level 4.6 , Magnesium Level 2.0 08/05/18 09:10: White Blood Count 1.9L, Red Blood Count 1.71L, Hemoglobin 5.4*L, Hematocrit 16*L , Mean Corpuscular Volume 91, Mean Corpuscular Hemoglobin 32, Mean Corpuscular Hemoglobin Concent 35, Red Cell Distribution Width 14.3, Platelet Count 18*L, Mean Platelet Volume 8.9, Prothrombin Time 16.2H, INR Comment 1.3, Activated Partial Thromboplast Time 39H, Lactic Acid Level 1.43, B-Type Natriuretic Peptide 276.2H Assessment/Plan Assessment/Plan Assessment/Plan Anemia secondary to GI bleed - Plan EGD today, if nothing found will prep and do colonoscopy tomorrow. Discussed risks and complications with the pt including but not limited to pain, bleeding and even esophageal perforation. Small cell lung cancer. Metastasis to liver. Probable adrenal mass. Hypertension.. Clinical Quality Measures DVT/VTE Risk/Contraindication: Risk Factor Score Per Nursin RFS Level Per Nursing on Admit: 3=High LU PETTIT DO Aug 05, 2018 15:17
[2018-08-05] MEDS ORDERED: proPOfol 200 MG/20 ML (DIPRIVAN) VIAL IV ONE ×2 (15:20→16:00)
[2018-08-05] MEDS ORDERED: POLYETHYLENE GLYCOL 17 GM (MIRALAX) PACK PO NR (16:00)
--- NOTE | 2018-08-05 16:01 | Anesthesia-General Post-Op ---
MAC Patient Condition Mental Status/LOC: Same as Preop Cardiovascular: Satisfactory Nausea/Vomiting: Absent Respiratory: Satisfactory Pain: Controlled Complications: Absent Post Op Complications Complications None Follow Up Care/Instructions Patient Instructions None needed. Anesthesiology Discharge Order Discharge Order Patient is doing well, no complaints, stable vital signs, no apparent adverse anesthesia problems. SADIA EISENBERG DO Aug 05, 2018 16:01
[2018-08-05] MEDS: FOLIC ACID 1 MG TAB PO SCH (16:55)
--- NOTE | 2018-08-05 16:55 | Progress Note-Post Operative ---
Post-Operative Progess Note Surgeon (s)/Hat Brim And Crown Laminating Operator (s) Surgeon LU PETTIT DO Hat Brim And Crown Laminating Operator: none Pre-Operative Diagnosis Anemia, GI Bleed Post-Operative Diagnosis Same plus Gastritis Procedure & Operative Findings Date of Procedure 08/05/18 Procedure Performed/Findings EGD Anesthesia Type IV sedation by anesthesia Estimated Blood Loss Estimated blood loss (mL): none Specimens/Packing Specimens Removed none LU PETTIT DO Aug 05, 2018 16:55
--- NOTE | 2018-08-05 17:03 | Progress Note-Standard ---
Standard Progress Note Progress Notes/Assess & Plan Date Seen by a Provider: Aug 05, 2018 Time Seen by a Provider: 16:56 Progress/Assessment & Plan 78-year-old female with recent diagnosis of small cell lung cancer with metastasis to liver, left adrenal gland and bone. MRI head negative with age- related changes. 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 Started on palliative chemotherapy with the carboplatin and etoposide regimen on 08/01/2018 and tolerated this well. She denied any nausea or vomiting. Appetite is good. She complained of diarrhea today and the stools. Hemoglobin has dropped significantly but patient denied any symptoms of chest pain or shortness of breath. Platelet count is also dropping probably related to chemotherapy. Patient is a Jehovah's witness and will not take any blood products. I had a discussion with her and her [id number] who is the medical power of consumer attorney regarding the low blood counts. They understand that this could be life threatening but still refuses any transfusion. She wants to be DO NOT RESUSCITATE and has a living will. I discussed other treatment options to try to improve the hemoglobin level. I will start her on Venofer 200 mg IV every 48 hours 5 doses along with erythropoietin 10,000 units daily. I will obtain a B-12 and folate level from the labs drawn today. She will receive B-12 1000 g IM 1 and start on folic acid 1 mg by mouth daily. Surgery has been consulted for evaluation of GI bleed. Avoid all anti-platelet agents and anticoagulants. Will follow patient with you. Focused Exam Lactate Level 08/05/18 09:10: Lactic Acid Level 1.43 HERLINDA MAS Aug 05, 2018 17:03
--- NOTE | 2018-08-05 23:45 | NUR ---
[id number] and POA of pt here at this time. 1 Watch, 3 rings, and a set of earrings, along with pt belongings (robe and books) given to POA (Niecy Serra). Addendum: 08/07/18 at 0111 by PETAR LAGUNA RN date of 08/05 is incorrect. Correct date was 08/06/18
[2018-08-06] VITALS (15 sets, daily range): BP systolic 106–151; BP diastolic 51–83
[2018-08-06 03:46] LABS: BASOPHILS % (AUTO) 1 % (0-10); EOSINOPHILS % (AUTO) 1 % (0-10); LYMPHOCYTES # (AUTO) 0.3 X 10^3 (1.0-4.0); LYMPHOCYTES % (AUTO) 28 % (12-44); MEAN CORPUSCULAR HEMOGLOBIN 30 PG (25-34); MEAN CORPUSCULAR HGB CONC 33 G/DL (32-36); MEAN CORPUSCULAR VOLUME 92 FL (80-99); MEAN PLATELET VOLUME 9.3 FL (7.4-10.4); MONOCYTES # (AUTO) 0.1 X 10^3 (0.0-1.0); MONOCYTES % (AUTO) 6 % (0-12); NEUTROPHILS # (AUTO) 0.7 X 10^3 (1.8-7.8); NEUTROPHILS % (AUTO) 65 % (42-75); RED CELL DISTRIBUTION WIDTH 14.4 % (10.0-14.5)
--- NOTE | 2018-08-06 03:47 | OPERATIVE REPORT ---
DATE OF SERVICE: 08/05/2018 PREOPERATIVE DIAGNOSES: 1. Anemia. 2. Gastrointestinal bleed. 3. Lung cancer. POSTOPERATIVE DIAGNOSES: 1. Anemia. 2. Gastrointestinal bleed. 3. Lung cancer. 4. Gastritis. PROCEDURE PERFORMED: EGD. SURGEON: Luciano Woodward DO SHIFT MGR: None. ANESTHESIA: IV sedation by anesthesia. SPECIMENS: None. BLOOD LOSS: None. FLUIDS: Per anesthesia. POSTOPERATIVE CONDITION: Stable. INDICATION FOR PROCEDURE: The patient is a 78-year-old female who was recently diagnosed with lung cancer. She has been getting chemotherapy, but found to be getting weaker and having black bowel movements and found to be anemic with a hemoglobin of 5.4. Unfortunately, she is a [employer] and will not take any blood. Needed a workup, elected to do an EGD today. FINDINGS: The patient had some gastritis. PROCEDURE NOTE: After informed consent was obtained, the patient was in her bed in the ICU. She was placed in the left lateral decubitus position and administered IV sedation by anesthesia, who then monitored her vitals the entire time, heart rate, blood pressure and pulse ox and the scope was inserted down the mouth through the esophagus into the stomach. The stomach noted some gastritis, but did not really see any ulcers, no active bleeding. Pushed into the first portion of duodenum. Again, looked normal. No ulcers. Retroflexed the scope. She may have had a small hiatal hernia, but again no other obvious source of blood. Pulled the scope back into the GE junction. GE junction looked okay and then pulled the scope up the esophagus and out the mouth. The patient tolerated the procedure and she was recovered in her bed in the ICU. Job ID: [id number] DocumentID: [id number] Dictated Date: 08/05/2018 17:59:58 [employer] Date: 08/06/2018 03:47:01 Dictated By: LUCIANO WOODWARD DO
[2018-08-06 03:54] LABS: HEMATOCRIT 13 % (35-52); HEMOGLOBIN 4.1 G/DL (11.5-16.0); PLATELET COUNT 11 10^3/uL (130-400); WHITE BLOOD COUNT 1.1 10^3/uL (4.3-11.0)
[2018-08-06 04:05] LABS: BUN/CREATININE RATIO 36; CALCIUM 7.6 MG/DL (8.5-10.1); CARBON DIOXIDE 23 MMOL/L (21-32); CHLORIDE 107 MMOL/L (98-107); CREATININE SERUM 0.56 MG/DL (0.60-1.30); GFR ESTIMATED > 60; GLUCOSE 99 MG/DL (70-105); MAGNESIUM 2.3 MG/DL (1.8-2.4); PHOSPHORUS 4.1 MG/DL (2.3-4.7); SODIUM 138 MMOL/L (135-145)
[2018-08-06] MEDS ORDERED: DILTIAZEM 25 MG/5 ML INJ (CARDIZEM) VIAL ONE (05:11)
[2018-08-06] MEDS ORDERED: DILTIAZEM 25 MG/5 ML INJ (CARDIZEM) VIAL IVP ONE (05:15)
[2018-08-06] MEDS ORDERED: DILTIAZEM INJECTION 125 MG in NS (IVPB) 100 ML IV SCH (05:15)
[2018-08-06] MEDS ORDERED: morphine INJ 4 MG/ML 1 ML (VIAL/SYRINGE) IVP PRN ×2 (05:15→17:15)
[2018-08-06] MEDS ORDERED: ACETAMINOPHEN 325 MG TABLET PO PRN (05:15)
--- NOTE | 2018-08-06 05:20 | Pulmonary Progress Note ---
Subjective Time Seen by a Provider: 05:20 Subjective/Events-last exam Pt is now in Afib. BP is stable. Sepsis Event Evaluation Height, Weight, BMI Height: 5'6.00" Weight: 122lbs. 11.2oz. [id number]; 19.8 BMI Method:Stated Focused Exam Lactate Level 08/05/18 09:10: Lactic Acid Level 1.43 Exam Exam Vital Signs Date Time Temp Pulse Resp B/P (MAP) Pulse Ox O2 Delivery O2 Flow Rate FiO2 08/06/18 04:07 105 14 148/65 (92) 91 Room Air 08/06/18 01:00 112 08/05/18 23:00 103 23 159/66 (97) 90 Room Air 08/05/18 22:00 104 28 160/76 (104) 95 Room Air 08/05/18 21:00 89 14 151/65 (93) 95 Room Air 08/05/18 20:00 97.6 100 20 166/69 (101) 96 Room Air 08/05/18 20:00 Room Air 08/05/18 19:22 95 Room Air 08/05/18 19:13 105 95 08/05/18 19:00 101 14 143/59 (87) 94 Room Air 08/05/18 19:00 101 08/05/18 18:00 105 9 170/70 (103) 93 Room Air 08/05/18 17:00 98 13 183/73 (109) 91 Room Air 08/05/18 16:00 Room Air 08/05/18 16:00 98.8 105 20 152/65 (94) 96 Room Air 08/05/18 15:55 89 16 96 Room Air 08/05/18 15:50 85 16 98 Room Air 08/05/18 15:45 98 16 97 Room Air 08/05/18 15:40 100 20 97 OxyMask 10 08/05/18 15:35 97 16 97 OxyMask 10 08/05/18 15:00 90 15 155/65 (95) 93 Room Air 08/05/18 14:00 96 21 162/67 (98) 93 Room Air 08/05/18 13:10 87 08/05/18 13:00 93 15 156/66 (96) 98 Room Air 08/05/18 12:00 97 17 151/64 (93) 96 Room Air 08/05/18 11:45 104 21 156/73 (100) Room Air 08/05/18 11:30 99.3 08/05/18 11:30 Room Air 08/05/18 11:30 102 15 155/67 (96) 96 Room Air 08/05/18 11:17 90 08/05/18 11:15 90 16 141/55 (83) 95 Room Air 08/05/18 11:00 98 15 138/64 (88) Room Air 08/05/18 10:00 100.0 96 20 142/66 (91) 96 Room Air 08/05/18 08:00 98.8 105 20 152/65 (94) 96 Room Air 08/05/18 08:00 Room Air I & O 08/06/18 07:00 Intake Total 480 ml Output Total 1200 ml Balance -720 ml Height & Weight Height: 5'6.00" Weight: 122lbs. 11.2oz. 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 Pt's prognosis is very poor secondary to rapid blood loss. Pt is a DNR. Will have Hospice consult for education. RAYA CAM DO Aug 06, 2018 05:20
[2018-08-06] MEDS ORDERED: DILTIAZEM 125 MG/25 ML IV (CARDIZEM) IV ONE (05:33)
[2018-08-06] MEDS ORDERED: NS (IVPB) 100 ML ONE (05:33)
--- NOTE | 2018-08-06 07:38 | NUR ---
DURING ASSESSMENT BRUISES NOTED TO BACK, LOWER EXTREMITIES, BILATERAL ARMS, CHEST, IN VARIOUS STAGES OF HEALING.
--- NOTE | 2018-08-06 07:57 | Progress Note (SOAP) ---
Subjective Time Seen by a Provider: 07:53 Subjective/Events-last exam Patient feeling good. Hemoglobin 14.1 and hematocrit 13 and platelet count 11. Patient in A. fib with RVR. Patient was asked again about receiving blood. Patient is a Sabianism and again refuses Focused Exam Lactate Level 08/05/18 09:10: Lactic Acid Level 1.43 Objective Exam Vital Signs Date Time Temp Pulse Resp B/P (MAP) Pulse Ox O2 Delivery O2 Flow Rate FiO2 08/06/18 07:36 95 Room Air 08/06/18 07:00 97.9 141 20 117/58 (77) 96 Room Air 08/06/18 06:00 170 12 119/59 (79) 94 Room Air 08/06/18 05:00 170 23 151/83 (105) 92 Room Air 08/06/18 04:44 184 08/06/18 04:07 105 14 148/65 (92) 91 Room Air 08/06/18 04:00 97.1 08/06/18 01:00 112 08/06/18 00:00 97.8 08/05/18 23:00 103 23 159/66 (97) 90 Room Air 08/05/18 22:00 104 28 160/76 (104) 95 Room Air 08/05/18 21:00 89 14 151/65 (93) 95 Room Air 08/05/18 20:00 97.5 08/05/18 20:00 97.6 100 20 166/69 (101) 96 Room Air 08/05/18 20:00 Room Air 08/05/18 19:22 95 Room Air 08/05/18 19:13 105 95 08/05/18 19:00 101 14 143/59 (87) 94 Room Air 08/05/18 19:00 101 08/05/18 18:00 105 9 170/70 (103) 93 Room Air 08/05/18 17:00 98 13 183/73 (109) 91 Room Air 08/05/18 16:00 Room Air 08/05/18 16:00 98.8 105 20 152/65 (94) 96 Room Air 08/05/18 15:55 89 16 96 Room Air 08/05/18 15:50 85 16 98 Room Air 08/05/18 15:45 98 16 97 Room Air 08/05/18 15:40 100 20 97 OxyMask 10 08/05/18 15:35 97 16 97 OxyMask 10 08/05/18 15:00 90 15 155/65 (95) 93 Room Air 08/05/18 14:00 96 21 162/67 (98) 93 Room Air 08/05/18 13:10 87 08/05/18 13:00 93 15 156/66 (96) 98 Room Air 08/05/18 12:00 97 17 151/64 (93) 96 Room Air 08/05/18 11:45 104 21 156/73 (100) Room Air 08/05/18 11:30 99.3 08/05/18 11:30 Room Air 08/05/18 11:30 102 15 155/67 (96) 96 Room Air 08/05/18 11:17 90 08/05/18 11:15 90 16 141/55 (83) 95 Room Air 08/05/18 11:00 98 15 138/64 (88) Room Air 08/05/18 10:00 100.0 96 20 142/66 (91) 96 Room Air 08/05/18 08:00 98.8 105 20 152/65 (94) 96 Room Air 08/05/18 08:00 Room Air I & O 08/06/18 07:00 Intake Total 960 ml Output Total 1200 ml Balance -240 ml Capillary Refill : Less Than 3 SecondsLess Than 3 Seconds General Appearance: No Apparent Distress, Thin HEENT: Normal ENT Inspection Neck: Full Range of Motion Respiratory: Lungs Clear, No Accessory Muscle Use, No Respiratory Distress Cardiovascular: Irregularly Irregular, Tachycardia Gastrointestinal: non tender, soft Results Lab Laboratory Tests 08/05/18 09:10 08/06/18 03:35 Laboratory Tests 08/05/18 09:00: Stool Occult Blood Immunoassay POSITIVEH 08/05/18 09:10: White Blood Count 1.9L, Red Blood Count 1.71L, Hemoglobin 5.4*L, Hematocrit 16*L , Mean Corpuscular Volume 91, Mean Corpuscular Hemoglobin 32, Mean Corpuscular Hemoglobin Concent 35, Red Cell Distribution Width 14.3, Platelet Count 18*L, Mean Platelet Volume 8.9, Prothrombin Time 16.2H, INR Comment 1.3, Activated Partial Thromboplast Time 39H, Lactic Acid Level 1.43, B-Type Natriuretic Peptide 276.2H 08/06/18 03:35: White Blood Count 1.1*L, Red Blood Count 1.37L, Hemoglobin 4.1#*L, Hematocrit 13 *L, Mean Corpuscular Volume 92, Mean Corpuscular Hemoglobin 30, Mean Corpuscular Hemoglobin Concent 33, Red Cell Distribution Width 14.4, Platelet Count 11*L, Mean Platelet Volume 9.3, Neutrophils (%) (Auto) 65, Lymphocytes (% ) (Auto) 28, Monocytes (%) (Auto) 6, Eosinophils (%) (Auto) 1, Basophils (%) ( Auto) 1, Neutrophils # (Auto) 0.7L, Lymphocytes # (Auto) 0.3L, Monocytes # (Auto ) 0.1, Eosinophils # (Auto) 0.0, Basophils # (Auto) 0.0, Sodium Level 138, Potassium Level 4.0, Chloride Level 107, Carbon Dioxide Level 23, Anion Gap 8, Blood Urea Nitrogen 20H, Creatinine 0.56L, Estimat Glomerular Filtration Rate > 60, BUN/Creatinine Ratio 36, Glucose Level 99, Calcium Level 7.6L, Phosphorus Level 4.1, Magnesium Level 2.3 Assessment/Plan Assessment/Plan Assess & Plan/Chief Complaint Small cell lung cancer. Metastasis to liver. Probable adrenal mass. Hypertension.. . 08/02/18. Small cell lung cancer. Potassium is to liver and bone and adrenal. Hypertension. Electrolyte imbalance. Hypophosphatemia. Hypomagnesemia. . 08/05/18. Small cell lung cancer. Anemia. Thrombocytopenia. Hypertension history. Electrolyte imbalance improved. Hypomagnesemia. Hypophosphatemia. Patient passing black stools. Previous to that patient passing bloody stools area Jehovah witness and refuses blood products. . . Severe anemia. Severe thrombocytopenia. A. fib with RVR. Small cell lung cancer. Electrolyte imbalance. Hypomagnesemia. hypophosphatemia. Recent chemotherapy. GI bleed. Patient is Sabianism and refuses blood. Spoke again to patient today Clinical Quality Measures Admission Status Admission Dx Electrolyte disturbance. Small cell lung cancer. Adrenal tumor. Electrolyte imbalance. Hypophosphatemia. Hypomagnesemia. Weakness. Patient lives alone DVT/VTE Risk/Contraindication: Risk Factor Score Per Nursin RFS Level Per Nursing on Admit: 3=High ISIDRO IRIZARRY DO Aug 06, 2018 07:56
[2018-08-06] MEDS: NS IV 1000 ML 1,000 ML IV SCH ×2 (08:19→16:15)
[2018-08-06] MEDS ORDERED: [UNRECOGNIZED DRUG - REMARK] SC SCH (09:00)
--- NOTE | 2018-08-06 10:05 | Progress Note ---
Subjective Time Seen by a Provider: 09:19 Subjective/Events-last exam Pt seen and examined; states she feels weak, but ok. She still would like to go through with colonoscopy today. Nurse states she is having loose stools "and they are bloody". Review of Systems General: Fatigue, Malaise Pulmonary: No Dyspnea, No Cough Cardiovascular: No: Chest Pain, Palpitations Gastrointestinal: No: Nausea, Vomiting, Abdominal Pain Focused Exam Lactate Level 08/05/18 09:10: Lactic Acid Level 1.43 Objective Exam Vital Signs Date Time Temp Pulse Resp B/P (MAP) Pulse Ox O2 Delivery O2 Flow Rate FiO2 08/06/18 08:00 161 15 119/62 (81) 95 Room Air 08/06/18 07:36 95 Room Air 08/06/18 07:09 152 08/06/18 07:00 97.9 141 20 117/58 (77) 96 Room Air 08/06/18 06:00 170 12 119/59 (79) 94 Room Air 08/06/18 05:00 170 23 151/83 (105) 92 Room Air 08/06/18 04:44 184 08/06/18 04:07 105 14 148/65 (92) 91 Room Air 08/06/18 04:00 97.1 08/06/18 01:00 112 08/06/18 00:00 97.8 08/05/18 23:00 103 23 159/66 (97) 90 Room Air 08/05/18 22:00 104 28 160/76 (104) 95 Room Air 08/05/18 21:00 89 14 151/65 (93) 95 Room Air 08/05/18 20:00 97.5 08/05/18 20:00 97.6 100 20 166/69 (101) 96 Room Air 08/05/18 20:00 Room Air 08/05/18 19:22 95 Room Air 08/05/18 19:13 105 95 08/05/18 19:00 101 14 143/59 (87) 94 Room Air 08/05/18 19:00 101 08/05/18 18:00 105 9 170/70 (103) 93 Room Air 08/05/18 17:00 98 13 183/73 (109) 91 Room Air 08/05/18 16:00 Room Air 08/05/18 16:00 98.8 105 20 152/65 (94) 96 Room Air 08/05/18 15:55 89 16 96 Room Air 08/05/18 15:50 85 16 98 Room Air 08/05/18 15:45 98 16 97 Room Air 08/05/18 15:40 100 20 97 OxyMask 10 08/05/18 15:35 97 16 97 OxyMask 10 08/05/18 15:00 90 15 155/65 (95) 93 Room Air 08/05/18 14:00 96 21 162/67 (98) 93 Room Air 08/05/18 13:10 87 08/05/18 13:00 93 15 156/66 (96) 98 Room Air 08/05/18 12:00 97 17 151/64 (93) 96 Room Air 08/05/18 11:45 104 21 156/73 (100) Room Air 08/05/18 11:30 99.3 08/05/18 11:30 Room Air 08/05/18 11:30 102 15 155/67 (96) 96 Room Air 08/05/18 11:17 90 08/05/18 11:15 90 16 141/55 (83) 95 Room Air 08/05/18 11:00 98 15 138/64 (88) Room Air I & O 08/06/18 06:59 Intake Total 960 ml Output Total 1200 ml Balance -240 ml Capillary Refill : Less Than 3 SecondsLess Than 3 Seconds General Appearance: No Apparent Distress, Thin Respiratory: Lungs Clear, No Accessory Muscle Use, No Respiratory Distress Cardiovascular: Irregularly Irregular, Tachycardia Gastrointestinal: non tender, soft Extremity: Normal Inspection, Non Tender, Pedal Edema Neurologic/Psychiatric: Alert, Oriented x3 Skin: Pallor Results Lab Laboratory Tests 08/06/18 03:35: White Blood Count 1.1*L, Red Blood Count 1.37L, Hemoglobin 4.1#*L, Hematocrit 13 *L, Mean Corpuscular Volume 92, Mean Corpuscular Hemoglobin 30, Mean Corpuscular Hemoglobin Concent 33, Red Cell Distribution Width 14.4, Platelet Count 11*L, Mean Platelet Volume 9.3, Neutrophils (%) (Auto) 65, Lymphocytes (% ) (Auto) 28, Monocytes (%) (Auto) 6, Eosinophils (%) (Auto) 1, Basophils (%) ( Auto) 1, Neutrophils # (Auto) 0.7L, Lymphocytes # (Auto) 0.3L, Monocytes # (Auto ) 0.1, Eosinophils # (Auto) 0.0, Basophils # (Auto) 0.0, Sodium Level 138, Potassium Level 4.0, Chloride Level 107, Carbon Dioxide Level 23, Anion Gap 8, Blood Urea Nitrogen 20H, Creatinine 0.56L, Estimat Glomerular Filtration Rate > 60, BUN/Creatinine Ratio 36, Glucose Level 99, Calcium Level 7.6L, Phosphorus Level 4.1, Magnesium Level 2.3 Assessment/Plan Assessment/Plan Assessment/Plan Anemia GI bleed Small cell lung cancer. Metastasis to liver. Probable adrenal mass. Hypertension.. Plan for colonoscopy today, pt's DPOA is on her way to hospital; will check with them and pt again regarding procedure. Pt is DNR and I think comfort measures; so need to discuss with them their wishes. Clinical Quality Measures DVT/VTE Risk/Contraindication: Risk Factor Score Per Nursin RFS Level Per Nursing on Admit: 3=High LU PETTIT DO Aug 06, 2018 10:05
[2018-08-06] MEDS: PANTOPRAZOLE 40 MG (PROTONIX) VIAL IV SCH (10:31)
[2018-08-06] MEDS: FOLIC ACID 1 MG TAB PO SCH (10:31)
--- NOTE | 2018-08-06 10:36 | Consultation-Cardiology ---
HPI-Cardiology Cardiology Consultation: Date of Consultation 08/06/18 Time Seen by a Provider: 10:40 Date of Admission 07-30-18 Attending Physician Dru Galarza DO Admitting Physician Dru Galarza DO Consulting Physician Jorge العراقي MD HPI: Chief Complaint: A-fib with RVR Ms. Almanzar is a 78 year old female who was admitted on 07-30-18 with rectal bleeding and electrolyte imbalances. She is very SOA and weak with even minimal conversation. She drifts to sleep frequently during conversation. Information has been obtained by chart review and conversation with nursing staff. She has progressively worsening anemia and bright red rectal bleeding. She has converted to a-fib with RVR and Cardizem gtt has been initiated. She is currently denying any pain. She c/o gen weakness and fatigue. She c/o dyspnea. No c/o palpitations. No c/o CP. Review of Systems-Cardiology Review of Systems Constitutional: No chills, No fever; malaise, tiredness Eyes: No vision change Ears/Nose/Throat: No recent hearing loss Respiratory: As described under HPI Cardiovascular: As described under HPI Gastrointestinal: constipation, rectal bleeding Genitourinary: No hematuria : No Musculoskeletal: back pain Skin: No rash; other (bruising); No ulcerations Psychiatric/Neurological: No seizure, No syncope Hematologic: easy bruising [id number] Hx Patient Social History Employed/Student: retired Alcohol Use: Occasionally Uses Recreational Drug Use: No Smoking Status: Former Smoker Type Used: Cigarettes Recent Foreign Travel: No Recent Infectious Disease Expo: No Hospitalization with Isolation: Denies Immunizations Up To Date Tetanus Booster (TDap): More than 5yrs Date of Pneumonia Vaccine: Jun 07, 2017 Date of Influenza Vaccine: Feb 04, 2018 Past Medical History PMH As described under Assessment. Family Medical History Family History: Alzheimer's disease Cardiovascular disease Diabetes mellitus Parkinson's disease Allergies and Home Medications Allergies Coded Allergies: NKANo Known Allergies (Verified Allergy, Unknown, 07/03/18) Home Medications Aspirin 81 Mg Tablet.dr, 81 MG PO HS, (Reported) Calcium Carbonate/Vitamin D3 1 Each Tablet, 1 TAB PO HS, (Reported) Clopidogrel Bisulfate 75 Mg Tablet, 75 MG PO DAILY, (Reported) Diltiazem HCl 180 Mg Cap.er.24h, 180 MG PO DAILY, (Reported) Lisinopril 10 Mg Tablet, 10 MG PO DAILY, (Reported) Multivit-Min/FA/Lycopene/Lut 1 Each Tablet, 1 TAB PO DAILY, (Reported) Simvastatin 20 Mg Tablet, 20 MG PO HS, (Reported) Sodium Chloride 1 Gm Tab, 2 GM PO DAILY, (Reported) TAKES 2 (1GM) TABLETS Patient Home Medication List Home Medication List Reviewed: Yes Physical Exam-Cardiology Physical Exam Vital Signs/I&O 08/05/18 08/06/18 08/06/18 08/06/18 23:00 00:00 01:00 04:00 Temp 97.8 97.1 Pulse 103 112 Resp 23 B/P (MAP) 159/66 (97) Pulse Ox 90 O2 Delivery Room Air 08/06/18 08/06/18 08/06/18 08/06/18 04:07 04:44 05:00 06:00 Pulse 105 184 170 170 Resp 14 23 12 B/P (MAP) 148/65 (92) 151/83 (105) 119/59 (79) Pulse Ox 91 92 94 O2 Delivery Room Air Room Air Room Air 08/06/18 08/06/18 08/06/18 08/06/18 07:00 07:09 07:36 08:00 Temp 97.9 Pulse 141 152 161 Resp 20 15 B/P (MAP) 117/58 (77) 119/62 (81) Pulse Ox 96 95 95 O2 Delivery Room Air Room Air Room Air 08/06/18 08/06/18 08/06/18 09:00 10:00 10:40 Pulse 144 146 Resp 22 17 B/P (MAP) 120/64 (82) 118/54 (75) Pulse Ox 86 95 O2 Delivery Room Air Room Air Nasal Cannula O2 Flow Rate 2.00 08/06/18 00:00 Intake Total 480 ml Output Total 1200 ml Balance -720 ml Capillary Refill : Less Than 3 SecondsLess Than 3 Seconds Constitutional: AAO x 3 HEENT: hearing is well preserved Neck: No carotid bruit; carotid pulses are 2 + bilaterally Respiratory: No accessory muscle use, No respiratory distress; chest expansion is symmetric, chest is bilaterally symmetric, other (prolonged exp phase; dyspneic with minimal conversation; fair air entry) Cardiovascular: irregularly irregular; No JVD; S1 and S2 Gastrointestinal: soft; No distended; audible bowel sounds Rectal: deferred Extremities: no lower extremity edema bilateral Neurologic/Psychiatric: grossly intact Skin: pallor, other (multiple bruises to torso and arms bilat) Data Review Labs Laboratory Tests 08/06/18 03:35: White Blood Count 1.1*L, Red Blood Count 1.37L, Hemoglobin 4.1#*L, Hematocrit 13 *L, Mean Corpuscular Volume 92, Mean Corpuscular Hemoglobin 30, Mean Corpuscular Hemoglobin Concent 33, Red Cell Distribution Width 14.4, Platelet Count 11*L, Mean Platelet Volume 9.3, Neutrophils (%) (Auto) 65, Lymphocytes (% ) (Auto) 28, Monocytes (%) (Auto) 6, Eosinophils (%) (Auto) 1, Basophils (%) ( Auto) 1, Neutrophils # (Auto) 0.7L, Lymphocytes # (Auto) 0.3L, Monocytes # (Auto ) 0.1, Eosinophils # (Auto) 0.0, Basophils # (Auto) 0.0, Sodium Level 138, Potassium Level 4.0, Chloride Level 107, Carbon Dioxide Level 23, Anion Gap 8, Blood Urea Nitrogen 20H, Creatinine 0.56L, Estimat Glomerular Filtration Rate > 60, BUN/Creatinine Ratio 36, Glucose Level 99, Calcium Level 7.6L, Phosphorus Level 4.1, Magnesium Level 2.3 Radiology NAME: ALLAN ALMANZAR I [facility] REC#: [id number] PT STATUS: ADM IN : 1940 PHYSICIAN: HERLINDA MAS MD ADMIT DATE: 07/30/18 Signed Date of Exam: 07/31/18 CT ABDOMEN/PELVIS W WO PROCEDURE: CT abdomen and pelvis with and without contrast. TECHNIQUE: Precontrast acquisitions were acquired through the abdomen and pelvis. Multiple contiguous axial images were obtained through the abdomen and pelvis after the administration of intravenous contrast. Auto Exposure Controls were utilized during the CT exam to meet ALARA standards for radiation dose reduction. INDICATION: Small cell lung cancer for staging. COMPARISON: No priors. FINDINGS: There are multiple hypodense but solid liver lesions given the history presumptively reflective of widespread left and right lobe multifocal hepatic metastasis. There is hepatomegaly present. The liver lesions are innumerable with the largest mass measuring 2.5 cm. There is heterogeneous irregular thickening of the left adrenal gland, suspicious for its neoplastic involvement owing to metastasis, this was 1.6 cm in thickness with the length of 3.7 cm. The right adrenal is negative. No evidence for pancreatic mass. There is trace free fluid in the pelvic cul-de-sac. There is no bowel, biliary, or urinary tract obstruction. The kidneys are unobstructed and normal. There are aortoiliac atherosclerotic vascular calcifications without aneurysm. There is no abdominopelvic mesenteric or retroperitoneal lymphadenopathy. No suspicious lytic or sclerotic bone lesion. IMPRESSION: 1. Findings presumed to reflect multifocal widespread hepatic involvement by metastatic disease with resultant hepatomegaly. 2. 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 3. No other acute or suspicious finding with small-volume pelvic free fluid, nonloculated. Dictated by: Dictated on workstation # [id number] Dict: 07/31/18 1648 Trans: 07/31/18 170 Interpreted by: LE BLANCO Electronically signed by: LE BLANCO 07/31/18 1702 ECG Impression ECG Initial ECG Impression: Atrial Fibrillation w/RVR A/P-Cardiology Assessment/Admission Diagnosis A-fib with RVR - likely secondary to blood loss H/O Paroxysmal atrial fibrillation, had resolved following treatment of pericardial effusion Pancytopenia - management by hematology/oncology services (Anabaptism - refusal to accept blood or blood products) Probable GI bleed - colo planned for later today EGD by Dr. Woodward on 08-05-18 showed gastritis Small cell lung cancer (Dx 07-25-18 by bronch) with metas to liver and probable adrenal mass seen on recent CT on 07-31-18 - management by pulmonary/oncology services Peripheral arterial disease with a history of percutaneous intervention. She had stenting of the left common iliac in September 2010 and Cryoplasty of the right superficial femoral in November 2010. In September 2011, she had balloon angioplasty for stent restenosis of left common iliac. On peripheral angio of 05/26/14, she underwent successful PTCA of the L common iliac with reduction of stenosis from 90% to 0%. There appeared to be severe distal disease of the R leg on angio of , but on repeat selective angio of 06/03/14 of the R leg she was not found to have signficant obstructive disease. Peripheral angio of September 04, 2017, she was found to have a 90-95% stenosis within the midportion of the left common iliac artery to which successful balloon angioplasty was carried out followed by stenting (Omnilink 7.0 x 29 mm stent) that does not overlap a previously placed proximal stenting within the left common iliac atery No angiographically significant coronary artery disease on cardiac catheterization of February 2010. Left ventricular systolic function was normal with an ejection fraction of 60%. Left ventricular end-diastolic pressure was somewhat elevated. No evidence of any significant myocardial ischemia or infarction. Normal regional wall motion. LVEF 73% per MPI of January 2017 Hypertension Hyperlipidemia Tobaccoism - quit in 2012 Mild to moderate bilateral carotid arterial disease without evidence of hemodynamically significant stenosis per carotid ultrasound on 11-16-15. Discussion and Recomendations A-fib with RVR likely d/t profound anemia - HR improved with Cardizem gtt - titrate as indicated Pancytopenia which is being managed by hematology/oncology services Refuses blood or blood products d/t quaker preferences (Anabaptism) Suspected GI bleed - upper endoscopy showed gastritis, but no active bleeding - bright red rectal bleeding - lower endoscopy planned for later today Risk for stroke d/t a-fib, however not a suitable candidate d/t pancytopenia with continued bleeding d/t lower GI bleed - hold for now Monitor lab closely Poor prognosis Hospice referral has been made by medical services Further recs will be based on her hospital course We would like to thank medical services for this consult Clinical Quality Measures DVT/VTE Risk/Contraindication: Risk Factor Score Per Nursin RFS Level Per Nursing on Admit: 3=High JUANA WHEELER Aug 06, 2018 10:36
--- NOTE | 2018-08-06 11:32 | NUR ---
PALLIATIVE CARE RN into see patient. I had seen her yesterday afternoon and had a good conversation with her. Today she is NOT the same. Upon entering the room patient was siting up in bed head hanging and having difficulty lifting it up. She was drooling and slurring her words. She was unable to tell me where she was. Patient had her hands wrapped up in her telemetry wires and was trying to fire them. Noted that her Hgb was 4.1 today and she is continuing to bleed frankly per rectum. No family is available at this time to discuss POC. Patient yesterday in conversation did want to have the colonoscopy to see where the bleed was coming from, but she did not want to do anything extraordinary if it was not going to "do any good". Yesterday she also indicated verbally that if she was not able to make decisions her [id number] would be the one to make decision. It appears that the patient is in the final hours of her life. She is not accepting of blood transfusion due to restorationist preference and is still frankly bleeding. Will attempt to contact the patient [id number].
[2018-08-06] MEDS ORDERED: DIGOXIN 0.25 MG/ML (LANOXIN) 2 ML AMP IV NR (12:30)
--- NOTE | 2018-08-06 12:45 | NUR ---
PATIENT LESS RESPONSIVE THEN PREVIOUS ASSESSMENT. KIM RN WITH PALLATIVE CARE CONTACTED BY SHARATH SCALES. PATIENT CLEANED UP ET REPOSITIONED. DR. MAS ET DR. PETTIT NOTIFIED OF PATIENTS CHANGE IN STATUS.
--- NOTE | 2018-08-06 13:08 | NUR ---
DR. PETTIT AT BEDSIDE AT THIS TIME, STATED THAT HE WILL BE CANCELING PATIENTS COLONOSCOPY AT THIS TIME R/T PATIENT CONDITION.
--- NOTE | 2018-08-06 13:15 | NUR ---
PALLIATIVE CARE RN was able to get in touch with patient's niece, Marisabel. Explained to her the significant change in the patient's condition. She will attempt to get in touch with her parents and let them know. Dr. Woodward was in to see the patient and calixto not think patient would tolerate the colonoscopy due to her frail state. Patient is noted to be less responsive than even 1.5 hours earlier. She is rapidly declining with the expectation of passing in the next 12-24 hours.
--- NOTE | 2018-08-06 14:00 | NUR ---
Met with family and friends at bedside, provided comfort and support.
--- NOTE | 2018-08-06 16:14 | NUR ---
DR PRINCE AT BEDSIDE, VISIT WITH PATIENT FAMILY AT THIS TIME. NO NEW ORDERS.
--- NOTE | 2018-08-06 16:17 | NUR ---
DR. CAM ET DR. IRIZARRY NOTIFIED OF PATIENTS CURRENT STATUS
--- NOTE | 2018-08-06 16:38 | Consultation-Cardiology ---
HPI-Cardiology Cardiology Consultation: Date of Consultation 08/06/18 Time Seen by a Provider: 16:00 Date of Admission Attending Physician Dru Galarza DO Admitting Physician Dru Galarza DO Consulting Physician MATTHEW PRINCE MD, MA, FACP, FACC, FSCAI, CCDS HPI: Chief Complaint: A-fib with RVR Ms. Rai is a 78 year old female who was admitted on 07-30-18 with rectal bleeding and electrolyte imbalances. She is very SOA and weak with even minimal conversation. She drifts to sleep frequently during conversation. Information has been obtained by chart review and conversation with nursing staff. She has progressively worsening anemia and bright red rectal bleeding. She has converted to a-fib with RVR and Cardizem gtt has been initiated. She is currently denying any pain. She c/o gen weakness and fatigue. She c/o dyspnea. No c/o palpitations. No c/o CP. Above and ROS below is from this morning, as reported to us this am. Currently , essentially nonresponsive Review of Systems-Cardiology Review of Systems Constitutional: No chills, No fever; malaise, tiredness Eyes: No vision change Ears/Nose/Throat: No recent hearing loss Respiratory: As described under HPI Cardiovascular: As described under HPI Gastrointestinal: constipation, rectal bleeding Genitourinary: No hematuria : No Musculoskeletal: back pain Skin: No rash; other (bruising); No ulcerations Psychiatric/Neurological: No seizure, No syncope Hematologic: easy bruising [id number] Hx Patient Social History Employed/Student: retired Alcohol Use: Occasionally Uses Recreational Drug Use: No Smoking Status: Former Smoker Type Used: Cigarettes Recent Foreign Travel: No Recent Infectious Disease Expo: No Hospitalization with Isolation: Denies Immunizations Up To Date Tetanus Booster (TDap): More than 5yrs Date of Pneumonia Vaccine: Jun 07, 2017 Date of Influenza Vaccine: Feb 04, 2018 Past Medical History PMH As described under Assessment. Family Medical History Family History: Alzheimer's disease Cardiovascular disease Diabetes mellitus Parkinson's disease Allergies and Home Medications Allergies Coded Allergies: NKANo Known Allergies (Verified Allergy, Unknown, 07/03/18) Home Medications Aspirin 81 Mg Tablet.dr, 81 MG PO HS, (Reported) Calcium Carbonate/Vitamin D3 1 Each Tablet, 1 TAB PO HS, (Reported) Clopidogrel Bisulfate 75 Mg Tablet, 75 MG PO DAILY, (Reported) Diltiazem HCl 180 Mg Cap.er.24h, 180 MG PO DAILY, (Reported) Lisinopril 10 Mg Tablet, 10 MG PO DAILY, (Reported) Multivit-Min/FA/Lycopene/Lut 1 Each Tablet, 1 TAB PO DAILY, (Reported) Simvastatin 20 Mg Tablet, 20 MG PO HS, (Reported) Sodium Chloride 1 Gm Tab, 2 GM PO DAILY, (Reported) TAKES 2 (1GM) TABLETS Patient Home Medication List Home Medication List Reviewed: Yes Physical Exam-Cardiology Physical Exam Vital Signs/I&O 08/06/18 08/06/18 08/06/18 08/06/18 04:44 05:00 06:00 07:00 Temp 97.9 Pulse 184 170 170 141 Resp 23 12 20 B/P (MAP) 151/83 (105) 119/59 (79) 117/58 (77) Pulse Ox 92 94 96 O2 Delivery Room Air Room Air Room Air 08/06/18 08/06/18 08/06/18 08/06/18 07:09 07:36 08:00 09:00 Pulse 152 161 144 Resp 15 22 B/P (MAP) 119/62 (81) 120/64 (82) Pulse Ox 95 95 86 O2 Delivery Room Air Room Air Room Air 08/06/18 08/06/18 08/06/18 08/06/18 10:00 10:40 11:00 12:00 Pulse 146 122 126 Resp 17 12 17 B/P (MAP) 118/54 (75) 120/68 (85) 106/59 (75) Pulse Ox 95 96 96 O2 Delivery Room Air Nasal Cannula Nasal Cannula Nasal Cannula O2 Flow Rate 2.00 2.00 2.00 08/06/18 08/06/18 08/06/18 08/06/18 12:17 12:29 12:50 13:00 Pulse 101 108 109 Resp 15 B/P (MAP) 114/54 (74) Pulse Ox 96 97 O2 Delivery Room Air Nasal Cannula O2 Flow Rate 2.00 08/06/18 08/06/18 14:00 15:00 Pulse 104 100 Resp 44 16 B/P (MAP) 118/55 (76) 113/56 (75) Pulse Ox 93 95 O2 Delivery Nasal Cannula Nasal Cannula O2 Flow Rate 2.00 2.00 08/06/18 00:00 Intake Total 480 ml Output Total 1200 ml Balance -720 ml Capillary Refill : Less Than 3 SecondsLess Than 3 Seconds Constitutional: AAO x 3 HEENT: hearing is well preserved Neck: No carotid bruit; carotid pulses are 2 + bilaterally Respiratory: No accessory muscle use, No respiratory distress; chest expansion is symmetric, chest is bilaterally symmetric, other (prolonged exp phase; dyspneic with minimal conversation; fair air entry) Cardiovascular: irregularly irregular; No JVD; S1 and S2 Gastrointestinal: soft; No distended; audible bowel sounds Rectal: deferred Extremities: no lower extremity edema bilateral Neurologic/Psychiatric: grossly intact Skin: pallor, other (multiple bruises to torso and arms bilat) Data Review Labs Laboratory Tests 08/06/18 03:35: White Blood Count 1.1*L, Red Blood Count 1.37L, Hemoglobin 4.1#*L, Hematocrit 13 *L, Mean Corpuscular Volume 92, Mean Corpuscular Hemoglobin 30, Mean Corpuscular Hemoglobin Concent 33, Red Cell Distribution Width 14.4, Platelet Count 11*L, Mean Platelet Volume 9.3, Neutrophils (%) (Auto) 65, Lymphocytes (% ) (Auto) 28, Monocytes (%) (Auto) 6, Eosinophils (%) (Auto) 1, Basophils (%) ( Auto) 1, Neutrophils # (Auto) 0.7L, Lymphocytes # (Auto) 0.3L, Monocytes # (Auto ) 0.1, Eosinophils # (Auto) 0.0, Basophils # (Auto) 0.0, Sodium Level 138, Potassium Level 4.0, Chloride Level 107, Carbon Dioxide Level 23, Anion Gap 8, Blood Urea Nitrogen 20H, Creatinine 0.56L, Estimat Glomerular Filtration Rate > 60, BUN/Creatinine Ratio 36, Glucose Level 99, Calcium Level 7.6L, Phosphorus Level 4.1, Magnesium Level 2.3 A/P-Cardiology Assessment/Admission Diagnosis A-fib with RVR earlier today - likely secondary to blood loss H/O Paroxysmal atrial fibrillation, had resolved following treatment of pericardial effusion Pancytopenia - management by hematology/oncology services (Hindu - refusal to accept blood or blood products) Probable GI bleed - colo planned for later today EGD by Dr. Woodward on 08-05-18 showed gastritis Small cell lung cancer (Dx 07-25-18 by bronch) with metas to liver and probable adrenal mass seen on recent CT on 07-31-18 - management by pulmonary/oncology services Peripheral arterial disease with a history of percutaneous intervention. She had stenting of the left common iliac in September 2010 and Cryoplasty of the right superficial femoral in November 2010. In September 2011, she had balloon angioplasty for stent restenosis of left common iliac. On peripheral angio of 05/26/14, she underwent successful PTCA of the L common iliac with reduction of stenosis from 90% to 0%. There appeared to be severe distal disease of the R leg on angio of , but on repeat selective angio of 06/03/14 of the R leg she was not found to have signficant obstructive disease. Peripheral angio of September 04, 2017, she was found to have a 90-95% stenosis within the midportion of the left common iliac artery to which successful balloon angioplasty was carried out followed by stenting (Omnilink 7.0 x 29 mm stent) that does not overlap a previously placed proximal stenting within the left common iliac atery No angiographically significant coronary artery disease on cardiac catheterization of February 2010. Left ventricular systolic function was normal with an ejection fraction of 60%. Left ventricular end-diastolic pressure was somewhat elevated. No evidence of any significant myocardial ischemia or infarction. Normal regional wall motion. LVEF 73% per MPI of January 2017 Hypertension Hyperlipidemia Tobaccoism - quit in 2012 Mild to moderate bilateral carotid arterial disease without evidence of hemodynamically significant stenosis per carotid ultrasound on 11-16-15. Discussion and Recomendations A-fib with RVR likely d/t profound anemia - HR improved with Cardizem gtt - titrate as indicated Pancytopenia which is being managed by hematology/oncology services Refuses blood or blood products d/t congregation preferences (Hindu) Suspected GI bleed - upper endoscopy showed gastritis, but no active bleeding - bright red rectal bleeding Risk for stroke d/t a-fib, however not a suitable candidate d/t pancytopenia with continued bleeding d/t lower GI bleed - hold for now Monitor lab closely Poor prognosis Hospice referral has been made by medical services Further recs will be based on her hospital course We would like to thank medical services for this consult Clinical Quality Measures DVT/VTE Risk/Contraindication: Risk Factor Score Per Nursin RFS Level Per Nursing on Admit: 3=High NIKI,ALI MD FACP FACC CCDS Aug 06, 2018 16:38
--- NOTE | 2018-08-06 16:40 | NUR ---
THIS NURSE SPOKE WITH RESIDENTS DPOA, SHE VOICED THAT SHE WOULD LIKE EVERYTHING STOPPED, NO MEDICATIONS OR FURTHER TREATMENT ET FOR PATIENT TO BE KEPT COMFORTABLE. THIS NURSE CALLED DR. MAS TO UPDATE HIM, NO NEW ORDERS RECEIVED, CALLED DR. CAM TO UPDATE HIM, RECEIVED ORDERS TO D/C ALL MEDICATIONS ET NEW ORDERS FOR MORPHINE 2-4MG Q2PRN ET ATIVAN 1 MG Q4PRN. ORDERS UPDATED.
--- NOTE | 2018-08-06 16:44 | Progress Note-Standard ---
Standard Progress Note Progress Notes/Assess & Plan Date Seen by a Provider: Aug 06, 2018 Time Seen by a Provider: 16:37 Progress/Assessment & Plan 78-year-old female with recent diagnosis of small cell lung cancer with metastasis to liver, left adrenal gland and bone. MRI head negative with age- related changes. 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 Started on palliative chemotherapy with the carboplatin and etoposide regimen on 08/01/2018 and tolerated this well. Patient developed lower GI bleed with significant anemia and was moved to ICU yesterday. She continues to have lower GI bleeding and is not very responsive. She developed atrial fibrillation with the rapid ventricular response earlier today but has converted to sinus rhythm this afternoon. Patient is a Jehovah's witness and will not take any blood products. I had a discussion with her and her sister-in -law who is the medical power of dietetic tech regarding the low blood counts. They understand that this could be life threatening but still refuses any transfusion. She is DO NOT RESUSCITATE and has a living will. She was started on Venofer 200 mg IV every 48 hours 5 doses along with erythropoietin 10,000 units daily. Her DPOA wanted to stop all medications and continue with best supportive care. Her prognosis is extremely poor and she is terminal. Continue with best supportive care. Will follow patient with you. Focused Exam Lactate Level 08/05/18 09:10: Lactic Acid Level 1.43 HERLINDA MAS Aug 06, 2018 16:44
[2018-08-06] MEDS ORDERED: LORazepam INJ 2 MG/ML (ATIVAN) VIAL IVP PRN (17:00)
--- NOTE | 2018-08-06 23:15 | NUR ---
Respirations ceased as verified by RN's x 2. Will notify family who left at approximately 2200.
--- NOTE | 2018-08-06 23:45 | NUR ---
Pvixee-[id number] and POA of pt here at this time. 1 Watch, 3 rings, and a set of earrings, along with pt belongings (robe and books) given to POA (Niecy Serra).
--- NOTE | 2018-08-06 23:50 | NUR ---
[facility] notified of pt's per family request.
--- NOTE | 2018-08-07 01:20 | NUR ---
Body released to [facility].
[2018-08-07] MEDS ORDERED: DIGOXIN 0.25 MG (LANOXIN) TAB PO SCH (09:00)
--- NOTE | 2018-08-08 07:18 | Discharge Summary ---
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 Severe anemia. Severe thrombocytopenia. Pancytopenia. Quaker refusing blood. Rectal bleeding. Rectal prominent. Weakness. SIADH. DO NOT RESUSCITATE. In counter for palliative care. Essential hypertension. Hypomagnesemia. Reason Hospital Visit Patient brought to the emergency room by car. Friend brought patient to the emergency room due to slurry speech. Patient constipated for 7 days and took an enema. Patient had rectal bleeding due to the enema. Patient had weakness Patient has lung cancer and adrenal tumor. Area Patient has abnormal electrolytes, magnesium, and phosphorus. Patient lives alone Discharge Summary Consultations Pulmonology. Oncology. Gen. surgery Discharge Physical Examination Allergies: Coded Allergies: NKANo Known Allergies (Verified Allergy, Unknown, 07/03/18) Vitals & I&Os Vital Signs Date Time Temp Pulse Resp B/P (MAP) Pulse Ox O2 Delivery O2 Flow Rate FiO2 08/06/18 19:30 Room Air 08/06/18 18:00 97 21 121/51 (74) 96 2.00 08/06/18 07:00 97.9 Hospital Course Patient is Quaker. Patient recently had chemotherapy for lung cancer. Patient severely anemic and thrombocytopenic. Patient refused blood. Patient palliative care Labs (last 24 hrs) Laboratory Tests 07/30/18 18:45: White Blood Count 14.1H, Red Blood Count 3.64L, Hemoglobin 11.4L, Hematocrit 32L , Mean Corpuscular Volume 87, Mean Corpuscular Hemoglobin 31, Mean Corpuscular Hemoglobin Concent 36, Red Cell Distribution Width 13.1, Platelet Count 68L, Mean Platelet Volume 10.5H, Sodium Level 124*L, Potassium Level 2.6L, Chloride Level 85L, Carbon Dioxide Level 24, Anion Gap 15H, Blood Urea Nitrogen 10, Creatinine 0.59L, Estimat Glomerular Filtration Rate > 60, BUN/Creatinine Ratio 17, Glucose Level 127H, Calcium Level 9.3, Corrected Calcium 9.7, Magnesium Level 1.5L, Total Bilirubin 1.9H, Aspartate Amino Transf (AST/SGOT) 151H, Alanine Aminotransferase (ALT/SGPT) 85H, Alkaline Phosphatase 319H, C-Reactive Protein High Sensitivity 4.87H, Total Protein 6.4, Albumin 3.5, Serum Alcohol < 10 07/30/18 20:00: Urine Color AMBERH, Urine Clarity CLEAR, Urine pH 6, Urine Specific Hadley 1.010L, Urine Protein 2+H, Urine Glucose (UA) NEGATIVE, Urine Ketones NEGATIVE, Urine Nitrite NEGATIVE, Urine Bilirubin 1+H, Urine Urobilinogen 1, Urine Leukocyte Esterase 1+H, Urine RBC (Auto) NEGATIVE, Urine RBC NONE, Urine WBC 2-5 , Urine Crystals NONE, Urine Bacteria TRACE, Urine Casts PRESENT, Urine Hyaline Casts 5-10H, Urine Mucus SMALLH, Urine Culture Indicated NO, Urine Random Sodium 20 07/31/18 05:15: White Blood Count 11.7H, Red Blood Count 3.25L, Hemoglobin 10.0L, Hematocrit 29L , Mean Corpuscular Volume 88, Mean Corpuscular Hemoglobin 31, Mean Corpuscular Hemoglobin Concent 35, Red Cell Distribution Width 13.0, Platelet Count 53L, Mean Platelet Volume 9.3, Sodium Level 123*L, Potassium Level 3.2L, Chloride Level 89L, Carbon Dioxide Level 23, Anion Gap 11, Blood Urea Nitrogen 9, Creatinine 0.50L, Estimat Glomerular Filtration Rate > 60, BUN/Creatinine Ratio 18, Glucose Level 122H, Calcium Level 8.1L, Corrected Calcium 8.9, Magnesium Level 2.3, Total Bilirubin 1.8H, Aspartate Amino Transf (AST/SGOT) 135H, Alanine Aminotransferase (ALT/SGPT) 73H, Alkaline Phosphatase 271H, Total Protein 5.2L, Albumin 3.0L, Neutrophils (%) (Auto) 78H, Lymphocytes (%) (Auto) 12, Monocytes (%) (Auto) 9, Eosinophils (%) (Auto) 1, Basophils (%) (Auto) 0, Neutrophils # (Auto) 9.1H, Lymphocytes # (Auto) 1.4, Monocytes # (Auto) 1.1H, Eosinophils # (Auto) 0.1, Basophils # (Auto) 0.0, Phosphorus Level 0.7*L, B- Type Natriuretic Peptide 327.9H 07/31/18 16:50: Sodium Level 125*L, Potassium Level 4.1, Chloride Level 95L, Carbon Dioxide Level 20L, Anion Gap 10, Blood Urea Nitrogen 9, Creatinine 0.61, Estimat Glomerular Filtration Rate > 60, BUN/Creatinine Ratio 15, Glucose Level 98, Calcium Level 8.0L, Phosphorus Level 1.6L, B-Type Natriuretic Peptide 772.8H 08/01/18 06:15: White Blood Count 10.7, Red Blood Count 2.94L, Hemoglobin 9.1L, Hematocrit 26L, Mean Corpuscular Volume 90, Mean Corpuscular Hemoglobin 31, Mean Corpuscular Hemoglobin Concent 35, Red Cell Distribution Width 13.7, Platelet Count 58L, Mean Platelet Volume 9.3, Neutrophils (%) (Auto) 77H, Lymphocytes (%) (Auto) 12 , Monocytes (%) (Auto) 10, Eosinophils (%) (Auto) 1, Basophils (%) (Auto) 0, Neutrophils # (Auto) 8.2H, Lymphocytes # (Auto) 1.3, Monocytes # (Auto) 1.1H, Eosinophils # (Auto) 0.1, Basophils # (Auto) 0.0, Sodium Level 131L, Potassium Level 3.3L, Chloride Level 99, Carbon Dioxide Level 23, Anion Gap 9, Blood Urea Nitrogen 8, Creatinine 0.57L, Estimat Glomerular Filtration Rate > 60, BUN/ Creatinine Ratio 14, Glucose Level 107H, Calcium Level 8.7, Corrected Calcium 9.6, Phosphorus Level 1.5L, Magnesium Level 1.6L, Total Bilirubin 2.3H, Aspartate Amino Transf (AST/SGOT) 185H, Alanine Aminotransferase (ALT/SGPT) 88H , Alkaline Phosphatase 326H, Lactate Dehydrogenase 793H, Total Protein 5.4L, Albumin 2.9L 08/02/18 04:50: White Blood Count 9.8, Red Blood Count 2.64L, Hemoglobin 8.2L, Hematocrit 24L, Mean Corpuscular Volume 91, Mean Corpuscular Hemoglobin 31, Mean Corpuscular Hemoglobin Concent 34, Red Cell Distribution Width 13.6, Platelet Count 44L, Mean Platelet Volume 9.5, Neutrophils (%) (Auto) 79H, Lymphocytes (%) (Auto) 11L , Monocytes (%) (Auto) 9, Eosinophils (%) (Auto) 1, Basophils (%) (Auto) 0, Neutrophils # (Auto) 7.7, Lymphocytes # (Auto) 1.1, Monocytes # (Auto) 0.8, Eosinophils # (Auto) 0.1, Basophils # (Auto) 0.0, Sodium Level 133L, Potassium Level 3.9, Chloride Level 99, Carbon Dioxide Level 24, Anion Gap 10, Blood Urea Nitrogen 12, Creatinine 0.57L, Estimat Glomerular Filtration Rate > 60, BUN/ Creatinine Ratio 21, Glucose Level 144H, Calcium Level 8.4L, Corrected Calcium 9.4, Phosphorus Level 3.1, Magnesium Level 2.3, Total Bilirubin 2.7H, Aspartate Amino Transf (AST/SGOT) 189H, Alanine Aminotransferase (ALT/SGPT) 89H, Alkaline Phosphatase 296H, Total Protein 5.1L, Albumin 2.7L 08/03/18 05:00: White Blood Count 9.2, Red Blood Count 2.52L, Hemoglobin 7.9L, Hematocrit 23L, Mean Corpuscular Volume 91, Mean Corpuscular Hemoglobin 31, Mean Corpuscular Hemoglobin Concent 34, Red Cell Distribution Width 14.4, Platelet Count 48L, Mean Platelet Volume 9.6, Neutrophils (%) (Auto) 86H, Lymphocytes (%) (Auto) 9L , Monocytes (%) (Auto) 5, Eosinophils (%) (Auto) 0, Basophils (%) (Auto) 0, Neutrophils # (Auto) 7.9H, Lymphocytes # (Auto) 0.9L, Monocytes # (Auto) 0.5, Eosinophils # (Auto) 0.0, Basophils # (Auto) 0.0, Sodium Level 132L, Potassium Level 4.9, Chloride Level 101, Carbon Dioxide Level 23, Anion Gap 8, Blood Urea Nitrogen 19H, Creatinine 0.64, Estimat Glomerular Filtration Rate > 60, BUN/ Creatinine Ratio 30, Glucose Level 125H, Calcium Level 8.8, Corrected Calcium 9.8, Phosphorus Level 3.1, Magnesium Level 2.1, Total Bilirubin 2.2H, Aspartate Amino Transf (AST/SGOT) 229H, Alanine Aminotransferase (ALT/SGPT) 102H, Alkaline Phosphatase 334H, Total Protein 5.2L, Albumin 2.8L 08/04/18 06:00: White Blood Count 4.8, Red Blood Count 2.25L, Hemoglobin 7.0L, Hematocrit 21L, Mean Corpuscular Volume 92, Mean Corpuscular Hemoglobin 31, Mean Corpuscular Hemoglobin Concent 34, Red Cell Distribution Width 14.2, Platelet Count 33*L, Mean Platelet Volume 9.0, Neutrophils (%) (Auto) 82H, Lymphocytes (%) (Auto) 14 , Monocytes (%) (Auto) 3, Eosinophils (%) (Auto) 1, Basophils (%) (Auto) 0, Neutrophils # (Auto) 3.9, Lymphocytes # (Auto) 0.7L, Monocytes # (Auto) 0.2, Eosinophils # (Auto) 0.1, Basophils # (Auto) 0.0, Sodium Level 131L, Potassium Level 5.2H, Chloride Level 99, Carbon Dioxide Level 23, Anion Gap 9, Blood Urea Nitrogen 26H, Creatinine 0.56L, Estimat Glomerular Filtration Rate > 60, BUN/ Creatinine Ratio 46, Glucose Level 97, Calcium Level 8.2L, Phosphorus Level 3.7 , Magnesium Level 1.9, Neutrophils % (Manual) 77, Lymphocytes % (Manual) 12, Monocytes % (Manual) 5, Eosinophils % (Manual) 2, Basophils % (Manual) 1, Band Neutrophils 3, Absolute Reticulocyte Count 24, Percent Reticulocyte Count 1.07, Haptoglobin 30.0L, Iron Level 182H, Total Iron Binding Capacity <237L, Total Iron Binding Capacity (Send O 241L, Unsaturated Iron Binding Capacity <55L, Transferrin 150L, Transferrin Saturation 86H, Transferrin % Saturation See Est % SatH, Ferritin 1645.1H, Vitamin B12 Level 831, Folate 9.3 08/05/18 04:45: White Blood Count 2.3L, Red Blood Count 1.80L, Hemoglobin 5.6*L, Hematocrit 16*L , Mean Corpuscular Volume 91, Mean Corpuscular Hemoglobin 31, Mean Corpuscular Hemoglobin Concent 34, Red Cell Distribution Width 14.3, Platelet Count 24*L, Mean Platelet Volume 9.0, Neutrophils (%) (Auto) 73, Lymphocytes (%) (Auto) 24, Monocytes (%) (Auto) 2, Eosinophils (%) (Auto) 1, Basophils (%) (Auto) 0, Neutrophils # (Auto) 1.7L, Lymphocytes # (Auto) 0.5L, Monocytes # (Auto) 0.1, Eosinophils # (Auto) 0.0, Basophils # (Auto) 0.0, Sodium Level 132L, Potassium Level 5.2H, Chloride Level 101, Carbon Dioxide Level 22, Anion Gap 9, Blood Urea Nitrogen 30H, Creatinine 0.62, Estimat Glomerular Filtration Rate > 60, BUN /Creatinine Ratio 48, Glucose Level 90, Calcium Level 8.0L, Phosphorus Level 4.6 , Magnesium Level 2.0 08/05/18 09:00: Stool Occult Blood Immunoassay POSITIVEH 08/05/18 09:10: White Blood Count 1.9L, Red Blood Count 1.71L, Hemoglobin 5.4*L, Hematocrit 16*L , Mean Corpuscular Volume 91, Mean Corpuscular Hemoglobin 32, Mean Corpuscular Hemoglobin Concent 35, Red Cell Distribution Width 14.3, Platelet Count 18*L, Mean Platelet Volume 8.9, Prothrombin Time 16.2H, INR Comment 1.3, Activated Partial Thromboplast Time 39H, Lactic Acid Level 1.43, B-Type Natriuretic Peptide 276.2H 08/06/18 03:35: White Blood Count 1.1*L, Red Blood Count 1.37L, Hemoglobin 4.1#*L, Hematocrit 13 *L, Mean Corpuscular Volume 92, Mean Corpuscular Hemoglobin 30, Mean Corpuscular Hemoglobin Concent 33, Red Cell Distribution Width 14.4, Platelet Count 11*L, Mean Platelet Volume 9.3, Neutrophils (%) (Auto) 65, Lymphocytes (% ) (Auto) 28, Monocytes (%) (Auto) 6, Eosinophils (%) (Auto) 1, Basophils (%) ( Auto) 1, Neutrophils # (Auto) 0.7L, Lymphocytes # (Auto) 0.3L, Monocytes # (Auto ) 0.1, Eosinophils # (Auto) 0.0, Basophils # (Auto) 0.0, Sodium Level 138, Potassium Level 4.0, Chloride Level 107, Carbon Dioxide Level 23, Anion Gap 8, Blood Urea Nitrogen 20H, Creatinine 0.56L, Estimat Glomerular Filtration Rate > 60, BUN/Creatinine Ratio 36, Glucose Level 99, Calcium Level 7.6L, Phosphorus Level 4.1, Magnesium Level 2.3 Laboratory Tests 07/30/18 18:45 07/31/18 05:15 07/31/18 16:50 08/01/18 06:15 08/02/18 04:50 08/03/18 05:00 08/04/18 06:00 08/05/18 04:45 08/05/18 09:10 08/06/18 03:35 Pending Labs Laboratory Tests 07/30/18 18:45: White Blood Count 14.1, Red Blood Count 3.64, Hemoglobin 11.4, Hematocrit 32, Mean Corpuscular Volume 87, Mean Corpuscular Hemoglobin 31, Mean Corpuscular Hemoglobin Concent 36, Red Cell Distribution Width 13.1, Platelet Count 68, Mean Platelet Volume 10.5, Sodium Level 124, Potassium Level 2.6, Chloride Level 85, Carbon Dioxide Level 24, Anion Gap 15, Blood Urea Nitrogen 10, Creatinine 0.59, Estimat Glomerular Filtration Rate > 60, BUN/Creatinine Ratio 17, Glucose Level 127, Calcium Level 9.3, Corrected Calcium 9.7, Magnesium Level 1.5, Total Bilirubin 1.9, Aspartate Amino Transf (AST/SGOT) 151, Alanine Aminotransferase (ALT/SGPT) 85, Alkaline Phosphatase 319, C-Reactive Protein High Sensitivity 4.87, Total Protein 6.4, Albumin 3.5, Serum Alcohol < 10 07/30/18 20:00: Urine Color SEMAJ, Urine Clarity CLEAR, Urine pH 6, Urine Specific Hadley 1.010 , Urine Protein 2+, Urine Glucose (UA) NEGATIVE, Urine Ketones NEGATIVE, Urine Nitrite NEGATIVE, Urine Bilirubin 1+, Urine Urobilinogen 1, Urine Leukocyte Esterase 1+, Urine RBC (Auto) NEGATIVE, Urine RBC NONE, Urine WBC 2-5, Urine Crystals NONE, Urine Bacteria TRACE, Urine Casts PRESENT, Urine Hyaline Casts 5- 10, Urine Mucus SMALL, Urine Culture Indicated NO, Urine Random Sodium 20 07/31/18 05:15: White Blood Count 11.7, Red Blood Count 3.25, Hemoglobin 10.0, Hematocrit 29, Mean Corpuscular Volume 88, Mean Corpuscular Hemoglobin 31, Mean Corpuscular Hemoglobin Concent 35, Red Cell Distribution Width 13.0, Platelet Count 53, Mean Platelet Volume 9.3, Sodium Level 123, Potassium Level 3.2, Chloride Level 89, Carbon Dioxide Level 23, Anion Gap 11, Blood Urea Nitrogen 9, Creatinine 0.50, Estimat Glomerular Filtration Rate > 60, BUN/Creatinine Ratio 18, Glucose Level 122, Calcium Level 8.1, Corrected Calcium 8.9, Magnesium Level 2.3, Total Bilirubin 1.8, Aspartate Amino Transf (AST/SGOT) 135, Alanine Aminotransferase ( ALT/SGPT) 73, Alkaline Phosphatase 271, Total Protein 5.2, Albumin 3.0, Neutrophils (%) (Auto) 78, Lymphocytes (%) (Auto) 12, Monocytes (%) (Auto) 9, Eosinophils (%) (Auto) 1, Basophils (%) (Auto) 0, Neutrophils # (Auto) 9.1, Lymphocytes # (Auto) 1.4, Monocytes # (Auto) 1.1, Eosinophils # (Auto) 0.1, Basophils # (Auto) 0.0, Phosphorus Level 0.7, B-Type Natriuretic Peptide 327.9 07/31/18 16:50: Sodium Level 125, Potassium Level 4.1, Chloride Level 95, Carbon Dioxide Level 20, Anion Gap 10, Blood Urea Nitrogen 9, Creatinine 0.61, Estimat Glomerular Filtration Rate > 60, BUN/Creatinine Ratio 15, Glucose Level 98, Calcium Level 8.0, Phosphorus Level 1.6, B-Type Natriuretic Peptide 772.8 08/01/18 06:15: White Blood Count 10.7, Red Blood Count 2.94, Hemoglobin 9.1, Hematocrit 26, Mean Corpuscular Volume 90, Mean Corpuscular Hemoglobin 31, Mean Corpuscular Hemoglobin Concent 35, Red Cell Distribution Width 13.7, Platelet Count 58, Mean Platelet Volume 9.3, Neutrophils (%) (Auto) 77, Lymphocytes (%) (Auto) 12, Monocytes (%) (Auto) 10, Eosinophils (%) (Auto) 1, Basophils (%) (Auto) 0, Neutrophils # (Auto) 8.2, Lymphocytes # (Auto) 1.3, Monocytes # (Auto) 1.1, Eosinophils # (Auto) 0.1, Basophils # (Auto) 0.0, Sodium Level 131, Potassium Level 3.3, Chloride Level 99, Carbon Dioxide Level 23, Anion Gap 9, Blood Urea Nitrogen 8, Creatinine 0.57, Estimat Glomerular Filtration Rate > 60, BUN/ Creatinine Ratio 14, Glucose Level 107, Calcium Level 8.7, Corrected Calcium 9.6 , Phosphorus Level 1.5, Magnesium Level 1.6, Total Bilirubin 2.3, Aspartate Amino Transf (AST/SGOT) 185, Alanine Aminotransferase (ALT/SGPT) 88, Alkaline Phosphatase 326, Lactate Dehydrogenase 793, Total Protein 5.4, Albumin 2.9 08/02/18 04:50: White Blood Count 9.8, Red Blood Count 2.64, Hemoglobin 8.2, Hematocrit 24, Mean Corpuscular Volume 91, Mean Corpuscular Hemoglobin 31, Mean Corpuscular Hemoglobin Concent 34, Red Cell Distribution Width 13.6, Platelet Count 44, Mean Platelet Volume 9.5, Neutrophils (%) (Auto) 79, Lymphocytes (%) (Auto) 11, Monocytes (%) (Auto) 9, Eosinophils (%) (Auto) 1, Basophils (%) (Auto) 0, Neutrophils # (Auto) 7.7, Lymphocytes # (Auto) 1.1, Monocytes # (Auto) 0.8, Eosinophils # (Auto) 0.1, Basophils # (Auto) 0.0, Sodium Level 133, Potassium Level 3.9, Chloride Level 99, Carbon Dioxide Level 24, Anion Gap 10, Blood Urea Nitrogen 12, Creatinine 0.57, Estimat Glomerular Filtration Rate > 60, BUN/ Creatinine Ratio 21, Glucose Level 144, Calcium Level 8.4, Corrected Calcium 9.4 , Phosphorus Level 3.1, Magnesium Level 2.3, Total Bilirubin 2.7, Aspartate Amino Transf (AST/SGOT) 189, Alanine Aminotransferase (ALT/SGPT) 89, Alkaline Phosphatase 296, Total Protein 5.1, Albumin 2.7 08/03/18 05:00: White Blood Count 9.2, Red Blood Count 2.52, Hemoglobin 7.9, Hematocrit 23, Mean Corpuscular Volume 91, Mean Corpuscular Hemoglobin 31, Mean Corpuscular Hemoglobin Concent 34, Red Cell Distribution Width 14.4, Platelet Count 48, Mean Platelet Volume 9.6, Neutrophils (%) (Auto) 86, Lymphocytes (%) (Auto) 9, Monocytes (%) (Auto) 5, Eosinophils (%) (Auto) 0, Basophils (%) (Auto) 0, Neutrophils # (Auto) 7.9, Lymphocytes # (Auto) 0.9, Monocytes # (Auto) 0.5, Eosinophils # (Auto) 0.0, Basophils # (Auto) 0.0, Sodium Level 132, Potassium Level 4.9, Chloride Level 101, Carbon Dioxide Level 23, Anion Gap 8, Blood Urea Nitrogen 19, Creatinine 0.64, Estimat Glomerular Filtration Rate > 60, BUN/ Creatinine Ratio 30, Glucose Level 125, Calcium Level 8.8, Corrected Calcium 9.8 , Phosphorus Level 3.1, Magnesium Level 2.1, Total Bilirubin 2.2, Aspartate Amino Transf (AST/SGOT) 229, Alanine Aminotransferase (ALT/SGPT) 102, Alkaline Phosphatase 334, Total Protein 5.2, Albumin 2.8 08/04/18 06:00: White Blood Count 4.8, Red Blood Count 2.25, Hemoglobin 7.0, Hematocrit 21, Mean Corpuscular Volume 92, Mean Corpuscular Hemoglobin 31, Mean Corpuscular Hemoglobin Concent 34, Red Cell Distribution Width 14.2, Platelet Count 33, Mean Platelet Volume 9.0, Neutrophils (%) (Auto) 82, Lymphocytes (%) (Auto) 14, Monocytes (%) (Auto) 3, Eosinophils (%) (Auto) 1, Basophils (%) (Auto) 0, Neutrophils # (Auto) 3.9, Lymphocytes # (Auto) 0.7, Monocytes # (Auto) 0.2, Eosinophils # (Auto) 0.1, Basophils # (Auto) 0.0, Sodium Level 131, Potassium Level 5.2, Chloride Level 99, Carbon Dioxide Level 23, Anion Gap 9, Blood Urea Nitrogen 26, Creatinine 0.56, Estimat Glomerular Filtration Rate > 60, BUN/ Creatinine Ratio 46, Glucose Level 97, Calcium Level 8.2, Phosphorus Level 3.7, Magnesium Level 1.9, Neutrophils % (Manual) 77, Lymphocytes % (Manual) 12, Monocytes % (Manual) 5, Eosinophils % (Manual) 2, Basophils % (Manual) 1, Band Neutrophils 3, Absolute Reticulocyte Count 24, Percent Reticulocyte Count 1.07, Haptoglobin 30.0, Iron Level 182, Total Iron Binding Capacity <237, Total Iron Binding Capacity (Send O 241, Unsaturated Iron Binding Capacity <55, Transferrin 150, Transferrin Saturation 86, Transferrin % Saturation See Est % Sat, Ferritin 1645.1, Vitamin B12 Level 831, Folate 9.3 08/05/18 04:45: White Blood Count 2.3, Red Blood Count 1.80, Hemoglobin 5.6, Hematocrit 16, Mean Corpuscular Volume 91, Mean Corpuscular Hemoglobin 31, Mean Corpuscular Hemoglobin Concent 34, Red Cell Distribution Width 14.3, Platelet Count 24, Mean Platelet Volume 9.0, Neutrophils (%) (Auto) 73, Lymphocytes (%) (Auto) 24, Monocytes (%) (Auto) 2, Eosinophils (%) (Auto) 1, Basophils (%) (Auto) 0, Neutrophils # (Auto) 1.7, Lymphocytes # (Auto) 0.5, Monocytes # (Auto) 0.1, Eosinophils # (Auto) 0.0, Basophils # (Auto) 0.0, Sodium Level 132, Potassium Level 5.2, Chloride Level 101, Carbon Dioxide Level 22, Anion Gap 9, Blood Urea Nitrogen 30, Creatinine 0.62, Estimat Glomerular Filtration Rate > 60, BUN/ Creatinine Ratio 48, Glucose Level 90, Calcium Level 8.0, Phosphorus Level 4.6, Magnesium Level 2.0 08/05/18 09:00: Stool Occult Blood Immunoassay POSITIVE 08/05/18 09:10: White Blood Count 1.9, Red Blood Count 1.71, Hemoglobin 5.4, Hematocrit 16, Mean Corpuscular Volume 91, Mean Corpuscular Hemoglobin 32, Mean Corpuscular Hemoglobin Concent 35, Red Cell Distribution Width 14.3, Platelet Count 18, Mean Platelet Volume 8.9, Prothrombin Time 16.2, INR Comment 1.3, Activated Partial Thromboplast Time 39, Lactic Acid Level 1.43, B-Type Natriuretic Peptide 276.2 08/06/18 03:35: White Blood Count 1.1, Red Blood Count 1.37, Hemoglobin 4.1, Hematocrit 13, Mean Corpuscular Volume 92, Mean Corpuscular Hemoglobin 30, Mean Corpuscular Hemoglobin Concent 33, Red Cell Distribution Width 14.4, Platelet Count 11, Mean Platelet Volume 9.3, Neutrophils (%) (Auto) 65, Lymphocytes (%) (Auto) 28, Monocytes (%) (Auto) 6, Eosinophils (%) (Auto) 1, Basophils (%) (Auto) 1, Neutrophils # (Auto) 0.7, Lymphocytes # (Auto) 0.3, Monocytes # (Auto) 0.1, Eosinophils # (Auto) 0.0, Basophils # (Auto) 0.0, Sodium Level 138, Potassium Level 4.0, Chloride Level 107, Carbon Dioxide Level 23, Anion Gap 8, Blood Urea Nitrogen 20, Creatinine 0.56, Estimat Glomerular Filtration Rate > 60, BUN/ Creatinine Ratio 36, Glucose Level 99, Calcium Level 7.6, Phosphorus Level 4.1, Magnesium Level 2.3 Discussion & Recommendations Patient Discharge Home Medications: Active Scripts Active Reported Sodium Chloride 1 Gm Tab 2 Gm PO DAILY TAKES 2 (1GM) TABLETS Lisinopril 10 Mg Tablet 10 Mg PO DAILY Clopidogrel (Clopidogrel Bisulfate) 75 Mg Tablet 75 Mg PO DAILY Cartia Xt (Diltiazem HCl) 180 Mg Cap.er.24h 180 Mg PO DAILY Simvastatin 20 Mg Tablet 20 Mg PO HS Centrum Silver Tablet (Multivit-Min/FA/Lycopene/Lut) 1 Each Tablet 1 Tab PO DAILY Calcium 600 + Vit D 800 Tab (Calcium Carbonate/Vitamin D3) 1 Each Tablet 1 Tab PO HS Aspirin EC (Aspirin) 81 Mg Tablet. 81 Mg PO HS Instructions to patient/family Please see electronic discharge instructions given to patient. Clinical Quality Measures DVT/VTE Risk/Contraindication: Risk Factor Score Per Nursin RFS Level Per Nursing on Admit: 3=High ISIDRO IRIZARRY DO Aug 08, 2018 07:18
== END 2018-08-06 23:15 | disposition expired | DRG 181 ==
LOC: EDUNIT# 18:14 → ER 18:17 → 4TH 20:55 → ICU 08-05 10:42 → 4TH 08-06 19:28
PROVIDERS: ADMIT Family Medicine; ATTEND Family Medicine
PROC: 0DJ08ZZ Inspection of Upper Intestinal Tract, Via Natural or Artificial Opening Endoscopic (ICD-10-PCS; principal; 2018-08-05 15:30)
DX: C34.91 Malignant neoplasm of unspecified part of right bronchus or lung (principal); C78.7 Secondary malignant neoplasm of liver and intrahepatic bile duct; C79.72 Secondary malignant neoplasm of left adrenal gland; C79.51 Secondary malignant neoplasm of bone; E22.2 Syndrome of inappropriate secretion of antidiuretic hormone; K62.5 Hemorrhage of anus and rectum; D61.818 Other pancytopenia; S36.63XA Laceration of rectum, initial encounter; Z66 Do not resuscitate; Z51.5 Encounter for palliative care; E87.6 Hypokalemia; E83.42 Hypomagnesemia; E83.39 Other disorders of phosphorus metabolism; E87.5 Hyperkalemia; K29.70 Gastritis, unspecified, without bleeding; I48.0 Paroxysmal atrial fibrillation; I87.2 Venous insufficiency (chronic) (peripheral); I10 Essential (primary) hypertension; I73.9 Peripheral vascular disease, unspecified; R47.81 Slurred speech; R53.1 Weakness; Z53.1 Procedure and treatment not carried out because of patient's decision for reasons of belief and group pressure; Z60.2 Problems related to living alone; W26.8XXA Contact with other sharp object(s), not elsewhere classified, initial encounter; Y92.009 Unspecified place in unspecified non-institutional (private) residence as the place of occurrence of the external cause; Z79.02 Long term (current) use of antithrombotics/antiplatelets; Z87.891 Personal history of nicotine dependence
CPT/HCPCS: 36415; 70553; 71045; 74022; 74178; 78306; 80048; 80053; 80320; 81000; 82274; 82607; 82728; 82746; 83010; 83540; 83605; 83615; 83735; 83880; 84100; 84300; 84466; 85007; 85025; 85027; 85045; 85610; 85730; 86141; 86850; 86900; 86901; 93005; 96365; 96367; 96375; 96413; 96417